=== PATIENT | female | born 1975 | race Caucasian/White ===

== ENCOUNTER 2024-01-25 19:21 | Emergency (ER) | payer BC, SELFPAY ==
[2024-01-25] VITALS (12 sets, daily range): BP systolic 168–195; BP diastolic 92–128; PULSE 70–100; TEMP 37.3; O2SAT 97–100; BMI 33.7
--- NOTE | 2024-01-25 19:39 | CT_ITS ---
The [address] [address] Patient Name: MARYCRUZ WHITE MRN: [id number] date: 1975 Sex: F Assigned Patient Location: ER Current Patient Location: Accession/Order Number: [id number] Exam Date: 01/25/2024 19:58 Report Date: 01/25/2024 20:45 At the request of: MORENO MILES Procedure: CT soft tissue neck w con EXAM: CT soft tissue neck w con HISTORY: Peritonsillar abscess COMPARISON: None. TECHNIQUE: IV contrast enhanced CT imaging of the neck. This CT exam was performed using one or more of the following dose reduction techniques: Automated exposure control, adjustment of the mA and/or KV according to patient size, or use of iterative reconstruction technique. Unless otherwise stated, incidental findings do not require dedicated follow-up imaging. FINDINGS: The skull base is intact. There is mucus retention cysts within the maxillary sinuses. Intracranial contents are midline. The parotid and submandibular glands are symmetric. The thyroid enhances homogeneously. There is mild hyperemia and heterogeneous enhancement of the palatine tonsils bilaterally. There is mild asymmetric enlargement of the right palatine tonsil. There is no peritonsillar abscess. The nasopharynx, oropharynx, hypopharynx, larynx, and trachea remain patent and symmetric. There are shotty cervical lymph nodes bilaterally. CT/CT soft tissue neck w con IMPRESSION: 1. Acute tonsillitis without abscess. Electronically authenticated by: RAUDEL MORIN Date: 01/25/2024 20:45
--- NOTE | 2024-01-25 19:42 | ED.URI1 ---
HPI - URI/Sore Throat General Chief Complaint: Upper Respiratory Infection Stated Complaint: Sore Throat, Neck Swelling Time Seen by Provider: 01/25/24 19:26 Source: patient Limitations: no limitations History of Present Illness HPI Narrative: Patient is a 48-year-old female who presents to the emergency department for worsening sore throat and difficulty swallowing. She called her PCP office 2 days ago to report a sore throat, she travels for work so her PCP called in an antibiotic without seeing her in the office, no testing has been ordered. She has been on cefdinir for 48 hours. She states her sore throat is worsening on the right side. She has had subjective fever with no objective elevated temperature. No vomiting or diarrhea. She reports poor appetite but is able to pass fluids without difficulty. She has clear speech at initial interview. She states initially her symptoms were more sinus related but have quickly progressed to the sore throat. She is not concerned for with a previous hysterectomy. Related Data Home Medications ?Medication ?Instructions ?Recorded ?Confirmed cyclobenzaprine 10 mg tablet mg 01/25/24 promethazine 25 mg tablet mg 01/25/24 Previous Rx's ?Medication ?Instructions ?Recorded clindamycin HCl 150 mg capsule 300 mg (2 x 150 mg) PO Q6H 10 days 01/25/24 #80 caps dexamethasone 4 mg tablet 4 mg PO BID 5 days #10 tabs 01/25/24 ketorolac 10 mg tablet 10 mg PO TID PRN pain #10 tabs 01/25/24 Allergies Allergy/AdvReac Type Severity Reaction Status Date / Time vancomycin AdvReac Intermediate Verified 01/25/24 19:30 Review of Systems ROS Constitutional Reports: chills; Denies: fever Ears, nose, mouth, and throat Reports: throat pain and nasal congestion Cardiovascular Denies: chest pain Respiratory Denies: shortness of breath or cough Gastrointestinal Denies: nausea or vomiting Musculoskeletal Denies: back pain Integumentary/Breast Denies: rash Neurological Denies: headache Hematologic/Lymphatic Denies: easy bruising or easy bleeding Exam Narrative Exam Narrative: Gen.: Awake, alert, in no distress Head: Normocephalic, atraumatic ENT: Moist mucous membranes, Airway widely open and patent with bilateral and symmetric tonsillar edema, exudate to the right tonsil. Uvula is midline with no trismus or drooling. No redness or swelling under the tongue Respiratory: No respiratory distress, lungs clear bilaterally Cardio: Regular rate and rhythm Extremities: Moves extremities equally Psych: Normal mood and affect Neuro: No focal neuro deficit Skin: Warm, dry, intact Constitutional Vital Signs, click to edit/add: Last Vital Signs Temp 99.1 F 01/25/24 19:31 Pulse 70 01/25/24 21:00 Resp 16 01/25/24 21:00 BP 168/92 H 01/25/24 22:02 Pulse Ox 98 01/25/24 21:50 Course Vital Signs Vital signs: Vital Signs Temperature 99.1 F 01/25/24 19:31 Pulse Rate 100 H 01/25/24 19:31 Respiratory Rate 16 01/25/24 19:31 Blood Pressure 180/110 H 01/25/24 19:31 Pulse Oximetry 100 01/25/24 19:31 Temperature 99.1 F 01/25/24 19:31 Pulse Rate 70 01/25/24 21:00 Respiratory Rate 16 01/25/24 21:00 Blood Pressure 168/92 H 01/25/24 22:02 Pulse Oximetry 98 01/25/24 21:50 MDM - URI/Sore Throat MDM Narrative Medical decision making narrative: Patient ordered to have IV fluids, IV clindamycin, IV Toradol and Decadron for symptoms. CT of the soft tissue of the neck shows tonsillitis without abscess, lab studies with no evidence of significant infection. Patient switched to clindamycin, Decadron for home. Follow-up with PCP and return to the emergency department if symptoms change or worsen. Blood pressure was noted to be elevated at recheck at discharge at 195/100. Patient was treated with IV labetalol and instructed to follow-up with her PCP for recheck of her blood pressure. Medical Records Attestation: I reviewed the patient's medical records. Lab Data Attestation: I reviewed the patient's lab results. Labs: Lab Results 01/25/24 01/25/24 Range/Units 19:48 19:49 WBC 9.2 (4.0-11.0) 10^3/uL RBC 4.91 (4.20-5.40) 10^6/uL Hgb 15.0 (12.0-16.0) g/dL Hct 43.8 (36.0-48.0) % MCV 89.2 (81.0-99.0) fL MCH 30.5 (26.7-34.0) pg MCHC 34.2 (29.9-35.2) g/dL RDW 13.6 (11.0-15.0) % Plt Count 276 (150-450) 10^3/uL MPV 9.3 L (9.5-13.5) fL Neut % (Auto) 68.3 (43.0-75.0) % Lymph % (Auto) 21.4 (20.5-60.0) % [place] % (Auto) 8.2 (1.7-12.0) % Eos % (Auto) 1.5 (0.9-7.0) % Baso % (Auto) 0.5 (0.2-2.0) % Neut # (Auto) 6.3 (1.4-6.5) 10^3/uL Lymph # (Auto) 2.0 (1.2-3.8) 10^3/uL [place] # (Auto) 0.8 (0.3-0.8) 10^3/uL Eos # (Auto) 0.1 (0.0-0.7) 10^3/uL Baso # (Auto) 0.1 (0.0-0.1) 10^3/uL Abs Immat Gran (auto) 0.01 (0.00-0.03) 10^3/uL Imm/Tot Granulo (auto) 0.1 (0.0-0.5) % Sodium 139 (136-145) mmol/L Potassium 3.5 (3.5-5.1) mmol/L Chloride 102 (98-107) mmol/L Carbon Dioxide 27.3 (21.0-32.0) mmol/L Anion Gap 13.2 BUN 8.0 (7.0-18.0) mg/dL Creatinine 0.88 (0.55-1.02) mg/dL Est GFR ( Amer) >60 (>=60) Est GFR (Non-Af Amer) >60 (>=60) BUN/Creatinine Ratio 9.1 Glucose 92 (74-106) mg/dL Calcium 9.1 (8.5-10.1) mg/dL Total Bilirubin 0.4 (0.2-1.0) mg/dL AST 31 (15-37) U/L ALT 44 (14-59) U/L Alkaline Phosphatase 92 (46-116) U/L Total Protein 8.0 (6.4-8.2) g/dL Albumin 3.7 (3.4-5.0) g/dL Globulin 4.3 g/dL Albumin/Globulin Ratio 0.9 Monoscreen Negative (NEGATIVE) Streptococcus Screen Negative Imaging Data CT neck: Attestation: I have reviewed the pertinent imaging results. Radiologist's impression: ITS Impressions Soft Tissue Neck CT 01/25/24 19:39 IMPRESSION: 1. Acute tonsillitis without abscess. Electronically authenticated by: RAUDEL MORIN Date: 01/25/2024 20:45 Discharge Plan Discharge Stand Alone Forms: Portal Instructions Chief Complaint: Upper Respiratory Infection Clinical Impression: Acute tonsillitis Patient Disposition: Home, Self-Care Time of Disposition Decision: 20:53 Condition: Good Prescriptions / Home Meds: New clindamycin HCl 150 mg capsule 300 mg PO Q6H 10 Days Qty: 80 0RF ketorolac 10 mg tablet 10 mg PO TID PRN (Reason: pain) Qty: 10 0RF dexamethasone 4 mg tablet 4 mg PO BID 5 Days Qty: 10 0RF No Action cyclobenzaprine 10 mg tablet promethazine 25 mg tablet Print Language: Divehi Instructions: Tonsillitis (ED) Referrals: Mata Conroy MD [Primary Care Provider] - 1 week Discharge Date/Time: 01/25/24 22:02
[2024-01-25 20:02] LABS: Basophils Absolute Auto 0.1 10^3/uL (0.0-0.1); Basophils Percent Auto 0.5 % (0.2-2.0); Eosinophils Absolute Auto 0.1 10^3/uL (0.0-0.7); Eosinophils Percent Auto 1.5 % (0.9-7.0); Hematocrit 43.8 % (36.0-48.0); Immature Granulocytes Abs Auto 0.01 10^3/uL (0.00-0.03); Immature Granulocytes Pct Auto 0.1 % (0.0-0.5); Lymphocytes Percent Auto 21.4 % (20.5-60.0); Mean Corpuscular HGB Conc 34.2 g/dL (29.9-35.2); Mean Corpuscular Hemoglobin 30.5 pg (26.7-34.0); Mean Corpuscular Volume 89.2 fL (81.0-99.0); Mean Platelet Volume 9.3 fL (9.5-13.5); Monocytes Absolute Auto 0.8 10^3/uL (0.3-0.8); Monocytes Percent Auto 8.2 % (1.7-12.0); Neutrophils Absolute Auto 6.3 10^3/uL (1.4-6.5); Neutrophils Percent Auto 68.3 % (43.0-75.0); Platelet Count 276 10^3/uL (150-450); Red Blood Count 4.91 10^6/uL (4.20-5.40); Red Cell Distribution Width 13.6 % (11.0-15.0); White Blood Count 9.2 10^3/uL (4.0-11.0)
[2024-01-25 20:09] LABS: Internal Control Within Normal Limits; Strep A Antigen Screen Negative
[2024-01-25 20:13] LABS: Internal Control Within Normal Limits; Mono Screen NEGATIVE (NEGATIVE)
[2024-01-25] MEDS: KETOROLAC TROMETHAMINE 30 MG/ML VIAL IVP (20:19)
[2024-01-25 20:20] LABS: Alanine Aminotransferase 44 U/L (14-59); Albumin Globulin Ratio 0.9; Albumin Level 3.7 g/dL (3.4-5.0); Alkaline Phosphatase 92 U/L (46-116); Anion Gap 13.2; Aspartate Amino Transferase 31 U/L (15-37); BUN Creatinine Ratio 9.1; Bilirubin Total 0.4 mg/dL (0.2-1.0); Calcium 9.1 mg/dL (8.5-10.1); Carbon Dioxide 27.3 mmol/L (21.0-32.0); Chloride 102 mmol/L (98-107); Estimated GFR (African America >60 (>=60); Estimated GFR (Non-African Ame >60 (>=60); Globulin 4.3 g/dL; Glucose 92 mg/dL (74-106); Potassium 3.5 mmol/L (3.5-5.1); Sodium 139 mmol/L (136-145)
[2024-01-25] MEDS: DEXAMETHASONE SOD PHOS 10 MG/ML VIAL IV (20:20)
[2024-01-25] MEDS: 0.9 % SODIUM CHLORIDE 1,000 ML 999 ML IV (20:20)
[2024-01-25] MEDS: CLINDAMYCIN PHOSPHATE/D5W 600 MG/50 ML PIGGYBACK 100 MG IV (20:20)
[2024-01-25] MEDS: LABETALOL HCL 20 MG/4 ML SYRINGE IVP (21:24)
== END 2024-01-25 22:02 | disposition home or self-care (01) ==
PROVIDERS: Physician Assistant; Emergency Provider Internal Medicine; PCP Family Medicine
DX: J03.90 Acute tonsillitis, unspecified (principal); Z90.710 Acquired absence of both cervix and uterus
CPT/HCPCS: 36415; 70491; 80053; 85025; 86308; 87070; 87880; 96365; 96375; 99285; J1100; J1290; J1885; Q9967

== ENCOUNTER 2025-04-02 10:37 | Outpatient (OUT) | payer BC, SELFPAY ==
--- OUTSIDE RECORDS SUMMARY | 2025-04-02 10:41 | XMS_ITS | Encounter Summary ---
Author Organization [facility] Address [address] [place] [address] Care Team Providers Care Fire Hose Curer Name Role Phone Mata Conroy MD Primary Care Provider [phone] Isabell Mack RN Unavailable Unavailable Source Comments In the event this information is protected by the Federal Confidentiality of Alcohol and Drug AbusePatient Records regulations: The Federal rules restrict any use of the information to criminally investigate or prosecute any alcohol or drug abuse patient.[facility] Encounter Details Date Type Department Care Team (Late st Contact Info) Description 07/07/2020 Get Medical Advice General Surgery [address] [phone] Vincent Urena MD [address] [place] [address] RE: Non-Urgent Medical Question Social History Tobacco Use Types Packs/Day Years Used Date Smoking Tobacco: Former Cigarettes 0.3 15 1 10/05/1998 - 08/04/2014 Smokeless Tobacco: Never Comments:quit 08/04/14 Alcohol Use Standard Drinks/Week Comments Not Currently 0 (1 standard drink = 0.6 oz pure alcohol) social - once a month or less AUDIT-C Answer Date Recorded Q1: How often do you have a drink containing alc ohol? Monthly or less 07/01/2020 Q2: How many drinks containi ng alcohol do you have on a typical day when you are drinking? 1 or 2 07/01/2020 Q3: How often do you have si x or more drinks on one occasion? Never 07/01/2020 PHQ-2 Answer Date Recorded PHQ-2 score 0 03/31/2020 Comments No Sex and Gender Information Value Date Recorded Sex Assigned at Not on file Legal Sex Female 10:14 AM EST Gender Identity Not on file Sexual Orientation Not on file Occupation Industry Job Start Date Job End Date [employer] Not on file Not on file Not on file COVID-19 Exposure Response Date Recorded In the last month, have you been in contact with someone who was confirmed or suspected to have Coronavirus / COVID-19? No / Unsure 07/07/2020 6:33 AM EST documented as of this encounter Functional Status * Are you deaf or do you have serious difficulty hearing? Answer Date of Assessment Author No 08/10/2018 2:29 PM Tammy Harrell RN * Are you blind or do you have serious difficulty seeing, even when wearing glasses? Answer Date of Assessment Author No 08/10/2018 2:29 PM Tammy Harrell RN * Do you have serious difficulty walking or climbing stairs? Answer Date of Assessment Author No 08/10/2018 2:29 PM Tammy Harrell RN * Do you have difficulty dressing or bathing? Answer Date of Assessment Author No 08/10/2018 2:29 PM Tammy Harrell RN * Because of a physical, mental, or emotional condition, do you have difficulty doing errands alone such as visiting a doctor's office or shopping? Answer Date of Assessment Author No 08/10/2018 2:29 PM Tammy Harrell RN documented as of this encounter Mental Status * Because of a physical, mental, or emotional condition, do you have serious difficulty concentrating, remembering, or making decisions? Answer Entry Date Author No 08/10/2018 2:29 PM Tammy Harrell RN documented in this encounter Plan of Treatment Not on file documented as of this encounter Visit Diagnoses Not on filedocumented in this encounter Care Teams Fire Hose Curer Relationship Specialty Start Date End Date Mata Conroy MD PCP - General Family Medicine 07/17/14 Isabell Mack, RN Specialty Material Controller 06/14/18 documented as of this encounter
--- OUTSIDE RECORDS SUMMARY | 2025-04-02 10:41 | XMS_ITS | Encounter Summary ---
Author Organization [facility] Address [address] [place] [address] Care Team Providers Care Annual Giving Director Name Role Phone Mata Conroy MD Primary Care Provider [phone] Isabell Mack RN Unavailable Unavailable Source Comments In the event this information is protected by the Federal Confidentiality of Alcohol and Drug AbusePatient Records regulations: The Federal rules restrict any use of the information to criminally investigate or prosecute any alcohol or drug abuse patient.[facility] Encounter Details Date Type Department Care Team (Late st Contact Info) Description 05/21/2020 Get Medical Advice General Surgery BMI [address] [place] [address] Laura Puente APRN.MORTGAGE OPERATIONS MANAGER [address] [place] [address] RE: Visit Follow Up Question Social History Tobacco Use Types Packs/Day Years Used Date Smoking Tobacco: Former Cigarettes 0.3 15 0 01/03/1998 - 01/03/2013 Smokeless Tobacco: Never Comments:quit 08/04/14 Alcohol Use Standard Drinks/Week Comments Not Currently 0 (1 standard drink = 0.6 oz pure alcohol) social - once a month or less AUDIT-C Answer Date Recorded Q1: How often do you have a drink containing alc ohol? Monthly or less 02/13/2020 Q2: How many drinks containi ng alcohol do you have on a typical day when you are drinking? 1 or 2 02/13/2020 Q3: How often do you have si x or more drinks on one occasion? Never 02/13/2020 PHQ-2 Answer Date Recorded PHQ-2 score 0 [...] have Coronavirus / COVID-19? No / Unsure 05/21/2020 9:57 AM EDT documented as of this encounter Functional Status [...] Tammy Harrell RN documented in this encounter Miscellaneous Notes * Telephone Encounter - Randi Ramsay 2020 4:38 PM EDT FYI documented in this encounter Plan of Treatment Not on file documented as of this encounter Visit Diagnoses Not on filedocumented in this encounter Care Teams Annual Giving Director Relationship Specialty Start Date End Date Mata Conroy MD PCP - General Family Medicine 07/17/14 Isabell Mack RN Specialty Masticator 06/14/18 documented as of this encounter
--- OUTSIDE RECORDS SUMMARY | 2025-04-02 10:41 | XMS_ITS | Encounter Summary ---
Author Organization [facility] Address [address] [place] [address] Care Team Providers Care Credit Collections Rep Name Role Phone Mata Conroy MD Primary Care Provider [phone] Isabell Mack RN Unavailable Unavailable Source Comments In the event this information is protected by the Federal Confidentiality of Alcohol and Drug AbusePatient Records regulations: The Federal rules restrict any use of the information to criminally investigate or prosecute any alcohol or drug abuse patient.[facility] Encounter Details Date Type Department Care Team (Late st Contact Info) Description 05/09/2020 Patient Msg Neurology [address] [place], [place] [phone] Provider, Ccf Questionnaire Submission Social History Tobacco Use Types Packs/Day Years [...] have Coronavirus / COVID-19? No / Unsure 04/24/2020 9:19 AM EDT documented as of this encounter [...] on filedocumented in this encounter Care Teams Credit Collections Rep Relationship Specialty Start Date End Date Mata Conroy MD PCP - General Family Medicine 07/17/14 Isabell Mack, RN Specialty Centerpuncher 06/14/18 documented as of this encounter
--- OUTSIDE RECORDS SUMMARY | 2025-04-02 10:41 | XMS_ITS | Encounter Summary ---
Author Organization [facility] Address [address] [place] [address] Care Team Providers Care Boiler Fitter Name Role Phone Mata Conroy MD Primary Care Provider [phone] Encounter Details Date Type Department Care Team ([facility] Contact Info) Description 01/07/2025 Orders Only [facility] [address] [place] [address] Hien Melendez MD [address] [place] [address], [address], [address] [address] Social History Tobacco Use Types Packs/Day Years Used Date Smoking Tobacco: Former Cigarettes Smokeless Tobacco: Never Comments Unknown Sex and Gender Information Value Date Recorded Sex Assigned at Not on file Legal Sex Female 9:31 PM EDT Gender Identity Not on file Sexual Orientation Not on file documented as of this encounter Plan of Treatment Upcoming Encounters Date Type Department Care Team ([facility] Contact Info) Description 05/16/2025 10:15 AM EDT Office Visit [facility] [address] [place] [address] Mata Conroy MD [address] [place] [phone] documented as of this encounter Procedures Procedure Name Priority Date/Time Associated Diagnosis Comments SCANNED LABS Routine 01/07/2025 11:09 AM EDT SCANNED LABS Routine 01/07/2025 11:03 AM EDT documented in this encounter Results * SCANNED LABS (01/07/2025 11:09 AM EDT) us Hien Melendez MD LAB CHG PERFORMABLES Final R esult * SCANNED LABS (01/07/2025 11:03 AM EDT) us Hien Melendez MD LAB CHG PERFORMABLES Final R esult documented in this encounter Visit Diagnoses Not on filedocumented in this encounter Care Teams Boiler Fitter Relationship Specialty Start Date End Date Mata Conroy MD [address] [place] [address] PCP - General Family Medicine 01/10/24 documented as of this encounter
--- OUTSIDE RECORDS SUMMARY | 2025-04-02 10:41 | XMS_ITS | Encounter Summary ---
Author Organization [facility] Address [address] [place] [address] Care Team Providers Care Yard Engineer Name Role Phone Mata Conroy MD Primary Care Provider [phone] Isabell Mack RN Unavailable Unavailable Source Comments In the event this information is protected by the Federal Confidentiality of Alcohol and Drug AbusePatient Records regulations: The Federal rules restrict any use of the information to criminally investigate or prosecute any alcohol or drug abuse patient.[facility] Encounter Details Date Type Department Care Team (Late st Contact Info) Description 06/29/2020 Get Medical Advice General Surgery [address] [phone] Vincent Urena MD [address] [place] [address] RE: Upcoming Appointment Question Social History Tobacco Use Types Packs/Day [...] have Coronavirus / COVID-19? No / Unsure 07/01/2020 1:44 PM EST documented as of this encounter Functional Status * Question Answer Date of Assessment Author Q1: How often do you have a drink containing alcohol? Monthly or less 07/01/2020 1:46 PM Danay Sam LPN Q2: How many drinks containing alcohol do you have on a typical day when you are drinking? 1 or 2 07/01/2020 1:46 PM Danay Sam LPN Q3: How often do you have si x or more drinks on one occasion? Never 07/01/2020 1:46 PM Danay Sam LPN * Are you deaf or do you [...] on filedocumented in this encounter Care Teams Yard Engineer Relationship Specialty Start Date End Date Mata Conroy MD PCP - General Family Medicine 07/17/14 Isabell Mack RN Specialty District Scout Executive 06/14/18 documented as of this encounter
--- OUTSIDE RECORDS SUMMARY | 2025-04-02 10:41 | XMS_ITS | Encounter Summary ---
Author Organization [facility] Address [address] [place] [address] Care Team Providers Care Office Machine Servicer Name Role Phone Mata Conroy MD Primary Care Provider [phone] Mata Conroy MD Unavailable Reason for Visit * Reason Comments Med Change Request Encounter Details Date Type Department Care Team ([facility] Contact Info) Description 11/11/2024 Refill [facility] [address] [place] [phone] Mata Conroy MD [address] [place] [phone] Bilateral leg edema Social History Tobacco Use Types Packs/Day Years Used Date Smoking Tobacco: Former Cigarettes Smokeless Tobacco: Never Comments Unknown Sex and Gender Information Value Date Recorded Sex Assigned at Not on file Legal Sex Female 9:31 PM EDT Gender Identity Not on file Sexual Orientation Not on file documented as of this encounter Miscellaneous Notes * Telephone Encounter - DAVID HIGGINBOTHAM - 11/11/2024 2:54 PM EDT MEDICATION SENT TO [facility] documented in this encounter Plan of Treatment Upcoming Encounters Date Type Department Care Team ([facility] Contact Info) Description 05/16/2025 10:15 AM EDT Office Visit [facility] [address] [place] [address] Mata Conroy MD [address] [place] [address] documented as of this encounter Visit Diagnoses Diagnosis Bilateral leg edema Edema documented in this encounter Care Teams Office Machine Servicer Relationship Specialty Start Date End Date Mata Conroy MD [address] [place] [phone] PCP - General Family Medicine 01/10/24 Mata Conroy MD [address] [place] [address] PCP - Rolly Rizvi 08/14/24 documented as of this encounter
--- OUTSIDE RECORDS SUMMARY | 2025-04-02 10:41 | XMS_ITS | Encounter Summary ---
Author Organization [facility] Address [address] [place] [address] Care Team Providers Care Supervising Film Or Videotape Editor Name Role Phone Mata Conroy MD Primary Care Provider [phone] Isabell Mack RN Unavailable Unavailable Source Comments In the event this information is protected by the Federal Confidentiality of Alcohol and Drug AbusePatient Records regulations: The Federal rules restrict any use of the information to criminally investigate or prosecute any alcohol or drug abuse patient.[facility] Encounter Details Date Type Department Care Team (Late st Contact Info) Description 02/27/2020 Get Medical Advice General Surgery [address] [place] [address] Laura Puente APRN.FLAT BREAKDOWN PROCESSOR [address] [place] [address] RE: Test Result Question Social History Tobacco Use Types Packs/Day [...] Never 02/13/2020 PHQ-2 Answer Date Recorded PHQ-2 Score 0 07/07/2019 Comments No Sex and Gender Information Value [...] have Coronavirus / COVID-19? No / Unsure 02/28/2020 11:18 AM EDT documented as of this encounter [...] on filedocumented in this encounter Care Teams Supervising Film Or Videotape Editor Relationship Specialty Start Date End Date Mata Conroy MD PCP - General Family Medicine 07/17/14 Isabell Mack, RN Specialty Personnel Clerk 06/14/18 documented as of this encounter
--- OUTSIDE RECORDS SUMMARY | 2025-04-02 10:41 | XMS_ITS | Clinical Summary ---
Author Organization [facility] Address [address] [place] [address] Phone Care Team Providers Care Narrow Fabric Calenderer Name Role Phone Mata Conroy MD Primary Care Provider + Social History Tobacco Use Types Packs/Day Years Used Date Smoking Tobacco: Never Assessed Comments Unknown Sex and Gender Information Value Date Recorded Sex Assigned at Not on file Legal Sex Female 10:06 AM EST Gender Identity Not on file Sexual Orientation Not on file Plan of Treatment Not on file Care Teams Narrow Fabric Calenderer Relationship Specialty Start Date End Date Mata Conroy MD PCP - General 10/01/19
--- OUTSIDE RECORDS SUMMARY | 2025-04-02 10:41 | XMS_ITS | Encounter Summary ---
Author Organization [facility] Address [address] [place] [address] Care Team Providers Care Shampoo Assistant Name Role Phone Mata Conroy MD Primary Care Provider [phone] Isabell Mack RN Unavailable Unavailable Source Comments In the event this information is protected by the Federal Confidentiality of Alcohol and Drug AbusePatient Records regulations: The Federal rules restrict any use of the information to criminally investigate or prosecute any alcohol or drug abuse patient.[facility] Encounter Details Date Type Department Care Team (Late st Contact Info) Description 03/17/2020 Get Medical Advice General Surgery [address] [place] [address] Laura Puente APRN.TOOL DESIGNER APPRENTICE [address] [place] [address] RE: Test Result Question Social [...] have Coronavirus / COVID-19? No / Unsure 03/16/2020 1:52 PM EDT documented as of this encounter Functional [...] on filedocumented in this encounter Care Teams Shampoo Assistant Relationship Specialty Start Date End Date Mata Conroy MD PCP - General Family Medicine 07/17/14 Isabell Mack, RN Specialty Heel Stiffener 06/14/18 documented as of this encounter
--- OUTSIDE RECORDS SUMMARY | 2025-04-02 10:41 | XMS_ITS | Encounter Summary ---
Author Organization [facility] Address [address] [place] [address] Care Team Providers Care Balance Weigher Name Role Phone Mata Conroy MD Primary Care Provider [phone] Isabell Mack RN Unavailable Unavailable Source Comments In the event this information is protected by the Federal Confidentiality of Alcohol and Drug AbusePatient Records regulations: The Federal rules restrict any use of the information to criminally investigate or prosecute any alcohol or drug abuse patient.[facility] Encounter Details Date Type Department Care Team ([facility] Contact Info) Description 06/10/2020 Get Medical Advice Nutrition [address] [place], [place] [id number] Provider, Ccf RE: Non-Urgent Medical Question Social History Tobacco [...] on filedocumented in this encounter Care Teams Balance Weigher Relationship Specialty Start Date End Date Mata Conroy MD PCP - General Family Medicine 07/17/14 Isabell Mack, RN Specialty Share Dairy Farmer 06/14/18 documented as of this encounter
--- OUTSIDE RECORDS SUMMARY | 2025-04-02 10:41 | XMS_ITS | Encounter Summary ---
Author Organization [facility] Address [address] [place] [address] Care Team Providers Care Salesperson Books Name Role Phone Mata Conroy MD Primary Care Provider [phone] Isabell Mack RN Unavailable Unavailable Source Comments In the event this information is protected by the Federal Confidentiality of Alcohol and Drug AbusePatient Records regulations: The Federal rules restrict any use of the information to criminally investigate or prosecute any alcohol or drug abuse patient.[facility] Encounter Details Date Type Department Care Team (Late st Contact Info) Description 06/29/2020 Get Medical Advice General Surgery [address] [id number] Vincent Urena MD [address] [place] [address] RE: Medication Question (Not Renewal) Social History Tobacco Use Types Packs/Day Years [...] on filedocumented in this encounter Care Teams Salesperson Books Relationship Specialty Start Date End Date Mata Conroy MD PCP - General Family Medicine 07/17/14 Isabell Mack RN Specialty Crisis Therapist 06/14/18 documented as of this encounter
--- OUTSIDE RECORDS SUMMARY | 2025-04-02 10:41 | XMS_ITS | Encounter Summary ---
Author Organization [facility] Address [address] [place] [address] Care Team Providers Care Sewer And Drain Technician Name Role Phone Mata Conroy MD Primary Care Provider [phone] Isabell Mack RN Unavailable Unavailable Source Comments In the event this information is protected by the Federal Confidentiality of Alcohol and Drug AbusePatient Records regulations: The Federal rules restrict any use of the information to criminally investigate or prosecute any alcohol or drug abuse patient.[facility] Encounter Details Date Type Department Care Team (Late st Contact Info) Description 09/30/2020 Get Medical Advice General Surgery [address] [phone] Provider, Ccf RE: Visit Follow Up Question Social History [...] PHQ-2 Answer Date Recorded PHQ-2 score 0 08/19/2020 Area Deprivation Index Answer Date Antione rded National Score (1-100), lower number is lower ri sk Not on file 07/19/2020 State Score (1-10), lower number is lower risk N ot on file 07/19/2020 Data from: https://www.neighborhoodatlas.medicine.[facility]/. 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 Answer Date of Assessment Author No 07/08/2020 12:40 PM Stephanie Hurtado RN * Are you blind or do you have serious difficulty seeing, even when wearing glasses? Answer Date of Assessment Author No 07/08/2020 12:40 PM Stephanie Hurtado RN * Do you have serious difficulty walking or climbing stairs? Answer Date of Assessment Author No 07/08/2020 12:40 PM Stephanie Hurtado RN * Do you have difficulty dressing or bathing? Answer Date of Assessment Author No 07/08/2020 12:40 PM Stephanie Hurtado RN * Because of a physical, mental, or emotional condition, do you have difficulty doing errands alone such as visiting a doctor's office or shopping? Answer Date of Assessment Author No 07/08/2020 12:40 PM Stephanie Hurtado RN documented as of this encounter Mental Status * Because of a physical, mental, or emotional condition, do you have serious difficulty concentrating, remembering, or making decisions? Answer Entry Date Author No 07/08/2020 12:40 PM Stephanie Hurtado RN documented in this encounter Plan of Treatment Not on file documented as of this encounter Visit Diagnoses Not on filedocumented in this encounter Care Teams Sewer And Drain Technician Relationship Specialty Start Date End Date Mata Conroy MD PCP - General Family Medicine 07/17/14 Isabell Mcak, RN Specialty Grinding And Spraying Supervisor 06/14/18 documented as of this encounter
--- OUTSIDE RECORDS SUMMARY | 2025-04-02 10:41 | XMS_ITS | Encounter Summary ---
Author Organization [facility] Address [address] [place] [address] Care Team Providers Care Automation Machine Builder Name Role Phone Mata Conroy MD Primary Care Provider Reason for Visit * Reason Comments Med Refill Encounter Details Date Type Department Care Team ([facility] Contact Info) Description 01/24/2025 Refill [facility] [address] [place] [phone] Mata Conroy MD [address] [place] [phone] SELVIN (generalized anxiety disorder) Social History Tobacco Use Types Packs/Day Years Used Date Smoking Tobacco: Former Cigarettes Smokeless Tobacco: Never Comments Unknown Sex and Gender Information Value Date Recorded Sex Assigned at Not on file Legal Sex Female 9:31 PM EDT Gender Identity Not on file Sexual Orientation Not on file documented as of this encounter Miscellaneous Notes * Telephone Encounter - Mata Conroy MD - 01/27/2025 12:17 PM EDT Due for follow up visit. Will not be able to continue giving refills if not scheduled and seen. documented in this encounter Plan of Treatment Upcoming Encounters Date Type Department Care Team ([facility] Contact Info) Description 05/16/2025 10:15 AM EDT Office Visit [facility] [address] [place] [address] Mata Conroy MD [address] [place] [phone] documented as of this encounter Visit Diagnoses Diagnosis SELVIN (generalized anxiety disorder) Generalized anxiety disorder documented in this encounter Care Teams Automation Machine Builder Relationship Specialty Start Date End Date Mata Conroy MD [address] [place] [address] PCP - General Family Medicine 01/10/24 documented as of this encounter
--- OUTSIDE RECORDS SUMMARY | 2025-04-02 10:41 | XMS_ITS | Clinical Summary ---
Author Organization [facility] Address [address] [place] [address] Care Team Providers Care Mineral Technologist Name Role Phone Mata Conroy MD Primary Care Provider [phone] Allergies Active Allergy Reactions Criticality Noted Date Comments Vancomycin Hives,Rash Low 07/01/2020 Medications dicyclomine (Bentyl) 20 MG tabletIndicatio ns:Abdominal cramping TAKE 1 TABLET BY MOUTH 4 TIMES A DAY NEEDED FOR ABDOMNIAL CRAMPING 360 tablet 1 07/17/20 24 Active furosemide (Lasix) 40 MG tabletIndicatio ns:Bilateral leg edema TAKE 1 TABLET BY MOUTH EVERY DAY 90 tablet 2 11/12/19 25 Active cyclobenzaprine (Flexeril) 10 MG tabletIndicatio ns:Lumbar back pain TAKE 1 TABLET BY MOUTH 3 TIMES A DAY NEEDED 60 tablet 3 12/24/19 25 Active promethazine (Phenergan) 25 MG tabletIndicatio ns:Nausea TAKE 1 TABLET BY MOUTH EVERY 6 HOURS NEEDED 30 tablet 1 01/18/20 25 Active cyanocobalamin (Vitamin B-12) 1000 MCG/ML injectionIndica tions:LAP-BAND surgery status INJECT 1 ML ONCE MONTHLY DIRECTED 1 mL 35 02/19/20 25 Active Risankizumab-rz aa (Skyrizi) 150 MG/ML solution prefilled syringe Inject under the skin Active losartan (Cozaar) 50 MG tabletIndicatio ns:Benign essential hypertension Take 1 tablet (50 mg) by mouth Daily 30 tablet 5 03/13/20 25 Active ALPRAZolam (Xanax) 0.5 MG tabletIndicatio ns:SELVIN (generalized anxiety disorder) Take 1 tablet (0.5 mg) by mouth 3 (three) times a day as needed for anxiety 90 tablet 2 03/13/20 25 Active phentermine (Adipex-P) 37.5 MG tabletIndicatio ns:Class 2 severe obesity due to excess calories with serious comorbidity and body mass index (BMI) of 37.0 to 37.9 in adult ([facility]) Take 1 tablet (37.5 mg) by mouth in the morning. Take before meals. 30 tablet 03/13/20 25 025 Active losartan (Cozaar) 25 MG tabletIndicatio ns:Benign essential hypertension Take 1 tablet (25 mg) by mouth Daily 30 tablet 5 07/10/20 24 025 Discontinued ALPRAZolam (Xanax) 0.5 MG tabletIndicatio ns:SELVIN (generalized anxiety disorder) TAKE 1 TABLET BY MOUTH THREE TIMES A DAY NEEDED FOR ANXIETY 90 tablet 01/28/20 25 025 Discontinued(Re order) phentermine (Adipex-P) 37.5 MG tabletIndicatio ns:Obesity (BMI 30-39.9) TAKE 1 TABLET BY MOUTH EVERY MORNING BEFORE A MEAL. 30 tablet 01/28/20 25 025 Discontinued(Re order) Active Problems Problem Noted Date Diagnosed Date Crohn's disease of both smal l and large intestine without complication 03/13/2025 Assessment & Plan (03/13/2025 11:13 AM EDT): Improved with treatment and follow with GI. Benign essential hypertension 01/10/2024 Assessment & Plan (03/13/2025 11:13 AM EDT): BP elevated and increase losartan. Monitor PRN. Discussed DASH diet. Assessment & Plan (07/10/2024 10:00 AM EST): BP elevated and start losartan. Monitor PRN. Discussed DASH diet. Assessment & Plan (01/10/2024 12:31 PM EDT): BP elevated and need to monitor PRN. If consistently 140/90 or higher will need to resume treatment for HTN. Annual physical exam 01/10/2024 Assessment & Plan (01/10/2024 12:31 PM EDT): Due for labs and mammogram. Discussed proper diet and regular aerobic exercise. Need aerobic exercise 5-6 days a week for 30 minutes at a time. Smaller portions and limit total calories. Colonoscopy every 10 years. Tetanus every 10 years. Advised not to smoke. Discussed daily Aspirin therapy. Bilateral leg edema 01/10/2024 Assessment & Plan (03/13/2025 11:13 AM EDT): Edema stable and continue lasix. Elevated legs PRN. Limit sodium intake. Assessment & Plan (07/10/2024 10:00 AM EST): Edema worse and resume lasix. Elevated legs PRN. Limit sodium intake. SELVIN (generalized anxiety disorder) 01/10/2024 Assessment & Plan (03/13/2025 11:13 AM EDT): Symptoms unchanged and use xanax PRN. Assessment & Plan (07/10/2024 10:00 AM EST): Symptoms unchanged and use xanax PRN. LAP-BAND surgery status 01/10/2024 Lumbosacral spondylosis without myelopathy 01/09 Class 2 severe obesity due t o excess calories with serious comorbidity and body mass index (BMI) of 37.0 to 37.9 in adult 01/10/2024 Assessment & Plan (03/13/2025 11:13 AM EDT): Continue adipex. Discussed proper diet and regular aerobic exercise. Recommend Weight Watchers and need to limit calories and smaller portions. Need to increase activity and regular aerobic exercise several days a week for 30 minutes at a time. Assessment & Plan (01/10/2024 12:32 PM EDT): Weight up 36 pounds. Try mounjaro and if not covered can try adipex. Discussed proper diet and regular aerobic exercise. Recommend Weight Watchers and need to limit calories and smaller portions. Need to increase activity and regular aerobic exercise several days a week for 30 minutes at a time. Resolved Problems Problem Noted Date Diagnosed Date Resolved Date Hematochezia 07/10/2024 03/13/2025 Assessment & Plan (07/10/2024 10:01 AM EST): Blood with BM for months and refer to GI. Abdominal cramping 07/10/2024 Assessment & Plan (07/10/2024 10:00 AM EST): Frequent cramping and try bentyl. Follow with GI. Encounters Date Type Department Care Team Description 03/13/2025 10:30 AM EDT Office Visit [facility] [address] [place] [address] Mata Conroy MD Benign essential hypertension (Primary Dx); SELVIN (generalized anxiety disorder) ; Crohn's disease of both small and large intestine without complication (HCC); Bilateral leg edema; Class 2 severe obesity due to excess calories with serious comorbidity and body mass index (BMI) of 37.0 to 37.9 in adult ([facility]); Annual physical exam 03/13/2025 Bamboo flowsheet [facility] [address] [place] [phone] Mata Conroy MD 03/03/2025 Refill [facility] [address] [place] [address] Mata Conroy MD SELVIN (generalized anxiety disorder) ; Obesity (BMI 30-39.9) 02/28/2025 Refill [facility] [address] [place] [address] Mata Conroy MD SELVIN (generalized anxiety disorder) ; Obesity (BMI 30-39.9) 02/18/2025 Refill [facility] [address] [place] [address] Mata Conroy MD LAP-BAND surgery status 01/26/2025 Refill [facility] [address] [place] [address] Mata Conroy MD Obesity (BMI 30-39.9); SELVIN (generalized anxiety disorder) 01/24/2025 Refill [facility] [address] [place] [address] Mata Conroy MD SELVIN (generalized anxiety disorder) 01/16/2025 Refill [facility] [address] [place] [address] Mata Conroy MD [facility] 01/13/2025 Orders Only [facility] [address] [place] [address] Hien Melendez MD 01/07/2025 Orders Only [facility] [address] [place] [address] Hien Melendez MD 01/01/2025 Orders Only [facility] [address] [place] [address] Hien Melendez MD 12/31/2024 Orders Only [facility] [address] [place] [address] Hien Melendez MD from Last 3 Months Social History Tobacco Use Types Packs/Day Years Used Date Smoking Tobacco: Former Cigarettes Smokeless Tobacco: Never Comments Unknown Sex and Gender Information Value Date Recorded Sex Assigned at Not on file Legal Sex Female 9:31 PM EDT Gender Identity Not on file Sexual Orientation Not on file Last Filed Vital Signs Vital Sign Reading Time Taken Comments Blood Pressure 156/102 03/13/2025 10:35 AM EDT Pulse 97 03/13/2025 10:35 AM EDT Temperature 36.3 C (97.3 F) 03/13/2025 10:35 AM EDT Respiratory Rate 22 03/13/2025 10:35 AM EDT Oxygen Saturation 98% 03/13/2025 10:35 AM EDT Inhaled Oxygen Concentration - - Weight 95.7 kg (211 lb) 03/13/2025 10:35 AM EDT Height 160 cm (5' 3 ) 03/13/2025 10:35 AM EDT Body Mass Index 37.38 03/13/2025 10:35 AM EDT Plan of Treatment Upcoming Encounters Date Type Department Care Team (Late st Contact Info) Description 05/16/2025 10:15 AM EDT Office Visit [facility] [address] [place] [address] Mata Conroy MD [address] [place] [address] Health Maintenance Due Date Last Done Comments CT Colonography 1974 FIT-DNA 1974 FIT 1974 FOBT 1974 Sigmoidoscopy 1974 Pap Smear 1995 Cervical Cancer Screening 2004 HPV/Cotest 2004 Mammogram 2014 Influenza Vaccine (#1) 2025 , 09/22/2023, 04/23/2020, Additional history exists Colonoscopy 02/18/2029 02/18/2019, 02/18/2019, 1204/2011 Colorectal Cancer Screening 02/18/2029 Procedures Procedure Name Priority Date/Time Associated Diagnosis Comments SCANNED LABS Routine 01/13/2025 1:51 PM EDT SCANNED LABS Routine 01/07/2025 11:09 AM EDT SCANNED LABS Routine 01/07/2025 11:03 AM EDT SCANNED LABS Routine 01/01/2025 1:32 PM EDT SCANNED LABS Routine 01/01/2025 9:11 AM EDT SCANNED LABS Routine 12/31/2024 1:18 PM EDT SCANNED LABS Routine 12/31/2024 11:00 AM EDT from Last 3 Months Results * SCANNED LABS (01/13/2025 1:51 PM EDT) Only the most recent of7 resultswithin the time period is included. Hien Melendez MD LAB CHG PERFORMABLES Final R esult from Last 3 Months Insurance BCBS Care Teams Mineral Technologist Relationship Specialty Start Date End Date Mata Conroy MD [address] [place] [address] PCP - General Family Medicine 01/10/24
--- OUTSIDE RECORDS SUMMARY | 2025-04-02 10:41 | XMS_ITS | Encounter Summary ---
Author Organization [facility] Address [address] [place] [address] Care Team Providers Care Administrative Assistant Name Role Phone Mata Conroy MD Primary Care Provider [phone] Reason for Visit * Reason Comments Med Refill Encounter Details Date Type Department Care Team ([facility] Contact Info) Description 12/27/2024 Refill [facility] [address] [place] [address] Mata Conroy MD [address] [place] [address] Obesity (BMI 30-39.9) Social History Tobacco Use Types Packs/Day Years Used Date Smoking Tobacco: Former Cigarettes Smokeless Tobacco: Never Comments Unknown Sex and Gender Information Value Date Recorded Sex Assigned at Not on file Legal Sex Female 9:31 PM EDT Gender Identity Not on file Sexual Orientation Not on file documented as of this encounter Miscellaneous Notes * Telephone Encounter - Mata Conroy MD - 12/27/2024 3:22 PM EDT Due for follow up visit. documented in this encounter Plan of Treatment Upcoming Encounters Date Type Department Care Team ([facility] Contact Info) Description 05/16/2025 10:15 AM EDT Office Visit [facility] [address] [place] [address] Mata Conroy MD [address] [place] [address] documented as of this encounter Visit Diagnoses Diagnosis Obesity (BMI 30-39.9) documented in this encounter Care Teams Administrative Assistant Relationship Specialty Start Date End Date Mata Conroy MD [address] [place] [address] PCP - General Family Medicine 01/10/24 documented as of this encounter
--- OUTSIDE RECORDS SUMMARY | 2025-04-02 10:41 | XMS_ITS | Encounter Summary ---
Author Organization [facility] Address [address] [place] [address] Care Team Providers Care Measuring Machine Tender Name Role Phone Mata Conroy MD Primary Care Provider [phone] Isabell Mack RN Unavailable Unavailable Source Comments In the event this information is protected by the Federal Confidentiality of Alcohol and Drug AbusePatient Records regulations: The Federal rules restrict any use of the information to criminally investigate or prosecute any alcohol or drug abuse patient.[facility] Encounter Details Date Type Department Care Team (Late st Contact Info) Description 12/18/2018 Patient Msg Pulmonary Medicine [address] [phone] Louie Mendoza MD [address] [place] [address] RE: Request an Appointment Social History Tobacco Use Types Packs/Day Years Used Date Smoking Tobacco: Former Cigarettes 0.3 15 0 01/03/1998 - 01/03/2013 Smokeless Tobacco: Never Comments:quit 08/04/14 Alcohol Use Standard Drinks/Week Comments No 0 (1 standard drink = 0.6 oz pur e alcohol) social Comments No Sex and Gender Information Value [...] on filedocumented in this encounter Care Teams Measuring Machine Tender Relationship Specialty Start Date End Date Mata Conroy MD PCP - General Family Medicine 07/17/14 Isabell Mack RN Specialty Production Mechanic 06/14/18 documented as of this encounter
--- OUTSIDE RECORDS SUMMARY | 2025-04-02 10:41 | XMS_ITS | Encounter Summary ---
Author Organization [facility] Address [address] [place] [address] Care Team Providers Care System Archive Analyst Name Role Phone Mata Conroy MD Primary Care Provider [phone] Encounter Details Date Type Department Care Team ([facility] Contact Info) Description 01/13/2025 Orders Only [facility] [address] [place] [address] Hien Melendez MD [address] [place] [address], [address], [address] [address] Social History Tobacco Use Types Packs/Day Years Used Date Smoking Tobacco: Former Cigarettes Smokeless Tobacco: Never Comments Unknown Sex and Gender Information Value Date Recorded Sex Assigned at Not on file Legal Sex Female 9:31 PM EDT Gender Identity Not on file Sexual Orientation Not on file documented as of this encounter Plan of Treatment Upcoming Encounters Date Type Department Care Team ([facility] Contact Info) Description 05/16/2025 10:15 AM EDT Office Visit [facility] [address] [place] [address] Mata Conroy MD [address] [place] [address] documented as of this encounter Procedures Procedure Name Priority Date/Time Associated Diagnosis Comments SCANNED LABS Routine 01/13/2025 1:51 PM EDT documented in this encounter Results * SCANNED LABS (01/13/2025 1:51 PM EDT) Hien Melendez MD LAB CHG PERFORMABLES Final R esult documented in this encounter Visit Diagnoses Not on filedocumented in this encounter Care Teams System Archive Analyst Relationship Specialty Start Date End Date Mata Conroy MD [address] [place] [address] PCP - General Family Medicine 01/10/24 documented as of this encounter
--- OUTSIDE RECORDS SUMMARY | 2025-04-02 10:41 | XMS_ITS | Encounter Summary ---
Author Organization [facility] Address [address] [place] [address] Care Team Providers Care Assistant Press Operator Offset Name Role Phone Mata Conroy MD Primary Care Provider [phone] Isabell Mack RN Unavailable Unavailable Source Comments In the event this information is protected by the Federal Confidentiality of Alcohol and Drug AbusePatient Records regulations: The Federal rules restrict any use of the information to criminally investigate or prosecute any alcohol or drug abuse patient.[facility] Encounter Details Date Type Department Care Team (Late st Contact Info) Description 04/24/2020 Patient Msg Neurology [address] [place], [place] [phone] Provider, Ccf Questionnaire Submission Social History Tobacco [...] on filedocumented in this encounter Care Teams Assistant Press Operator Offset Relationship Specialty Start Date End Date Mata Conroy MD PCP - General Family Medicine 07/17/14 Isabell Mack, RN Specialty Digital Engineer 06/14/18 documented as of this encounter
--- OUTSIDE RECORDS SUMMARY | 2025-04-02 10:41 | XMS_ITS | Encounter Summary ---
Author Organization [facility] Address [address] [place] [address] Care Team Providers Care Orchid Worker Name Role Phone Mata Conroy MD Primary Care Provider [phone] Encounter Details Date Type Department Care Team ([facility] Contact Info) Description 12/31/2024 Orders Only [facility] [address] [place] [address] Hien Melendez MD [address] [place] [address], [address], [address] [address] Social History Tobacco Use Types Packs/Day Years Used Date Smoking Tobacco: Former Cigarettes Smokeless Tobacco: Never Comments Unknown Sex and Gender Information Value Date Recorded Sex Assigned at Not on file Legal Sex Female 9:31 PM EDT Gender Identity Not on file Sexual Orientation Not on file documented as of this encounter Plan of Treatment Upcoming Encounters Date Type Department Care Team ([facility] Contact Info) Description 05/16/2025 10:15 AM EDT Office Visit [facility] [address] [place] [address] Mata Conroy MD [address] [place] [phone] documented as of this encounter Procedures Procedure Name Priority Date/Time Associated Diagnosis Comments SCANNED LABS Routine 12/31/2024 1:18 PM EDT SCANNED LABS Routine 12/31/2024 11:00 AM EDT documented in this encounter Results * SCANNED LABS (12/31/2024 1:18 PM EDT) us Hien Melendez MD LAB CHG PERFORMABLES Final R esult * SCANNED LABS (12/31/2024 11:00 AM EDT) us Hien Melendez MD LAB CHG PERFORMABLES Final R esult documented in this encounter Visit Diagnoses Not on filedocumented in this encounter Care Teams Orchid Worker Relationship Specialty Start Date End Date Mata Conroy MD [address] [place] [address] PCP - General Family Medicine 01/10/24 documented as of this encounter
--- OUTSIDE RECORDS SUMMARY | 2025-04-02 10:41 | XMS_ITS | Encounter Summary ---
Author Organization [facility] Address [address] [place] [address] Care Team Providers Care Drug And Alcohol Counselor Name Role Phone Mata Conroy MD Primary Care Provider [phone] Isabell Mack RN Unavailable Unavailable Source Comments In the event this information is protected by the Federal Confidentiality of Alcohol and Drug AbusePatient Records regulations: The Federal rules restrict any use of the information to criminally investigate or prosecute any alcohol or drug abuse patient.[facility] Encounter Details Date Type Department Care Team (Late st Contact Info) Description 04/24/2020 Patient Msg Neurology [address] [place], [place] [phone] Provider, Ccf Questionnaire Submission Social History Tobacco [...] on filedocumented in this encounter Care Teams Drug And Alcohol Counselor Relationship Specialty Start Date End Date Mata Conroy MD PCP - General Family Medicine 07/17/14 Isabell Mack, RN Specialty Watershed Manager 06/14/18 documented as of this encounter
--- OUTSIDE RECORDS SUMMARY | 2025-04-02 10:41 | XMS_ITS | Encounter Summary ---
Author Organization [facility] Address [address] [place] [address] Care Team Providers Care Senior Analytical Chemist Name Role Phone Mata Conroy MD Primary Care Provider [phone] Isabell Mack RN Unavailable Unavailable Source Comments In the event this information is protected by the Federal Confidentiality of Alcohol and Drug AbusePatient Records regulations: The Federal rules restrict any use of the information to criminally investigate or prosecute any alcohol or drug abuse patient.[facility] Encounter Details Date Type Department Care Team (Late st Contact Info) Description 12/02/2019 Patient [facility] [address] [phone] Provider, Ccf Please call the [facility] to Reschedule in the Genetics Department Social History Tobacco Use Types Packs/Day Years Used Date Smoking Tobacco: Former Cigarettes 0.3 15 0 01/03/1998 - 01/03/2013 Smokeless Tobacco: Never Comments:quit 08/04/14 Alcohol Use Standard Drinks/Week Comments No 0 (1 standard drink = 0.6 oz pur e alcohol) social PHQ-2 Answer Date Recorded PHQ-2 Score 0 [...] have Coronavirus / COVID-19? No / Unsure 12/01/2019 10:16 PM EDT documented as of this encounter [...] on filedocumented in this encounter Care Teams Senior Analytical Chemist Relationship Specialty Start Date End Date Mata Conroy MD PCP - General Family Medicine 07/17/14 Isabell Mack RN Specialty Casing Material Weigher 06/14/18 documented as of this encounter
--- OUTSIDE RECORDS SUMMARY | 2025-04-02 10:41 | XMS_ITS | Clinical Summary ---
Demographics Address [address] [place] [address] Home Phone Preferred Language Unknown Marital Status Unknown Holiness Affiliation Unknown Race Unknown Ethnic Group Unknown Author Organization [facility] Address [address] [place] [address], [address] [place] [address] Care Team Providers Care Environmental Health Inspector Name Role Phone Unavailable Primary Care Provider Unavailabl e Social History Tobacco Use Types Packs/Day Years Used Date Smoking Tobacco: Never Assessed Comments Unknown Sex and Gender Information Value Date Recorded Sex Assigned at Not on file Legal Sex Female 10:47 PM EST Gender Identity Not on file Sexual Orientation Not on file Plan of Treatment Not on file
--- OUTSIDE RECORDS SUMMARY | 2025-04-02 10:41 | XMS_ITS | Encounter Summary ---
Author Organization [facility] Address [address] [place] [address] Care Team Providers Care Yarn Dumper Name Role Phone Mata Conroy MD Primary Care Provider [phone] Isabell Mack RN Unavailable Unavailable Source Comments In the event this information is protected by the Federal Confidentiality of Alcohol and Drug AbusePatient Records regulations: The Federal rules restrict any use of the information to criminally investigate or prosecute any alcohol or drug abuse patient.[facility] Encounter Details Date Type Department Care Team (Late st Contact Info) Description 06/17/2020 Patient Msg General Surgery [address] [phone] Provider, Ccf Scheduled for Surgery Jul 07, 2020 Social History Tobacco Use Types Packs/Day Years [...] or suspected to have Coronavirus / COVID-19? Unable to assess 06/17/2020 1:00 PM EST documented as of this encounter [...] on filedocumented in this encounter Care Teams Yarn Dumper Relationship Specialty Start Date End Date Mata Conroy MD PCP - General Family Medicine 07/17/14 Isabell Mack, RN Specialty Chief Orthoptist 06/14/18 documented as of this encounter
--- OUTSIDE RECORDS SUMMARY | 2025-04-02 10:41 | XMS_ITS | Encounter Summary ---
Author Organization [facility] Address [address] [place] [address] Care Team Providers Care Cylinder Press Operator Name Role Phone Mata Conroy MD Primary Care Provider [phone] Encounter Details Date Type Department Care Team ([facility] Contact Info) Description 01/01/2025 Orders Only [facility] [address] [place] [address] Hien Melendez MD [address] [place] [address], [address], [address] [address] Social History Tobacco Use Types Packs/Day Years Used Date Smoking Tobacco: Former Cigarettes Smokeless Tobacco: Never Comments Unknown Sex and Gender Information Value Date Recorded Sex Assigned at Not on file Legal Sex Female 9:31 PM EDT Gender Identity Not on file Sexual Orientation Not on file documented as of this encounter Plan of Treatment Upcoming Encounters Date Type Department Care Team ([facility] Contact Info) Description 05/16/2025 10:15 AM EDT Office Visit [facility] [address] [place] [address] Mata Conroy MD [address] [place] [phone] documented as of this encounter Procedures Procedure Name Priority Date/Time Associated Diagnosis Comments SCANNED LABS Routine 01/01/2025 1:32 PM EDT SCANNED LABS Routine 01/01/2025 9:11 AM EDT documented in this encounter Results * SCANNED LABS (01/01/2025 1:32 PM EDT) us Hien Melendez MD LAB CHG PERFORMABLES Final R esult * SCANNED LABS (01/01/2025 9:11 AM EDT) us Hien Melendez MD LAB CHG PERFORMABLES Final R esult documented in this encounter Visit Diagnoses Not on filedocumented in this encounter Care Teams Cylinder Press Operator Relationship Specialty Start Date End Date Mata Conroy MD [address] [place] [address] PCP - General Family Medicine 01/10/24 documented as of this encounter
--- OUTSIDE RECORDS SUMMARY | 2025-04-02 10:41 | XMS_ITS | Clinical Summary ---
Author Organization [facility] Address [address] [place] [address] Care Team Providers Care Commercial Decorator Name Role Phone Mata Conroy MD Primary Care Provider [phone] Isabell Mack RN Unavailable Unavailable Allergies Active Allergy Reactions Criticality Noted Date Comments Vancomycin Hives,Rash 07/01/2020 Medications * This document contains information received from the source organization and may not represent a complete record from that organization. CPAP AutoPAP 5-15 cmH2O, mask (pt pref), chin strap, heated tubing & humidity, filters. Lifetime supplies. MANINDER: G47.33. 1 Device 05/26/2020 Active ALPRAZolam (XANAX) 0.5 mg tablet Take 0.5 mg by mouth as needed. Active Ascorbic Acid (VITAMIN C) 1,000 mg tablet Take 1,000 mg by mouth once daily. Active Active Problems Problem Noted Date Diagnosed Date MANINDER on CPAP 06/02/2020 Assessment & Plan (07/01/2020 3:30 PM EST): Assessment: does not use CPAP History of lumbosacral spine surgery 01/02/2020 Obesity, Class II, BMI 35-39.9 08/09/2018 Epigastric pain 07/19/2018 Overview (07/19/2018): Added automatically from request for surgery [id number] LAP-BAND surgery status 07/09/2018 Food intolerance 07/09/2018 Lower GI bleeding 07/09/2018 Lumbar disc herniation with radiculopathy 2013 Lung nodule Assessment & Plan (07/01/2020 3:31 PM EST): Assessment: monitored per PCP see Chest Xray resultsin epic of 02/26/20 Pseudotumor cerebri Cheloid HTN (hypertension) Overview (02/13/2020): hospitalized 09/01/14 for this Assessment & Plan (07/01/2020 3:30 PM EST): Assessment: on med,monitored per PCP BP 126/80 pulse 81 Morbid obesity Assessment & Plan (07/01/2020 3:29 PM EST): Assessment: BMI 37.5,will have surgery Resolved Problems Problem Noted Date Diagnosed Date Resolved Date Morbid obesity 01/02/2020 02/13/2020 Preoperative examination 07/19/201809/2019 Overview (07/19/2018): Added automatically from request for surgery [id number] Nausea and vomiting 07/19/2018 02/13/20 20 Overview (07/19/2018): Added automatically from request for surgery [id number] Dysphagia 07/19/2018 02/13/2020 Overview (07/19/2018): Added automatically from request for surgery [id number] Smoker 06/02/2020 Immunizations Immunization Administration Dates Next Due hepatitis B (HepB) vaccine, 3-dose series, age 20+ yr (ENGERIX-B, RECOMBIVAX HB) 10/04/2002,04/22/2002,03/20/2002 influenza (IIV3) vaccine, tr ivalent, PF, intradermal (FLUZONE INTRADERMAL) 2014 influenza (IIV4) vaccine, ag e 6 mo - 64 yr, quadrivalent, PF (AFLURIA, FLUARIX, FLULAVAL, FLUZONE) 04/23/2020,06/18/2019,05/18/2018 influenza (IIV4) vaccine, qu adrivalent, PF, intradermal (FLUZONE INTRADERMAL) 05/17/2016 influenza vaccine, unspecified formulation 04/23,05/11/2018,06/14/2013 measles mumps rubella (MMR) vaccine (M-M-R II, PRIORIX) 07/01/2002 tetanus diphtheria pertussis (Tdap) vaccine, age 7+ yr (ADACEL, BOOSTRIX) 06/18/2019 Family History Medical History Relation Comments Diabetes Father Prostate Cancer Father goiter Father lung cancer Maternal Grandfather Emphysema Maternal Grandmother Diabetes Mother Prostate Cancer Paternal Grandfather lung cancer Paternal Grandmother Relation Status Comments Father Maternal Grandfather Maternal Grandmother Mother Paternal Grandfather Paternal Grandmother Social History Tobacco Use Types Packs/Day Years [...] N ot on file 07/19/2020 Data from: https://www.[email or web address].[facility].edu/. 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 Not on file Not on file Last Filed Vital Signs Vital Sign Reading Time Taken Comments Blood Pressure 132/72 07/08/2020 9:07 AM EST Pulse 77 07/08/2020 10:48 AM EST Temperature 36.1 C (97 F) 07/08/2020 10:48 AM EST Respiratory Rate 18 07/08/2020 10:4 8 AM EST Oxygen Saturation 98% 07/08/2020 10: 48 AM EST Inhaled Oxygen Concentration - - Weight 83.9 kg (185 lb) 12/22/2020 11:1 8 AM EDT stated weight Height 162.6 cm (5' 4.02 ) 12/22/2020 1 1:18 AM EDT Body Mass Index 31.74 12/22/2020 11:18 AM EDT Plan of Treatment Health Maintenance Due Date Last Done Comments Anxiety Screening 1992 Depression Screening 1992 HIV Screening 1992 Hepatitis C Screening 1992 Cervical Cancer Screening [address] Colonography 2019 Cologuard (FIT-DNA) 2019 Colonoscopy 2019 Colorectal Cancer Screening 2019 Fecal Occult Blood 2019 Sigmoidoscopy 2019 Diabetes Screening 07/08/2023 07/08/2020, 1 08/29/2019, 02/26/2020, Additional history exists Pneumococcal Vaccine: 50+ (1 of 1 - PCV) 2024 Shingrix Vaccine (1 of 2) 2024 Lipid Screening 02/25/2025 02/26/2020 Influenza Vaccine (#1) 2025 0, 04/23/2020, 06/18/2019, Additional history exists DTaP,Tdap,Td Vaccine (2 - Td or Tdap) 06/18/2029 06/18/2019 Hepatitis B Vaccine Completed 10/04/2002, 04/22/2002, 03/20/2002 Procedures Procedure Name Priority Date/Time Associated Diagnosis Comments BASIC METABOLIC PANEL Routine 07/08/2020 5:36 AM EST LIPID PANEL, FASTING Routine 02/26/2020 12:01 PM EDT Obesity, Class II, BMI 35-39.9 from Last 3 Months or Most Recently Relevant to Health Maintenance Results * (ABNORMAL) BASIC METABOLIC PNL (07/08/2020 5:36 AM EST) Glucose 87 74 - 99 mg/dL 07/08/2020 7:34 AM [facility] Comment: The [place] Diabetes Association (ADA) provides guidance for cutoff values for fasting glucose and random glucose. The ADA defines fasting as no caloric intake for at least 8 hours. Fasting plasma glucose results between 100 to 125 mg/dL indicate increased risk for diabetes (prediabetes). Fasting plasma glucose results greater than or equal to 126 mg/dL meet the criteria for diagnosis of diabetes. In the absence of unequivocal hyperglycemia, results should be confirmed by repeat testing. In a patient with classic symptoms of hyperglycemia or hyperglycemic crisis, random plasma glucose results greater than or equal to 200 mg/dL meet the criteria for diagnosis of diabetes. Reference: Standards of Medical Care in Diabetes 2016, [place] Diabetes Association. Diabetes Care. 2016.39(Suppl 1). BUN 12 7 - 21 mg/dL 07/08/2020 7:34 AM [facility] Creatinine 0.83 0.58 - 0.96 mg/dL 07/08/2020 7:34 AM [facility] Sodium 139 136 - 144 mmol/L 07/08/2020 7:34 AM [facility] Potassium 3.1(L) 3.7 - 5.1 mmol/L 07/08/2020 7:34 AM [facility] Chloride 102 97 - 105 mmol/L 07/08/2020 7:34 AM [facility] CO2 24 22 - 30 mmol/L 07/08/2020 7:34 AM [facility] Anion Gap 13 9 - 18 mmol/L 07/08/2020 7:34 AM [facility] Calcium 9.0 8.5 - 10.2 mg/dL 07/08/2020 7:34 AM [facility] eGFR- >60 07/08/2020 7:34 AM [facility] eGFR-All Other Races >60 . 07/08/2020 7:34 AM [facility] Comment: eGFR (Estimated GFR) Units of measure: mL/min/1.73 meters squared eGFR is derived from the reexpressed MDRD Study equation using the following parameters: serum creatinine, age, gender and race. The creatinine assay has been calibrated to be traceable to IDMS. An eGFR <60 mL/min/1.73m2 for >3 months is consistent with chronic kidney disease. Refer to KDOQI guidelines for clinical interpretation. In patients with unstable renal function, e.g. those with acute kidney injury, the eGFR may not accurately reflect actual GFR. Blood BLOOD SPECIMEN / Unknown 07/08/2020 5:36 AM EST 07/08/2020 5:37 AM EST us Luisa Kennedy MD LABORATORY Final Result [facility] [address] [facility] [place] [address] [facility] [address] [place] [address] * (ABNORMAL) LIPID PANEL BASIC (02/26/2020 12:01 PM EDT) Cholesterol, Total 184 <200 mg/dL 02/26/2020 1:53 PM EDT [facility] Comment: <200 mg/dL, Desirable 200-239 mg/dL, Borderline high >239 mg/dL, High Triglyceride 150(H) <150 mg/dL 02/26/2020 1:53 PM T [facility] Comment: <150 mg/dL, Normal 150-199 mg/dL, Borderline high 200-499 mg/dL, High >499 mg/dL, Very high HDL Cholesterol 36(L) >39 mg/dL 0 1:53 PM EDT [facility] Comment: 40-59 mg/dL, Acceptable >59 mg/dL, High: Negative risk factor for coronary heart disease <40 mg/dL, Low: Positive risk factor for coronary heart disease LDL Cholesterol, Calculated 118(H) <100 mg/dL 02/26/2020 1:53 PM T [facility] Comment: <100 mg/dL, Optimal 100-129 mg/dL, Near optimal/above optimal 130-159 mg/dL, Borderline high 160-189 mg/dL, High >189 mg/dL, Very high Secondary prevention optimal LDL Cholesterol levels are recommended to be < 70 mg/dL Non HDL Cholesterol 148(H) <130 mg/dL 02/26/2020 1:53 PM T [facility] Comment: <130 mg/dL, Optimal 130-159 mg/dL, Near optimal/above optimal 160-189 mg/dL, Borderline high 190-219 mg/dL, High >219 mg/dL, Very high Secondary prevention optimal non HDL Cholesterol levels are recommended to be < 100 mg/dL Fasting Time 8 hrs 02/26/2020 12:04 PM EDT [facility] VLDL Cholesterol 30(H) <30 mg/dL 02/26/20 20 1:53 PM EDT [facility] TC:HDL Ratio 5.11(H) <5.10 02/26/2020 1:53 PM EDT [facility] LDL:HDL Ratio 3.28(H) <2.54 02/26/2020 1:53 PM EDT [facility] Comment: Reference: 1. National Cholesterol Education Program ATP III Guideline At-A-Glance Quick Desk Reference: National Heart, Lung, and Blood [place]. National Institutes of Health. 2001: NIH Publication No. 01-3305. 2. An International Atherosclerosis Society position paper: global recommendations for the management of dyslipidemia: executive summary, Atherosclerosis. 2014: 232(2):410-413. Blood specimen (specimen) BLOOD SPECIMEN / Unknown 02/26/2020 12:01 PM EDT 02/26/2020 12:04 PM EDT us Laura Puente SALES ENABLEMENT ANALYST.[facility] Final Res ult [facility] [address] [place] [address] [facility] [address] [place] [address] from Last 3 Months or Most Recently Relevant to Health Maintenance Insurance [employer] [facility] [place]ICAID OF [place] Advance Directives Documents on File Type Date Recorded Patient House Registry Rn Expl anation Advance Directive(s) 08/06/2018 11:48 AM Care Teams Commercial Decorator Relationship Specialty Start Date End Date Mata Conroy MD PCP - General Family Medicine 07/17/14 Isabell Mack RN Specialty Dredge Pipeman 06/14/18
--- OUTSIDE RECORDS SUMMARY | 2025-04-02 10:41 | XMS_ITS | Encounter Summary ---
Author Organization [facility] Address [address] [place] [address] Care Team Providers Care Plastic Cnc Machine Operator Name Role Phone Mata Conroy MD Primary Care Provider [phone] Isabell Mack RN Unavailable Unavailable Source Comments In the event this information is protected by the Federal Confidentiality of Alcohol and Drug AbusePatient Records regulations: The Federal rules restrict any use of the information to criminally investigate or prosecute any alcohol or drug abuse patient.[facility] Encounter Details Date Type Department Care Team (Late st Contact Info) Description 10/14/2019 Get Medical Advice General Surgery [address] [phone] Vincent Urena MD [address] [place] [address] RE: Non-Urgent Medical Question Social [...] on filedocumented in this encounter Care Teams Plastic Cnc Machine Operator Relationship Specialty Start Date End Date Mata Conroy MD PCP - General Family Medicine 07/17/14 Isabell Mack RN Specialty Beer Brewer 06/14/18 documented as of this encounter
--- OUTSIDE RECORDS SUMMARY | 2025-04-02 10:41 | XMS_ITS | Encounter Summary ---
Author Organization [facility] Address [address] [place] [address] Care Team Providers Care Ebd Special Education Teacher Name Role Phone Mata Conroy MD Primary Care Provider [phone] Isabell Mack RN Unavailable Unavailable Source Comments In the event this information is protected by the Federal Confidentiality of Alcohol and Drug AbusePatient Records regulations: The Federal rules restrict any use of the information to criminally investigate or prosecute any alcohol or drug abuse patient.[facility] Encounter Details Date Type Department Care Team (Late st Contact Info) Description 05/09/2020 Patient Msg Neurology [address] [place], [place] [phone] Provider, Ccf Questionnaire Submission Social History Tobacco [...] on filedocumented in this encounter Care Teams Ebd Special Education Teacher Relationship Specialty Start Date End Date Mata Conroy MD PCP - General Family Medicine 07/17/14 Isabell Mack, RN Specialty Material Reclaimer 06/14/18 documented as of this encounter
--- OUTSIDE RECORDS SUMMARY | 2025-04-02 10:41 | XMS_ITS | Encounter Summary ---
Author Organization [facility] Address [address] [place] [address] Care Team Providers Care Assembled Wood Products Repairer Name Role Phone Mata Conroy MD Primary Care Provider [phone] Encounter Details Date Type Department Care Team ([facility] Contact Info) Description 12/30/2024 Orders Only [facility] [address] [place] [address] Hien Melendez MD [address] [place] [address], [address], [address] [address] Social History Tobacco Use Types Packs/Day Years Used Date Smoking Tobacco: Former Cigarettes Smokeless Tobacco: Never Comments Unknown Sex and Gender Information Value Date Recorded Sex Assigned at Not on file Legal Sex Female 9:31 PM EDT Gender Identity Not on file Sexual Orientation Not on file documented as of this encounter Plan of Treatment Upcoming Encounters Date Type Department Care Team ([facility] Contact Info) Description 05/16/2025 10:15 AM EDT Office Visit [facility] [address] [place] [address] Mata Conroy MD [address] [place] [phone] documented as of this encounter Procedures Procedure Name Priority Date/Time Associated Diagnosis Comments SCANNED LABS Routine 12/30/2024 2:20 PM EDT documented in this encounter Results * SCANNED LABS (12/30/2024 2:20 PM EDT) Hien Melendez MD LAB CHG PERFORMABLES Final R esult documented in this encounter Visit Diagnoses Not on filedocumented in this encounter Care Teams Assembled Wood Products Repairer Relationship Specialty Start Date End Date Mata Conroy MD [address] [place] [address] PCP - General Family Medicine 01/10/24 documented as of this encounter
--- OUTSIDE RECORDS SUMMARY | 2025-04-02 10:41 | XMS_ITS | Encounter Summary ---
Author Organization [facility] Address [address] [place] [address] Care Team Providers Care Nurse Infection Control Name Role Phone Mata Conroy MD Primary Care Provider [phone] Isabell Mack RN Unavailable Unavailable Source Comments In the event this information is protected by the Federal Confidentiality of Alcohol and Drug AbusePatient Records regulations: The Federal rules restrict any use of the information to criminally investigate or prosecute any alcohol or drug abuse patient.[facility] Encounter Details Date Type Department Care Team (Late Contact Info) Description 11/04/2019 Patient Msg Pediatric Gen[facility] [address] [phone] [facility] [address] [phone] RE: Genetics appointment Social History Tobacco Use Types Packs/Day Years [...] have Coronavirus / COVID-19? Unable to assess 11/04/2019 4:00 PM EDT documented as of this encounter [...] on filedocumented in this encounter Care Teams Nurse Infection Control Relationship Specialty Start Date End Date Mata Conroy MD PCP - General Family Medicine 07/17/14 Isabell Mack RN Specialty Maternity Floor Supervisor 06/14/18 documented as of this encounter
--- OUTSIDE RECORDS SUMMARY | 2025-04-02 10:41 | XMS_ITS | Encounter Summary ---
Author Organization [facility] Address [address] [place] [address] Care Team Providers Care Personnel Clerks Supervisor Name Role Phone Mata Conroy MD Primary Care Provider [phone] Mata Conroy MD Unavailable Reason for Visit * Reason Comments Med Refill Encounter Details Date Type Department Care Team ([facility] Contact Info) Description 10/25/2024 Refill [facility] [address] [place] [id number] Mata Conroy MD [address] [place] [id number] Obesity (BMI 30-39.9) Social History Tobacco Use [...] Telephone Encounter - Mata Conroy MD - 10/28/2024 8:39 AM EDT Need to schedule follow up appointment. documented in this encounter Plan of Treatment Upcoming Encounters Date Type Department Care Team ([facility] Contact Info) Description 05/16/2025 10:15 AM EDT Office Visit [facility] [address] [place] [address] Mata Conroy MD [address] [place] [address] documented as of this encounter Visit Diagnoses Diagnosis Obesity (BMI 30-39.9) documented in this encounter Care Teams Personnel Clerks Supervisor Relationship Specialty Start Date End Date Mata Conroy MD [address] [place] [address] PCP - General Family Medicine 01/10/24 Mata Conroy MD [address] [place] [address] PCP - Rolly Rizvi 08/14/24 documented as of this encounter
--- OUTSIDE RECORDS SUMMARY | 2025-04-02 10:51 | XMS_ITS | CCD ---
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 Name Role Phone MARKER, DR ZEE Admitting Unavailable NADERER, DR MATA Hawkins Primary Care Unavailable MARKER, DR ZEE Attending Unavailable MARKER, DR ZEE Consulting Unavailable STARK, LOUISE Consulting Unavailable NADERER, DR MATA Hawkins Consulting Unavailable ORLY, DR MATA Hawkins Primary Care Unavailable ORLY, DR MATA Hawkins Admitting Unavailable ORLY, DR MATA Hawkins Attending Unavailable Mata Villalba MD Primary Care Provider Austin Diego Attending Unavailab Austin Flynn Admitting Unavailab luke [facility], PHYSICIAN Primary Care Unavailable Mata Villalba MD Primary Care Provider [phone] MATA VILLALBA Primary Care Physician Mata Villalba MD Unavailable Hien Melendez Talal Attending Unavaila ble Sarmini, Hien Talal Attending Unavaila ble Sarmini, Hien Talal Attending Unavaila ble Abisaiminmarco, Hien Talal Attending Unavaila ble Sarmini, Hien Talal Admitting Unavaila ble Sarmini, Hien Talal Attending Unavaila ble Sarmini, Hien Talal Attending Unavaila ble Sarmini, Hien Talal Admitting Unavaila ble Sarmini, Hien Talal Admitting Unavaila ble Sarmini, Hien Talal Attending Unavaila ble Sarmini, Hien Talal Admitting Unavaila ble Sarmini, Hien Talal Attending Unavaila ble Sarmini, Hien Talal Referring Unavaila ble Sarmini, Hien Talal Referring Unavaila ble Sarmini, Hien Talal Attending Unavaila ble Sarmini, Stanford Talal Admitting Unavaila ble Sarmini, Stanford Talal Attending Unavaila ble Sarmini, Stanford Talal Admitting Unavaila ble Sarmini, Stanford Talal Attending Unavaila ble NADERER, MATA Attending Unavailable NADERER, MATA Attending Unavailable Sarmini, Stanford Talal Referring Unavaila ble Sarmini, Stanford Talal Admitting Unavaila ble Sarmini, Stanford Talal Attending Unavaila ble Sarmini, Stanford Talal Referring Unavaila ble Sarmini, Stanford Talal Admitting Unavaila ble Sarmini, Stanford Talal Attending Unavaila ble Allergies Allergy Classification Reported Allergen(s) Allergy Type Date of Onset Reaction(s) Facility (20 sources) Vancomycin; Translations: [vancomycin] Drug Allergy 07-01-2020 Hives, Rash [facility] (5 sources) Acetaminophen / HYDROcodone; Translations: [Vicodin] Drug Allergy [facility] (5 sources) Acetaminophen / oxyCODONE; Translations: [Percocet 5/325] Drug Allergy [facility] Rep[facility] Medications Current Medications Medication Drug Class(es) Dates Sig (Normalized) Sig (Original) ALPRAZolam 0.5 mg oral tablet (20 sources) Benzodiazepine Start: 03-13-2025 take 1 tablet by mouth three times daily as needed for anxiety ALPRAZolam (Xanax) 0.5 MG tablet Indications: SELVIN (generalized anxiety disorder) Take 1 tablet (0.5 mg) by mouth 3 (three) times a day as needed for anxiety 90 tablet 2 03/13/2025 Active Start: 03-13-2025 take 1 tablet by lara th three times daily as needed for anxiety ALPRAZolam (Xanax) 0.5 MG tablet Indications: SELVIN (generalized anxiety disorder) Take 1 tablet (0.5 mg) by mouth 3 (three) times a day as needed for anxiety 90 tablet 2 03/13/2025 Active Start: 08-05-2020 End: 03-13-2025 take 1 tablet by mouth three times daily as needed for anxiety ALPRAZolam (Xanax) 0.5 MG tablet Indications: SELVIN (generalized anxiety disorder) TAKE 1 TABLET BY MOUTH THREE TIMES A DAY NEEDED FOR ANXIETY 90 tablet 01/27/2025 03/13/2025 Discontinued (Reorder) Ascorbic Acid (8 sources) Vitamin C Start: 08-05-2020 Vitamin C Oral , Daily, Refills(s) 0, Prophylaxis Start Date: 08/05/20 Status: Ordered Repeat number: 1 Start: 08-05-2020 Vitamin C Mont[place] y, Refills(s) 0 Start Date: 08/05/20 Status: Ordered Repeat number: 1 Start: 08-05-2020 Vitamin C [place], Refills(s) 0 Start Date: 08/05/20 Status: Ordered cyanocobalamin (Vitamin B-12 ) 1,000 mcg/mL oral liquid (6 sources) End: 07-10-2024 cyanocobalamin (Vitamin B-12 ) 1,000 mcg/mL oral liquid 1 (one) time 07/10/2024 Discontinued cyanocobalamin ( Vitamin B-12) 1,000 mcg/mL oral liquid 1 (one) time Active cyclobenzaprine hydrochloride 10 mg oral tablet (20 sources) Muscle Relaxant Start: 12-23-2024 take 1 tablet by mouth three times daily as needed cyclobenzaprine (Flexeril) 10 MG tablet Indications: Lumbar back pain TAKE 1 TABLET BY MOUTH 3 TIMES A DAY NEEDED 60 tablet 3 12/23/2024 Active Start: 02-01-2024 End: 08-26-2024 take 1 tablet by mouth three times daily as needed cyclobenzaprine (Flexeril) 10 MG tablet Indications: Lumbar back pain TAKE 1 TABLET BY MOUTH 3 TIMES A DAY NEEDED 60 tablet 3 08/26/2024 Active Start: 01-25-2024 cyclobenzaprin e Oral, 0 Refill(s), Refills(s) 0, Muscle pain Start Date: 01/25/24 Status: Ordered Repeat number: 1 Start: 01-25-2024 cyclobenzaprin e Oral, 0 Refill(s), Refills(s) 0 Start Date: 01/25/24 Status: Ordered Repeat number: 1 Start: 01-25-2024 cyclobenzaprin e Oral, 0 Refill(s), Refills(s) 0 Start Date: 01/25/24 Status: Ordered dicyclomine hydrochloride 20 mg oral tablet (20 sources) Anticholinergic Start: 07-17-2024 take 1 tablet by mouth four times daily as needed dicyclomine (Bentyl) 20 MG tablet Indications: Abdominal cramping TAKE 1 TABLET BY MOUTH 4 TIMES A DAY NEEDED FOR ABDOMNIAL CRAMPING 360 tablet 1 07/17/2024 Active Start: 07-10-2024 take 1 tablet by lara th four times daily as needed dicyclomine (Bentyl) 20 MG tablet Indications: Abdominal cramping Take 1 tablet (20 mg) by mouth 4 (four) times a day as needed (Abdominal cramping) 60 tablet 3 07/10/2024 Active Start: 07-10-2024 take 1 tablet by lara th four times daily as needed dicyclomine (Bentyl) 20 MG tablet Indications: Abdominal cramping Take 1 tablet (20 mg) by mouth 4 (four) times a day as needed (Abdominal cramping) 60 tablet 3 07/10/2024 Active Start: 07-09-2024 esomeprazole 40 mg delayed release oral capsule (5 sources) Proton Pump Inhibitor Start: 12-30-2024 End: 12-25-2025 take 1 capsule by mouth once daily Nexium 40 mg Cap-EC 40 mg, Oral, Daily, Pharmacy may substitue PPI covered by insurance company, X 90 day(s), # 90 caplet(s), Refills(s) 3, Pharmacy: [facility]/pharmacy #[id number], 162, cm, 12/30/24 8:25:00 EDT, Height/Length Dosing, 95.7, kg, 12/30/24 8:25:00 EDT, Weight Dosing Start Date: 12/30/24 Stop Date: 12/25/25 Status: Ordered Quantity: 90.0 Unit: caplet(s) Repeat number: 4 famotidine 20 mg oral tablet (6 sources) Histamine-2 Receptor Antagonist Start: 08-05-2020 take 1 tablet by mouth twice daily Pepcid 20 mg Tab 20 mg = 1 tab(s), Oral, BID, Refills(s) 0 Start Date: 08/05/20 Status: Ordered Repeat number: 1 ferrous gluconate 324 mg oral tablet (3 sources) Start: 12-31-2024 ferrous gluconate 324 mg (38 mg elemental iron) oral tablet 324 mg = 1 tab(s), Oral, TID, # 90 tab(s), Refills(s) 3, Pharmacy: [facility]/pharmacy #[id number], 162, cm, 12/30/24 8:25:00 EDT, Height/Length Dosing, 95.7, kg, 12/30/24 8:25:00 EDT, Weight Dosing Start Date: 12/31/24 Status: Ordered Quantity: 90.0 Unit: tab(s) Repeat number: 4 fidaxomicin 200 mg oral tablet (2 sources) Macrolide Antibacterial Start: 01-07-2025 End: 03-04-2025 take 1 tablet by mouth twice daily fidaxomicin 200 mg oral tablet 200 mg = 1 tab(s), Oral, BID, X 14 day(s), # 28 tab(s), Refills(s) 3, [id number], cm, 01/03/25 10:06:00 EDT, Height/Length Dosing, 95.7, kg, 01/03/25 10:06:00 EDT, Weight Dosing Start Date: 01/07/25 Stop Date: 03/04/25 Status: Ordered Quantity: 28.0 Unit: tab(s) Repeat number: 4 fluconazole 150 mg oral tablet (5 sources) Azole Antifungal Start: 05-20-2024 End: 07-10-2024 take 1 tablet by mouth once fluconazole (Diflucan) 150 MG tablet Indications: Upper respiratory tract infection, unspecified type TAKE 1 TABLET BY MOUTH ONE TIME FOR 1 DOSE 1 tablet 05/20/2024 07/10/2024 Discontinued furosemide 40 mg oral tablet (16 sources) Loop Diuretic Start: 11-11-2024 take 1 tablet by mouth once daily furosemide (Lasix) 40 MG tablet Indications: Bilateral leg edema TAKE 1 TABLET BY MOUTH EVERY DAY 90 tablet 2 11/11/2024 Active Start: 07-09-2024 take 1 tablet by lara th once daily furosemide (Lasix) 40 MG tablet Indications: Bilateral leg edema Take 1 tablet (40 mg) by mouth Daily 30 tablet 3 07/10/2024 Active hydroCHLOROthiazide 50 mg oral tablet (3 sources) Thiazide Diuretic Start: 09-29-2018 take 1 tablet by mouth once daily hydrochlorothiazide 50 mg Tab 50 mg = 1 tab(s), Oral, Daily, Refills(s) 0, High blood pressure Start Date: 09/29/18 Status: Ordered losartan potassium 50 mg oral tablet (18 sources) Angiotensin 2 Receptor Bharathi Start: 03-13-2025 take 1 tablet by mouth once daily losartan (Cozaar) 50 MG tablet Indications: Benign essential hypertension Take 1 tablet (50 mg) by mouth Daily 30 tablet 5 03/13/2025 Active Start: 03-13-2025 take 1 tablet by lara th once daily losartan (Cozaar) 50 MG tablet Indications: Benign essential hypertension Take 1 tablet (50 mg) by mouth Daily 30 tablet 5 03/13/2025 Active Start: 07-09-2024 End: 03-13-2025 take 1 tablet by mouth once daily losartan (Cozaar) 25 MG tablet Indications: Benign essential hypertension Take 1 tablet (25 mg) by mouth Daily 30 tablet 5 07/10/2024 03/13/2025 Discontinued magnesium sulfate 225 MG / potassium chloride 188 MG / sodium sulfate 1479 MG Oral Tablet [Sutab] (3 sources) Start: 12-30-2024 take 1 tablet by mouth once Sutab oral tablet See Instructions, 1 EA, Refill(s) 0, Please follow instructions per packaging and physician's handout, [facility]/pharmacy #[id number], 162, cm, 12/30/24 8:25:00 EDT, Height/Length Dosing, 95.7, kg, 12/30/24 8:25:00 EDT, Weight Dosing Start Date: 12/30/24 Status: Ordered Quantity: 1.0 Unit: EA Repeat number: 1 Multivitamin, Therapeutic w/ Minerals (3 sources) Start: 08-05-2020 Multivitamin, Therapeutic w/ Minerals Oral, Daily, Refill(s) 0 Start Date: 08/05/20 Status: Ordered phentermine hydrochloride 37.5 mg oral tablet (20 sources) Sympathomimetic Amine Anorectic Start: 03-25-2024 End: 04-12-2025 take 37-37.9 tablets by mouth before mealtime phentermine (Adipex-P) 37.5 MG tablet Indications: Class 2 severe obesity due to excess calories with serious comorbidity and body mass index (BMI) of 37.0 to 37.9 in adult [place] Take 1 tablet (37.5 mg) by mouth in the morning. Take before meals. 30 tablet 03/13/2025 04/12/2025 Active predniSONE 5 mg oral tablet (2 sources) Start: 01-03-2025 take 1 tablet by mouth once daily predniSONE 5 mg Tab See Instructions, 1 tab(s) Oral Daily, # 260 tab(s), Refills(s) 0, Pharmacy: [facility]/pharmacy #[id number], 162, cm, 01/03/25 10:06:00 EDT, Height/Length Dosing, 95.7, kg, 01/03/25 10:06:00 EDT, Weight Dosing Start Date: 01/03/25 Status: Ordered Quantity: 260.0 Unit: tab(s) Repeat number: 1 promethazine hydrochloride 25 mg oral tablet (20 sources) Phenothiazine Start: 01-17-2025 take 1 tablet by mouth every six hours for nausea and nausea promethazine (Phenergan) 25 MG tablet Indications: Nausea TAKE 1 TABLET BY MOUTH EVERY 6 HOURS NEEDED 30 tablet 1 01/17/2025 Active Start: 02-18-2019 End: 11-25-2024 take 1 tablet by mouth every six hours for nausea and nausea promethazine (Phenergan) 25 MG tablet Indications: Nausea TAKE 1 TABLET BY MOUTH EVERY 6 HOURS NEEDED 30 tablet 1 01/17/2025 Active Risankizumab-rzaa (Skyrizi) 150 MG/ML solution prefilled syringe (2 sources) Risankizumab-rza a (Skyrizi) 150 MG/ML solution prefilled syringe Inject under the skin Active Tirzepatide-Weight Management (Zepbound) 2.5 MG/0.5ML solution auto-injector (6 sources) Start: End: inject 2.5 mg by subcutaneous injection every week Tirzepatide-Weight Management (Zepbound) 2.5 MG/0.5ML solution auto-injector Indications: Obesity (BMI 30-39.9) Inject 2.5 mg under the skin 1 (one) time per week 2 mL 3 01/10/2024 07/10/2024 Discontinued Start: 01-10-2024 inject 2.5 mg by sub cutaneous injection every week Tirzepatide-Weight Management (Zepbound) 2.5 MG/0.5ML solution auto-injector Indications: Obesity (BMI 30-39.9) Inject 2.5 mg under the skin 1 (one) time per week 2 mL 3 01/10/2024 Active ursodiol 300 mg oral capsule (3 sources) Bile Acid Start: 08-05-2020 take 1 capsule by mouth twice daily ursodiol 300 mg Cap 300 mg = 1 cap(s), Oral, BID, Refills(s) 0 Start Date: 08/05/20 Status: Ordered vitamin b12 1 mg/ml injectable solution (20 sources) Vitamin B12 Start: 02-18-2025 cyanocobalamin (Vitamin B-12) 1000 MCG/ML injection Indications: LAP-BAND surgery status INJECT 1 ML ONCE MONTHLY DIRECTED 1 mL 35 02/18/2025 Active Start: 07-26-2024 Vitamin B12 Or al, Daily, Oral, 0 Refill(s), Refills(s) 0, Prophylaxis Start Date: 07/26/24 Status: Ordered Repeat number: 1 Start: 07-26-2024 Vitamin B12 Or al, 0 Refill(s), Refills(s) 0 Start Date: 07/26/24 Status: Ordered Repeat number: 1 Start: 07-26-2024 Vitamin B12 Or al, 0 Refill(s), Refills(s) 0 Start Date: 07/26/24 Status: Ordered Start: 02-01-2024 cyanocobalamin (Vitamin B-12) 1000 MCG/ML injection Indications: LAP-BAND surgery status INJECT 1 ML ONCE MONTHLY DIRECTED 3 mL 11 02/01/2024 Active Completed/Discontinued Medications Medication Drug Class(es) Dates Sig (Normalized) Sig (Original) Vitamin D 50,000 intl units (1.25 mg) oral capsule (3 sources) Start: 12-31-2024 End: 12-26-2025 take 1 capsule by mouth every week Vitamin D 50,000 intl units (1.25 mg) oral capsule 50,000 International_Unit = 1 cap(s), Oral, qWeek, X 90 day(s), # 13 cap(s), Refills(s) 3, Pharmacy: [facility]/pharmacy #[id number], 162, cm, 12/30/24 8:25:00 EDT, Height/Length Dosing, 95.7, kg, 12/30/24 8:25:00 EDT, Weight Dosing Start Date: 12/31/24 Stop Date: 12/26/25 Status: Ordered Quantity: 13.0 Unit: cap(s) Repeat number: 4 Problems Active Problems Problem Classification Problem Date Documented Da te Episodic/Chronic Anxiety disorders (20 sources) Generalized anxiety disorder; Translations: [Generalized anxiety disorder] Onset: 4 09-19-2023 Chronic Essential hypertension (20 sources) Essential (primary) hypertension; Translations: [Benign essential hypertension] Onset: 2 01-10-2024 Chronic Intestinal infection (2 sources) Clostridium difficile diarrhea 01-03-2025 Episodic Comment on above: Problem added second amira to positive C-Diff lab result. Nausea and vomiting (2 sources) Nausea; Translations: [Nausea] 08-23-2024 Episodic Other gastrointestinal disorders (5 sources) H/O: gastrointestinal disease; Translations: [Personal history of other diseases of the digestive system] Onset: 4 Episodic Other gastrointestinal disorders (8 sources) H/O: ulcerative colitis 07-26-2024 Episodic Other gastrointestinal disorders (1 source) Abnormal feces; Translations: [Other fecal abnormalities] Onset: 5 Episodic Other lower respiratory disease (8 sources) Nodule of lung 07-26-2024 Episodic Other nervous system disorders (1 source) Other chronic pain; Translations: [OTHER CHRONIC PAIN] Onset: 2 Chronic Other nervous system disorders (8 sources) Benign intracranial hypertension 07-30-2014 Chronic Other nutritional; endocrine; and metabolic disorders (1 source) Hypercalcemia; Translations: [HYPERCALCEMIA] Onset: 2 Chronic Other nutritional; endocrine; and metabolic disorders (20 sources) Body mass index 30+ - obesity; Translations: [Obesity, unspecified] Onset: 4 05-23-2024 Chronic Other nutritional; endocrine; and metabolic disorders (8 sources) Obese class II Onset: 8 07-26-2024 Chronic Other nutritional; endocrine; and metabolic disorders (8 sources) Obesity 07-30-2014 Chronic Other nutritional; endocrine; and metabolic disorders (4 sources) Severe obesity; Translations: [Class 2 severe obesity due to excess calories with serious comorbidity and body mass index (BMI) of 37.0 to 37.9 in adult ([facility] Onset: 4 03-13-2025 Chronic Other screening for suspected conditions (not mental disorders or infectious disease) (2 sources) Bacterial growth present 01-10-2025 Episodic Other upper respiratory disease (2 sources) Difficulty talking; Translations: [Dysphonia] Onset: 5 Episodic Other upper respiratory disease (5 sources) Hoarse 12-30-2024 Episodic Regional enteritis and ulcerative colitis (4 sources) Crohn's disease of small AND large intestines; Translations: [Crohn's disease of both small and large intestine without complications] Onset: 5 03-13-2025 Chronic Residual codes; unclassified (8 sources) Obstructive sleep apnea syndrome Onset: 0 07-26-2024 Chronic Residual codes; unclassified (20 sources) Bilateral lower limb edema; Translations: [Localized edema] Onset: 4 01-10-2024 Episodic Residual codes; unclassified (2 sources) History of partial gastrectomy; Translations: [Acquired absence of stomach [part of]] Onset: 4 Episodic Spondylosis; intervertebral disc disorders; other back problems (20 sources) Lumbosacral spondylosis without myelopathy; Translations: [Spondylosis without myelopathy or radiculopathy, lumbosacral region] Onset: 4 01-10-2024 Chronic Spondylosis; intervertebral disc disorders; other back problems (19 sources) Dorsalgia, unspecified; Translations: [Low back pain] Onset: 2 04-24-2024 Episodic Substance-related disorders (9 sources) Nicotine dependence, cigarettes, uncomplicated; Translations: [Smoker] Onset: 2 08-17-2015 Chronic Comment on above: Added secondary to d ocumentation in Social History. Unclassified (2 sources) LOW BACK PAIN, UNSPECIFIED; Translations: [LOW BACK PAIN, UNSPECIFIED] Onset: 2 Unclassified (8 sources) History of sleeve gastrectomy 07-26-2024 Past or Other Problems Problem Classification Problem Date Documented Da te Episodic/Chronic Abdominal pain (20 sources) Finding of sensation of abdomen; Translations: [Unspecified abdominal pain] Onset: 07-10-2024 Resolved: 03-13-2025 07-10-2024 Episodic E Codes: Fall (1 source) Fall (on) (from) unspecified stairs and steps, initial encounter; Translations: [FALL ON FROM UNS STAIRS STEPS INIT] Onset: 11-24-2021 Episodic Gastrointestinal hemorrhage (20 sources) Blood-tinged feces; Translations: [Melena] Onset: 07-10-2024 Resolved: 03-13-2025 07-10-2024 Episodic Other aftercare (1 source) Other [facility] (current) drug therapy; Translations: [[facility] 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 THERAPY] Onset: 11-24-2021 Episodic Other gastrointestinal disorders (17 sources) History of laparoscopic adjustable gastric banding; Translations: [Bariatric surgery status] Onset: 01-10-2024 01-10-2024 Episodic Sprains and strains (1 source) Unspecified sprain of left foot, initial encounter; Translations: [UNSPECIFIED SPRAIN LT FOOT INITIAL] Onset: 11-24-2021 Episodic Unclassified (1 source) LOW BACK PAIN, UNSPECIFIED; Translations: [LOW BACK PAIN, UNSPECIFIED] Onset: 11-23-2021 Unclassified (2 sources) Finding of sensation of abdomen 07-10-2024 Results Test Name Value Interpretation Reference Range Facility Gastroenterology Office/Clin ic Noteon 01-21-2025 Gastroenterology Office/Clinic Note Gastroenterology Office/Clinic Note Chief Complaint Dificid not approved. HPI Staff Patient is a(n) 49 year old female who presents today for a follow up to EGD & Colonoscopy on 01/03/25. Per Dr. Melendez, he wanted to see pt by end of week. Positive C diff stool test. Was prescribed Dificid d/t allergy to Vancomycin. Did pt p/u and start? NO - insurance did not approve. Was prescribed Prednisone after procedure for questionable IBD. Need to discuss mesalamine vs. biologic therapy. Any blood thinners? no Any GLP-1 agonists? no Laboratory Results CBC CMP Basophil Absolute: 0.1 E9/L (12/30/24) A/G Ratio: 1.3 (12/30/24) Basophil Auto: 1.2 % (12/30/24) AGAP: 10 mEq/L (12/30/24) Eos Absolute: 0.4 E9/L (12/30/24) Albumin Lvl: 4.1 gm/dL (12/30/24) Eos Auto: 6.5 % (12/30/24) Alk Phos: 104 Int._Unit/L High (12/30/24) Hct: 31.8 % Low (12/30/24) ALT: 16 Int._Unit/L (12/30/24) HGB: 10.2 gm/dL Low (12/30/24) AST: 16 Int._Unit/L (12/30/24) Lymph Absolute: 1.6 E9/L (12/30/24) Bili Total: 0.3 mg/dL (12/30/24) Lymph Auto: 25.4 % (12/30/24) BUN: 9 mg/dL (12/30/24) MCH: 22.7 pg Low (12/30/24) BUN/Creat Ratio: 11 (12/30/24) MCHC: 32 gm/dL (12/30/24) Calcium Lvl: 8.7 mg/dL Low (12/30/24) MCV: 71 fL Low (12/30/24) Chloride: 104 mmol/L (12/30/24) Putnam Absolute: 0.6 E9/L (12/30/24) CO2: 26 mmol/L (12/30/24) Putnam Auto: 10.2 % (12/30/24) Creatinine: 0.8 mg/dL (12/30/24) MPV: 6.5 fL (12/30/24) Globulin: 3.1 gm/dL (12/30/24) Neutro Absolute: 3.5 E9/L (12/30/24) Glucose Lvl: 92 mg/dL (12/30/24) Neutro Auto: 56.7 % (12/30/24) Potassium Lvl: 3.3 mmol/L Low (12/30/24) Platelet: 431 E9/L (12/30/24) Sodium Lvl: 137 mmol/L (12/30/24) RBC: 4.5 E12/L (12/30/24) Total Protein: 7.2 gm/dL (12/30/24) RDW: 16.6 % High (12/30/24) WBC: 6.3 E9/L (12/30/24) Liver Studies Ferritin Lvl: 4 ng/mL Low (12/31/24) Hep Bs Ag: Negative (12/30/24) Iron: 19 mcg/dL Low (12/31/24) TIBC: 511 mcg/dL High (12/31/24) TB: negative (12/30/24) Stool Studies Campylobacter group: Not Detected (01/03/25) Clostridium difficile by PCR: Positive1 Critical (01/03/25) Norovirus GI/GII: Not Detected (01/03/25) Rotavirus A: Not Detected (01/03/25) Salmonella species: Not Detected (01/03/25) Shiga Tox Interp: NEGATIVE1 (01/03/25) Shiga Toxin 1: Not Detected (01/03/25) Shiga Toxin 2: Not Detected (01/03/25) Shigella species: Not Detected (01/03/25) Vibrio Group: Not Detected (01/03/25) Yersinia enterocolitica: Not Detected (01/03/25) History of Present Illness Reviewed HPI collected by staff Review of Systems PHQ Score Initial Depression Screen Score: 0 SCORE All systems reviewed, negative; Except for above Physical Exam Vitals & Measurements HR: 88(Peripheral) BP: 182/110 HT: 64 in HT: 162 cm WT: 210.982 lb WT: 95.7 kg BMI: 36.47 No acute distress Procedure EGD: Impression and Plan 1. Esophageal landmarks identified, normal examined esophagus 2. Evidence of surgery in the stomach with gastric sleeve anatomy, diffuse nonspecific patchy erythema with multiple small erosions in the body of the stomach, random biopsies were taken to rule out H. pylori 3. Normal examined duodenum Colonoscopy: Impression and Plan 1. Small internal hemorrhoids 2. Severe colitis in the left colon characterized by ulcers in the rectum, erosions through the left colon, decreased vascular pattern, friability and erythema, Anaya score 3, although noted gradually improving from rectum into descending colon. 3. Couple small erosions in the transverse colon, otherwise normal colonic mucosa extending from transverse colon into cecum. Random biopsies were taken from transverse colon, left colon and rectum for histology, rule out CMV, assess for Crohn's and ulcerative colitis 4. Normal examined terminal ileum Overall highly suspect IBD colitis, favoring more Crohn's than ulcerative colitis given the patchy erythema in the transverse colon with normal mucosa in between Start with prednisone taper, 40 mg daily, decrease the dose by 5 mg a week Also consider mesalamine versus biologic therapy Follow-up in GI clinic in 1 week Recommendations: Repeat colonoscopy:: Based on pathology Pathology: pending Assessment/Plan 1. History of ulcerative colitis (Z87.19: Personal history of other diseases of the digestive system) She had hematochezia on and off for few years, but usually it stops after few days or a month max Has been a chronic issue, has never lasted this long Was having 3+ BMs daily with urgency Has nocturnal symptoms, severe abdominal pain wakes her up NonSmoker No known FHx of IBD Colonoscopy 02/2019: Moderate diffuse erythema, friability, mucosal edema and pinpointed ulcerations involving the entire colon suggestive of brothers ulcerative colitis. Biopsy showed chronic inflammation We discussed that most likely she has ulcerative colitis or Crohn's disease based on the pattern of inflammation Colonoscopy (more content not included)... Normal [facility] Comment on above: Result Comment: Elec tronically Signed By: Sathya FOSTER, Megan Velázquez\.br\Date and Time Signed: 01/21/25 09:49 EDT Ambulatory Visit Summaryon 0 01-10-2025 Ambulatory Visit Summary Ambulatory Visit Summary CINDY MARYCRUZ Rocha :1975 Visit Date:01/10/2025 Ambulatory Visit Instructions Your Diagnosis History of ulcerative colitis Hematochezia Hoarseness Stool culture positive for Clostridium difficile Your Care Team Attending Physician - Nora BAGLEY, Hien Hernandez Primary Care Physician - MATA VILLALBA MD This Is Your Medications List Contact prescribing physician if questions or concerns alprazolam (Xanax 0.5 mg Tab) ascorbic acid (Vitamin C) cyanocobalamin (Vitamin B12) cyclobenzaprine dicyclomine (dicyclomine 20 mg Tab) ergocalciferol (Vitamin D 50,000 intl units (1.25 mg) oral capsule) esomeprazole (Nexium 40 mg Cap-EC) ferrous gluconate (ferrous gluconate 324 mg (38 mg elemental iron) oral tablet) fidaxomicin (fidaxomicin 200 mg oral tablet) phentermine (phentermine 37.5 mg Tab) predniSONE (predniSONE 5 mg Tab) promethazine (Phenergan) Procedures Performed Gastric sleeve (07/07/2020), Colonoscopy (02/18/2019), left L5-S1 discectomy (08/04/2014), Colonoscopy (07/22/2011), EGD (07/22/2011), Abdominoplasty, Breast reduction, section, Exploratory laparotomy, Hernia repair, Hysterectomy, Incidental appendectomy, LAP-BAND surgery status...., RSO - Right salpingo-oophorectomy. Discharge Vitals Heart Rate (Peripheral) 88 Blood Pressure 182/110 Height 64 in Height 162 cm Weight 95.7 kg Weight 210.982 lb BMI 36.47 What to do next You Need to Schedule the Following Appointments Follow Up with Nora BAGLEY, KA[facility], [facility] When: In 3 months Where: [address], [address] [address] [phone] Medications What How Much When Instructions Unchanged alprazolam (Xanax 0.5 mg Tab) 1 Tablets By Mouth At bedtime as needed for for anxiety Contact prescribing physician if questions or concerns Unchanged ascorbic acid (Vitamin C) By Mouth Every day Contact prescribing physician if questions or concerns Unchanged cyanocobalamin (Vitamin B12) By Mouth Every day Oral, 0 Refill(s) Contact prescribing physician if questions or concerns Unchanged cyclobenzaprine Oral, 0 Refill(s) Contact prescribing physician if questions or concerns Unchanged dicyclomine (dicyclomine 20 mg Tab) 1 Tablets By Mouth As needed for Spasm 20 Unknown, Oral, 0 Refill(s) Contact prescribing physician if questions or concerns Unchanged ergocalciferol (Vitamin D 50,000 intl units (1.25 mg) oral capsule) 1 Capsules By Mouth Every week Duration: 90 Days Contact prescribing physician if questions or concerns Unchanged esomeprazole (Nexium 40 mg Cap-EC) 40 Milligram By Mouth Every day Duration: 90 Days Pharmacy may substitue PPI covered by insurance company Contact prescribing physician if questions or concerns Unchanged ferrous gluconate (ferrous gluconate 324 mg (38 mg elemental iron) oral tablet) 1 Tablets By Mouth 3 times a day Contact prescribing physician if questions or concerns Unchanged fidaxomicin (fidaxomicin 200 mg oral tablet) 1 Tablets By Mouth 2 times a day Duration: 14 Days Contact prescribing physician if questions or concerns Unchanged phentermine (phentermine 37.5 mg Tab) Oral, 0 Refill(s) Contact prescribing physician if questions or concerns Unchanged predniSONE (predniSONE 5 mg Tab) See instructions 1 tab(s) Oral Daily Contact prescribing physician if questions or concerns Unchanged promethazine (Phenergan) 25 Milligram By Mouth Every 6 hours as needed for as needed for nausea/vomiting Contact prescribing physician if questions or concerns Allergies vancomycin (Hives) Problems Ongoing - Any problem that you are currently receiving treatment for. Benign essential hypertension Bilateral lower limb edema Clostridium difficile diarrhea Hematochezia Herniation of lumbar intervertebral disc with radiculopathy History of ulcerative colitis Hoarseness Low back pain Lower abdominal pain Lumbosacral spondylosis without myelopathy Nodule of lung Obese class II Obesity Obstructive sleep apnea syndrome Pseudotumor cerebri S/P gastric sleeve procedure Smoker Stool culture positive for Clostridium difficile Patient Survey You may receive a survey via text or e-mail asking about your office visit. Please share your experience with us by completing your survey. We appreciate your feedback and thank you for choosing us for your care. Normal [facility] Surgical Pathology Reporton 01-10-2025 Surgical Pathology Report [facility] [address] [facility] [place] [address]- Surgical Pathology Report Collected Date/Time: 01/03/2025 11:17 EDT Pathologist: Dinesh BAGLEY PhD, Jessica Haney Received Date/Time: 01/03/2025 12:32 EDT Nora BAGLEY, Hien Melendez MD, Hien Hernandez 07 Surgical Pathology Report - 01/10/2025 12:27 EDT - Auth (Verified) Final Diagnosis A: TRANSVERSE COLON, BIOPSY: - CHRONIC ACTIVE COLITIS, MILD. - NO GRANULOMA OR DYSPLASIA IDENTIFIED. B: STOMACH, BIOPSY: - MILD CHRONIC INACTIVE GASTRITIS. - NO INTESTINAL METAPLASIA OR GRANULOMA. - NO H. PYLORI MICROORGANISMS IDENTIFIED WITH IMMUNOSTAIN. C: RECTUM, BIOPSY: - CHRONIC ACTIVE COLITIS. - NO GRANULOMA OR DYSPLASIA IDENTIFIED. D: LEFT COLON, BIOPSY: - CHRONIC ACTIVE COLITIS. - NO GRANULOMA OR DYSPLASIA IDENTIFIED. (Electronic Signature) Jessica Montiel MD PhD 01/10/2025 12:27 Diagnosis Comment No viral effects are identified on submitted sections. Clinical Information Hematochezia, history of ulcerative colitis, hoarseness Pre-Op Diagnosis: Hematochezia, history of ulcerative colitis, hoarseness Procedure: Colonoscopy, EGD Post-Op Diagnosis: 1. Small internal hemorrhoids 2. Severe colitis in the left colon characterized by ulcers in the rectum, erosions through the left colon, decreased vascular pattern, friability and erythema, Anaya score 3, although noted gradually improving from rectum into descending colon. 3. Couple small erosions in the transverse colon, otherwise normal colonic mucosa extending from transverse colon into cecum. Random biopsies were taken from transverse colon, left colon and rectum for histology, rule out CMV, assess for Crohn's and ulcerative colitis 4. Normal examined terminal ileum 5. Esophageal landmarks identified, normal examined esophagus 6. Evidence of surgery in the stomach with gastric sleeve anatomy, diffuse nonspecific patchy erythema with multiple small erosions in the body of the stomach, random biopsies were taken to rule out H. pylori 7. Normal examined duodenum Specimen(s) Received A.Transverse colon biopsy B.Gastric biopsy C.Rectal biopsy D.Left colon biopsy Surgical Pathology Report Collected Date/Time: 01/03/2025 11:17 EDT Pathologist: Dinesh BAGLEY PhD, Jessica Haney Received Date/Time: 01/03/2025 12:32 EDT Nora BAGLEY, Hien Melendez MD, Hien Hernandez Gross Description A: Received in formalin labeled with patient name, number, and transverse colon biopsy are two fragments of lemus/pink tissue measuring 0.1 and 0.2 cm. Specimen is entirely submitted in one cassette. B: Received in formalin labeled with patient name, number, and gastric biopsy is a single fragment of lemus/pink tissue measuring 0.3 x 0.2 x 0.1 cm. Specimen is entirely submitted in one cassette. C: Received in formalin labeled with patient name, number, and rectal biopsy are two fragments of lemus/pink tissue ranging from less than 0.1 cm up to 0.2 cm in greatest dimension. Specimen is entirely submitted in one cassette. D: Received in formalin labeled with patient name, number, and left colon biopsy are multiple fragments of lemus/pink tissue measuring from less than 0.1 cm up to 0.1 cm. Specimen is entirely submitted in one cassette. (DC) DC:MCA Microscopic Description Microscopic examination performed unless gross only specified. Quality was accessed and acceptable. This report was transcribed using voice recognition technology and might contain unintended computerized managing partner [employer] [place] errors. The use of one or more reagents in the above tests is regulated as an analyte specific reagent (ASR). The test or tests are ordered following initial H&E microscopic examination. The performance characteristics were determined by the [facility]. They have not been cleared or approved by the US Food and Drug Administration. The FDA has determined that such clearance or approval is not necessary. These tests are used for clinical purposes. They should not be regarded as investigational or for research. Appropriate positive and negative controls are performed and are acceptable. This report was transcribed using voice recognition technology and might contain unintended computerized managing partner [employer] content [employer] [place] errors. Normal [facility] Comment on above: Performed By: #### [id number] #### [facility] [address] [place] [address] Main OR Intraoperative Recor don 01-07-2025 Main OR Intraoperative Record Main OR Intraoperative Record IntraOp Document Type FT Summary Primary Physician: Hien Melendez MD Finalized Date/Time: 01/07/25 11:06:42 Pt. Name: MARYCRUZ ORTIZ/Sex: 1975 Female Med Rec #: [id number] Physician: Hien Melendez MD Financial #: [id number] Pt. Type: O Room/Bed: / Admit/Disch: 01/03/25 09:52:45 - 01/03/25 23:59:59 Institution: Case Times FT Entry 1 Patient Times In Room 01/03/25 11:06:00 Out Room 01/03/25 11:36:00 Procedure Times Start 01/03/25 11:11:00 Stop 01/03/25 11:32:00 Anesthesia Times Start 01/03/25 11:06:00 Stop 01/03/25 11:36:00 Time at [place] 01/03/25 11:19:00 Last Modified By: Antonio SCOTT, Debora King 01/03/25 11:36:05 General Comments: 1113 EGD completed. /,RN 1117 Colonoscopy started. 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 Cruz supervising case Last Modified By: Antonio RN, Debora Alvarez RN, Debora Alvarez RN, Debora King 01/03/25 11:36:06 F 01/03/25 11:36:06 F 01/03/25 11:36:06 Entry 4 Entry 5 Case Attendee Nori AGRAWAL, Nadine Melendez MD, Hien Hernandez Role Performed Staff - Other Surgeon - Primary Time In 01/03/25 11:06:00 01/03/25 11:06:00 Time Out 01/03/25 11:36:00 01/03/25 11:36:00 Procedure EGD AND COLONOSCOPY(.) EGD AND COLONOSCOPY(.) Comments help in room Last Modified By: Antonio RN, Debora Alvarez RN, Debora 01/03/25 11:36:06 F 01/03/25 11:36:06 Perioperative Protocols FT Pre-Care Text: Implements protective measures prior to operative or invasive procedure, confirms identity before the operative or invasive procedure, verifies operative procedure, surgical site, and laterality Entry 1 Procedure(s) EGD AND COLONOSCOPY(.) Patient Identity Birthday, ID Band Verified (select at Check, Patient least 2): Participation Consents / H and P Anesthesia Consent, Operative Site N/A Verified H&P, Surgery/Procedure Marking Verified Consent Surgical Site No Laterality Verified n/a Verified Procedure Verified Yes Correct Patient Yes Position Verified Availability Equipment, Medication Prep Dry n/a Verified (If Applicable) PreOp Antibiotic No Time Out Igor Hui CRNA, Given Participants Antonio SCOTT, Ada John Micala E, Nori AGRAWAL, Nora Geller MD, Hien Hernandez Time Out Complete 01/03/25 11:08:00 Outcomes Met? Yes Last Modified By: Antonio SCOTT, Debora King 01/03/25 11:14:48 Post-Care Text: The patient is free from signs and symptoms of injury caused by extraneous objects Allergy Information FT Pre-Care Text: Verifies allergies Entry 1 Allergies Reviewed? Yes Allergies Reviewed Self/Patient With Outcomes Met? Yes Last Modified By: Debora Alvarez RN 01/03/25 11:14:54 Post-Care Text: The patient received appropriate medication(s) safely administered during the perioperative period Surgical Procedures FT Entry 1 Procedure Description Procedure EGD AND COLONOSCOPY Modifiers . Surgeon Description EGD with gastric biopsy. Colonoscopy with transverse colon biopsy, left colon biopsy, rectal biopsy. Primary Procedure Yes Primary Surgeon Nora BAGLEY, Hien Hernandez Start 01/03/25 11:11:00 Stop 01/03/25 11:32:00 Anesthesia Type General Surgical Service Gastroenterology Wound Class 2 - Clean-Contaminated Last Modified By: Debora Alvarez RN 01/03/25 11:32:06 General Case Data FT Pre-Care Text: Classifies surgical wound, implements aseptic technique, initiates traffic control Entry 1 Case Information OR ENDO 1 FT Case Level Level 2 Wound Class 2 - Clean-Contaminated Specialty Gastroenterology ASA Class 3 Preop Diagnosis Hematochezia, history Postop Same As Preop No of ulcerative colitis, hoarseness Postop Diagnosis EGD- gastritis, Outcomes Met? Yes evidence of gastric sleeve surgery. Colonoscopy- left sided severe colitis, erosion in the transverse colon, small internal hemorrhoids Last Modified By: Debora Alvarez RN 01/03/25 11:35:00 Post-Care Text: The patient is free from signs and symptoms of infection Skin Assessment (Pre Procedure) FT Pre-Care Text: Implements protective measures to prevent skin/ tissue injury due to thermal or mechanical sources Evaluates for signs and symptoms of physical injury to skin and tissue Entry 1 Skin Integrity Intact, [place], Warm, & Skin Abnormality No Dry Outcomes Met? Yes Last Modified By: Debora Alvarez RN 01/03/25 11:15:58 Post-Care Text: The patient is free from signs and symptoms of inj (more content not included)... Normal [facility] Lab Miscellaneous-LCon 01-06 Lab Miscellaneous COMMENT Invalid Interpretation Code [facility] Comment on above: Result Comment: Test Ordered: 202175 C difficile Toxins A+B, EIA C difficile Toxins A+B, EIA Negative CB Reference Range: Negative Performed at: [facility] [address] [place], [place] [id number] PhD Benquin Steven Performed By: #### 1 [id number] #### [facility] [address] [place] [id number] C. diff by PCRon 01-03-2025 C. diff by PCR Clostridium difficil e by PCR Specimen Positive for toxigenic C. difficile by DNA amplification. Repeat specimens for this patient will not be accepted for the next 10 Days. ASM Guidelines recommend against using laboratory assays as tests of cure . Abnormal Negative [facility] Comment on above: Result Comment: Resu lts Called To Dr. Melendez By [id number] And Read Back For Confirmation On 01/03/2025 16:54:42 EDT. This test result should be correlated with clinical presentations and medical history by a healthcare provider to determine its clinical significance.\.br\.br\ Other Comment: Order added by Discern Expert. Clostridium difficile by PCR Positive Abnormal Negative [facility] Comment on above: Order Comment: Order added by Discern Expert. Result Comment: Resu lts Called To Dr. Melendez By [id number] And Read Back For Confirmation On 01/03/2025 16:54:42 EDT. This test result should be correlated with clinical presentations and medical history by a healthcare provider to determine its clinical significance. Performed By: #### 4 [id number] #### [facility] [address] [place] [address] CDiff PCRon 01-03-2025 C. difficile toxin A+B Ql (Stl) No, PCR to follow Normal [facility] Comment on above: Performed By: #### 3 [id number] #### [facility] [address] [place] [address] CDiff PCR Order Cancelled Specimen has been found to be acceptable for C. difficile testing. Normal [facility] Discharge Instructionson Discharge Instructions Discharge Instructions MARYCRUZ ORTIZ :1975 Visit Date:01/03/2025 Inpatient Discharge Instructions Your Care Team Admitting Physician - Nora BAGLEY, Stanford Talal Referring Physician - Nora BAGLEY, Hien Hernandez Reason for Your Visit HEMATOCHEZIA, HX OF UC, HOARSENESS Your Diagnosis Acute GI bleeding Tests Performed Clostridium Difficile PCR -- Results Pending -- Enteric Panel by PCR -- Results Pending -- Pathology Tissue Exam -- Results Pending -- Please visit your patient portal for your results or contact your primary care physician. This Is Your Medications List alprazolam (Xanax 0.5 mg Tab) ascorbic acid (Vitamin C) cyanocobalamin (Vitamin B12) cyclobenzaprine dicyclomine (dicyclomine 20 mg Tab) ergocalciferol (Vitamin D 50,000 intl units (1.25 mg) oral capsule) esomeprazole (Nexium 40 mg Cap-EC) ferrous gluconate (ferrous gluconate 324 mg (38 mg elemental iron) oral tablet) phentermine (phentermine 37.5 mg Tab) predniSONE (predniSONE 5 mg Tab) promethazine (Phenergan) Procedure History Gastric sleeve (07/07/2020), Colonoscopy (02/18/2019), left L5-S1 discectomy (08/04/2014), Colonoscopy (07/22/2011), EGD (07/22/2011), Abdominoplasty, Breast reduction, section, Exploratory laparotomy, Hernia repair, Hysterectomy, Incidental appendectomy, LAP-BAND surgery status...., RSO - Right salpingo-oophorectomy. Discharge Vitals Temperature (Temporal Artery) 36.5 ???C Heart Rate (Monitored) 73 Respiratory Rate 19 Blood Pressure 155/90 Height 162 cm Weight 95.7 kg What to do next Instructions From Your Doctor Event Name Event Result Discharge Activity Resume normal activities in 24 hours Discharge Restrictions No driving for 24 hrs Discharge Diet(s) Regular Call Your Doctor For Persistent or heavy bleeding Discharge Instructions Discharge Instructions New Follow Up Appointments after Discharge Follow Up with Nora BAGLEY, Hien Hernandez, [facility] When: Comments: call office to schedule follow up Where: [address], [address] [phone] Medications What How Much When Instructions Next Dose New predniSONE (predniSONE 5 mg Tab) See instructions 1 tab(s) Oral Daily Pickup at [facility]/pharmacy #[id number] Unchanged alprazolam (Xanax 0.5 mg Tab) 1 Tablets By Mouth At bedtime as needed for for anxiety Unchanged ascorbic acid (Vitamin C) By Mouth Every day Unchanged cyanocobalamin (Vitamin B12) By Mouth Every day Oral, 0 Refill(s) Unchanged cyclobenzaprine Oral, 0 Refill(s) Unchanged dicyclomine (dicyclomine 20 mg Tab) 1 Tablets By Mouth As needed for Spasm 20 Unknown, Oral, 0 Refill(s) Unchanged ergocalciferol (Vitamin D 50,000 intl units (1.25 mg) oral capsule) 1 Capsules By Mouth Every week Duration: 90 Days Unchanged esomeprazole (Nexium 40 mg Cap-EC) 40 Milligram By Mouth Every day Duration: 90 Days Pharmacy may substitue PPI covered by insurance company Unchanged ferrous gluconate (ferrous gluconate 324 mg (38 mg elemental iron) oral tablet) 1 Tablets By Mouth 3 times a day Unchanged phentermine (phentermine 37.5 mg Tab) Oral, 0 Refill(s) Unchanged promethazine (Phenergan) 25 Milligram By Mouth Every 6 hours as needed for as needed for nausea/vomiting Pharmacy Information [facility]/pharmacy #[id number]: [address] [place], [place] [phone] Test Results No qualifying data available. Allergies vancomycin (Hives) Problems Ongoing - Any problem that you are currently receiving treatment for. Benign essential hypertension Bilateral lower limb edema Hematochezia Herniation of lumbar intervertebral disc with radiculopathy History of ulcerative colitis Hoarseness Low back pain Lower abdominal pain Lumbosacral spondylosis without myelopathy Nodule of lung Obese class II Obesity Obstructive sleep apnea syndrome Pseudotumor cerebri S/P gastric sleeve procedure Smoker Education Materials Upper Endoscopy, Adult, Care After After the procedure, it is common to have a sore throat. It is also common to have: ??? Mild stomach pain or discomfort. ??? Bloating. ??? Nausea. Follow these instructions at home: The instructions below may help you care for yourself at home. Your health care provider may give you more instructions. If you have questions, ask your health care provider. ??? If you were given a sedative during the procedure, it can affect you for several hours. Do not drive or operate machinery until your health care provider says that it is safe. ??? If you will be going home right after the procedure, plan to have a responsible adult: ? Take you home from the hospital or clinic. You will not be allowed to drive. ? Care for you for the time you are told. ??? Follow instructions from your health care provider about what you may eat and drink. ??? Return to your normal acti (more content not included)... Normal [facility] Comment on above: Result Comment: Elec tronically Signed By: Mariama SCOTT, Shanae\.sha\Date and Time Signed: 01/03/25 11:51 EDT Discharge Instructions Discharge Instructions MARYCRUZ ORTIZ :1975 Visit Date:01/03/2025 Inpatient Discharge Instructions Your Care Team Admitting Physician - Hien Melendez MD Referring Physician - Hien Melendez MD Reason for Your Visit HEMATOCHEZIA, HX OF UC, HOARSENESS Your Diagnosis Acute GI bleeding Tests Performed Clostridium Difficile PCR -- Results Pending -- Enteric Panel by PCR -- Results Pending -- Pathology Tissue Exam -- Results Pending -- Please visit your patient portal for your results or contact your primary care physician. This Is Your Medications List alprazolam (Xanax 0.5 mg Tab) ascorbic acid (Vitamin C) cyanocobalamin (Vitamin B12) cyclobenzaprine dicyclomine (dicyclomine 20 mg Tab) ergocalciferol (Vitamin D 50,000 intl units (1.25 mg) oral capsule) esomeprazole (Nexium 40 mg Cap-EC) ferrous gluconate (ferrous gluconate 324 mg (38 mg elemental iron) oral tablet) phentermine (phentermine 37.5 mg Tab) predniSONE (predniSONE 5 mg Tab) promethazine (Phenergan) Procedure History Gastric sleeve (07/07/2020), Colonoscopy (02/18/2019), left L5-S1 discectomy (08/04/2014), Colonoscopy (07/22/2011), EGD (07/22/2011), Abdominoplasty, Breast reduction, section, Exploratory laparotomy, Hernia repair, Hysterectomy, Incidental appendectomy, LAP-BAND surgery status...., RSO - Right salpingo-oophorectomy. Discharge Vitals Temperature (Temporal Artery) 36.5 ???C Heart Rate (Monitored) 73 Respiratory Rate 19 Blood Pressure 155/90 Height 162 cm Weight 95.7 kg What to do next Instructions From Your Doctor Event Name Event Result Discharge Activity Resume normal activities in 24 hours Discharge Restrictions No driving for 24 hrs Discharge Diet(s) Regular Call Your Doctor For Persistent or heavy bleeding Discharge Instructions Discharge Instructions New Follow Up Appointments after Discharge Follow Up with Nora BAGLEY, Hien Hernandez [facility] When: Comments: call office to schedule follow up Where: [address] [place], [place] [address], [address] [phone] Medications What How Much When Instructions Next Dose New predniSONE (predniSONE 5 mg Tab) See instructions 1 tab(s) Oral Daily Pickup at [facility]pharmacy #[id number] Unchanged alprazolam (Xanax 0.5 mg Tab) 1 Tablets By Mouth At bedtime as needed for for anxiety Unchanged ascorbic acid (Vitamin C) By Mouth Every day Unchanged cyanocobalamin (Vitamin B12) By Mouth Every day Oral, 0 Refill(s) Unchanged cyclobenzaprine Oral, 0 Refill(s) Unchanged dicyclomine (dicyclomine 20 mg Tab) 1 Tablets By Mouth As needed for Spasm 20 Unknown, Oral, 0 Refill(s) Unchanged ergocalciferol (Vitamin D 50,000 intl units (1.25 mg) oral capsule) 1 Capsules By Mouth Every week Duration: 90 Days Unchanged esomeprazole (Nexium 40 mg Cap-EC) 40 Milligram By Mouth Every day Duration: 90 Days Pharmacy may substitue PPI covered by insurance company Unchanged ferrous gluconate (ferrous gluconate 324 mg (38 mg elemental iron) oral tablet) 1 Tablets By Mouth 3 times a day Unchanged phentermine (phentermine 37.5 mg Tab) Oral, 0 Refill(s) Unchanged promethazine (Phenergan) 25 Milligram By Mouth Every 6 hours as needed for as needed for nausea/vomiting Pharmacy Information [facility][id number]: [address] [place], [place] [phone] Test Results No qualifying data available. Allergies vancomycin (Hives) Problems Ongoing - Any problem that you are currently receiving treatment for. Benign essential hypertension Bilateral lower limb edema Hematochezia Herniation of lumbar intervertebral disc with radiculopathy History of ulcerative colitis Hoarseness Low back pain Lower abdominal pain Lumbosacral spondylosis without myelopathy Nodule of lung Obese class II Obesity Obstructive sleep apnea syndrome Pseudotumor cerebri S/P gastric sleeve procedure Smoker Education Materials Upper Endoscopy, Adult, Care After After the procedure, it is common to have a sore throat. It is also common to have: ??? Mild stomach pain or discomfort. ??? Bloating. ??? Nausea. Follow these instructions at home: The instructions below may help you care for yourself at home. Your health care provider may give you more instructions. If you have questions, ask your health care provider. ??? If you were given a sedative during the procedure, it can affect you for several hours. Do not drive or operate machinery until your health care provider says that it is safe. ??? If you will be going home right after the procedure, plan to have a responsible adult: ? Take you home from the hospital or clinic. You will not be allowed to drive. ? Care for you for the time you are told. ??? Follow instructions from your health care provider about what you may eat and drink. ??? Return to your normal acti (more content not included)... Normal [facility] Comment on above: Result Comment: Elec tronically Signed By: Mariama SCOTT, Shanae\.br\Date and Time Signed: 01/03/25 11:50 EDT Enteric Panel by PCRon 01-03 C. coli+jejuni+upsaliens is DNA PACO+non-probe Ql (Stl) Not detected Normal [facility] Comment on above: Result Comment: Test ing was performed utilizing reverse managing [employer] [place] (RT), polymerase chain reaction (PCR), and array hybridization to detect specific gastrointestinal microbial nucleic acid gene sequences associated with the following pathogenic bacteria and viruses:Campylobacter Group (composed of C. coli, C. jejuni, and C. hetal), Salmonella species, Shigella species (including S. dysenteriae, S. boydii, S. sonnei and S. flexneri), Vibrio Group (composed of V. cholera and V. parahaemolyticus), Yersinia enterocolitica, Norovirus GI/GII, and Rotavirus A. In addition, EPdetects Shiga toxin 1 gene and Shiga toxin 2 gene virulence markers. Shiga toxin producing E. coli (STEC) typically harbor one or both genes that encode for Shiga toxins 1 and 2. Campylobacter group, Salmonella species, Shigella species, Vibrio group, Rotavirus A, Shiga Toxin 1, Shiga Toxin 2, Norovirus GI/GII, and Yersinia enterocolitica were tested by Verigene nulcleic acid test. Performed By: #### 1 [id number] #### [facility] [address] [place] [address] E. coli stx1 gene PACO+probe Ql (Unsp spec) Not detected Normal [facility] Comment on above: Performed By: #### 1 [id number] #### [facility] [address] [place] [address] E. coli stx1+stx2 genes PACO+non-probe Ql (Stl) Negative [facility] Comment on above: Performed By: #### 1 [id number] #### [facility] [address] [place] [address] E. coli stx2 gene PACO+probe Ql (Unsp spec) Not detected [facility] Comment on above: Performed By: #### 1 [id number] #### [facility] [address] [place] [address] Enteric Panel by PCR Shiga Tox Interp Negative for Shiga Toxin producing E. coli Normal [facility] Enteric Panel Intrl QC Pass Normal [facility] Comment on above: Result Comment: Test ing was performed utilizing [employer] [place] (RT), polymerase chain reaction (PCR), and array hybridization to detect specific gastrointestinal microbial nucleic acid gene sequences associated with the following pathogenic bacteria and viruses:Campylobacter Group (composed of C. coli, C. jejuni, and C. hetal), Salmonella species, Shigella species (including S. dysenteriae, S. boydii, S. sonnei and S. flexneri), Vibrio Group (composed of V. cholera and V. parahaemolyticus), Yersinia enterocolitica, Norovirus GI/GII, and Rotavirus A. In addition, EPdetects Shiga toxin 1 gene and Shiga toxin 2 gene virulence markers. Shiga toxin producing E. coli (STEC) typically harbor one or both genes that encode for Shiga toxins 1 and 2. Performed By: #### 1 [id number] #### [facility] [address] [place] [address] Norovirus genogroup I+II RNA PACO+non-probe Ql (Stl) Not detected Normal [facility] Comment on above: Performed By: #### 1 [id number] #### [facility] [address] [place] [address] Rotavirus A RNA PACO+non-probe Ql (Stl) Not detected Normal [facility] Comment on above: Performed By: #### 1 [id number] #### [facility] [address] [place] [address] S. enterica+bongori DNA PACO+non-probe Ql (Stl) Not detected Normal [facility] Comment on above: Result Comment: This test result should be correlated with clinical presentations and medical history by a healthcare provider to determine its clinical significance. Performed By: #### 1 [id number] #### [facility] [address] [place] [address] Shigella species+EIEC invasion plasmid antigen H ipaH gene PACO+non-probe Ql (Stl) Not detected Normal [facility] Comment on above: Performed By: #### 1 [id number] #### [facility] [address] [place] [address] V. cholerae+parahaemolyt icus+vulnificus DNA PACO+non-probe Ql (Stl) Not detected Normal [facility] Comment on above: Performed By: #### 1 [id number] #### [facility] [address] [place] [address] Y. enterocolitica DNA PACO+non-probe Ql (Stl) Not detected Normal [facility] Comment on above: Performed By: #### 1 [id number] #### [facility] [address] [place] [address] Inpatient Patient Summaryon 01-03-2025 Inpatient Patient Summary Inpatient Patient Summary [address] [address] [facility] Clinical Discharge Instructions PERSON INFORMATION Name: MARYCRUZ ORTIZ PHYSICIANS Admitting Physician: Nora BAGLEY, Hien Hernandez Attending Physician: Hien Melendez MD PCP: ORLY BAGLEY, MATA Discharge Diagnosis: Acute GI bleeding Comment: PATIENT EDUCATION INFORMATION Instructions: Medication Leaflets: Follow up: MEDICATION LIST Medications to Continue with No Changes Other Medications alprazolam (Xanax 0.5 mg Tab) 1 Tablets By Mouth at bedtime as needed for anxiety. ascorbic acid (Vitamin C) By Mouth every day. cyanocobalamin (Vitamin B12) By Mouth every day. Oral, 0 Refill(s). cyclobenzaprine Oral, 0 Refill(s). dicyclomine (dicyclomine 20 mg Tab) 1 Tablets By Mouth as needed Spasm. 20 Unknown, Oral, 0 Refill(s). ergocalciferol (Vitamin D 50,000 intl units (1.25 mg) oral capsule) 1 Capsules By Mouth every week for 90 Days. Refills: 3. esomeprazole (Nexium 40 mg Cap-EC) 40 Milligram By Mouth every day for 90 Days. Pharmacy may substitue PPI covered by insurance company. Refills: 3. ferrous gluconate (ferrous gluconate 324 mg (38 mg elemental iron) oral tablet) 1 Tablets By Mouth 3 times a day. Refills: 3. phentermine (phentermine 37.5 mg Tab) Oral, 0 Refill(s). promethazine (Phenergan) 25 Milligram By Mouth every 6 hours as needed as needed for nausea/vomiting. Comment: Normal [facility] Miscellaneous-LCon 01-03 Source stool Invalid Interpretation Code [facility] Comment on above: Performed By: #### 1 [id number] #### [facility] [address] [place] [address] Test Code 743304 Invalid Interpretation Code [facility] Comment on above: Performed By: #### 1 [id number] #### [facility] [address] [place] [address] Test Name Cdiff Toxin EIA Invalid Interpretation Code [facility] Comment on above: Performed By: #### 1 [id number] #### [facility] [address] [place] [address] Main OR Intraoperative Recor don 01-03-2025 Main OR Intraoperative Record Main OR Intraoperative Record IntraOp Document Type FT Summary Primary Physician: Hien Melendez MD Finalized Date/Time: 01/03/25 11:36:12 Pt. Name: MARYCRUZ ORTIZ/Sex: 1975 Female Med Rec #: [id number] Physician: Hien Melendez MD Financial #: [id number] Pt. Type: O Room/Bed: / Admit/Disch: 01/03/25 09:52:45 - Institution: Case Times FT Entry 1 Patient Times In Room 01/03/25 11:06:00 Out Room 01/03/25 11:36:00 Procedure Times Start 01/03/25 11:11:00 Stop 01/03/25 11:32:00 Anesthesia Times Start 01/03/25 11:06:00 Stop 01/03/25 11:36:00 Time at [facility] 01/03/25 11:19:00 Last Modified By: Antonio SCOTT, Debora King 01/03/25 11:36:05 General Comments: 1113 EGD completed. /,RN 1117 Colonoscopy started. 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 Cruz supervising case Last Modified By: Antonio RN, Debora Alvarez RN, Debora Alvarez RN, Debora King 01/03/25 11:36:06 F 01/03/25 11:36:06 F 01/03/25 11:36:06 Entry 4 Entry 5 Case Attendee Nori AGRAWAL, Nadine Melendez MD, Hien Hernandez Role Performed Staff - Other Surgeon - Primary Time In 01/03/25 11:06:00 01/03/25 11:06:00 Time Out 01/03/25 11:36:00 01/03/25 11:36:00 Procedure EGD AND COLONOSCOPY(.) EGD AND COLONOSCOPY(.) Comments help in room Last Modified By: Antonio RN, Debora Alvarez RN, Debora King 01/03/25 11:36:06 F 01/03/25 11:36:06 Perioperative Protocols FT Pre-Care Text: Implements protective measures prior to operative or invasive procedure, confirms identity before the operative or invasive procedure, verifies operative procedure, surgical site, and laterality Entry 1 Procedure(s) EGD AND COLONOSCOPY(.) Patient Identity Birthday, ID Band Verified (select at Check, Patient least 2): Participation Consents / H and P Anesthesia Consent, Operative Site N/A Verified H&P, Surgery/Procedure Marking Verified Consent Surgical Site No Laterality Verified n/a Verified Procedure Verified Yes Correct Patient Yes Position Verified Availability Equipment, Medication Prep Dry n/a Verified (If Applicable) PreOp Antibiotic No Time Out Igor Hui CRNA, Given Participants Antonio SCOTT, Ada John Micala E, Nori AGRAWAL, Nora Geller MD, Hien Hernandez Time Out Complete 01/03/25 11:08:00 Outcomes Met? Yes Last Modified By: Debora Alvarez RN 01/03/25 11:14:48 Post-Care Text: The patient is free from signs and symptoms of injury caused by extraneous objects Allergy Information FT Pre-Care Text: Verifies allergies Entry 1 Allergies Reviewed? Yes Allergies Reviewed Self/Patient With Outcomes Met? Yes Last Modified By: Debora Alvarez RN 01/03/25 11:14:54 Post-Care Text: The patient received appropriate medication(s) safely administered during the perioperative period Surgical Procedures FT Entry 1 Procedure Description Procedure EGD AND COLONOSCOPY Modifiers . Surgeon Description EGD with gastric biopsy. Colonoscopy with transverse colon biopsy, left colon biopsy, rectal biopsy. Primary Procedure Yes Primary Surgeon Hien Melendez MD Start 01/03/25 11:11:00 Stop 01/03/25 11:32:00 Anesthesia Type General Surgical Service Gastroenterology Wound Class 2 - Clean-Contaminated Last Modified By: Debora Alvarez RN 01/03/25 11:32:06 General Case Data FT Pre-Care Text: Classifies surgical wound, implements aseptic technique, initiates traffic control Entry 1 Case Information OR ENDO 1 FT Case Level Level 2 Wound Class 2 - Clean-Contaminated Specialty Gastroenterology ASA Class 3 Preop Diagnosis Hematochezia, history Postop Same As Preop No of ulcerative colitis, hoarseness Postop Diagnosis EGD- gastritis, Outcomes Met? Yes evidence of gastric sleeve surgery. Colonoscopy- left sided severe colitis, erosion in the transverse colon, small internal hemorrhoids Last Modified By: Debora Alvarez RN 01/03/25 11:35:00 Post-Care Text: The patient is free from signs and symptoms of infection Skin Assessment (Pre Procedure) FT Pre-Care Text: Implements protective measures to prevent skin/ tissue injury due to thermal or mechanical sources Evaluates for signs and symptoms of physical injury to skin and tissue Entry 1 Skin Integrity Intact, [place], Warm, & Skin Abnormality No Dry Outcomes Met? Yes Last Modified By: Debora Alvarez RN 01/03/25 11:15:58 Post-Care Text: The patient is free from signs and symptoms of injury caused by extran (more content not included)... Normal [facility] Main OR PACU II Recordon Main OR PACU II Record Main OR PACU II Record PACU Phase II Document Type FT Summary Primary Physician: Hien Melendez MD Finalized Date/Time: 01/03/25 12:39:43 Pt. Name: MARYCRUZ ORTIZ/Sex: 1975 Female Med Rec #: [id number] Physician: Hien Melendez MD Financial #: [id number] Pt. Type: O Room/Bed: / Admit/Disch: 01/03/25 09:52:45 - Institution: Case Times PACU II FT Pre-Care Text: Identifies barriers to communication and implements measures to provide psychological support and determines knowledge level Develops individualized plan of care, and ensures continuity of care Maintains patient's dignity and privacy, and maintains patient confidentiality Identifies and reports philosophical, cultural, and spiritual beliefs and values Identifies individual values and wishes concerning care administers prescribed antibiotic therapy and immunizing agents as ordered, Evaluates postoperative tissue perfusion Implements thermoregulation measures, and monitors body temperature Evaluates postoperative respiratory status Evaluates postoperative cardiac status Evaluates postoperative neurological status Assesses pain control, collaborated in initiating patient-controlled analgesia and implements alternative methods of pain control Verifies allergies, administers prescribed medications and solutions, evaluates response to medications Entry 1 In PACU II 01/03/25 11:39:00 Discharge from PACU 01/03/25 12:30:00 II Outcomes Met? Yes Last Modified By: Shanae Leslie RN 01/03/25 12:39:36 Post-Care Text: The patient demonstrates knowledge of the expected response to the operative or invasive procedure The patient's care is consistent with the individualized perioperative plan of care The patient's right to privacy is maintained The patient's value system, lifestyle, ethnicity, and culture are considered, respected, and incorporated into the perioperative plan of care The patient participates in decisions affecting his or her perioperative plan of care. The patient is free from signs and symptoms of infection The patient has wound/tissue perfusion consistent with or improved from baseline levels established preoperatively The patient is at or returning to normothermia at the conclusion of the immediate postoperative period The patient's respiratory function is consistent with or improved from baseline levels established preoperatively The patient's cardiovascular status is consistent with or improved from baseline levels established preoperatively The patient's neurological status is consistent with or improved from baseline levels established preoperatively The patient demonstrates and/or reports adequate pain control throughout the perioperative period The patient received appropriate medication(s), safely administered during the perioperative period Finalized By: Shanae Leslie RN Document Signatures Signed By: Shanae Leslie RN 01/03/25 12:39 Normal [facility] Main OR Preoperative Recordo n 01-03-2025 Main OR Preoperative Record Main OR Preoperative Record Holding Area Document Type FT Summary Primary Physician: Hien Melendez MD Finalized Date/Time: 01/03/25 10:06:00 Pt. Name: MARYCRUZ ORTIZ Josefina GarcíaB./Sex: 1975 Female Med Rec #: [id number] Physician: Hien Melendez MD Financial #: [id number] Pt. Type: O Room/Bed: / Admit/Disch: 01/03/25 09:52:45 - Institution: Case Times Holding FT Pre-Care Text: Verifies consent for planned procedure, identifies individual values and wishes concerning care, includes family members in perioperative teaching Secures patient's records' belongings, and valuables, maintains patient's dignity and privacy, and maintains patient confidentiality Entry 1 In Holding 01/03/25 10:03:00 Outcomes Met? Yes Last Modified By: Dee Kwan RN 01/03/25 10:03:13 Post-Care Text: The patient participates in decisions affecting his or her perioperative plan of care The patient's right to privacy is maintained Surgery Checklist FT Entry 1 Patient Birthday, ID Band Procedure History and Physical, Identification: Check, Patient Verification: Surgical Consent, With Participation Patient NPO after Midnight: Yes Results Reviewed Clear/yellow Comments: Personal Items: Jewelry Personal Items Nose ring Comment: Complaints of Pain: Yes Pain Comment: Abd pain 10 Operative Site n/a Availability Equipment Marking: Verified: Does Patient Smoke No Patient states Yes Comment - Adult Sister/mom postop adult Supervision supervision available Case Cancelled in No Holding Area see comments below for reason Last Modified By: Dee Kwan RN 01/03/25 10:05:55 General Comments: Pt completed prep at 0700 and remained NPO since/NICORN Finalized By: Dee Kwan RN Document Signatures Signed By: Dee Kwan RN 01/03/25 10:06 Normal [facility] Outpatient Surgery Discharge Instructionon 01-03-2025 Outpatient Surgery Discharge Instruction Outpatient Surgery Discharge Instruction [address] [address] Patient Discharge Instructions PERSON INFORMATION Name: MARYCRUZ ORTIZ Date of : 1975 Current Date: 01/03/2025 11:09:23 PHYSICIANS Admitting Physician: Nora BAGLEY, Hien Hernandez Discharge Diagnosis: Acute GI bleeding MARYCRUZ ORTIZ has been given the following list of follow-up instructions, prescriptions, and patient education materials: PATIENT FOLLOW-UP INFORMATION Diet: Regular Discharge Activity: Resume normal activities in 24 hours Discharge Restrictions: No driving for 24 hrs Call Your Doctor For: Persistent or heavy bleeding IF UNABLE TO CONTACT YOUR PHYSICIAN AND YOU FEEL IT IS AN EMERGENCY, GO TO THE NEAREST EMERGENCY ROOM OR CALL 911 I, MARYCRUZ ORTIZ, have received the attached patient education materials/instructions and have verbalized understanding: May we do a follow up call? Yes No I was present when discharge instructions were given Patient Signature Date Clinican/Nurse Signature _ Date Follow up: Pharmacy Information: You may receive a survey from [facility] asking you to rate your care experience. Your feedback is important and will help us understand what we do well and how we can improve the quality of care we provide to you, your loved ones and our community. It???s an honor to serve you. Thank you for choosing [facility] HERE ARE THE MEDICATION CHANGES THAT OCCURRED DURING YOUR HOSPITAL STAY Medications to Continue with No Changes Other Medications alprazolam (Xanax 0.5 mg Tab) 1 Tablets By Mouth at bedtime as needed for anxiety. ascorbic acid (Vitamin C) By Mouth every day. cyanocobalamin (Vitamin B12) By Mouth every day. Oral, 0 Refill(s). cyclobenzaprine Oral, 0 Refill(s). dicyclomine (dicyclomine 20 mg Tab) 1 Tablets By Mouth as needed Spasm. 20 Unknown, Oral, 0 Refill(s). ergocalciferol (Vitamin D 50,000 intl units (1.25 mg) oral capsule) 1 Capsules By Mouth every week for 90 Days. Refills: 3. esomeprazole (Nexium 40 mg Cap-EC) 40 Milligram By Mouth every day for 90 Days. Pharmacy may substitue PPI covered by insurance company. Refills: 3. ferrous gluconate (ferrous gluconate 324 mg (38 mg elemental iron) oral tablet) 1 Tablets By Mouth 3 times a day. Refills: 3. phentermine (phentermine 37.5 mg Tab) Oral, 0 Refill(s). promethazine (Phenergan) 25 Milligram By Mouth every 6 hours as needed as needed for nausea/vomiting. PATIENT EDUCATION INFORMATION Instructions: Medication Leaflets: Normal [facility] Quantiferon-TB Plus (Client Incubated)on 01-01-2025 Gamma interferon background IA Qn (Bld) 0.04 International_Unit/mL Invalid Interpretation Code [facility] Comment on above: Performed By: #### 1 [id number] ####[facility] [id number] [place] [address] M. tuberculosis stim IFN-g by CD4+ CD8+ T-cells corrected for background Qn (Bld) 0.04 International_Unit/mL Invalid Interpretation Code [facility] Comment on above: Performed By: #### 1 [id number] ####[facility] [id number] [place] [address] M. tuberculosis stim IFN-g by CD4+ T-cells corrected for background Qn (Bld) 0.05 International_Unit/mL Invalid Interpretation Code [facility] Comment on above: Performed By: #### 1 [id number] ####[place] [id number] M. tuberculosis stim IFN-g Ql (Bld) [Interp] Negative Invalid Interpretation Code Negative [facility] Comment on above: Result Comment: No r esponse to M tuberculosis antigens detected. Infection with M tuberculosis is unlikely, but high risk individuals should be considered for additional testing (ATS/IDSA/CDC Clinical Practice Guidelines, 2017). The reference range is an Antigen minus Nil result of <0.35 IU/mL. The specimen received for QuantiFERON testing was incubated by the ordering institution. Specific procedures outlined in our Directory of Services and in the package insert for the QuantiFERON Gold (In Tube) test must be followed to enable for proper stimulation of cells for the production of interferon gamma. Chemiluminescence immunoassay methodology Performed at: [facility] [id number] PhD Tana Harris Performed By: #### 1 [id number] ####[place] [address] Mitogen stimulated gamma interferon corrected for background Qn (Bld) >10.00 Invalid Interpretation Code [facility] Comment on above: Performed By: #### 1 [id number] ####[address] [address] Service comment (Unsp spec) [Interp] Comment Invalid Interpretation Code [facility] Comment on above: Result Comment: Asad tiFERON-TB Gold Plus is a qualitative indirect test for M tuberculosis infection (including disease) and is intended for use in conjunction with risk assessment, radiography, and other medical and diagnostic evaluations. The QuantiFERON-TB Gold Plus result is determined by subtracting the Nil value from either TB antigen (Ag) value. The Mitogen tube serves as a control for the test. Performed By: #### 1 [id number] ####[address] [address] CHEMISTRYOrdered By: SYSTEM SYSTEM on 12-31-2024 Ferritin [Mass/Vol] 4 ng/mL Low 11 - 307 ng/mL Remisol Chem Iron [Mass/Vol] 19 ug/dL Low 35 - 153 mcg/dL Remisol Chem Iron binding capacity [Mass/Vol] 511 ug/dL High 250 - 400 mcg/dL Remisol Chem Transferrin [Mass/Vol] 365 mg/dL Normal 200 - 370 mg/dL Remisol Chem Ferritinon 12-31-2024 Ferritin [Mass/Vol] 4 ng/mL Low 11-307 [facility] Comment on above: Performed By: #### 2 [id number] #### [facility] [address] [place] [address] Hep Bs Abon 12-31-2024 HBV surface Ab Ql (S) Reactive Invalid Interpretation Code [facility] Comment on above: Result Comment: Non Reactive: Not immune to HBV infection. Equivocal: Unable to determine if anti-HBs is present at levels consistent with immunity. Reactive: Anti-HBs concentration detected at greater than 10 mIU/mL. Individual is considered to be immune to infection with HBV. Performed at: [facility] [address] [place], [place] [id number] PhD Tana Harris Performed By: #### 2 [id number] #### [facility] [address] [place] [address] Hep Bs Agon 12-31-2024 HBV surface Ag IA Ql Negative Invalid Interpretation Code Negative [facility] Comment on above: Result Comment: Perf ormed at: [facility] [address] [place], [place] [id number] PhD Tana Harris Performed By: #### 2 [id number] #### [facility] [address] [place] [address] Ironon 12-31-2024 Iron [Mass/Vol] 19 microgram/dL Low 35-153 [place] [facility] Comment on above: Performed By: #### 2 [id number] #### [facility] [address] [place] [address] TIBC Calculatedon 12-31-2024 Iron binding capacity [Mass/Vol] 511 microgram/dL High 250-400 [facility] Comment on above: Performed By: #### 1 [id number] #### [facility] [address] [place] [address] Transferrin [Mass/Vol] 365 mg/dL Normal 200-370 [facility] Comment on above: Performed By: #### 1 [id number] #### [facility] [address] [place] [address] Ambulatory Visit Summaryon 0 12-30-2024 Ambulatory Visit Summary Ambulatory Visit Summary MARYCRUZ ORTIZ :1975 Visit Date:12/30/2024 Ambulatory Visit Instructions Your Diagnosis Hematochezia History of ulcerative colitis Hoarseness Your Care Team Attending Physician - Nora BAGLEY, Hien Hernandez Primary Care Physician - MATA VILLALBA MD This Is Your Medications List esomeprazole (Nexium 40 mg Cap-EC) magnesium sulfate/potass Cl/sodium sulf (Sutab oral tablet) Contact prescribing physician if questions or concerns alprazolam (Xanax 0.5 mg Tab) ascorbic acid (Vitamin C) cyanocobalamin (Vitamin B12) cyclobenzaprine dicyclomine (dicyclomine 20 mg Tab) famotidine (Pepcid 20 mg Tab) phentermine (phentermine 37.5 mg Tab) promethazine (Phenergan) Procedures Performed Gastric sleeve (07/07/2020), Colonoscopy (02/18/2019), left L5-S1 discectomy (08/04/2014), Colonoscopy (07/22/2011), EGD (07/22/2011), Abdominoplasty, Breast reduction, section, Exploratory laparotomy, Hernia repair, Hysterectomy, Incidental appendectomy, LAP-BAND surgery status...., RSO - Right salpingo-oophorectomy. Discharge Vitals Heart Rate (Peripheral) 98 Blood Pressure 164/109 Height 162 cm Height 64 in Weight 95.7 kg Weight 210.982 lb BMI 36.47 What to do next You Need to Complete the Following C-Reactive Protein, Blood, Routine collect, 12/30/24, Order for future visit, Lab Collect, History of ulcerative colitis Hematochezia, Print Label By Order Location CBC w/ Auto Diff, Blood, Routine collect, 12/30/24, Order for future visit, Lab Collect, History of ulcerative colitis Hematochezia, Print Label By Order Location Comprehensive Metabolic Panel, Blood, Routine collect, 12/30/24, Order for future visit, Lab Collect, History of ulcerative colitis Hematochezia, Print Label By Order Location Hepatitis B Surface Antibody, Blood, Routine collect, 12/30/24, Order for future visit, Lab Collect, History of ulcerative colitis Hematochezia, Print Label By Order Location Hepatitis B Surface Antigen, Blood, Routine collect, 12/30/24, Order for future visit, Lab Collect, History of ulcerative colitis Hematochezia, Print Label By Order Location Quantiferon-TB Plus (Client Incubated), Blood, Routine collect, 12/30/24, Order for future visit, Lab Collect, History of ulcerative colitis Hematochezia, Print Label By Order Location Vitamin D 25 Hydroxy, Blood, Routine collect, 12/30/24, Order for future visit, Lab Collect, History of ulcerative colitis Hematochezia, Print Label By Order Location Medications What How Much When Instructions New esomeprazole (Nexium 40 mg Cap-EC) 40 Milligram By Mouth Every day Duration: 90 Days Refills: 3 Pharmacy may substitue PPI covered by insurance company Pickup at [facility]/pharmacy #[id number] New magnesium sulfate/ potass Cl/ sodium sulf (Sutab oral tablet) See instructions Please follow instructions per packaging and physician's handout Pickup at [facility]/pharmacy #[id number] Unchanged alprazolam (Xanax 0.5 mg Tab) 1 Tablets By Mouth At bedtime as needed for for anxiety Contact prescribing physician if questions or concerns Unchanged ascorbic acid (Vitamin C) Every day Contact prescribing physician if questions or concerns Unchanged cyanocobalamin (Vitamin B12) Oral, 0 Refill(s) Contact prescribing physician if questions or concerns Unchanged cyclobenzaprine Oral, 0 Refill(s) Contact prescribing physician if questions or concerns Unchanged dicyclomine (dicyclomine 20 mg Tab) 20 Unknown, Oral, 0 Refill(s) Contact prescribing physician if questions or concerns Unchanged famotidine (Pepcid 20 mg Tab) 1 Tablets By Mouth 2 times a day Contact prescribing physician if questions or concerns Unchanged phentermine (phentermine 37.5 mg Tab) Oral, 0 Refill(s) Contact prescribing physician if questions or concerns Unchanged promethazine (Phenergan) 25 Milligram By Mouth Every 6 hours as needed for as needed for nausea/vomiting Contact prescribing physician if questions or concerns Pharmacy Information [facility]/pharmacy #[id number]: [address] [place], [place] [phone] Allergies vancomycin (Hives) Problems Ongoing - Any problem that you are currently receiving treatment for. Benign essential hypertension Bilateral lower limb edema Hematochezia Herniation of lumbar intervertebral disc with radiculopathy History of ulcerative colitis Hoarseness Low back pain Lower abdominal pain Lumbosacral spondylosis without myelopathy Nodule of lung Obese class II Obesity Obstructive sleep apnea syndrome Pseudotumor cerebri S/P gastric sleeve procedure Smoker Patient Survey You may receive a survey via text or e-mail asking about your office visit. Please share your experience with us by completing your survey. We appreciate your feedback and thank you for choosing us for your care. [facility] Ambulatory Visit Summary Ambulatory Visit Summary MARYCRUZ ORTIZ :1975 Visit Date:12/30/2024 Ambulatory Visit Instructions Your Diagnosis Hematochezia History of ulcerative colitis Hoarseness Your Care Team Attending Physician - Hien Melendez MD Primary Care Physician - MATA VILLALBA MD This Is Your Medications List esomeprazole (Nexium 40 mg Cap-EC) magnesium sulfate/potass Cl/sodium sulf (Sutab oral tablet) Contact prescribing physician if questions or concerns alprazolam (Xanax 0.5 mg Tab) ascorbic acid (Vitamin C) cyanocobalamin (Vitamin B12) cyclobenzaprine dicyclomine (dicyclomine 20 mg Tab) famotidine (Pepcid 20 mg Tab) phentermine (phentermine 37.5 mg Tab) promethazine (Phenergan) Procedures Performed Gastric sleeve (07/07/2020), Colonoscopy (02/18/2019), left L5-S1 discectomy (08/04/2014), Colonoscopy (07/22/2011), EGD (07/22/2011), Abdominoplasty, Breast reduction, section, Exploratory laparotomy, Hernia repair, Hysterectomy, Incidental appendectomy, LAP-BAND surgery status...., RSO - Right salpingo-oophorectomy. Discharge Vitals Heart Rate (Peripheral) 98 Blood Pressure 164/109 Height 162 cm Height 64 in Weight 95.7 kg Weight 210.982 lb BMI 36.47 What to do next You Need to Complete the Following C-Reactive Protein, Blood, Routine collect, 12/30/24, Order for future visit, Lab Collect, History of ulcerative colitis Hematochezia, Print Label By Order Location CBC w/ Auto Diff, Blood, Routine collect, 12/30/24, Order for future visit, Lab Collect, History of ulcerative colitis Hematochezia, Print Label By Order Location Comprehensive Metabolic Panel, Blood, Routine collect, 12/30/24, Order for future visit, Lab Collect, History of ulcerative colitis Hematochezia, Print Label By Order Location Hepatitis B Surface Antibody, Blood, Routine collect, 12/30/24, Order for future visit, Lab Collect, History of ulcerative colitis Hematochezia, Print Label By Order Location Hepatitis B Surface Antigen, Blood, Routine collect, 12/30/24, Order for future visit, Lab Collect, History of ulcerative colitis Hematochezia, Print Label By Order Location Quantiferon-TB Plus (Client Incubated), Blood, Routine collect, 12/30/24, Order for future visit, Lab Collect, History of ulcerative colitis Hematochezia, Print Label By Order Location Vitamin D 25 Hydroxy, Blood, Routine collect, 12/30/24, Order for future visit, Lab Collect, History of ulcerative colitis Hematochezia, Print Label By Order Location Medications What How Much When Instructions New esomeprazole (Nexium 40 mg Cap-EC) 40 Milligram By Mouth Every day Duration: 90 Days Refills: 3 Pharmacy may substitue PPI covered by insurance company Pickup at [facility]/pharmacy #[id number] New magnesium sulfate/ potass Cl/ sodium sulf (Sutab oral tablet) See instructions Please follow instructions per packaging and physician's handout Pickup at [facility]/pharmacy #[id number] Unchanged alprazolam (Xanax 0.5 mg Tab) 1 Tablets By Mouth At bedtime as needed for for anxiety Contact prescribing physician if questions or concerns Unchanged ascorbic acid (Vitamin C) Every day Contact prescribing physician if questions or concerns Unchanged cyanocobalamin (Vitamin B12) Oral, 0 Refill(s) Contact prescribing physician if questions or concerns Unchanged cyclobenzaprine Oral, 0 Refill(s) Contact prescribing physician if questions or concerns Unchanged dicyclomine (dicyclomine 20 mg Tab) 20 Unknown, Oral, 0 Refill(s) Contact prescribing physician if questions or concerns Unchanged famotidine (Pepcid 20 mg Tab) 1 Tablets By Mouth 2 times a day Contact prescribing physician if questions or concerns Unchanged phentermine (phentermine 37.5 mg Tab) Oral, 0 Refill(s) Contact prescribing physician if questions or concerns Unchanged promethazine (Phenergan) 25 Milligram By Mouth Every 6 hours as needed for as needed for nausea/vomiting Contact prescribing physician if questions or concerns Pharmacy Information [facility]/pharmacy #[id number]: [address] [place], [place] [phone] Allergies vancomycin (Hives) Problems Ongoing - Any problem that you are currently receiving treatment for. Benign essential hypertension Bilateral lower limb edema Hematochezia Herniation of lumbar intervertebral disc with radiculopathy History of ulcerative colitis Hoarseness Low back pain Lower abdominal pain Lumbosacral spondylosis without myelopathy Nodule of lung Obese class II Obesity Obstructive sleep apnea syndrome Pseudotumor cerebri S/P gastric sleeve procedure Smoker Patient Survey You may receive a survey via text or e-mail asking about your office visit. Please share your experience with us by completing your survey. We appreciate your feedback and thank you for choosing us for your care. Normal [facility] CBC w/ Auto Diffon 5 Basophils/100 WBC (Bld) 1.2 % Normal 0.0-2.0 [facility] Comment on above: Performed By: #### 2 [id number] #### [facility] [address] [place] [address] Basophils/Leukocytes Auto (Bld) [Pure # fraction] 0.1 E9/L Normal 0.0-0.2 [facility] Comment on above: Performed By: #### 2 [id number] #### [facility] [address] [place] [address] Eosinophils (Bld) [#/Vol] 0.4 E9/L Normal 0.0-0.5 [facility] Comment on above: Performed By: #### 2 [id number] #### [facility] [address] [place] [address] Eosinophils/100 WBC (Bld) 6.5 % Normal 0.0-8.0 [facility] Comment on above: Performed By: #### 2 [id number] #### [facility] [address] [place] [address] Erythrocyte distribution width (RBC) [Ratio] 16.6 % High 10.9-14.2 [facility] Comment on above: Performed By: #### 2 [id number] #### [facility] [address] [place] [address] Hematocrit (Bld) [Volume fraction] 31.8 % Low 34.0-46.0 [facility] Comment on above: Performed By: #### 2 [id number] #### [facility] [address] [place] [address] Hemoglobin (Bld) [Mass/Vol] 10.2 g/dL Low 12.0-16.0 [facility] Comment on above: Performed By: #### 2 [id number] #### [facility] [address] [place] [address] Hypochromia Auto Ql (Bld) PRESENT Invalid Interpretation Code [facility] Comment on above: Performed By: #### 2 [id number] #### [facility] [address] [place] [address] Lymphocytes (Bld) [#/Vol] 1.6 E9/L Normal 1.0-4.0 [facility] Comment on above: Performed By: #### 2 [id number] #### [facility] [address] [place] [address] Lymphocytes/100 WBC (Bld) 25.4 % Normal 14.0-50.0 [facility] Comment on above: Performed By: #### 2 [id number] #### [facility] [address] [place] [address] MCH (RBC) [Entitic mass] 22.7 pg Low 27.0-34.0 [facility] Comment on above: Performed By: #### 2 [id number] #### [facility] [address] [place] [address] MCHC (RBC) [Mass/Vol] 32.0 g/dL Normal 31.4-36.0 [facility] Comment on above: Performed By: #### 2 [id number] #### [facility] [address] [place] [address] MCV (RBC) [Entitic vol] 71.0 fL Low 80.0-100.0 [facility] Comment on above: Performed By: #### 2 [id number] #### [facility] [address] [place] [address] Monocytes (Bld) [#/Vol] 0.6 E9/L Normal 0.2-1.0 [facility] Comment on above: Performed By: #### 2 [id number] #### [facility] [address] [place] [address] Neutrophils (Bld) [#/Vol] 3.5 E9/L Normal 2.0-7.5 [facility] Comment on above: Performed By: #### 2 [id number] #### [facility] [address] [place] [address] Neutrophils/100 WBC (Bld) 56.7 % Normal 36.0-75.0 [facility] Comment on above: Performed By: #### 2 [id number] #### [facility] [address] [place] [address] Platelet 431.0 E9/L Normal 150.0-500.0 [facility] Comment on above: Performed By: #### 2 [id number] #### [facility] [address] [place] [address] Platelet mean volume (Bld) [Entitic vol] 6.5 fL Normal 6.4-10.8 [facility] Comment on above: Performed By: #### 2 [id number] #### [facility] [address] [place] [address] RBC (Bld) [#/Vol] 4.5 E12/L Normal 4.3-5.9 [facility] Comment on above: Performed By: #### 2 [id number] #### [facility] [address] [place] [address] RBC size Nom (Bld) SEE MORPHOLOGY Invalid Interpretation Code [facility] Comment on above: Performed By: #### 2 [id number] #### [facility] [address] [place] [address] WBC corrected for nucl RBC Auto (Bld) [#/Vol] 6.3 E9/L Normal 4.0-11.0 [facility] Comment on above: Performed By: #### 2 [id number] #### [facility] [address] [place] [address] CHEMISTRYOrdered By: SYSTEM SYSTEM on 12-30-2024 25-hydroxyvitamin D3 [Mass/Vol] 17.3 ng/mL Low 30.0 - 100.0 ng/mL Remisol Chem Albumin [Mass/Vol] 4.1 g/dL Normal 3.3 - 5.0 gm/dL [facility] Albumin/Globulin [Mass ratio] 1.3 {ratio} Normal 1.1 - 2.2 [facility] ALP [Catalytic activity/Vol] 104 [iU]/d High 21 - 98 Int._Unit/L [facility] ALT No additional P-5'-P [Catalytic activity/Vol] 16 [iU]/d Normal 6 - 46 Int._Unit/L [facility] Anion gap [Moles/Vol] 10 mmol/L Normal 6 - 16 mEq/L R emisol Chem AST [Catalytic activity/Vol] 16 [iU]/d Normal 5 - 43 Int._Unit/L [facility] Bilirubin [Mass/Vol] 0.3 mg/dL Normal 0.0 - 1 .1 mg/dL [facility] Calcium [Mass/Vol] 8.7 mg/dL Low 8.9 - 11. 1 mg/dL [facility] Chloride [Moles/Vol] 104 mmol/L Normal 101 - 1 11 mmol/L [facility] CO2 [Moles/Vol] 26 mmol/L Normal 21 - 31 mmol/L [facility] Creatinine [Mass/Vol] 0.8 mg/dL Normal 0.5 - 1.3 mg/dL [facility] CRP [Mass/Vol] 0.7 mg/dL Normal <=1.9mg/dL [facility] eGFR 89 mL/min/1.73 m2 Normal >=59mL/min /1 .73 m2 [facility] Globulin (S) [Mass/Vol] 3.1 g/dL Normal 1.4 - 4.0 gm/dL [facility] Glucose [Mass/Vol] 92 mg/dL Normal 55 - 199 mg/dL [facility] Potassium [Moles/Vol] 3.3 mmol/L Low 3.5 - 5.3 mmol/L [facility] Protein [Mass/Vol] 7.2 g/dL Normal 6.0 - 7.8 gm/dL [facility] Sodium [Moles/Vol] 137 mmol/L Normal 135 - 145 mmol/L [facility] Urea nitrogen [Mass/Vol] 9 mg/dL Normal 5 - 21 mg/dL [facility] Urea nitrogen/Creatinine [Mass ratio] 11 mg/mg Normal 10 - 20 [facility] CMPon 12-30-2024 Albumin [Mass/Vol] 4.1 g/dL Normal 3.3-5.0 [facility] Comment on above: Performed By: #### 2 [id number] #### [facility] [address] [place] [address] Albumin/Globulin (S) [Mass conc ratio] 1.3 Normal 1.1-2.2 [facility] Comment on above: Performed By: #### 2 [id number] #### [facility] [address] [place] [address] ALP [Catalytic activity/Vol] 104 Int._Unit/L High 21-98 [facility] Comment on above: Performed By: #### 2 [id number] #### [facility] [address] [place] [address] ALT No additional P-5'-P [Catalytic activity/Vol] 16 Int._Unit/L Normal 6-46 [facility] Comment on above: Performed By: #### 2 [id number] #### [facility] [address] [place] [address] Anion gap [Moles/Vol] 10 mmol/L Normal 6-16 [facility] Comment on above: Performed By: #### 2 [id number] #### [facility] [address] [place] [address] AST [Catalytic activity/Vol] 16 Int._Unit/L Normal 5-43 [facility] Comment on above: Performed By: #### 2 [id number] #### [facility] [address] [place] [address] Bilirubin [Mass/Vol] 0.3 mg/dL Normal 0.0-1.1 [facility] Comment on above: Performed By: #### 2 [id number] #### [facility] [address] [place] [address] Calcium [Mass/Vol] 8.7 mg/dL Low 8.9-11.1 [facility] Comment on above: Performed By: #### 2 [id number] #### [facility] [address] [place] [address] Chloride [Moles/Vol] 104 mmol/L Normal 101-111 [facility] Comment on above: Performed By: #### 2 [id number] #### [facility] [address] [place] [address] CO2 [Moles/Vol] 26 mmol/L Normal 21-31 [facility] Comment on above: Performed By: #### 2 [id number] #### [facility] [address] [place] [address] Creatinine [Mass/Vol] 0.8 mg/dL Normal 0.5-1.3 [facility] Comment on above: Performed By: #### 2 [id number] #### [facility] [address] [place] [address] Globulin (S) [Mass/Vol] 3.1 g/dL Normal 1.4-4.0 [facility] Comment on above: Performed By: #### 2 [id number] #### [facility] [address] [place] [address] Glucose [Mass/Vol] 92 mg/dL Normal 55-199 [facility] Comment on above: Performed By: #### 2 [id number] #### [facility] [address] [place] [address] Potassium [Moles/Vol] 3.3 mmol/L Low 3.5-5.3 [facility] Comment on above: Performed By: #### 2 [id number] #### [facility] [address] [place] [address] Protein [Mass/Vol] 7.2 g/dL Normal 6.0-7.8 [facility] Comment on above: Performed By: #### 2 [id number] #### [facility] [address] [place] [address] Sodium [Moles/Vol] 137 mmol/L Normal 135-145 [facility] Comment on above: Performed By: #### 2 [id number] #### [facility] [address] [place] [address] Urea nitrogen [Mass/Vol] 9 mg/dL Normal 5-21 [facility] Comment on above: Performed By: #### 2 [id number] #### [facility] [address] [place] [address] Urea nitrogen/Creatinine [Mass ratio] 11 No Units Normal 10-20 [facility] Comment on above: Performed By: #### 2 [id number] #### [facility] [address] [place] [address] CRPon 12-30-2024 CRP [Mass/Vol] 0.7 mg/dL Normal <=1.9 [facility] Comment on above: Performed By: #### 2 [id number] #### [facility] [address] [place] [address] Gastroenterology Office/Clin ic Noteon 12-30-2024 Gastroenterology Office/Clinic Note Gastroenterology Office/Clinic Note Chief Complaint Rectal bleeding that has worsened and severe abdominal pain HPI Staff New patient is a(n) 49 year old female who was referred by Dr Villalba for hematochezia. Rectal bleeding: Onset of symptoms: several months ago Bright red or dark red? bright red - mixed with stool and when wiping. Every BM or less often? 2-3 times a day Hx hemorrhoids? No Associated symptoms: cramping in lower abdomen and urgency for BM Previous colonoscopy? 2019 - see below. Any blood thinners? no Any GLP-1 agonists? no History of Present Illness Reviewed HPI collected by staff Review of Systems PHQ Score Initial Depression Screen Score: 0 SCORE All systems reviewed, negative; Except for above Physical Exam Vitals & Measurements HR: 98(Peripheral) BP: 164/109 HT: 64 in HT: 162 cm WT: 210.982 lb WT: 95.7 kg BMI: 36.47 No acute distress Procedure EGD/Colonoscopy 02/18/19 w/Dr. Johnston: Impression and Plan Normal EGD, random gastric biopsies obtained to rule out H. pylori Impression: 1. Normal terminal ileum, photograph taken 2. Moderate diffuse erythema, friability, mucosal edema and pinpointed ulcerations involving the entire colon suggestive of brothers ulcerative colitis, biopsies obtained from the ascending colon and rectum, liquidy stool collected for C. difficile testing Recommendations: Repeat colonoscopy:: In 1 year. Pathology: Final Diagnosis (Verified) A: STOMACH, BIOPSY: ??? ANTRAL MUCOSA WITH MILD CHRONIC GASTRITIS, COMPATIBLE WITH REACTIVE GASTROPATHY. ??? IMMUNOHISTOCHEMICAL STAIN FOR H. PYLORI IS NEGATIVE. B: RECTUM, BIOPSY: ??? CHRONIC ACTIVE COLITIS. ??? NO GRANULOMA OR DYSPLASIA IDENTIFIED. C: ASCENDING COLON, BIOPSY: ??? CHRONIC ACTIVE COLITIS. ??? NO GRANULOMA OR DYSPLASIA IDENTIFIED. Note: No viral intranuclear inclusion is identified on the submitted sections. Clinical correlation and follow-up is recommended to rule out inflammatory bowel disease as clinically indicated. Assessment/Plan 1. Hematochezia (K92.1: Melena) She had hematochezia on and off for few years, but usually it stops after few days or a month max Has been a chronic issue, has never lasted this long Currently having 3+ BMs daily with urgency Has nocturnal symptoms, severe abdominal pain wakes her up Colonoscopy 02/2019: Moderate diffuse erythema, friability, mucosal edema and pinpointed ulcerations involving the entire colon suggestive of brothers ulcerative colitis. Biopsy showed chronic inflammation We discussed that most likely she has ulcerative colitis or Crohn's disease based on the pattern of inflammation, therefore we need to do endoscopic evaluation as soon as possible start therapy based on findings - Schedule Colonoscopy to evaluate. Discussed risks such as bleeding, injury and perforation as well as benefits. Patient agreeable. IBD labs also ordered 2. History of ulcerative colitis (Z87.19: Personal history of other diseases of the digestive system) 3. Hoarseness (R49.0: Dysphonia) Hx of gastric sleeve, thinks it was done in 2019 Occasional heartburn symptoms Also she describes early satiety Given the surgery that she had and all the symptoms including early satiety it is reasonable to repeat EGD - Nexium prescribed - Schedule EGD to evaluate. Discussed risks such as bleeding, injury and perforation as well as benefits. Patient agreeable. I, Bibiana Tao, personally scribed for Hien Melendez on 12/30/2024 08:35:31. . Documentation recorded by Bibiana Tao, accurately reflects the services I performed and decisions made by me. Hien Melendez MD Follow-up No qualifying data available Problem List/Past Medical History Ongoing Benign essential hypertension Bilateral lower limb edema Hematochezia Herniation of lumbar intervertebral disc with radiculopathy History of ulcerative colitis Hoarseness Low back pain Lower abdominal pain Lumbosacral spondylosis without myelopathy Nodule of lung Obese class II Obesity Obstructive sleep apnea syndrome Pseudotumor cerebri S/P gastric sleeve procedure Smoker Historical No qualifying data Procedure/Surgical History Gastric sleeve (07/07/2020), Colonoscopy (02/18/2019), left L5-S1 discectomy (08/04/2014), Colonoscopy (07/22/2011), EGD (07/22/2011), Abdominoplasty, Breast reduction, section, Exploratory laparotomy, Hernia repair, Hysterectomy, Incidental appendectomy, LAP-BAND surgery status...., RSO - Right salpingo-oophorectomy. Medications cyclobenzaprine dicyclomine 20 mg Tab Nexium 40 mg Cap-EC, 40 mg, Oral, Daily, 3 refills Pepcid 20 mg Tab, 20 mg= 1 tab(s), Oral, BID Phenergan, 25 mg, Oral, q6hr, PRN phentermine 37.5 mg Tab Sutab oral tablet, See Instructions Vitamin B12 Vitamin C, Daily Xanax 0.5 mg Tab, 0.5 mg= 1 tab(s), Oral, Bedtime, PRN Allergies vancomycin (Hives) (more content not included)... Normal [facility] Comment on above: Result Comment: Elec tronically Signed By: Nora BAGLEY, Hien Hernandez\.br\Date and Time Signed: 12/30/24 08:47 EDT\.br\Electronically Co-Signed By: Bibiana Tao MA\.br\Date and Time Co-Signed: 12/30/24 08:39 EDT HEMATOLOGYOrdered By: SYSTEM SYSTEM on 12-30-2024 Basophils/100 WBC (Bld) 1.2 % Normal 0.0 - 2.0 % Remisol Heme Basophils/Leukocytes Auto (Bld) [Pure # fraction] 0.1 E9/L Normal 0.0 - 0.2 E9/L Remisol Heme Eosinophils (Bld) [#/Vol] 0.4 E9/L Normal 0.0 - 0.5 E9/L Remisol Heme Eosinophils/100 WBC (Bld) 6.5 % Normal 0.0 - 8.0 % Remisol Heme Erythrocyte distribution width (RBC) [Ratio] 16.6 % High 10.9 - 14.2 % Remisol Heme Hematocrit (Bld) [Volume fraction] 31.8 % Low 34.0 - 46.0 % Remisol Heme Hemoglobin (Bld) [Mass/Vol] 10.2 g/dL Low 12.0 - 16.0 gm/dL Remisol Heme Hypochromia Auto Ql (Bld) PRESENT *NA* (12/30/24 9:48 AM) Invalid Interpretation Code Remisol Heme Lymphocytes (Bld) [#/Vol] 1.6 E9/L Normal 1.0 - 4.0 E9/L Remisol Heme Lymphocytes/100 WBC (Bld) 25.4 % Normal 14.0 - 50.0 % Remisol Heme MCH (RBC) [Entitic mass] 22.7 pg Low 27.0 - 34.0 pg Remisol Heme MCHC (RBC) [Mass/Vol] 32.0 g/dL Normal 31.4 - 36.0 gm/dL Remisol Heme MCV (RBC) [Entitic vol] 71.0 fL Low 80.0 - 100.0 fL Remisol Heme Monocytes (Bld) [#/Vol] 0.6 E9/L Normal 0.2 - 1.0 E9/L Remisol Heme Monocytes/100 WBC (Bld) 10.2 % Normal 4.0 - 14.0 % Remisol Heme Neutrophils (Bld) [#/Vol] 3.5 E9/L Normal 2.0 - 7.5 E9/L Remisol Heme Neutrophils/100 WBC (Bld) 56.7 % Normal 36.0 - 75.0 % Remisol Heme Platelet 431.0 E9/L Normal 150.0 - 500.0 E9/L Remisol Heme Platelet mean volume (Bld) [Entitic vol] 6.5 fL Normal 6.4 - 10.8 fL Remisol Heme RBC (Bld) [#/Vol] 4.5 E12/L Normal 4.3 - 5.9 E12/L Remisol Heme RBC size Nom (Bld) SEE MORPHOLOGY *NA* (12/30/24 9:48 AM) Invalid Interpretation Code Remisol Heme WBC corrected for nucl RBC Auto (Bld) [#/Vol] 6.3 E9/L Normal 4.0 - 11.0 E9/L Remisol Heme Vitamin D 25 Hydroxyon 12-30 25-hydroxyvitamin D3 [Mass/Vol] 17.3 ng/mL Low 30.0-100.0 [facility] Comment on above: Performed By: #### 5 [id number] #### [facility] [address] [place] [address] eGFRon 12-30-2024 eGFR 89 mL/min/1.73 m2 Normal >=59 [facility] Comment on above: Performed By: #### 1 [id number] #### [facility] [address] [place] [address] CBC AUTO DIFFon 06-22-2022 BASO # 0.1 103/ul Normal 0.0-0.1 [facility] Comment on above: Performed By: #### C BC ####[facility] [address] [place], [place] [address]Sk. Jessica Montiel Basophils/100 WBC (Bld) 0.9 % Normal 0.2-2.0 [facility] Comment on above: Performed By: #### C BC ####[facility] [address] [place], [place] [address]Dr. Jessica Montiel EO # 0.1 103/ul Normal 0.0-0.7 [facility] Comment on above: Performed By: #### C BC ####[facility] [address] [place], [place] [address]Dr. Jessica Montiel Eosinophils/100 WBC (Bld) 1.6 % Normal 0.9-7.0 [facility] Comment on above: Performed By: #### C BC ####[facility] [address] [place], [place] [address]Dr. Jessica Montiel Erythrocyte distribution width (RBC) [Ratio] 13.8 % Normal 11.0-15.0 [facility] Comment on above: Performed By: #### C BC ####[facility] [address] [place], [place] [address]DrCindy Archanajosh Montiel Hematocrit (Bld) [Volume fraction] 42.8 % Normal 36.0-48.0 [facility] Comment on above: Performed By: #### C BC ####[facility] [address] [place], [place] [address]Dr. Jessica Montiel Hemoglobin (Bld) [Mass/Vol] 14.4 g/dL Normal 12.0-16.0 [facility] Comment on above: Performed By: #### C BC ####[facility] [address] [place], [place] [address]Dr. Jessica Montiel IG # 0.01 10e3/ul Normal 0.00-0.03 [facility] Comment on above: Performed By: #### C BC ####[facility] [address] [place], [place] [address]Dr. Archanajosh Montiel IG % 0.2 % Normal 0.0-0.5 [facility] Comment on above: Performed By: #### C BC ####[facility] [address] [place], [place] [address]DrCindy Montiel LYMPH # 1.7 103/ul Normal 1.2-3.8 [facility] Comment on above: Performed By: #### C BC ####[facility] [address] [place] [address]Dr. Jessica Montiel Lymphocytes/100 WBC (Bld) 25.9 % Normal 20.5-60.0 [facility] Comment on above: Performed By: #### C BC ####[facility] [address] [place] [address]DrCindy Montiel MANUAL DIFF REQ NO Normal [facility] Comment on above: Performed By: #### C BC ####[facility] [address] [place] [id number]. Jessica Montiel MCH (RBC) [Entitic mass] 32.3 pg Normal 26.7-34.0 [facility] Comment on above: Performed By: #### C BC ####[facility] [address] [place], [place] [address]Dr. Jessica Montiel MCHC (RBC) [Mass/Vol] 33.6 g/dL Normal 29.9-35.2 [facility] Comment on above: Performed By: #### C BC ####[facility] [address] [place], [place] [address]DrCindy Montiel MCV (RBC) [Entitic vol] 96.0 fL Normal 81.0-99.0 [facility] Comment on above: Performed By: #### C BC ####[facility] [address] [place], [place] [address]Dr. Jessica Montiel MONO # 0.5 103/ul Normal 0.3-0.8 [facility] Comment on above: Performed By: #### C BC ####[facility] [address] [place], [place] [address]DrCindy Montiel Monocytes/100 WBC (Bld) 7.4 % Normal 1.7-12.0 [facility] Comment on above: Performed By: #### C BC ####[facility] [address] [place], [place] [id number] Montiel NEUT # 4.1 103/ul Normal 1.4-6.5 [facility] Comment on above: Performed By: #### C BC ####[facility] [address] [place] [id number]. Jessica Montiel Neutrophils/100 WBC (Bld) 64.0 % Normal 43.0-75.0 [facility] Comment on above: Performed By: #### C BC ####[facility] [address] [place] [id number] Montiel Platelet mean volume (Bld) [Entitic vol] 9.6 fL Normal 9.5-13.5 [facility] Comment on above: Performed By: #### C BC ####[facility] [address] [place] [id number]. Jessica Montiel PLT 293 103/ul Normal 150-450 [facility] Comment on above: Performed By: #### C BC ####[facility] [address] [place] [address]DrCindy Montiel RBC 4.46 106/ul Normal 4.20-5.40 [facility] Comment on above: Performed By: #### C BC ####[facility] [address] [place] [id number] Montiel WBC 6.4 103/ul Normal 4.0-11.0 [facility] Comment on above: Performed By: #### C BC ####[facility] [address] [place] [id number] Montiel GLYCOHEMOGLOBIN A1Con 2021 ADA RECOMMENDATION SEE BELOW Normal [facility] Comment on above: Result Comment: ADA RECOMMENDED LIMIT 4.0 - 6.0 ADA THERAPEUTIC TARGET < 7.0 ACTION SUGGESTED > 7.0 Performed By: #### A 1C #### [facility] [address] [place] [address] [address] Jessica Montiel Glucose [Mass/Vol] 100 mg/dL Normal [facility] Comment on above: Performed By: #### A 1C #### [facility] [address] [place] [address] [address] Jessica Montiel HbA1c (Bld) [Mass fraction] 5.1 % Normal 4.5-6.2 [facility] Comment on above: Performed By: #### A 1C #### [facility] [address] [place] [address] Dr. Jessica Montiel LIPID PROFILEon 06-22-2022 CHOL-HDL RATIO NORM SEE BELOW Normal [facility] Comment on above: Result Comment: 3.3 - 4.4 LOW RISK 4.4 - 7.1 AVERAGE RISK 7.1 - 11.0 MODERATE RISK >11.0 HIGH RISK Performed By: #### L IVER, LIPID, TSH, BMP #### [facility] [address] [address] [address] Jessica Montiel Cholesterol [Mass/Vol] 177 mg/dL Normal <=200 [facility] Comment on above: Performed By: #### L IVER, LIPID, TSH, BMP #### [facility] [address] [place] [address] Dr. Jessica Montiel Cholesterol in HDL [Mass/Vol] 67 mg/dL Critically high 40-60 [facility] Comment on above: Performed By: #### L IVER, LIPID, TSH, BMP #### [facility] [address] [address] [address] Jessica Montiel Cholesterol in LDL [Mass/Vol] 89.2 mg/dL Normal [facility] Comment on above: Performed By: #### L IVER, LIPID, TSH, BMP #### [facility] [address] [place] [address] Dr. Jessica Montiel Cholesterol.total/Cho lesterol in HDL [Mass ratio] 2.6 {ratio} Normal [facility] Comment on above: Performed By: #### L IVER, LIPID, TSH, BMP #### [facility] [address] [place] [address] [address] Jessica Montiel HDL NORMAL > or = 60 mg/dl - LO W CARDIOVASCULAR RISK <40 mg/dl - HIGH CARDIOVASCULAR RISK Normal [facility] Comment on above: Performed By: #### L IVER, LIPID, TSH, BMP #### [facility] [address] [place] [address] Dr. Jessica Montiel LDL CALC NORMAL SEE BELOW Normal [facility] Comment on above: Result Comment: <100 mg/dl OPTIMAL 100 - 129 mg/dl NEAR OR ABOVE OPTIMAL 130 - 159 mg/dl BORDERLINE HIGH 160 - 189 mg/dl HIGH >190 mg/dl VERY HIGH Performed By: #### L IVER, LIPID, TSH, BMP #### [facility] [address] [address] [address] Jessica Montiel Triglyceride [Mass/Vol] 104 mg/dL Normal <=150 [facility] Comment on above: Performed By: #### L IVER, LIPID, TSH, BMP #### [facility] [address] [address] [address] Jessica Montiel VLDL CALC 20.8 mg/dL Normal [facility] Comment on above: Performed By: #### L IVER, LIPID, TSH, BMP #### [facility] [address] [place] [address] Dr. Jessica Montiel LIVER PROFILEon 06-22-2022 Albumin [Mass/Vol] 3.6 g/dL Normal 3.4-5.0 [facility] Comment on above: Performed By: #### L IVER, LIPID, TSH, BMP #### [facility] [address] [address] [address] Jessica Montiel Albumin/Globulin [Mass ratio] 1.1 {ratio} Normal [facility] Comment on above: Performed By: #### L IVER, LIPID, TSH, BMP #### [facility] [address] [address] [address] Jessica Montiel ALP [Catalytic activity/Vol] 52 U/L Normal 46-116 [facility] Comment on above: Performed By: #### L IVER, LIPID, TSH, BMP #### [facility] [address] [address] [address] Jessica Montiel ALT [Catalytic activity/Vol] 29 U/L Normal 14-59 [facility] Comment on above: Performed By: #### L IVER, LIPID, TSH, BMP #### [facility] [address] [address] [address] Jessica Montiel AST [Catalytic activity/Vol] 22 U/L Normal 15-37 [facility] Comment on above: Performed By: #### L IVER, LIPID, TSH, BMP #### [facility] [address] [place] [address] Dr. Jessica Montiel BILI, CONJUGATED 0.1 mg/dL Normal 0.0-0.2 [facility] Comment on above: Performed By: #### L IVER, LIPID, TSH, BMP #### [facility] [address] [place] [address] Dr. Jessica Montiel Bilirubin [Mass/Vol] 0.5 mg/dL Normal 0.2-1.0 [facility] Comment on above: Performed By: #### L IVER, LIPID, TSH, BMP #### [facility] [address] [place] [address] Dr. Jessica Montiel Globulin (S) [Mass/Vol] 3.2 g/dL Normal [facility] Comment on above: Performed By: #### L IVER, LIPID, TSH, BMP #### [facility] [address] [place] [address] Dr. Jessica Montiel Protein [Mass/Vol] 6.8 g/dL Normal 6.4-8.2 [facility] Comment on above: Performed By: #### L IVER, LIPID, TSH, BMP #### [facility] [address] [place] [address] Dr. Jessica Montiel PROF CHEM 8 (BAS METB)on Anion gap [Moles/Vol] 11.3 mmol/L Normal [facility] Comment on above: Performed By: #### L IVER, LIPID, TSH, BMP #### [facility] [address] [place] [address] Dr. Jessica Montiel Calcium [Mass/Vol] 8.4 mg/dL Critically low 8.5-10.1 [facility] Comment on above: Performed By: #### L IVER, LIPID, TSH, BMP #### [facility] [address] [place] [address] Dr. Jessica Montiel Chloride [Moles/Vol] 105 mmol/L Normal 98-107 [facility] Comment on above: Performed By: #### L IVER, LIPID, TSH, BMP #### [facility] [address] [address] [address] Jessica Montiel CO2 [Moles/Vol] 27.2 mmol/L Normal 21.0-32.0 [facility] Comment on above: Performed By: #### L IVER, LIPID, TSH, BMP #### [facility] [address] [place] [address] Dr. Jessica Montiel Creatinine [Mass/Vol] 0.71 mg/dL Normal 0.55-1.02 [facility] Comment on above: Performed By: #### L IVER, LIPID, TSH, BMP #### [facility] [address] [place] [address] Dr. Jessica Montiel EGFR-AF CITIZ[place] >60 Normal >=60 [facility] Comment on above: Performed By: #### L IVER, LIPID, TSH, BMP #### [facility] [address] [place] [address] Dr. Jessica Montiel EGFR-NON AF CITIZEN [place] >60 Normal >=60 [facility] Comment on above: Performed By: #### L IVER, LIPID, TSH, BMP #### [facility] [address] [place] [address] Dr. Jessica Montiel Glucose [Mass/Vol] 75 mg/dL Normal 74-106 [facility] Comment on above: Performed By: #### L IVER, LIPID, TSH, BMP #### [facility] [address] [place] [address] Dr. Jessica Montiel Potassium [Moles/Vol] 3.5 mmol/L Normal 3.5-5.1 [facility] Comment on above: Performed By: #### L IVER, LIPID, TSH, BMP #### [facility] [address] [place] [address] Dr. Jessica Montiel Sodium [Moles/Vol] 140 mmol/L Normal 136-145 [facility] Comment on above: Performed By: #### L IVER, LIPID, TSH, BMP #### [facility] [address] [place] [address] Dr. Jessica Montiel Urea nitrogen [Mass/Vol] 11.0 mg/dL Normal 7.0-18.0 [facility] Comment on above: Performed By: #### L IVER, LIPID, TSH, BMP #### [facility] [address] [place] [address] Dr. Jessica Montiel Urea nitrogen/Creatinine [Mass ratio] 15.5 mg/mg Normal [facility] Comment on above: Performed By: #### L IVER, LIPID, TSH, BMP #### [facility] [address] [place] [address] Dr. Jessica Montiel TSHon 06-22-2022 TSH 2.114 uIU/mL Normal 0.358-3.740 [facility] Comment on above: Performed By: #### L IVER, LIPID, TSH, BMP #### [facility] [address] [place] [address] Dr. Jessica Montiel VITAMIN D 25 OHon 06-22-2022 VIT D 25-OH 49.7 ng/mL Normal [facility] Comment on above: Performed By: #### V ITAD #### [facility] [address] [place] [address] Dr. Jessica Montiel VIT D RANGES SEE BELOW Normal [facility] Comment on above: Result Comment: <20 ng/mL Vit D deficient 20 - <30 ng/mL Vit D insufficient 30 - 100 ng/mL Vit D sufficient >100 ng/mL Potential Toxicity Performed By: #### V ITAD #### [facility] [address] [place] [address] LSPINE WO CONon 2 CT LSPINE WO CON EXAM: CT LSPINE WO C ON HISTORY: DORSALGIA, UNSPECIFIED COMPARISON: None. TECHNIQUE: Noncontrast axial CT images through the lumbar spine were obtained with coronal and sagittal reformats. Dose reduction techniques were achieved by using automated exposure control and/or adjustment of mA and/or kV according to patient size and/or use of iterative reconstruction technique. FINDINGS: There are 5 lumbar type vertebral bodies. L5 laminectomies are noted. No acute fracture or subluxation of the lumbar spine is seen. The vertebral body heights are preserved. The vertebral elements are in anatomic alignment aside from levoconvex curvature. There is advanced degenerative disc disease at L5-S1. There are scattered degenerative changes including endplate osteophytes and degenerative facet arthropathy. There is moderate to severe bilateral neural foraminal narrowing at L4-L5 secondary to a mild diffuse disc bulge and degenerative facet arthropathy. There is severe left and moderate right neural foraminal narrowing at L5-S1 secondary to a posterior disc osteophyte complex and degenerative facet arthropathy. There is mild spinal canal stenosis at L4-L5 secondary to a mild diffuse disc bulging. There is a 3 mm nonobstructive right renal calculus. There are partially imaged postsurgical changes of the stomach. IMPRESSION: 1. No acute fracture or subluxation of the lumbar spine is seen. 2. Degenerative changes of the lumbar spine as described. 3. Nonobstructive right renal calculus. Electronically authenticated by: Tiera STARK Date: 2021-11-23 00:37 Normal [facility] XR FOOT LT MIN 3 VIEWSon XR FOOT LT MIN 3 VIEWS EXAM: XR FOOT LT MIN 3 VIEWS HISTORY: Pain in left foot COMPARISON: None. TECHNIQUE: 3 views of the left foot were obtained. FINDINGS: No acute fracture or dislocation is seen. The joint spaces are preserved. There is a tiny plantar calcaneal enthesophyte. There is no significant left ankle joint effusion. IMPRESSION: 1. No acute fracture or dislocation of the left foot is seen. If pain persists, repeat radiographs are recommended in 7-10 days. Electronically authenticated by: Tiera STARK Date: 2021-11-23 00:33 Normal [facility] XR HIP RT 2 3V W PELVISon XR HIP RT 2 3V W PELVIS EXAM: XR HIP RT 2 3V W PELVIS HISTORY: Status post fall. COMPARISON: None. TECHNIQUE: One view of the pelvis and 2 views of the right hip were obtained. FINDINGS: There is a possible right sacral alar fracture. The femoral heads are well-seated in the acetabula. The sacroiliac joints, hip joints, and pubic symphysis are preserved. A left os acetabula is noted. A genital piercing is noted. IMPRESSION: 1. Possible right sacral alar fracture. Please correlate with point tenderness, and consider a dedicated CT as clinically indicated. Electronically authenticated by: Tiera STARK Date: 2021-11-23 00:[address] [facility] XR SACRUM_COCCYXon 2 XR SACRUM_COCCYX EXAM: XR SACRUM_COCC YX HISTORY: DORSALGIA, UNSPECIFIED COMPARISON: Pelvis and right hip radiographs of the same date. TECHNIQUE: 3 views of the sacrum and coccyx were obtained. FINDINGS: Again seen is a possible right sacral alar fracture. The sacroiliac joints and pubic symphysis are preserved. A left os acetabula is noted. The hip joint spaces are preserved. A genital piercing is noted. Laminectomy changes are noted at L5. IMPRESSION: 1. Possible right sacral alar fracture. Please correlate with point tenderness and consider further evaluation with CT as clinically indicated. Electronically authenticated by: Tiera STARK Date: 2021-11-23 04:11 Normal [facility] SEDIMENTATION RATE, ERYTHROC YTEon 10-02-2019 SEDIMENTATION RATE, ERYTHROCYTE 14 mm/h Normal 0 - 20 [facility] Comment on above: Performed By: #### E SRWS #### [facility] [address] [place] [address] C-REACTIVE PROTEINon 020 CRP [Mass/Vol] 0.89 mg/dL Normal [facility] Comment on above: Result Comment: REF VALUE < 1.00 Performed By: #### C RP #### [facility] [address] [place] [address] CBC AND DIFFERENTIALon 10-01 % AUTOMATED IMMATURE GRAN 0.3 % Normal 0.0 - 0.9 [facility] Comment on above: Result Comment: Romelia ture Granulocyte Count (IG) includes promyelocytes, myelocytes and metamyelocytes but does not include bands. Percent differential counts (%) should be interpreted in the context of the absolute cell counts (cells/L). Performed By: #### C BCDF #### [facility] [address] [place] [address] Basophils (Bld) [#/Vol] 0.10 10*3/uL Normal 0.00 - 0.10 [facility] Comment on above: Performed By: #### C BCDF #### [facility] [address] [place] [address] Basophils/100 WBC (Bld) 0.9 % Normal 0.0 - 2.0 [facility] Comment on above: Performed By: #### C BCDF #### [facility] [address] [place] [address] Eosinophils (Bld) [#/Vol] 0.14 10*3/uL Normal 0.00 - 0.70 [facility] Comment on above: Performed By: #### C BCDF #### [facility] [address] [place] [address] Eosinophils/100 WBC (Bld) 1.3 % Normal 0.0 - 6.0 [facility] Comment on above: Performed By: #### C BCDF #### [facility] [address] [place] [address] Erythrocyte distribution width (RBC) [Ratio] 14.4 % Normal 11.5 - 14.5 [facility] Comment on above: Performed By: #### C BCDF #### [facility] [address] [place] [address] Hematocrit (Bld) [Volume fraction] 47.6 % High 36.0 - 46.0 [facility] Comment on above: Performed By: #### C BCDF #### [facility] [address] [place] [address] Hemoglobin (Bld) [Mass/Vol] 15.6 g/dL Normal 12.0 - 16.0 [facility] Comment on above: Performed By: #### C BCDF #### [facility] [address] [place] [address] Lymphocytes (Bld) [#/Vol] 2.97 10*3/uL Normal 1.20 - 4.80 [facility] Comment on above: Performed By: #### C BCDF #### [facility] [address] [facility] [place] [address] Lymphocytes/100 WBC (Bld) 26.6 % Normal 13.0 - 44.0 [facility] Comment on above: Performed By: #### C BCDF #### [facility] [address] [place] [address] MCHC (RBC) [Mass/Vol] 32.8 g/dL Normal 32.0 - 36.0 [facility] Comment on above: Performed By: #### C BCDF #### [facility] [address] [place] [address] MCV (RBC) [Entitic vol] 90 fL Normal 80 - 100 [facility] Comment on above: Performed By: #### C BCDF #### [facility] [address] [place] [address] Monocytes (Bld) [#/Vol] 0.82 10*3/uL Normal 0.10 - 1.00 [facility] Comment on above: Performed By: #### C BCDF #### [facility] [id number] [place] [address] Monocytes/100 WBC (Bld) 7.3 % Normal 2.0 - 10.0 [facility] Comment on above: Performed By: #### C BCDF #### [facility] [address] [place] [address] Neutrophils (Bld) [#/Vol] 7.10 10*3/uL Normal 1.20 - 7.70 [facility] Comment on above: Performed By: #### C BCDF #### [facility] [id number] [place] [address] Neutrophils/100 WBC (Bld) 63.6 % Normal 40.0 - 80.0 [facility] Comment on above: Performed By: #### C BCDF #### [facility] [address] [place] [address] Platelets (Bld) [#/Vol] 418 10*3/uL Normal 150 - 450 [facility] Comment on above: Performed By: #### C BCDF #### [facility] [address] [place] [address] RBC (Bld) [#/Vol] 5.27 x10E12/L High 4.00 - 5.20 [facility] Comment on above: Performed By: #### C BCDF #### [facility] [id number] [place] [address] WBC (Bld) [#/Vol] 11.2 10*3/uL Normal 4.4 - 11.3 [facility] Comment on above: Performed By: #### C DF #### [facility] [address] [place] [address] [facility] 08-27-2019 [employer] SMEAR: NO ACID-FAST BACILLI OBSERVED ON DIRECT SMEAR/ DONE AT [facility] NO ACID FAST BACILLI SEEN (CONC)/DONE AT [facility] NO GROWTH AFTER 5 WEEKS Normal [facility] Comment on above: Order Comment: PATIE NT IS GETTING CAT SCAN DONE NURSE WILL CALL/PAGE WHEN PATIENT IS BACK ON THE FLOOR CONSERVATION Performed By: #### L 500.09625, L500.20932, L500.60114, L500.48217, L500.46550 #### Test performed at: [address] 08-22-2019 [employer] SMEAR: NO ACID-FAST BACILLI OBSERVED ON DIRECT SMEAR/ DONE AT [facility] NO ACID FAST BACILLI SEEN (CONC)/DONE AT [facility] NO GROWTH AFTER 5 WEEKS Normal [facility] Comment on above: Order Comment: PATIE NT IS GETTING CAT SCAN DONE NURSE WILL CALL/PAGE WHEN PATIENT IS BACK ON THE FLOOR CONSERVATION Performed By: #### L 500.37892, L500.82527, L500.75650, L500.26223, L500.32177 #### Test performed at: [place] [address] BLOOD CULTUREon 08-17-2019 Bacteria identified Cx Nom (Bld) NO GROWTH 5 DAYS Normal [facility] Comment on above: Order Comment: PATIE NT IS GETTING CAT SCAN DONE NURSE WILL CALL/PAGE WHEN PATIENT IS BACK ON THE FLOOR CONSERVATION Performed By: #### L 200.56291, L200.09603 #### Test performed at: [place] [address] Performed By: #### L 500.31312, L500.80518, L500.90711, L500.43926, L500.88896 #### Test performed at: [address] [address] URINE CULTUREon 08-14-2019 Bacteria identified Cx Nom (U) NO GROWTH 2 DAYS Normal [facility] Comment on above: Order Comment: PATIE NT IS GETTING CAT SCAN DONE NURSE WILL CALL/PAGE WHEN PATIENT IS BACK ON THE FLOOR CONSERVATION Performed By: #### L 500.18203, L500.91247, L500.67507, L500.03025, L500.65365 #### Test performed at: [place] [id number] BASIC MET PANELon 08-13-2019 Anion gap [Moles/Vol] 13 mmol/L Normal 6-18 [facility] Comment on above: Order Comment: PATIE NT IS GETTING CAT SCAN DONE NURSE WILL CALL/PAGE WHEN PATIENT IS BACK ON THE FLOOR CONSERVATION Performed By: #### L 500.73057, L500.67190, L500.34417, L500.74922, L500.88333 #### Test performed at: [place] [id number] Calcium [Mass/Vol] 8.4 mg/dL Low 8.5-10.1 [facility] Comment on above: Order Comment: PATIE NT IS GETTING CAT SCAN DONE NURSE WILL CALL/PAGE WHEN PATIENT IS BACK ON THE FLOOR CONSERVATION Performed By: #### L 500.64896, L500.76099, L500.78859, L500.53781, L500.35431 #### Test performed at: [address] [address] Chloride [Moles/Vol] 107 mmol/L Normal 98-107 [facility] Comment on above: Order Comment: PATIE NT IS GETTING CAT SCAN DONE NURSE WILL CALL/PAGE WHEN PATIENT IS BACK ON THE FLOOR CONSERVATION Performed By: #### L 500.32595, L500.95798, L500.48371, L500.09593, L500.97577 #### Test performed at: [address] [address] CO2 [Moles/Vol] 22 mmol/L Normal 21-32 [facility] Comment on above: Order Comment: PATIE NT IS GETTING CAT SCAN DONE NURSE WILL CALL/PAGE WHEN PATIENT IS BACK ON THE FLOOR CONSERVATION Performed By: #### L 500.96484, L500.86571, L500.34808, L500.10197, L500.41679 #### Test performed at: [place] [id number] Creatinine [Mass/Vol] 1.020 mg/dL Normal 0.550-1.020 [facility] Comment on above: Order Comment: PATIE NT IS GETTING CAT SCAN DONE NURSE WILL CALL/PAGE WHEN PATIENT IS BACK ON THE FLOOR CONSERVATION Performed By: #### L 500.32648, L500.59536, L500.02838, L500.77892, L500.62800 #### Test performed at: [place] [id number] Glucose [Mass/Vol] 210 mg/dL High 70-99 [facility] Comment on above: Order Comment: PATIE NT IS GETTING CAT SCAN DONE NURSE WILL CALL/PAGE WHEN PATIENT IS BACK ON THE FLOOR CONSERVATION Result Comment: Fast ing GLUCOSE reference range has been updated per (ADA) [employer]'s recommendation. 11/06/2018 Performed By: #### L 500.92560, L500.65751, L500.64366, L500.46147, L500.12317 #### Test performed at: [address] [address] OSM 296 mosm/kg Normal 270-300 [facility] Comment on above: Order Comment: PATIE NT IS GETTING CAT SCAN DONE NURSE WILL CALL/PAGE WHEN PATIENT IS BACK ON THE FLOOR CONSERVATION Performed By: #### L 500.30090, L500.56713, L500.19336, L500.82376, L500.64304 #### Test performed at: [address] [address] Potassium [Moles/Vol] 3.6 mmol/L Normal 3.5-5.1 [facility] Comment on above: Order Comment: PATIE NT IS GETTING CAT SCAN DONE NURSE WILL CALL/PAGE WHEN PATIENT IS BACK ON THE FLOOR CONSERVATION Performed By: #### L 500.50066, L500.43926, L500.49508, L500.59080, L500.72480 #### Test performed at: [address] [address] Sodium [Moles/Vol] 138 mmol/L Normal 136-145 [facility] Comment on above: Order Comment: PATIE NT IS GETTING CAT SCAN DONE NURSE WILL CALL/PAGE WHEN PATIENT IS BACK ON THE FLOOR CONSERVATION Performed By: #### L 500.33092, L500.39607, L500.00838, L500.75806, L500.10478 #### Test performed at: [address] [address] Urea nitrogen [Mass/Vol] 22 mg/dL High 7-18 [facility] Comment on above: Order Comment: PATIE NT IS GETTING CAT SCAN DONE NURSE WILL CALL/PAGE WHEN PATIENT IS BACK ON THE FLOOR CONSERVATION Performed By: #### L 500.68412, L500.86007, L500.58113, L500.81798, L500.56501 #### Test performed at: [address] [address] CBC W/DIFFon 08-13-2019 BASO ABS 0.0 K/uL Normal 0.0-0.2 [facility] Comment on above: Order Comment: PATIE NT IS GETTING CAT SCAN DONE NURSE WILL CALL/PAGE WHEN PATIENT IS BACK ON THE FLOOR CONSERVATION Performed By: #### L 500.49909, L500.28713, L500.33328, L500.33917, L500.07400 #### Test performed at: [address], [place] [address] Basophils/100 WBC (Bld) 0.2 % Normal [facility] Comment on above: Order Comment: PATIE NT IS GETTING CAT SCAN DONE NURSE WILL CALL/PAGE WHEN PATIENT IS BACK ON THE FLOOR CONSERVATION Performed By: #### L 500.58868, L500.64583, L500.66053, L500.66546, L500.37479 #### Test performed at: [place] [address] EOS ABS 0.0 K/uL Normal 0.0-0.5 [facility] Comment on above: Order Comment: PATIE NT IS GETTING CAT SCAN DONE NURSE WILL CALL/PAGE WHEN PATIENT IS BACK ON THE FLOOR CONSERVATION Performed By: #### L 500.11602, L500.27880, L500.80753, L500.18168, L500.00355 #### Test performed at: [address] [address] Eosinophils/100 WBC (Bld) 0.2 % Normal [facility] Comment on above: Order Comment: PATIE NT IS GETTING CAT SCAN DONE NURSE WILL CALL/PAGE WHEN PATIENT IS BACK ON THE FLOOR CONSERVATION Performed By: #### L 500.05012, L500.71326, L500.05269, L500.90008, L500.92276 #### Test performed at: [place] [id number] Erythrocyte distribution width (RBC) [Ratio] 14.3 % Normal 11.5-14.5 [facility] Comment on above: Order Comment: PATIE NT IS GETTING CAT SCAN DONE NURSE WILL CALL/PAGE WHEN PATIENT IS BACK ON THE FLOOR CONSERVATION Performed By: #### L 500.85369, L500.15465, L500.69543, L500.00569, L500.94968 #### Test performed at: [place] [id number] Hematocrit (Bld) [Volume fraction] 34.5 % Low 36.0-48.0 [facility] Comment on above: Order Comment: PATIE NT IS GETTING CAT SCAN DONE NURSE WILL CALL/PAGE WHEN PATIENT IS BACK ON THE FLOOR CONSERVATION Performed By: #### L 500.80372, L500.67871, L500.84910, L500.60288, L500.90875 #### Test performed at: [place] [address] Hemoglobin (Bld) [Mass/Vol] 11.8 g/dL Low 12.0-15.0 [facility] Comment on above: Order Comment: PATIE NT IS GETTING CAT SCAN DONE NURSE WILL CALL/PAGE WHEN PATIENT IS BACK ON THE FLOOR CONSERVATION Performed By: #### L 500.92573, L500.44701, L500.98677, L500.82793, L500.04160 #### Test performed at: [place] [address] IG % 0.9 % Normal [facility] Comment on above: Order Comment: PATIE NT IS GETTING CAT SCAN DONE NURSE WILL CALL/PAGE WHEN PATIENT IS BACK ON THE FLOOR CONSERVATION Performed By: #### L 500.11707, L500.90630, L500.20170, L500.04485, L500.44265 #### Test performed at: [place] [address] IG ABS 0.12 K/uL High 0-0.05 [facility] Comment on above: Order Comment: PATIE NT IS GETTING CAT SCAN DONE NURSE WILL CALL/PAGE WHEN PATIENT IS BACK ON THE FLOOR CONSERVATION Performed By: #### L 500.81536, L500.63487, L500.08515, L500.01914, L500.56914 #### Test performed at: [place] [address] Lymphocytes (Bld) [#/Vol] 1.1 10*3/uL Low 1.2-3.5 [facility] Comment on above: Order Comment: PATIE NT IS GETTING CAT SCAN DONE NURSE WILL CALL/PAGE WHEN PATIENT IS BACK ON THE FLOOR CONSERVATION Performed By: #### L 500.65190, L500.27233, L500.13897, L500.62664, L500.15665 #### Test performed at: [address] [address] Lymphocytes/100 WBC (Bld) 8.3 % Normal [facility] Comment on above: Order Comment: PATIE NT IS GETTING CAT SCAN DONE NURSE WILL CALL/PAGE WHEN PATIENT IS BACK ON THE FLOOR CONSERVATION Performed By: #### L 500.89657, L500.11298, L500.07686, L500.92980, L500.67990 #### Test performed at: [address] [address] MCH (RBC) [Entitic mass] 29.9 pg Normal 25.4-34.6 [facility] Comment on above: Order Comment: PATIE NT IS GETTING CAT SCAN DONE NURSE WILL CALL/PAGE WHEN PATIENT IS BACK ON THE FLOOR CONSERVATION Performed By: #### L 500.26265, L500.54872, L500.31680, L500.30156, L500.70839 #### Test performed at: [address] [address] MCHC (RBC) [Mass/Vol] 34.2 g/dL Normal 31.5-36.5 [facility] Comment on above: Order Comment: PATIE NT IS GETTING CAT SCAN DONE NURSE WILL CALL/PAGE WHEN PATIENT IS BACK ON THE FLOOR CONSERVATION Performed By: #### L 500.70110, L500.83228, L500.89524, L500.37874, L500.45229 #### Test performed at: [address] [address] MCV (RBC) [Entitic vol] 87.6 fL Normal 79.0-98.0 [facility] Comment on above: Order Comment: PATIE NT IS GETTING CAT SCAN DONE NURSE WILL CALL/PAGE WHEN PATIENT IS BACK ON THE FLOOR CONSERVATION Performed By: #### L 500.22268, L500.25657, L500.25124, L500.30885, L500.51895 #### Test performed at: [address] [address] MONO ABS 0.4 K/uL Normal 0.0-1.0 [facility] Comment on above: Order Comment: PATIE NT IS GETTING CAT SCAN DONE NURSE WILL CALL/PAGE WHEN PATIENT IS BACK ON THE FLOOR CONSERVATION Performed By: #### L 500.13593, L500.05877, L500.82348, L500.98984, L500.28160 #### Test performed at: [address] [address] Monocytes/100 WBC (Bld) 2.9 % Normal [facility] Comment on above: Order Comment: PATIE NT IS GETTING CAT SCAN DONE NURSE WILL CALL/PAGE WHEN PATIENT IS BACK ON THE FLOOR CONSERVATION Performed By: #### L 500.11464, L500.37953, L500.23537, L500.90470, L500.95779 #### Test performed at: [address] [address] NEUTROPHIL ABS 11.3 K/uL High 1.4-6.6 [facility] Comment on above: Order Comment: PATIE NT IS GETTING CAT SCAN DONE NURSE WILL CALL/PAGE WHEN PATIENT IS BACK ON THE FLOOR CONSERVATION Performed By: #### L 500.32479, L500.03247, L500.57116, L500.00756, L500.49027 #### Test performed at: [address] [address] Neutrophils/100 WBC (Bld) 87.5 % Normal [facility] Comment on above: Order Comment: PATIE NT IS GETTING CAT SCAN DONE NURSE WILL CALL/PAGE WHEN PATIENT IS BACK ON THE FLOOR CONSERVATION Performed By: #### L 500.54409, L500.14746, L500.44444, L500.88652, L500.25866 #### Test performed at: [address] [address] NRBC # 0.000 K/uL Normal 0-0.012 [facility] Comment on above: Order Comment: PATIE NT IS GETTING CAT SCAN DONE NURSE WILL CALL/PAGE WHEN PATIENT IS BACK ON THE FLOOR CONSERVATION Performed By: #### L 500.53950, L500.51578, L500.76672, L500.08642, L500.48139 #### Test performed at: [address] [address] NRBC % 0.0 /100 WBC Normal 0-0.2 [facility] Comment on above: Order Comment: PATIE NT IS GETTING CAT SCAN DONE NURSE WILL CALL/PAGE WHEN PATIENT IS BACK ON THE FLOOR CONSERVATION Performed By: #### L 500.23416, L500.69454, L500.12477, L500.21303, L500.78569 #### Test performed at: [address] [address] Platelet mean volume (Bld) [Entitic vol] 9.5 fL Normal 8.7-12.4 [facility] Comment on above: Order Comment: PATIE NT IS GETTING CAT SCAN DONE NURSE WILL CALL/PAGE WHEN PATIENT IS BACK ON THE FLOOR CONSERVATION Performed By: #### L 500.25335, L500.91935, L500.79482, L500.10597, L500.75169 #### Test performed at: [address] [address] Platelets (Bld) [#/Vol] 231 10*3/uL Normal 140-440 [facility] Comment on above: Order Comment: PATIE NT IS GETTING CAT SCAN DONE NURSE WILL CALL/PAGE WHEN PATIENT IS BACK ON THE FLOOR CONSERVATION Performed By: #### L 500.07307, L500.60246, L500.06220, L500.00797, L500.40511 #### Test performed at: [place] [address] RBC (Bld) [#/Vol] 3.94 10*6/uL Normal 3.5-5.5 [facility] Comment on above: Order Comment: PATIE NT IS GETTING CAT SCAN DONE NURSE WILL CALL/PAGE WHEN PATIENT IS BACK ON THE FLOOR CONSERVATION Performed By: #### L 500.07536, L500.36633, L500.16852, L500.58913, L500.98292 #### Test performed at: [place] [address] WBC (Bld) [#/Vol] 12.9 10*3/uL High 3.9-11.0 [facility] Comment on above: Order Comment: PATIE NT IS GETTING CAT SCAN DONE NURSE WILL CALL/PAGE WHEN PATIENT IS BACK ON THE FLOOR CONSERVATION Performed By: #### L 500.24089, L500.68155, L500.92013, L500.62581, L500.95246 #### Test performed at: [place] [address] EST. CREAT CLRon 08-13-2019 Creatinine [Mass/Vol] 109.953 ML/MIN Normal [facility] Comment on above: Order Comment: PATIE NT IS GETTING CAT SCAN DONE NURSE WILL CALL/PAGE WHEN PATIENT IS BACK ON THE FLOOR CONSERVATION Result Comment: This result is an ESTIMATED blood creatinine clearance value which is derived from the patient age, sex, weight, and previous blood creatinine result. Performed By: #### L 500.20355, L500.49605, L500.90482, L500.60643, L500.45552 #### Test performed at: [place] [address] GFR ESTIMATEon 08-13-2019 IF AMER > 60 Normal > 60 [facility] Comment on above: Order Comment: PATIE NT IS GETTING CAT SCAN DONE NURSE WILL CALL/PAGE WHEN PATIENT IS BACK ON THE FLOOR CONSERVATION Result Comment: eGFR (Estimated GFR) Units of measure:mL/min/1.73 meters sq. *CALCULATION REVISED 06/02/2015;IDMS-traceable MDRD equation eGFR is derived from the reexpressed MDRD Study equation using the following parameters: serum creatinine, age, gender and race. An eGFR<60 mL/min/1.73m2 for >3 months is consistent with chronic kidney disease. Refer to KDOQI guidelines for clinical interpretation. Performed By: #### L 500.93296, L500.28078, L500.73425, L500.65855, L500.68342 #### Test performed at: [place] [address] IF non-AFR AMER 59 Low > 60 [facility] Comment on above: Order Comment: PATIE NT IS GETTING CAT SCAN DONE NURSE WILL CALL/PAGE WHEN PATIENT IS BACK ON THE FLOOR CONSERVATION Performed By: #### L 500.98147, L500.09364, L500.31627, L500.31711, L500.43439 #### Test performed at: [place] [address] CBC W/DIFFon 08-12-2019 BASO ABS 0.0 K/uL Normal 0.0-0.2 [facility] Comment on above: Order Comment: PATIE NT IS GETTING CAT SCAN DONE NURSE WILL CALL/PAGE WHEN PATIENT IS BACK ON THE FLOOR CONSERVATION Performed By: #### L 500.98017, L500.78749, L500.65837, L500.58285, L500.76094 #### Test performed at: [place] [address] Basophils/100 WBC (Bld) 0.4 % Normal [facility] Comment on above: Order Comment: PATIE NT IS GETTING CAT SCAN DONE NURSE WILL CALL/PAGE WHEN PATIENT IS BACK ON THE FLOOR CONSERVATION Performed By: #### L 500.57370, L500.75759, L500.63992, L500.10564, L500.48428 #### Test performed at: [address], [place] [address] EOS ABS 1.1 K/uL High 0.0-0.5 [facility] Comment on above: Order Comment: PATIE NT IS GETTING CAT SCAN DONE NURSE WILL CALL/PAGE WHEN PATIENT IS BACK ON THE FLOOR CONSERVATION Performed By: #### L 500.87161, L500.44627, L500.40729, L500.28974, L500.32148 #### Test performed at: [place] [address] Eosinophils/100 WBC (Bld) 13.6 % Normal [facility] Comment on above: Order Comment: PATIE NT IS GETTING CAT SCAN DONE NURSE WILL CALL/PAGE WHEN PATIENT IS BACK ON THE FLOOR CONSERVATION Performed By: #### L 500.77396, L500.89861, L500.28421, L500.04141, L500.39061 #### Test performed at: [place] [address] Erythrocyte distribution width (RBC) [Ratio] 14.6 % High 11.5-14.5 [facility] Comment on above: Order Comment: PATIE NT IS GETTING CAT SCAN DONE NURSE WILL CALL/PAGE WHEN PATIENT IS BACK ON THE FLOOR CONSERVATION Performed By: #### L 500.70092, L500.98650, L500.68227, L500.90864, L500.07898 #### Test performed at: [place] [address] Hematocrit (Bld) [Volume fraction] 37.5 % Normal 36.0-48.0 [facility] Comment on above: Order Comment: PATIE NT IS GETTING CAT SCAN DONE NURSE WILL CALL/PAGE WHEN PATIENT IS BACK ON THE FLOOR CONSERVATION Performed By: #### L 500.35539, L500.98549, L500.81688, L500.76934, L500.59316 #### Test performed at: [place] [address] Hemoglobin (Bld) [Mass/Vol] 12.8 g/dL Normal 12.0-15.0 [facility] Comment on above: Order Comment: PATIE NT IS GETTING CAT SCAN DONE NURSE WILL CALL/PAGE WHEN PATIENT IS BACK ON THE FLOOR CONSERVATION Performed By: #### L 500.46141, L500.32328, L500.40474, L500.06122, L500.68148 #### Test performed at: [address] [address] IG % 0.7 % Normal [facility] Comment on above: Order Comment: PATIE NT IS GETTING CAT SCAN DONE NURSE WILL CALL/PAGE WHEN PATIENT IS BACK ON THE FLOOR CONSERVATION Performed By: #### L 500.63367, L500.55428, L500.37431, L500.39684, L500.01661 #### Test performed at: [address] [address] IG ABS 0.06 K/uL High 0-0.05 [facility] Comment on above: Order Comment: PATIE NT IS GETTING CAT SCAN DONE NURSE WILL CALL/PAGE WHEN PATIENT IS BACK ON THE FLOOR CONSERVATION Performed By: #### L 500.60173, L500.35205, L500.67484, L500.73329, L500.03705 #### Test performed at: [address] [address] Lymphocytes (Bld) [#/Vol] 0.9 10*3/uL Low 1.2-3.5 [facility] Comment on above: Order Comment: PATIE NT IS GETTING CAT SCAN DONE NURSE WILL CALL/PAGE WHEN PATIENT IS BACK ON THE FLOOR CONSERVATION Performed By: #### L 500.12593, L500.44858, L500.97684, L500.39845, L500.67627 #### Test performed at: [address] [address] Lymphocytes/100 WBC (Bld) 11.0 % Normal [facility] Comment on above: Order Comment: PATIE NT IS GETTING CAT SCAN DONE NURSE WILL CALL/PAGE WHEN PATIENT IS BACK ON THE FLOOR CONSERVATION Performed By: #### L 500.89338, L500.63364, L500.43557, L500.60305, L500.41043 #### Test performed at: [place] [address] MCH (RBC) [Entitic mass] 29.6 pg Normal 25.4-34.6 [facility] Comment on above: Order Comment: PATIE NT IS GETTING CAT SCAN DONE NURSE WILL CALL/PAGE WHEN PATIENT IS BACK ON THE FLOOR CONSERVATION Performed By: #### L 500.37990, L500.87673, L500.46688, L500.99961, L500.87423 #### Test performed at: [place] [address] MCHC (RBC) [Mass/Vol] 34.1 g/dL Normal 31.5-36.5 [facility] Comment on above: Order Comment: PATIE NT IS GETTING CAT SCAN DONE NURSE WILL CALL/PAGE WHEN PATIENT IS BACK ON THE FLOOR CONSERVATION Performed By: #### L 500.25861, L500.40297, L500.05960, L500.89044, L500.66741 #### Test performed at: [place] [id number] MCV (RBC) [Entitic vol] 86.8 fL Normal 79.0-98.0 [facility] Comment on above: Order Comment: PATIE NT IS GETTING CAT SCAN DONE NURSE WILL CALL/PAGE WHEN PATIENT IS BACK ON THE FLOOR CONSERVATION Performed By: #### L 500.91618, L500.59301, L500.80094, L500.02359, L500.33654 #### Test performed at: [address] [address] MONO ABS 0.7 K/uL Normal 0.0-1.0 [facility] Comment on above: Order Comment: PATIE NT IS GETTING CAT SCAN DONE NURSE WILL CALL/PAGE WHEN PATIENT IS BACK ON THE FLOOR CONSERVATION Performed By: #### L 500.55276, L500.15531, L500.83827, L500.31645, L500.80998 #### Test performed at: [address] [address] Monocytes/100 WBC (Bld) 8.3 % Normal [facility] Comment on above: Order Comment: PATIE NT IS GETTING CAT SCAN DONE NURSE WILL CALL/PAGE WHEN PATIENT IS BACK ON THE FLOOR CONSERVATION Performed By: #### L 500.91592, L500.08373, L500.91710, L500.72930, L500.01744 #### Test performed at: [address] [address] NEUTROPHIL ABS 5.4 K/uL Normal 1.4-6.6 [facility] Comment on above: Order Comment: PATIE NT IS GETTING CAT SCAN DONE NURSE WILL CALL/PAGE WHEN PATIENT IS BACK ON THE FLOOR CONSERVATION Performed By: #### L 500.42989, L500.58175, L500.53303, L500.89399, L500.82300 #### Test performed at: [address] [address] Neutrophils/100 WBC (Bld) 66.0 % Normal [facility] Comment on above: Order Comment: PATIE NT IS GETTING CAT SCAN DONE NURSE WILL CALL/PAGE WHEN PATIENT IS BACK ON THE FLOOR CONSERVATION Performed By: #### L 500.42142, L500.13616, L500.70621, L500.21314, L500.21939 #### Test performed at: [address] [address] NRBC # 0.000 K/uL Normal 0-0.012 [facility] Comment on above: Order Comment: PATIE NT IS GETTING CAT SCAN DONE NURSE WILL CALL/PAGE WHEN PATIENT IS BACK ON THE FLOOR CONSERVATION Performed By: #### L 500.60404, L500.51150, L500.48678, L500.49812, L500.50855 #### Test performed at: [address] [address] NRBC % 0.0 /100 WBC Normal 0-0.2 [facility] Comment on above: Order Comment: PATIE NT IS GETTING CAT SCAN DONE NURSE WILL CALL/PAGE WHEN PATIENT IS BACK ON THE FLOOR CONSERVATION Performed By: #### L 500.96266, L500.03253, L500.42333, L500.88792, L500.88523 #### Test performed at: [address] [address] Platelet mean volume (Bld) [Entitic vol] 9.1 fL Normal 8.7-12.4 [facility] Comment on above: Order Comment: PATIE NT IS GETTING CAT SCAN DONE NURSE WILL CALL/PAGE WHEN PATIENT IS BACK ON THE FLOOR CONSERVATION Performed By: #### L 500.77450, L500.48020, L500.35272, L500.18351, L500.57270 #### Test performed at: [address] [address] Platelets (Bld) [#/Vol] 215 10*3/uL Normal 140-440 [facility] Comment on above: Order Comment: PATIE NT IS GETTING CAT SCAN DONE NURSE WILL CALL/PAGE WHEN PATIENT IS BACK ON THE FLOOR CONSERVATION Performed By: #### L 500.12046, L500.50668, L500.99882, L500.69317, L500.57237 #### Test performed at: [address] [address] RBC (Bld) [#/Vol] 4.32 10*6/uL Normal 3.5-5.5 [facility] Comment on above: Order Comment: PATIE NT IS GETTING CAT SCAN DONE NURSE WILL CALL/PAGE WHEN PATIENT IS BACK ON THE FLOOR CONSERVATION Performed By: #### L 500.52188, L500.15761, L500.33005, L500.82600, L500.68107 #### Test performed at: [address] [address] WBC (Bld) [#/Vol] 8.2 10*3/uL Normal 3.9-11.0 [facility] Comment on above: Order Comment: PATIE NT IS GETTING CAT SCAN DONE NURSE WILL CALL/PAGE WHEN PATIENT IS BACK ON THE FLOOR CONSERVATION Performed By: #### L 500.16095, L500.93063, L500.51547, L500.74363, L500.60358 #### Test performed at: [address] [address] COMP META PANELon 08-12-2019 Albumin [Mass/Vol] 3.5 g/dL Normal 3.4-5.0 [facility] Comment on above: Order Comment: PATIE NT IS GETTING CAT SCAN DONE NURSE WILL CALL/PAGE WHEN PATIENT IS BACK ON THE FLOOR CONSERVATION Performed By: #### L 500.90960, L500.42059, L500.58139, L500.00185, L500.08870 #### Test performed at: [address] [address] ALK PHOS TOTAL 102 U/L Normal 45-117 [facility] Comment on above: Order Comment: PATIE NT IS GETTING CAT SCAN DONE NURSE WILL CALL/PAGE WHEN PATIENT IS BACK ON THE FLOOR CONSERVATION Performed By: #### L 500.51124, L500.18919, L500.35631, L500.70392, L500.01537 #### Test performed at: [address] [address] ALT [Catalytic activity/Vol] 108 U/L High 13-61 [facility] Comment on above: Order Comment: PATIE NT IS GETTING CAT SCAN DONE NURSE WILL CALL/PAGE WHEN PATIENT IS BACK ON THE FLOOR CONSERVATION Performed By: #### L 500.30935, L500.65646, L500.67647, L500.65096, L500.49565 #### Test performed at: [address] [address] AST [Catalytic activity/Vol] 57 U/L High 15-37 [facility] Comment on above: Order Comment: PATIE NT IS GETTING CAT SCAN DONE NURSE WILL CALL/PAGE WHEN PATIENT IS BACK ON THE FLOOR CONSERVATION Performed By: #### L 500.24482, L500.72855, L500.29025, L500.41640, L500.07605 #### Test performed at: [address] [address] BILI TOTAL 0.5 mg/dL Normal 0.2-1.0 [facility] Comment on above: Order Comment: PATIE NT IS GETTING CAT SCAN DONE NURSE WILL CALL/PAGE WHEN PATIENT IS BACK ON THE FLOOR CONSERVATION Performed By: #### L 500.05174, L500.54164, L500.47710, L500.10079, L500.11807 #### Test performed at: [address] [address] Calcium [Mass/Vol] 8.7 mg/dL Normal 8.5-10.1 [facility] Comment on above: Order Comment: PATIE NT IS GETTING CAT SCAN DONE NURSE WILL CALL/PAGE WHEN PATIENT IS BACK ON THE FLOOR CONSERVATION Performed By: #### L 500.39848, L500.49593, L500.91655, L500.46469, L500.52821 #### Test performed at: [address] [address] Chloride [Moles/Vol] 105 mmol/L Normal 98-107 [facility] Comment on above: Order Comment: PATIE NT IS GETTING CAT SCAN DONE NURSE WILL CALL/PAGE WHEN PATIENT IS BACK ON THE FLOOR CONSERVATION Performed By: #### L 500.18175, L500.58229, L500.99757, L500.80149, L500.50312 #### Test performed at: [address] [address] CO2 [Moles/Vol] 25 mmol/L Normal 21-32 [facility] Comment on above: Order Comment: PATIE NT IS GETTING CAT SCAN DONE NURSE WILL CALL/PAGE WHEN PATIENT IS BACK ON THE FLOOR CONSERVATION Performed By: #### L 500.23147, L500.65219, L500.35056, L500.88227, L500.58588 #### Test performed at: [address] [address] Creatinine [Mass/Vol] 1.010 mg/dL Normal 0.550-1.020 [facility] Comment on above: Order Comment: BANDARE NT IS GETTING CAT SCAN DONE NURSE WILL CALL/PAGE WHEN PATIENT IS BACK ON THE FLOOR CONSERVATION Performed By: #### L 500.34061, L500.46532, L500.65670, L500.58566, L500.27840 #### Test performed at: [address] [address] Glucose [Mass/Vol] 99 mg/dL Normal 70-99 [facility] Comment on above: Order Comment: BRIELLE NT IS GETTING CAT SCAN DONE NURSE WILL CALL/PAGE WHEN PATIENT IS BACK ON THE FLOOR CONSERVATION Result Comment: Fast ing GLUCOSE reference range has been updated per (ADA) [employer]'s recommendation. 11/06/2018 Performed By: #### L 500.13855, L500.97323, L500.89131, L500.33468, L500.85575 #### Test performed at: [address] [address] Potassium [Moles/Vol] 3.6 mmol/L Normal 3.5-5.1 [facility] Comment on above: Order Comment: BANDARE NT IS GETTING CAT SCAN DONE NURSE WILL CALL/PAGE WHEN PATIENT IS BACK ON THE FLOOR CONSERVATION Performed By: #### L 500.58429, L500.88761, L500.67098, L500.50495, L500.32421 #### Test performed at: [address], [place] [address] Protein [Mass/Vol] 6.7 g/dL Normal 6.4-8.2 [facility] Comment on above: Order Comment: PATIE NT IS GETTING CAT SCAN DONE NURSE WILL CALL/PAGE WHEN PATIENT IS BACK ON THE FLOOR CONSERVATION Performed By: #### L 500.87574, L500.05340, L500.80017, L500.20120, L500.75192 #### Test performed at: [place] [id number] Sodium [Moles/Vol] 138 mmol/L Normal 136-145 [facility] Comment on above: Order Comment: PATIE NT IS GETTING CAT SCAN DONE NURSE WILL CALL/PAGE WHEN PATIENT IS BACK ON THE FLOOR CONSERVATION Performed By: #### L 500.57693, L500.66533, L500.88673, L500.85778, L500.87490 #### Test performed at: [place] [id number] Urea nitrogen [Mass/Vol] 16 mg/dL Normal 7-18 [facility] Comment on above: Order Comment: PATIE NT IS GETTING CAT SCAN DONE NURSE WILL CALL/PAGE WHEN PATIENT IS BACK ON THE FLOOR CONSERVATION Performed By: #### L 500.25837, L500.29883, L500.72719, L500.87783, L500.75573 #### Test performed at: [address] [address] CRPon 08-12-2019 CRP [Mass/Vol] 93.6 mg/L High 0.0-3.0 [facility] Comment on above: Order Comment: PATIE NT IS GETTING CAT SCAN DONE NURSE WILL CALL/PAGE WHEN PATIENT IS BACK ON THE FLOOR CONSERVATION Performed By: #### L 500.39575, L500.22474, L500.90638, L500.28963, L500.85149 #### Test performed at: [address] [address] GFR ESTIMATEon 08-12-2019 IF AMER > 60 Normal > 60 [facility] Comment on above: Order Comment: BRIELLE NT IS GETTING CAT SCAN DONE NURSE WILL CALL/PAGE WHEN PATIENT IS BACK ON THE FLOOR CONSERVATION Result Comment: eGFR (Estimated GFR) Units of measure:mL/min/1.73 meters sq. *CALCULATION REVISED 06/02/2015;IDMS-traceable MDRD equation eGFR is derived from the reexpressed MDRD Study equation using the following parameters: serum creatinine, age, gender and race. An eGFR<60 mL/min/1.73m2 for >3 months is consistent with chronic kidney disease. Refer to KDOQI guidelines for clinical interpretation. Performed By: #### L 500.40600, L500.03823, L500.41903, L500.75812, L500.40317 #### Test performed at: [place] [address] IF non-AFR AMER 59 Low > 60 [facility] Comment on above: Order Comment: BRIELLE NT IS GETTING CAT SCAN DONE NURSE WILL CALL/PAGE WHEN PATIENT IS BACK ON THE FLOOR CONSERVATION Performed By: #### L 500.02189, L500.87289, L500.40500, L500.35876, L500.17291 #### Test performed at: [place] [address] LACTIC ACIDon 08-12-2019 Lactate [Moles/Vol] 0.7 mmol/L Normal 0.4-2.0 [facility] Comment on above: Order Comment: BRIELLE NT IS GETTING CAT SCAN DONE NURSE WILL CALL/PAGE WHEN PATIENT IS BACK ON THE FLOOR CONSERVATION Performed By: #### L 500.08284, L500.82861, L500.86360, L500.94477, L500.62722 #### Test performed at: [place] [id number] LIMIT UR TOXon 08-12-2019 UR AMPH Negative Normal Negative [facility] Comment on above: Order Comment: BRIELLE NT IS GETTING CAT SCAN DONE NURSE WILL CALL/PAGE WHEN PATIENT IS BACK ON THE FLOOR CONSERVATION Result Comment: CUTO RE=1467 Performed By: #### L 500.18369, L500.61765, L500.26735, L500.19687, L500.54711 #### Test performed at: [place] [id number] UR AVINASH Negative Normal Negative [facility] Comment on above: Order Comment: PATIE NT IS GETTING CAT SCAN DONE NURSE WILL CALL/PAGE WHEN PATIENT IS BACK ON THE FLOOR CONSERVATION Result Comment: CUTO KO=171 Performed By: #### L 500.24989, L500.83980, L500.34873, L500.80151, L500.97132 #### Test performed at: [place] [address] UR BALDOMERO Negative Normal Negative [facility] Comment on above: Order Comment: PATIE NT IS GETTING CAT SCAN DONE NURSE WILL CALL/PAGE WHEN PATIENT IS BACK ON THE FLOOR CONSERVATION Result Comment: CUTO LN=807 Performed By: #### L 500.57544, L500.56955, L500.57279, L500.32479, L500.01859 #### Test performed at: [place] [address] UR BUPREN/NORBU Negative Normal Negative [facility] Comment on above: Order Comment: PATIE NT IS GETTING CAT SCAN DONE NURSE WILL CALL/PAGE WHEN PATIENT IS BACK ON THE FLOOR CONSERVATION Result Comment: CUTO FF=10 Performed By: #### L 500.94381, L500.51098, L500.36778, L500.62686, L500.36254 #### Test performed at: [place] [id number] UR SHAQUILLE/THC Negative Normal Negative [facility] Comment on above: Order Comment: PATIE NT IS GETTING CAT SCAN DONE NURSE WILL CALL/PAGE WHEN PATIENT IS BACK ON THE FLOOR CONSERVATION Result Comment: CUTO FF=50 Performed By: #### L 500.43972, L500.96629, L500.25304, L500.08266, L500.89149 #### Test performed at: [place] [address] UR NIKO Negative Normal Negative [facility] Comment on above: Order Comment: PATIE NT IS GETTING CAT SCAN DONE NURSE WILL CALL/PAGE WHEN PATIENT IS BACK ON THE FLOOR CONSERVATION Result Comment: CUTO EG=864 Performed By: #### L 500.57719, L500.34924, L500.90109, L500.16035, L500.97150 #### Test performed at: [place] [address] UR ECSTASY Negative Normal Negative [facility] Comment on above: Order Comment: PATIE NT IS GETTING CAT SCAN DONE NURSE WILL CALL/PAGE WHEN PATIENT IS BACK ON THE FLOOR CONSERVATION Result Comment: CUTO QY=816 Performed By: #### L 500.61833, L500.85149, L500.85687, L500.22286, L500.67442 #### Test performed at: [place] [address] UR FENTANYL Negative Normal Negative [facility] Comment on above: Order Comment: PATIE NT IS GETTING CAT SCAN DONE NURSE WILL CALL/PAGE WHEN PATIENT IS BACK ON THE FLOOR CONSERVATION Result Comment: CUTO MJ=8752 Performed By: #### L 500.06847, L500.01638, L500.41265, L500.28112, L500.36955 #### Test performed at: [place] [address] UR METH Negative Normal Negative [facility] Comment on above: Order Comment: PATIE NT IS GETTING CAT SCAN DONE NURSE WILL CALL/PAGE WHEN PATIENT IS BACK ON THE FLOOR CONSERVATION Result Comment: CUTO QI=553 Performed By: #### L 500.97104, L500.97413, L500.89726, L500.43742, L500.42429 #### Test performed at: [address] [place], [place] [address] UR OPIAT Positive Critically abnormal Negative [facility] Comment on above: Order Comment: PATIE NT IS GETTING CAT SCAN DONE NURSE WILL CALL/PAGE WHEN PATIENT IS BACK ON THE FLOOR CONSERVATION Result Comment: CUTO SE=559 Performed By: #### L 500.06809, L500.97106, L500.45094, L500.19684, L500.53087 #### Test performed at: [place] [address] [place] [address] UR OXYCOCONE Positive Critically abnormal Negative [facility] Comment on above: Order Comment: PATIE NT IS GETTING CAT SCAN DONE NURSE WILL CALL/PAGE WHEN PATIENT IS BACK ON THE FLOOR CONSERVATION Result Comment: CUTO ZF=139 Performed By: #### L 500.22526, L500.81948, L500.28352, L500.86751, L500.91608 #### Test performed at: [place] [address] UR PCP Negative Normal Negative [facility] Comment on above: Order Comment: PATIE NT IS GETTING CAT SCAN DONE NURSE WILL CALL/PAGE WHEN PATIENT IS BACK ON THE FLOOR CONSERVATION Result Comment: CUTO FF=25 Performed By: #### L 500.01830, L500.51990, L500.49966, L500.69222, L500.61996 #### Test performed at: [place] [address] PH TOX 7.0 Normal 5.0-8.0 [facility] Comment on above: Order Comment: PATIE NT IS GETTING CAT SCAN DONE NURSE WILL CALL/PAGE WHEN PATIENT IS BACK ON THE FLOOR CONSERVATION Performed By: #### L 500.55961, L500.60797, L500.38890, L500.54317, L500.57918 #### Test performed at: [place] [id number] TOX COMMENT *PLEASE NOTE: Normal [facility] Comment on above: Order Comment: PATIE NT IS GETTING CAT SCAN DONE NURSE WILL CALL/PAGE WHEN PATIENT IS BACK ON THE FLOOR CONSERVATION Result Comment: UNCO NFIRMED Toxicology results. For MEDICAL purposes only. Performed By: #### L 500.22455, L500.62854, L500.15278, L500.26720, L500.39110 #### Test performed at: [place] [address] LUMBAR SP W & WO CONTRASTon 08-12-2019 LUMBAR SP W & WO CONTRAST STUDY: LUMBAR SP W WO CONTRAST; 08/12/2019 11:30 am INDICATION: low back pain . COMPARISON: 07/20/2019 ACCESSION NUMBER(S): [id number] ORDERING CLINICIAN: Manfred Mac TECHNIQUE: Sagittal STIR, sagittal T2, sagittal T1, axial T2, axial T1, as well as post getting sagittal axial T1 weighted MRI images of the lumbar spine were obtained. The patient received 10 mL of Gadavist gadolinium intravenously. FINDINGS: Postoperative changes are again identified compatible with a previous posterior laminectomy at the L5/S1 level. There is a residual but smaller rim enhancing likely proteinaceous or hemorrhagic fluid collection along the laminectomy bed at the L5/S1 level. The current study demonstrates interval improvement in previously noted mass effect upon the posterior margin of the spinal canal when compared with 07/20/2019. There are additional rim enhancing fluid collections noted more superficially with along the surgical tract within the lower lumbar region. The sterility of these residual fluid collections can not be ascertained. There is more extensive surrounding infiltrative signal abnormality enhancement within the posterior paraspinal soft tissues within the lower lumbosacral region which may be postsurgical in etiology although a superimposed infectious/inflammatory process could give a similar MRI appearance and could not be excluded. There has been interval resolution of the previously noted rim enhancing epidural fluid collection ventrally within the spinal canal at the S1 level when compared with 07/20/2019. There has been interval resolution of the previously noted subdural versus epidural fluid collection tracking posteriorly within the spinal canal extending from the L1 level caudally through the L4 level when compared with 07/20/2019. Degenerative signal changes are again noted along endplates within the lumbar and visualized lower thoracic region. A hemangioma or focal fatty rest is noted within the L1 vertebral body. The visualized spinal cord demonstrates no signal abnormality within it. The conus is normally positioned terminating at the L1 level. There is persistent mild nonspecific smooth enhancement of the nerve roots of the cauda equina. The finding is nonspecific and can be seen with infectious or non infectious inflammatory processes such as arachnoiditis or meningitis. At the L5/S1 level, postoperative changes are again identified compatible with a previous posterior laminectomy. There is a residual but improved rim enhancing fluid collection noted along the laminectomy bed. There is been interval resolution of the previously noted epidural fluid collection ventrally within the spinal canal at the S1 level when compared with 07/20/2019. The current study demonstrates abnormal epidural enhancing soft tissue surrounding the thecal sac within the spinal canal which may represent postoperative granulation tissue/scar although a superimposed infectious/inflammatory process could give a similar MRI appearance and can not be excluded. There is persistent posterior osteophytic spurring and posterior disc bulge. The current study demonstrates [id number] narrowing of the thecal sac within the spinal canal which is improved when compared with 07/20/2019. There are degenerative facet changes. There is moderate to severe left and moderate right-sided neural foraminal narrowing. At the L4/L5 level, there is again evidence of mild posterior osteophytic spurring, posterior disc bulge, along with hypertrophic degenerative facet changes and mild ligamentum flavum hypertrophy which contributes to mild overall narrowing of the thecal sac within the spinal canal. There is mild encroachment upon the neural foramen bilaterally. At the L3/L4 level, there is mild posterior osteophytic spurring and posterior disc bulge contributing to mild spinal canal narrowing. There is mild encroachment upon the inferior recesses of the neural foramina bilaterally. At the L2/L3 level, there is a minimal posterior disc bulge without significant spinal canal or neural foraminal narrowing. At the L1/L2 level, there is no significant central canal stenosis or neuroforaminal stenosis. At the T12/L1 level, the sagittal images demonstrate a posterior disc bulge with a suspected superimposed posterior disc herniation contributing to suspected mild overall spinal canal narrowing. No axial images were obtained through this level limiting further evaluation. At the T11/12 level, the sagittal images demonstrate a suspected left-sided disc herniation contributing to effacement of the ventral subarachnoid space with suspected flattening of the left ventral spinal cord. No axial images were obtained through this level limiting further evaluation. There is a partially imaged subcentimeter suspected cystic focus noted within the interpolar region of the right kidney. IMPRESSION: Postoperative changes are again identified compatible with a previous posterior laminectomy at the L5/S1 level. There is a residual but smaller rim enhancing likely proteinaceous or hemorrhagic fluid collection along the laminectomy bed at the L5/S1 level. The current study demonstrates interval improvement in previously noted mass effect upon the posterior margin of the spinal canal when compared with 07/20/2019. There are additional rim enhancing fluid collections noted more superficially with along the surgical tract within the lower lumbar region. The sterility of these residual fluid collections can not be ascertained. There is more extensive surrounding infiltrative signal abnormality enhancement within the posterior paraspinal soft tissues within the lower lumbosacral region which may be postsurgical in etiology although a superimposed infectious/inflammatory process could give a similar MRI appearance and could not be excluded. There has been interval resolution of the previously noted rim enhancing epidural fluid collection ventrally within the spinal canal at the S1 level when compared with 07/20/2019. There has been interval resolution of the previously noted subdural versus epidural fluid collection tracking posteriorly within the spinal canal extending from the L1 level caudally through the L4 level when compared with 07/20/2019. Degenerative signal changes are again noted along endplates within the lumbar and visualized lower thoracic region. A hemangioma or focal fatty rest is noted within the L1 vertebral body. The visualized spinal cord demonstrates no signal abnormality within it. The conus is normally positioned terminating at the L1 level. There is persistent mild nonspecific smooth enhancement of the nerve roots of the cauda equina. The finding is nonspecific and can be seen with infectious or non infectious inflammatory processes such as arachnoiditis or meningitis. There is multilevel spondylosis with varying degrees of spinal canal and neural foraminal narrowing as described above. The study was interpreted at [facility]. Normal [facility] PROCALCITONINon 08-12-2019 PROCALCITONIN 0.18 ng/mL Normal [facility] Comment on above: Order Comment: BRIELLE NT IS GETTING CAT SCAN DONE NURSE WILL CALL/PAGE WHEN PATIENT IS BACK ON THE FLOOR CONSERVATION Result Comment: PCT CONCENTRATION INTERPRETATION PCT Systemic infection (sepsis) is not likely. Local bacterial infection is possible. PCT > 0.5 and Systemic infection (sepsis) is possible, but other conditions are known to elevate PCT as well. PCT > 2.0 ng/mL: Systemic infection (sepsis) is likely, unless other causes are known. PCT >/= 10.0 ng/mL: Important systemic inflammatory response, almost exclusively due to severe bacterial sepsis or septic shock. Performed By: #### L 500.33080, L500.79221, L500.96242, L500.68634, L500.96712 #### Test performed at: [place] [address] UA COMPLETEon 08-12-2019 Appearance (U) CLEAR Normal CLEAR [facility] Comment on above: Order Comment: BANDARE NT IS GETTING CAT SCAN DONE NURSE WILL CALL/PAGE WHEN PATIENT IS BACK ON THE FLOOR CONSERVATION Performed By: #### L 500.79948, L500.32064, L500.05236, L500.76902, L500.37670 #### Test performed at: [place] [address] Bilirubin [Mass/Vol] Negative Normal NEGATIVE [facility] Comment on above: Order Comment: BANDARE NT IS GETTING CAT SCAN DONE NURSE WILL CALL/PAGE WHEN PATIENT IS BACK ON THE FLOOR CONSERVATION Performed By: #### L 500.72976, L500.18270, L500.00557, L500.72561, L500.74658 #### Test performed at: [place] [address] BLOOD Negative Normal NEGATIVE [facility] Comment on above: Order Comment: PATIE NT IS GETTING CAT SCAN DONE NURSE WILL CALL/PAGE WHEN PATIENT IS BACK ON THE FLOOR CONSERVATION Result Comment: ASCO RBIC ACID IS PRESENT AND MAY INTERFERE WITH THE URINE BLOOD RESULT. Performed By: #### L 500.60122, L500.26914, L500.12148, L500.35482, L500.10507 #### Test performed at: [place] [id number] Color (U) YELLOW Normal YELLOW [facility] Comment on above: Order Comment: PATIE NT IS GETTING CAT SCAN DONE NURSE WILL CALL/PAGE WHEN PATIENT IS BACK ON THE FLOOR CONSERVATION Performed By: #### L 500.75072, L500.10510, L500.00935, L500.94574, L500.84349 #### Test performed at: [place] [address] Glucose [Mass/Vol] Negative Normal NEGATIVE [facility] Comment on above: Order Comment: PATIE NT IS GETTING CAT SCAN DONE NURSE WILL CALL/PAGE WHEN PATIENT IS BACK ON THE FLOOR CONSERVATION Performed By: #### L 500.91060, L500.93360, L500.41379, L500.04593, L500.07425 #### Test performed at: [place] [address] KETONE Negative Normal NEGATIVE [facility] Comment on above: Order Comment: PATIE NT IS GETTING CAT SCAN DONE NURSE WILL CALL/PAGE WHEN PATIENT IS BACK ON THE FLOOR CONSERVATION Performed By: #### L 500.50576, L500.23690, L500.75037, L500.54657, L500.90252 #### Test performed at: [place] [address] LEUK ESTERASE Negative Normal NEGATIVE [facility] Comment on above: Order Comment: PATIE NT IS GETTING CAT SCAN DONE NURSE WILL CALL/PAGE WHEN PATIENT IS BACK ON THE FLOOR CONSERVATION Performed By: #### L 500.60388, L500.00207, L500.93476, L500.35034, L500.83904 #### Test performed at: [place] [id number] Nitrite Ql (U) Negative Normal NEGATIVE [facility] Comment on above: Order Comment: PATIE NT IS GETTING CAT SCAN DONE NURSE WILL CALL/PAGE WHEN PATIENT IS BACK ON THE FLOOR CONSERVATION Performed By: #### L 500.60617, L500.65372, L500.23946, L500.77572, L500.37593 #### Test performed at: [place] [id number] Protein [Mass/Vol] Negative Normal NEGATIVE [facility] Comment on above: Order Comment: PATIE NT IS GETTING CAT SCAN DONE NURSE WILL CALL/PAGE WHEN PATIENT IS BACK ON THE FLOOR CONSERVATION Performed By: #### L 500.90544, L500.47915, L500.08804, L500.83198, L500.16728 #### Test performed at: [place] [address] SPEC GRAV 1.032 High 1.005-1.030 [facility] Comment on above: Order Comment: PATIE NT IS GETTING CAT SCAN DONE NURSE WILL CALL/PAGE WHEN PATIENT IS BACK ON THE FLOOR CONSERVATION Performed By: #### L 500.70452, L500.49646, L500.14526, L500.37100, L500.05567 #### Test performed at: [place] [address] UA ASC ACID 40 mg/dL Normal [facility] Comment on above: Order Comment: PATIE NT IS GETTING CAT SCAN DONE NURSE WILL CALL/PAGE WHEN PATIENT IS BACK ON THE FLOOR CONSERVATION Performed By: #### L 500.52196, L500.38367, L500.69308, L500.70079, L500.86662 #### Test performed at: [place] [id number] UA PH 5.0 Normal 5.0-8.0 [facility] Comment on above: Order Comment: PATIE NT IS GETTING CAT SCAN DONE NURSE WILL CALL/PAGE WHEN PATIENT IS BACK ON THE FLOOR CONSERVATION Performed By: #### L 500.13776, L500.53875, L500.58632, L500.59835, L500.18466 #### Test performed at: [address] [address] UROBIL NORMAL Normal NORMAL [facility] Comment on above: Order Comment: PATIE NT IS GETTING CAT SCAN DONE NURSE WILL CALL/PAGE WHEN PATIENT IS BACK ON THE FLOOR CONSERVATION Performed By: #### L 500.96524, L500.87211, L500.86892, L500.85055, L500.54007 #### Test performed at: [place] [id number] WSR/MODon 08-12-2019 WSR/MOD 40 mm/hr High 0-20 [facility] Comment on above: Order Comment: BRIELLE NT IS GETTING CAT SCAN DONE NURSE WILL CALL/PAGE WHEN PATIENT IS BACK ON THE FLOOR CONSERVATION Result Comment: Delt a: 8 on 07/16/19 Performed By: #### L 500.13252, L500.46774, L500.32584, L500.36216, L500.14690 #### Test performed at: [place] [address] AEROBIC CULTon 08-01-2019 AEROBIC CULT NO GROWTH 10 DAYS Normal [facility] Comment on above: Order Comment: BRIELLE NT IS GETTING CAT SCAN DONE NURSE WILL CALL/PAGE WHEN PATIENT IS BACK ON THE FLOOR CONSERVATION Performed By: #### L 500.14919, L500.97993, L500.03105, L500.26599, L500.32762 #### Test performed at: [place] [id number] ANAER CULTUREon 08-01-2019 ANAER CULTURE NO ANAEROBES ISOLATE D 10 DAYS Normal [facility] Comment on above: Order Comment: BRIELLE NT IS GETTING CAT SCAN DONE NURSE WILL CALL/PAGE WHEN PATIENT IS BACK ON THE FLOOR CONSERVATION Performed By: #### L 500.37099, L500.71461, L500.03449, L500.84844, L500.17472 #### Test performed at: [place] [address] HCC Inf Disease Progress Not francis 08-01-2019 HCC Inf Disease Progress Note [facility] Pt Name: ERIKA ORTIZ [address] [place] [address] MR#: [id number] [place] [address] ACCT: [id number] PROGRESS NOTE- Infectious Disease : 74 [facility] Date of Service: 08/01/19 Text NAME: ERIKA ORTIZ MR#: [id number] DATE OF SERVICE: 08/01/2019 [facility] INFECTIOUS DISEASE PROGRESS NOTE Ms. Ortiz returns for followup, having been discharged from the hospital about 10 days ago. This patient is on vancomycin 2 g IV q.12 hourly for a culture negative apparent infection of the lower lumbar spine, having had initial intervention for a recurrent herniated disk at L5-S1 on July 16, returning to surgery for evacuation of an epidural hematoma with a complete revision laminectomy at L5-S1 with bilateral foraminotomies on July 17, and finally a 3rd procedure with irrigation, debridement of the lumbar wound, and evacuation of an epidural fluid collection with again revision laminotomy at S1 on July 21. Cultures from surgeries on July 17 and July 21 were all negative, and acid-fast stains negative. Blood cultures were also negative. Because apparent purulent material was described surgically, we chose to empirically place the patient on vancomycin, and she has now had about 2 weeks of therapy in that regard. She is receiving medication via PICC line, and is comfortable. She is to see Dr. Ortiz today for evaluation of suture removal from her lumbar spine. PHYSICAL EXAMINATION: VITAL SIGNS: Weight 238 pounds, blood pressure 164/91, pulse 102, temperature 36.5. NECK: Seems supple with no lymphadenopathy. The right arm PICC line is intact, though she describes some itching when the medication is infusing, but only locally in the right arm. She does not have any overt signs of hypersensitivity reaction with erythema, shortness of breath, diaphoresis, etc. The right arm is without edema. CARDIAC: Left ventricular cardiac impulse was normal. There is no murmur or gallop. LUNGS: Clear to auscultation. SKIN: No obvious joint effusions or rash are noted. The lumbar wound seems intact, with sutures remaining in place. LABORATORY DATA: The last laboratories done on July 29 at [facility] near her home note a vancomycin trough of 18. The white count was 12,300, hematocrit 38.6, platelets 322,000, sedimentation rate was 33, BUN 6, creatinine 0.84. C-reactive protein 3.7. Reviewing prior labs while hospitalized, her CRP July 16 was 10.2. ASSESSMENT: Clinically, this patient is being treated for culture negative [facility] Pt Name: ERIKA ORTIZ [address] [place] [address] MR#: [id number] [place] [address] ACCT: [id number] PROGRESS NOTE- [facility]ious Disease : [facility] Date of Service: 08/01/19 wound infection with possible lumbar spine involvement, particularly at the L4- 5 and L5-S1 disk areas, with 3 surgical interventions in the space of 5 days. She is doing well. We will continue to treat her with IV antibiotics, as our current plan was to consider therapy for 6 weeks. Given the improvement in the C-reactive protein and a lack of growth of any isolates even 10 days postop, we may be able to curtail the therapy to a shorter course. Our service will continue to follow. I will have her return to see me in a month for followup. Laboratories are done by home care, and medication prescribed by [facility] from a [place] office. ROBERT GILL MD [id number] Electronically Signed eSign Date and Time Robert Gill 08/12/19 1549 Normal [facility] AEROBIC CULTon 07-27-2019 AEROBIC CULT NO GROWTH 10 DAYS Normal [facility] Comment on above: Order Comment: CONSE RVATION List patient's anticoagulants for PT: NONE SPECIFIED Performed By: #### L 300.97320 #### Test performed at: [place] [address] ANAER CULTUREon 07-27-2019 ANAER CULTURE NO ANAEROBES ISOLATE D 10 DAYS Normal [facility] Comment on above: Order Comment: CONSE RVATION List patient's anticoagulants for PT: NONE SPECIFIED Performed By: #### L 300.45760 #### Test performed at: [address] [address] BLOOD CULTUREon 07-23-2019 Bacteria identified Cx Nom (Bld) NO GROWTH 5 DAYS Normal [facility] Comment on above: Order Comment: PATIE NT IS GETTING CAT SCAN DONE NURSE WILL CALL/PAGE WHEN PATIENT IS BACK ON THE FLOOR CONSERVATION Performed By: #### L 500.99761, L500.94398, L500.44593, L500.96335, L500.61132 #### Test performed at: [address] [address] BASIC MET PANELon 07-22-2019 Anion gap [Moles/Vol] 17 mmol/L Normal 6-18 [facility] Comment on above: Order Comment: PATIE NT IS GETTING CAT SCAN DONE NURSE WILL CALL/PAGE WHEN PATIENT IS BACK ON THE FLOOR CONSERVATION Performed By: #### L 500.75699, L500.44365, L500.42603, L500.09750, L500.26076 #### Test performed at: [address] [address] Calcium [Mass/Vol] 9.4 mg/dL Normal 8.5-10.1 [facility] Comment on above: Order Comment: PATIE NT IS GETTING CAT SCAN DONE NURSE WILL CALL/PAGE WHEN PATIENT IS BACK ON THE FLOOR CONSERVATION Performed By: #### L 500.95453, L500.64759, L500.30860, L500.59130, L500.79944 #### Test performed at: [address] [address] Chloride [Moles/Vol] 100 mmol/L Normal 98-107 [facility] Comment on above: Order Comment: PATIE NT IS GETTING CAT SCAN DONE NURSE WILL CALL/PAGE WHEN PATIENT IS BACK ON THE FLOOR CONSERVATION Performed By: #### L 500.00047, L500.78514, L500.20432, L500.39175, L500.47189 #### Test performed at: [address] [address] CO2 [Moles/Vol] 25 mmol/L Normal 21-32 [facility] Comment on above: Order Comment: BRIELLE NT IS GETTING CAT SCAN DONE NURSE WILL CALL/PAGE WHEN PATIENT IS BACK ON THE FLOOR CONSERVATION Performed By: #### L 500.01588, L500.32408, L500.82666, L500.77482, L500.93393 #### Test performed at: [place] [id number] Creatinine [Mass/Vol] 1.010 mg/dL Normal 0.550-1.020 [facility] Comment on above: Order Comment: BRIELLE NT IS GETTING CAT SCAN DONE NURSE WILL CALL/PAGE WHEN PATIENT IS BACK ON THE FLOOR CONSERVATION Performed By: #### L 500.34906, L500.59687, L500.76924, L500.98782, L500.60455 #### Test performed at: [place] [id number] Glucose [Mass/Vol] 157 mg/dL High 70-99 [facility] Comment on above: Order Comment: BRIELLE NT IS GETTING CAT SCAN DONE NURSE WILL CALL/PAGE WHEN PATIENT IS BACK ON THE FLOOR CONSERVATION Result Comment: Fast ing GLUCOSE reference range has been updated per (ADA) [employer]'s recommendation. 11/06/2018 Performed By: #### L 500.46689, L500.42434, L500.45145, L500.08808, L500.14378 #### Test performed at: [address] [address] OSM 291 mosm/kg Normal 270-300 [facility] Comment on above: Order Comment: BRIELLE NT IS GETTING CAT SCAN DONE NURSE WILL CALL/PAGE WHEN PATIENT IS BACK ON THE FLOOR CONSERVATION Performed By: #### L 500.07762, L500.11171, L500.87654, L500.59428, L500.59890 #### Test performed at: [address] [address] Potassium [Moles/Vol] 4.0 mmol/L Normal 3.5-5.1 [facility] Comment on above: Order Comment: PATIE NT IS GETTING CAT SCAN DONE NURSE WILL CALL/PAGE WHEN PATIENT IS BACK ON THE FLOOR CONSERVATION Performed By: #### L 500.07339, L500.23827, L500.87268, L500.08318, L500.01834 #### Test performed at: [place] [id number] Sodium [Moles/Vol] 138 mmol/L Normal 136-145 [facility] Comment on above: Order Comment: PATIE NT IS GETTING CAT SCAN DONE NURSE WILL CALL/PAGE WHEN PATIENT IS BACK ON THE FLOOR CONSERVATION Performed By: #### L 500.94333, L500.22327, L500.58035, L500.32943, L500.87856 #### Test performed at: [place] [address] Urea nitrogen [Mass/Vol] 18 mg/dL Normal 7-18 [facility] Comment on above: Order Comment: PATIE NT IS GETTING CAT SCAN DONE NURSE WILL CALL/PAGE WHEN PATIENT IS BACK ON THE FLOOR CONSERVATION Performed By: #### L 500.72437, L500.89378, L500.59063, L500.43410, L500.28502 #### Test performed at: [place] [id number] CBC W/DIFFon 07-22-2019 BASO ABS 0.0 K/uL Normal 0.0-0.2 [facility] Comment on above: Order Comment: PATIE NT IS GETTING CAT SCAN DONE NURSE WILL CALL/PAGE WHEN PATIENT IS BACK ON THE FLOOR CONSERVATION Performed By: #### L 500.77153, L500.57035, L500.90532, L500.06869, L500.99127 #### Test performed at: [address] [address] Basophils/100 WBC (Bld) 0.1 % Normal [facility] Comment on above: Order Comment: PATIE NT IS GETTING CAT SCAN DONE NURSE WILL CALL/PAGE WHEN PATIENT IS BACK ON THE FLOOR CONSERVATION Performed By: #### L 500.32035, L500.24415, L500.54988, L500.43606, L500.46149 #### Test performed at: [address] [address] EOS ABS 0.0 K/uL Normal 0.0-0.5 [facility] Comment on above: Order Comment: BANDARE NT IS GETTING CAT SCAN DONE NURSE WILL CALL/PAGE WHEN PATIENT IS BACK ON THE FLOOR CONSERVATION Performed By: #### L 500.81717, L500.46950, L500.14275, L500.98596, L500.88477 #### Test performed at: [address] [address] Eosinophils/100 WBC (Bld) 0.0 % Normal [facility] Comment on above: Order Comment: BANDARE NT IS GETTING CAT SCAN DONE NURSE WILL CALL/PAGE WHEN PATIENT IS BACK ON THE FLOOR CONSERVATION Performed By: #### L 500.45459, L500.39376, L500.59984, L500.11626, L500.65036 #### Test performed at: [address] [address] IG % 0.8 % Normal [facility] Comment on above: Order Comment: BANDARE NT IS GETTING CAT SCAN DONE NURSE WILL CALL/PAGE WHEN PATIENT IS BACK ON THE FLOOR CONSERVATION Performed By: #### L 500.47688, L500.29296, L500.79839, L500.04560, L500.95647 #### Test performed at: [address] [address] IG ABS 0.19 K/uL High 0-0.05 [facility] Comment on above: Order Comment: PATIE NT IS GETTING CAT SCAN DONE NURSE WILL CALL/PAGE WHEN PATIENT IS BACK ON THE FLOOR CONSERVATION Performed By: #### L 500.68551, L500.19469, L500.90913, L500.08094, L500.84919 #### Test performed at: [address] [address] Lymphocytes (Bld) [#/Vol] 1.9 10*3/uL Normal 1.2-3.5 [facility] Comment on above: Order Comment: PATIE NT IS GETTING CAT SCAN DONE NURSE WILL CALL/PAGE WHEN PATIENT IS BACK ON THE FLOOR CONSERVATION Performed By: #### L 500.65692, L500.27065, L500.25995, L500.29354, L500.58810 #### Test performed at: [address] [address] Lymphocytes/100 WBC (Bld) 7.8 % Normal [facility] Comment on above: Order Comment: PATIE NT IS GETTING CAT SCAN DONE NURSE WILL CALL/PAGE WHEN PATIENT IS BACK ON THE FLOOR CONSERVATION Performed By: #### L 500.12233, L500.28313, L500.73197, L500.68203, L500.80345 #### Test performed at: [address] [address] MONO ABS 1.2 K/uL High 0.0-1.0 [facility] Comment on above: Order Comment: PATIE NT IS GETTING CAT SCAN DONE NURSE WILL CALL/PAGE WHEN PATIENT IS BACK ON THE FLOOR CONSERVATION Performed By: #### L 500.34362, L500.10211, L500.73773, L500.90566, L500.34056 #### Test performed at: [address] [address] Monocytes/100 WBC (Bld) 5.1 % Normal [facility] Comment on above: Order Comment: PATIE NT IS GETTING CAT SCAN DONE NURSE WILL CALL/PAGE WHEN PATIENT IS BACK ON THE FLOOR CONSERVATION Performed By: #### L 500.52767, L500.12535, L500.15875, L500.02121, L500.96795 #### Test performed at: [address] [address] NEUTROPHIL ABS 20.8 K/uL High 1.4-6.6 [facility] Comment on above: Order Comment: PATIE NT IS GETTING CAT SCAN DONE NURSE WILL CALL/PAGE WHEN PATIENT IS BACK ON THE FLOOR CONSERVATION Performed By: #### L 500.78450, L500.84876, L500.07559, L500.35778, L500.09319 #### Test performed at: [place] [address] Neutrophils/100 WBC (Bld) 86.2 % Normal [facility] Comment on above: Order Comment: PATIE NT IS GETTING CAT SCAN DONE NURSE WILL CALL/PAGE WHEN PATIENT IS BACK ON THE FLOOR CONSERVATION Performed By: #### L 500.96987, L500.04585, L500.68378, L500.35330, L500.33499 #### Test performed at: [place] [address] SCREEN REQUIRED YES Normal [facility] Comment on above: Order Comment: PATIE NT IS GETTING CAT SCAN DONE NURSE WILL CALL/PAGE WHEN PATIENT IS BACK ON THE FLOOR CONSERVATION Result Comment: Asia pheral Smear reviewed by technologist. Performed By: #### L 500.36527, L500.22709, L500.55746, L500.96644, L500.07055 #### Test performed at: [address] [address] Erythrocyte distribution width (RBC) [Ratio] 13.1 % Normal 11.5-14.5 [facility] Comment on above: Order Comment: PATIE NT IS GETTING CAT SCAN DONE NURSE WILL CALL/PAGE WHEN PATIENT IS BACK ON THE FLOOR CONSERVATION Performed By: #### L 500.50096, L500.62506, L500.54368, L500.39377, L500.27153 #### Test performed at: [place] [address] Hematocrit (Bld) [Volume fraction] 42.3 % Normal 36.0-48.0 [facility] Comment on above: Order Comment: PATIE NT IS GETTING CAT SCAN DONE NURSE WILL CALL/PAGE WHEN PATIENT IS BACK ON THE FLOOR CONSERVATION Performed By: #### L 500.76133, L500.94072, L500.41131, L500.69205, L500.54931 #### Test performed at: [place] [address] Hemoglobin (Bld) [Mass/Vol] 14.5 g/dL Normal 12.0-15.0 [facility] Comment on above: Order Comment: PATIE NT IS GETTING CAT SCAN DONE NURSE WILL CALL/PAGE WHEN PATIENT IS BACK ON THE FLOOR CONSERVATION Performed By: #### L 500.11426, L500.45352, L500.21653, L500.64166, L500.15514 #### Test performed at: [place] [address] MCH (RBC) [Entitic mass] 30.0 pg Normal 25.4-34.6 [facility] Comment on above: Order Comment: PATIE NT IS GETTING CAT SCAN DONE NURSE WILL CALL/PAGE WHEN PATIENT IS BACK ON THE FLOOR CONSERVATION Performed By: #### L 500.27977, L500.45094, L500.17321, L500.04133, L500.63749 #### Test performed at: [place] [address] MCHC (RBC) [Mass/Vol] 34.3 g/dL Normal 31.5-36.5 [facility] Comment on above: Order Comment: PATIE NT IS GETTING CAT SCAN DONE NURSE WILL CALL/PAGE WHEN PATIENT IS BACK ON THE FLOOR CONSERVATION Performed By: #### L 500.19337, L500.53835, L500.79837, L500.33186, L500.95602 #### Test performed at: [place] [address] MCV (RBC) [Entitic vol] 87.6 fL Normal 79.0-98.0 [facility] Comment on above: Order Comment: PATIE NT IS GETTING CAT SCAN DONE NURSE WILL CALL/PAGE WHEN PATIENT IS BACK ON THE FLOOR CONSERVATION Performed By: #### L 500.66676, L500.49934, L500.35916, L500.27490, L500.59114 #### Test performed at: [place] [address] NRBC # 0.000 K/uL Normal 0-0.012 [facility] Comment on above: Order Comment: PATIE NT IS GETTING CAT SCAN DONE NURSE WILL CALL/PAGE WHEN PATIENT IS BACK ON THE FLOOR CONSERVATION Performed By: #### L 500.01433, L500.47747, L500.53582, L500.57082, L500.88692 #### Test performed at: [place] [address] NRBC % 0.0 /100 WBC Normal 0-0.2 [facility] Comment on above: Order Comment: PATIE NT IS GETTING CAT SCAN DONE NURSE WILL CALL/PAGE WHEN PATIENT IS BACK ON THE FLOOR CONSERVATION Performed By: #### L 500.30511, L500.59581, L500.42980, L500.60067, L500.61901 #### Test performed at: [place] [address] Platelet mean volume (Bld) [Entitic vol] 9.7 fL Normal 8.7-12.4 [facility] Comment on above: Order Comment: PATIE NT IS GETTING CAT SCAN DONE NURSE WILL CALL/PAGE WHEN PATIENT IS BACK ON THE FLOOR CONSERVATION Performed By: #### L 500.35919, L500.15673, L500.75776, L500.38854, L500.62768 #### Test performed at: [place] [address] Platelets (Bld) [#/Vol] 307 10*3/uL Normal 140-440 [facility] Comment on above: Order Comment: PATIE NT IS GETTING CAT SCAN DONE NURSE WILL CALL/PAGE WHEN PATIENT IS BACK ON THE FLOOR CONSERVATION Performed By: #### L 500.13922, L500.78739, L500.18131, L500.54259, L500.07414 #### Test performed at: [place] [address] RBC (Bld) [#/Vol] 4.83 10*6/uL Normal 3.5-5.5 [facility] Comment on above: Order Comment: PATIE NT IS GETTING CAT SCAN DONE NURSE WILL CALL/PAGE WHEN PATIENT IS BACK ON THE FLOOR CONSERVATION Performed By: #### L 500.78061, L500.22075, L500.58180, L500.98316, L500.94051 #### Test performed at: [place] [address] WBC (Bld) [#/Vol] 24.2 10*3/uL High 3.9-11.0 [facility] Comment on above: Order Comment: PATIE NT IS GETTING CAT SCAN DONE NURSE WILL CALL/PAGE WHEN PATIENT IS BACK ON THE FLOOR CONSERVATION Result Comment: Delt a: 11.8 on 07/21/19 Performed By: #### L 500.05786, L500.70517, L500.77955, L500.70058, L500.47931 #### Test performed at: [address] [address] EST. CREAT CLRon 07-22-2019 Creatinine [Mass/Vol] 106.600 ML/MIN Normal [facility] Comment on above: Order Comment: PATIE NT IS GETTING CAT SCAN DONE NURSE WILL CALL/PAGE WHEN PATIENT IS BACK ON THE FLOOR CONSERVATION Result Comment: This result is an ESTIMATED blood creatinine clearance value which is derived from the patient age, sex, weight, and previous blood creatinine result. Performed By: #### L 500.08822, L500.95743, L500.24309, L500.29051, L500.20670 #### Test performed at: [place] [address] GFR ESTIMATEon 07-22-2019 IF AMER > 60 Normal > 60 [facility] Comment on above: Order Comment: PATIJonathan NT IS GETTING CAT SCAN DONE NURSE WILL CALL/PAGE WHEN PATIENT IS BACK ON THE FLOOR CONSERVATION Result Comment: eGFR (Estimated GFR) Units of measure:mL/min/1.73 meters sq. *CALCULATION REVISED 06/02/2015;IDMS-traceable MDRD equation eGFR is derived from the reexpressed MDRD Study equation using the following parameters: serum creatinine, age, gender and race. An eGFR<60 mL/min/1.73m2 for >3 months is consistent with chronic kidney disease. Refer to KDOQI guidelines for clinical interpretation. Performed By: #### L 500.82874, L500.65080, L500.73035, L500.20766, L500.72277 #### Test performed at: [place] [address] IF non-AFR AMER 59 Low > 60 [facility] Comment on above: Order Comment: BRIELLE NT IS GETTING CAT SCAN DONE NURSE WILL CALL/PAGE WHEN PATIENT IS BACK ON THE FLOOR CONSERVATION Performed By: #### L 500.40635, L500.67016, L500.52429, L500.03782, L500.23410 #### Test performed at: [place] [address] VANC TROUGHon 07-22-2019 VANC TROUGH 12.7 ug/mL Normal 10-15 [facility] Comment on above: Order Comment: BANDARE NT IS GETTING CAT SCAN DONE NURSE WILL CALL/PAGE WHEN PATIENT IS BACK ON THE FLOOR CONSERVATION Result Comment: For SUSPECTED or DOCUMENTED infections of STAPHYLOCOCCUS where the M.I.C is > OR = 2 mg/L, the recommended dosage for VANCOMYCIN is 15-20 ug/mL. Performed By: #### L 500.00862, L500.99658, L500.40375, L500.50111, L500.37506 #### Test performed at: [address] [address] BASIC MET PANELon 07-21-2019 Anion gap [Moles/Vol] 14 mmol/L Normal 6-18 [facility] Comment on above: Order Comment: PATIE NT IS GETTING CAT SCAN DONE NURSE WILL CALL/PAGE WHEN PATIENT IS BACK ON THE FLOOR CONSERVATION Performed By: #### L 500.61022, L500.13481, L500.61979, L500.70766, L500.35353 #### Test performed at: [address] [address] Calcium [Mass/Vol] 9.1 mg/dL Normal 8.5-10.1 [facility] Comment on above: Order Comment: PATIE NT IS GETTING CAT SCAN DONE NURSE WILL CALL/PAGE WHEN PATIENT IS BACK ON THE FLOOR CONSERVATION Performed By: #### L 500.66430, L500.93273, L500.49298, L500.82427, L500.47398 #### Test performed at: [address] [address] Chloride [Moles/Vol] 101 mmol/L Normal 98-107 [facility] Comment on above: Order Comment: PATIE NT IS GETTING CAT SCAN DONE NURSE WILL CALL/PAGE WHEN PATIENT IS BACK ON THE FLOOR CONSERVATION Performed By: #### L 500.71924, L500.73308, L500.66974, L500.82059, L500.94749 #### Test performed at: [address] [address] CO2 [Moles/Vol] 25 mmol/L Normal 21-32 [facility] Comment on above: Order Comment: PATIE NT IS GETTING CAT SCAN DONE NURSE WILL CALL/PAGE WHEN PATIENT IS BACK ON THE FLOOR CONSERVATION Performed By: #### L 500.70312, L500.14796, L500.50741, L500.22984, L500.47627 #### Test performed at: [place] [id number] Creatinine [Mass/Vol] 0.719 mg/dL Normal 0.550-1.020 [facility] Comment on above: Order Comment: PATIE NT IS GETTING CAT SCAN DONE NURSE WILL CALL/PAGE WHEN PATIENT IS BACK ON THE FLOOR CONSERVATION Performed By: #### L 500.07020, L500.84245, L500.29768, L500.12447, L500.07383 #### Test performed at: [place] [id number] Glucose [Mass/Vol] 138 mg/dL High 70-99 [facility] Comment on above: Order Comment: BANDARE NT IS GETTING CAT SCAN DONE NURSE WILL CALL/PAGE WHEN PATIENT IS BACK ON THE FLOOR CONSERVATION Result Comment: Fast ing GLUCOSE reference range has been updated per (ADA) [employer]'s recommendation. 11/06/2018 Performed By: #### L 500.32331, L500.59562, L500.28841, L500.96881, L500.85250 #### Test performed at: [place] [address] OSM 285 mosm/kg Normal 270-300 [facility] Comment on above: Order Comment: PATIE NT IS GETTING CAT SCAN DONE NURSE WILL CALL/PAGE WHEN PATIENT IS BACK ON THE FLOOR CONSERVATION Performed By: #### L 500.90944, L500.96175, L500.04936, L500.99373, L500.19005 #### Test performed at: [address] [address] Potassium [Moles/Vol] 4.1 mmol/L Normal 3.5-5.1 [facility] Comment on above: Order Comment: PATIE NT IS GETTING CAT SCAN DONE NURSE WILL CALL/PAGE WHEN PATIENT IS BACK ON THE FLOOR CONSERVATION Performed By: #### L 500.76837, L500.29235, L500.91526, L500.36549, L500.85155 #### Test performed at: [address] [address] Sodium [Moles/Vol] 136 mmol/L Normal 136-145 [facility] Comment on above: Order Comment: PATIE NT IS GETTING CAT SCAN DONE NURSE WILL CALL/PAGE WHEN PATIENT IS BACK ON THE FLOOR CONSERVATION Performed By: #### L 500.91293, L500.94516, L500.25902, L500.73888, L500.84071 #### Test performed at: [address] [address] Urea nitrogen [Mass/Vol] 15 mg/dL Normal 7-18 [facility] Comment on above: Order Comment: PATIE NT IS GETTING CAT SCAN DONE NURSE WILL CALL/PAGE WHEN PATIENT IS BACK ON THE FLOOR CONSERVATION Performed By: #### L 500.37074, L500.86856, L500.93586, L500.50922, L500.23412 #### Test performed at: [address] [address] CBC W/DIFFon 07-21-2019 BASO ABS 0.0 K/uL Normal 0.0-0.2 [facility] Comment on above: Order Comment: PATIE NT IS GETTING CAT SCAN DONE NURSE WILL CALL/PAGE WHEN PATIENT IS BACK ON THE FLOOR CONSERVATION Performed By: #### L 500.09495, L500.79040, L500.22989, L500.60607, L500.47122 #### Test performed at: [address] [address] Basophils/100 WBC (Bld) 0.1 % Normal [facility] Comment on above: Order Comment: PATIE NT IS GETTING CAT SCAN DONE NURSE WILL CALL/PAGE WHEN PATIENT IS BACK ON THE FLOOR CONSERVATION Performed By: #### L 500.14487, L500.68566, L500.21902, L500.50165, L500.50264 #### Test performed at: [address] [address] EOS ABS 0.0 K/uL Normal 0.0-0.5 [facility] Comment on above: Order Comment: PATIE NT IS GETTING CAT SCAN DONE NURSE WILL CALL/PAGE WHEN PATIENT IS BACK ON THE FLOOR CONSERVATION Performed By: #### L 500.92205, L500.25783, L500.90841, L500.93836, L500.03353 #### Test performed at: [place] [address] Eosinophils/100 WBC (Bld) 0.0 % Normal [facility] Comment on above: Order Comment: PATIE NT IS GETTING CAT SCAN DONE NURSE WILL CALL/PAGE WHEN PATIENT IS BACK ON THE FLOOR CONSERVATION Performed By: #### L 500.57289, L500.20432, L500.12805, L500.17465, L500.59177 #### Test performed at: [place] [address] IG % 0.7 % Normal [facility] Comment on above: Order Comment: PATIE NT IS GETTING CAT SCAN DONE NURSE WILL CALL/PAGE WHEN PATIENT IS BACK ON THE FLOOR CONSERVATION Performed By: #### L 500.51563, L500.50830, L500.98405, L500.28866, L500.58046 #### Test performed at: [place] [id number] IG ABS 0.08 K/uL High 0-0.05 [facility] Comment on above: Order Comment: PATIE NT IS GETTING CAT SCAN DONE NURSE WILL CALL/PAGE WHEN PATIENT IS BACK ON THE FLOOR CONSERVATION Performed By: #### L 500.17296, L500.14794, L500.00337, L500.32609, L500.75712 #### Test performed at: [place] [address] Lymphocytes (Bld) [#/Vol] 1.0 10*3/uL Low 1.2-3.5 [facility] Comment on above: Order Comment: PATIE NT IS GETTING CAT SCAN DONE NURSE WILL CALL/PAGE WHEN PATIENT IS BACK ON THE FLOOR CONSERVATION Performed By: #### L 500.64792, L500.45801, L500.54688, L500.99604, L500.12238 #### Test performed at: [address] [address] Lymphocytes/100 WBC (Bld) 8.0 % Normal [facility] Comment on above: Order Comment: BRIELLE NT IS GETTING CAT SCAN DONE NURSE WILL CALL/PAGE WHEN PATIENT IS BACK ON THE FLOOR CONSERVATION Performed By: #### L 500.53038, L500.76451, L500.35058, L500.36828, L500.05225 #### Test performed at: [address] [address] MONO ABS 0.3 K/uL Normal 0.0-1.0 [facility] Comment on above: Order Comment: BRIELLE NT IS GETTING CAT SCAN DONE NURSE WILL CALL/PAGE WHEN PATIENT IS BACK ON THE FLOOR CONSERVATION Performed By: #### L 500.81714, L500.84536, L500.41614, L500.46087, L500.66330 #### Test performed at: [address] [address] Monocytes/100 WBC (Bld) 2.3 % Normal [facility] Comment on above: Order Comment: BRIELLE NT IS GETTING CAT SCAN DONE NURSE WILL CALL/PAGE WHEN PATIENT IS BACK ON THE FLOOR CONSERVATION Performed By: #### L 500.49792, L500.15933, L500.56744, L500.82222, L500.01582 #### Test performed at: [address] [address] NEUTROPHIL ABS 10.5 K/uL High 1.4-6.6 [facility] Comment on above: Order Comment: BRIELLE NT IS GETTING CAT SCAN DONE NURSE WILL CALL/PAGE WHEN PATIENT IS BACK ON THE FLOOR CONSERVATION Performed By: #### L 500.40652, L500.66079, L500.69328, L500.22483, L500.32984 #### Test performed at: [address] [address] Neutrophils/100 WBC (Bld) 88.9 % Normal [facility] Comment on above: Order Comment: PATIE NT IS GETTING CAT SCAN DONE NURSE WILL CALL/PAGE WHEN PATIENT IS BACK ON THE FLOOR CONSERVATION Performed By: #### L 500.94544, L500.08791, L500.02660, L500.03323, L500.37551 #### Test performed at: [address] [address] Erythrocyte distribution width (RBC) [Ratio] 12.9 % Normal 11.5-14.5 [facility] Comment on above: Order Comment: PATIE NT IS GETTING CAT SCAN DONE NURSE WILL CALL/PAGE WHEN PATIENT IS BACK ON THE FLOOR CONSERVATION Performed By: #### L 500.92828, L500.01013, L500.86601, L500.75674, L500.60910 #### Test performed at: [address] [address] Hematocrit (Bld) [Volume fraction] 43.4 % Normal 36.0-48.0 [facility] Comment on above: Order Comment: PATIE NT IS GETTING CAT SCAN DONE NURSE WILL CALL/PAGE WHEN PATIENT IS BACK ON THE FLOOR CONSERVATION Performed By: #### L 500.86685, L500.61542, L500.56706, L500.74317, L500.17393 #### Test performed at: [address] [address] Hemoglobin (Bld) [Mass/Vol] 14.9 g/dL Abnormal 12.0-15.0 [facility] Comment on above: Order Comment: PATIE NT IS GETTING CAT SCAN DONE NURSE WILL CALL/PAGE WHEN PATIENT IS BACK ON THE FLOOR CONSERVATION Result Comment: Delt a: 12.8 on 07/20/19 Performed By: #### L 500.81774, L500.48663, L500.15259, L500.82609, L500.12862 #### Test performed at: [address] [address] MCH (RBC) [Entitic mass] 29.5 pg Normal 25.4-34.6 [facility] Comment on above: Order Comment: PATIE NT IS GETTING CAT SCAN DONE NURSE WILL CALL/PAGE WHEN PATIENT IS BACK ON THE FLOOR CONSERVATION Performed By: #### L 500.73015, L500.08022, L500.87461, L500.68335, L500.31916 #### Test performed at: [place] [address] MCHC (RBC) [Mass/Vol] 34.3 g/dL Normal 31.5-36.5 [facility] Comment on above: Order Comment: PATIE NT IS GETTING CAT SCAN DONE NURSE WILL CALL/PAGE WHEN PATIENT IS BACK ON THE FLOOR CONSERVATION Performed By: #### L 500.42546, L500.40724, L500.18852, L500.23168, L500.83394 #### Test performed at: [place] [id number] MCV (RBC) [Entitic vol] 85.9 fL Normal 79.0-98.0 [facility] Comment on above: Order Comment: PATIE NT IS GETTING CAT SCAN DONE NURSE WILL CALL/PAGE WHEN PATIENT IS BACK ON THE FLOOR CONSERVATION Performed By: #### L 500.34130, L500.09875, L500.78729, L500.13620, L500.96517 #### Test performed at: [place] [id number] NRBC # 0.000 K/uL Normal 0-0.012 [facility] Comment on above: Order Comment: PATIE NT IS GETTING CAT SCAN DONE NURSE WILL CALL/PAGE WHEN PATIENT IS BACK ON THE FLOOR CONSERVATION Performed By: #### L 500.86309, L500.95973, L500.75718, L500.44186, L500.83295 #### Test performed at: [address] [address] NRBC % 0.0 /100 WBC Normal 0-0.2 [facility] Comment on above: Order Comment: PATIE NT IS GETTING CAT SCAN DONE NURSE WILL CALL/PAGE WHEN PATIENT IS BACK ON THE FLOOR CONSERVATION Performed By: #### L 500.55487, L500.83288, L500.17392, L500.17063, L500.13235 #### Test performed at: [place] [id number] Platelet mean volume (Bld) [Entitic vol] 9.6 fL Normal 8.7-12.4 [facility] Comment on above: Order Comment: PATIE NT IS GETTING CAT SCAN DONE NURSE WILL CALL/PAGE WHEN PATIENT IS BACK ON THE FLOOR CONSERVATION Performed By: #### L 500.45113, L500.11339, L500.66076, L500.75632, L500.34374 #### Test performed at: [address] [address] Platelets (Bld) [#/Vol] 243 10*3/uL Normal 140-440 [facility] Comment on above: Order Comment: PATIE NT IS GETTING CAT SCAN DONE NURSE WILL CALL/PAGE WHEN PATIENT IS BACK ON THE FLOOR CONSERVATION Performed By: #### L 500.18218, L500.78798, L500.91889, L500.31512, L500.90975 #### Test performed at: [address] [address] RBC (Bld) [#/Vol] 5.05 10*6/uL Normal 3.5-5.5 [facility] Comment on above: Order Comment: PATIE NT IS GETTING CAT SCAN DONE NURSE WILL CALL/PAGE WHEN PATIENT IS BACK ON THE FLOOR CONSERVATION Performed By: #### L 500.86626, L500.37096, L500.47229, L500.99823, L500.66743 #### Test performed at: [place] [address] WBC (Bld) [#/Vol] 11.8 10*3/uL High 3.9-11.0 [facility] Comment on above: Order Comment: PATIE NT IS GETTING CAT SCAN DONE NURSE WILL CALL/PAGE WHEN PATIENT IS BACK ON THE FLOOR CONSERVATION Performed By: #### L 500.22654, L500.41155, L500.36808, L500.87414, L500.44496 #### Test performed at: [place] [address] EST. CREAT CLRon 07-21-2019 Creatinine [Mass/Vol] 149.745 ML/MIN Normal [facility] Comment on above: Order Comment: PATIE NT IS GETTING CAT SCAN DONE NURSE WILL CALL/PAGE WHEN PATIENT IS BACK ON THE FLOOR CONSERVATION Result Comment: This result is an ESTIMATED blood creatinine clearance value which is derived from the patient age, sex, weight, and previous blood creatinine result. Performed By: #### L 500.89476, L500.32801, L500.56758, L500.21198, L500.23467 #### Test performed at: [place] [id number] GFR ESTIMATEon 07-21-2019 IF AMER > 60 Normal > 60 [facility] Comment on above: Order Comment: BRIELLE NT IS GETTING CAT SCAN DONE NURSE WILL CALL/PAGE WHEN PATIENT IS BACK ON THE FLOOR CONSERVATION Result Comment: eGFR (Estimated GFR) Units of measure:mL/min/1.73 meters sq. *CALCULATION REVISED 06/02/2015;IDMS-traceable MDRD equation eGFR is derived from the reexpressed MDRD Study equation using the following parameters: serum creatinine, age, gender and race. An eGFR<60 mL/min/1.73m2 for >3 months is consistent with chronic kidney disease. Refer to KDOQI guidelines for clinical interpretation. Performed By: #### L 500.09567, L500.10433, L500.32553, L500.01069, L500.68591 #### Test performed at: [place] [address] IF non-AFR AMER > 60 Normal > 60 [facility] Comment on above: Order Comment: PATIE NT IS GETTING CAT SCAN DONE NURSE WILL CALL/PAGE WHEN PATIENT IS BACK ON THE FLOOR CONSERVATION Performed By: #### L 500.91617, L500.98945, L500.61768, L500.24013, L500.81092 #### Test performed at: [place] [address] GLUCOSE METERon 07-21-2019 Glucose [Mass/Vol] 139 mg/dL High 70-99 [facility] Comment on above: Order Comment: PATIE NT IS GETTING CAT SCAN DONE NURSE WILL CALL/PAGE WHEN PATIENT IS BACK ON THE FLOOR CONSERVATION Result Comment: Fast ing GLUCOSE reference range has been updated per (ADA) [employer]'s recommendation. 11/06/2018 Performed By: #### L 500.61848, L500.87553, L500.10537, L500.10150, L500.83918 #### Test performed at: [place] [address] Infect Disease Progress Note on 07-21-2019 Infect Disease Progress Note [facility] Pt Name: ERIKA ORTIZ [address] [place] [address] MR#: [id number] [place] [address] ACCT: [id number] PROGRESS NOTE - Infectious Disease : 73 Service Date: 07/21/19 1204 NAME: ERIKA ORTIZ MR#: [id number] DATE OF SERVICE: 07/21/2019 INFECTIOUS DISEASE PROGRESS NOTE This patient continued to have substantial pain yesterday, and her surgeon had ordered a repeat MRI scan, which showed evidence of a fluid collection 21 x 9 mm felt to be possible phlegmon or residual disk material, with additional extensive edema at the site. There was also a dorsal subdural fluid collection in the L3-L4 region, and L2-L3, dorsal subdural fluid collection, which was causing some mild mass effect on the thecal sac. Because of the above, it was decided to take the patient back to surgery today. I spoke to Dr. Daigle preop, and we both felt an infection was probably unlikely given the acuity of this event and the lack of any fever, chills, etc., but that he would take some samples if there is any suspicion for infection. At surgery, she underwent irrigation, with debridement of the lumbar wound, evacuation of the epidural fluid collection, and revision laminectomy of the superior lamina of S1 on both sides. As of yesterday and this morning, vital signs have been pretty normal, temperature this a.m. 36.6, pulse 76, respiratory rate 18, blood pressure 142/84. The patient's lungs are clear. Her abdomen was generally soft with bowel sounds normal. She was moving both lower extremities well. Laboratories preoperatively, white count 97521, hematocrit 43.3, platelets 243,000 with normal diff. Chemistries noted a BUN of 15, creatinine 0.719. The patient will remain on vancomycin at present, pending any surgical cultures obtained, and our service will follow. I hope that this current intervention will help her pain and aid in recovery. Our service will address antibiotic therapy as needed. ROBERT GILL MD [facility]/[id number] Electronically Signed eSign Date and Time Robert Gill 07/22/19 1627 Normal [facility] OPERATIVE REPORTon 9 OPERATIVE REPORT NAME: ALEXANDR ORTIZ MR#: [id number] SURGEON: Varghese Daigle MD DATE OF SURGERY: 07/21/2019 OPERATIVE REPORT PREOPERATIVE DIAGNOSIS: Progressive cauda equina syndrome with intractable radicular pain. POSTOPERATIVE DIAGNOSIS: Progressive cauda equina syndrome with intractable radicular pain. PROCEDURE PERFORMED: Irrigation, debridement of lumbar wound, evacuation of epidural fluid collection, revision laminotomy of the superior lamina of S1 on both the right and left sides and retrieval of additional disk herniation from within both axilla. DEVELOPMENT REPRESENTATIVE: Dr. Mora. SECOND DEVELOPMENT REPRESENTATIVE: Sara. INDICATIONS: This patient is 44 years of age and persistent having severe pain. She improved for 2 days, but once the drains came out, her symptoms once again recurred. Studies reveal fluid within the epidural space dorsally compressing the dural elements. Disk material may be present anteriorly again as well. We plan to decompress and do everything we can to afford her pain relief. Risks and benefits have been discussed. DESCRIPTION OF PROCEDURE: The patient was brought to the OR and a proper anesthetic was induced. She was prepped and draped in the usual sterile orthopedic fashion. Sutures were removed from the skin and in the subcutaneous tissues we noted sig a significant fluid collection. This was cultured. We then took down the prior PDS suture and opened the fascia. Again, significant fluid was present dorsally in the epidural space. This was once again cultured. We lavaged copiously. We assessed the nerve roots on both the right and left sides. Looking carefully at L5 and assuring ourselves that we could pass, an angled dural separator into the foramina bilaterally. Both nerve roots at L5 moved freely. Deep to it, some additional disk material had moved out of the disk space and was sitting in the axilla and these fragments were removed. A laminotomy of the superior lamina of S1 was first performed on the right. We again examined and felt in the axilla. We were able to grasp a leading edge on the left side and removed one very large epidural fragment. With Dr. Mora's help, an identical exploration was once again performed on the left side. Considerable scarring was noted from all the prior surgeries including the surgery from 2014. With great fitness and skill, we were able to tease out another very large fragment from the [facility] PT NAME: ERIKA ORTIZ MR#: [id number] [address] [place] [address] ACCT: [id number] : 73 OPERATIVE REPORT epidural space. Multiple small fragments were removed from both sides of the spine. A thorough and exhaustive search for further compressive pathology revealed no further disk material in the epidural space. We lavaged copiously with Betadine solution and then with saline. We laid tranexamic acid in the wound, a gram with saline, and after allowing it to sit, placed Surgiflo over the dorsum of the dura. We then closed over double drains after injecting Marcaine and lidocaine throughout the soft tissues. The double drains were again placed in the epidural space and once again another drain was placed in the subcutaneous tissues. All 3 were 2 separate sections. With this completed, closure was performed using PDS again for deeper sutures, PDS for more superficial sutures, and interrupted nylon sutures for skin. The patient was then awakened after dressings were applied and she was awakened and returned to the recovery room in stable condition. There were no known intraoperative complications. It should be noted that multiple Valsalvas to 40 mmHg were done prior to closure and no CSF leak was noted anywhere. MD KAT NARANJO/[facility]/[id number] E/S: Varghese Daigle 08/19/19 1456 Electronically Signed [facility] PT NAME: ERIKA ORTIZ MR#: [id number] [address] [place] [address] ACCT: [id number] : 73 OPERATIVE REPORT Normal [facility] BASIC MET PANELon 07-20-2019 Anion gap [Moles/Vol] 12 mmol/L Normal 6-18 [facility] Comment on above: Order Comment: BRIELLE HERNANDEZ IS GETTING CAT SCAN DONE NURSE WILL CALL/PAGE WHEN PATIENT IS BACK ON THE FLOOR CONSERVATION Performed By: #### L 500.08761, L500.57488, L500.43789, L500.84955, L500.95369 #### Test performed at: [place] [address] Calcium [Mass/Vol] 8.7 mg/dL Normal 8.5-10.1 [facility] Comment on above: Order Comment: BRIELLE NT IS GETTING CAT SCAN DONE NURSE WILL CALL/PAGE WHEN PATIENT IS BACK ON THE FLOOR CONSERVATION Performed By: #### L 500.32749, L500.55996, L500.21441, L500.23898, L500.67046 #### Test performed at: [address] [address] Chloride [Moles/Vol] 102 mmol/L Normal 98-107 [facility] Comment on above: Order Comment: PATIE NT IS GETTING CAT SCAN DONE NURSE WILL CALL/PAGE WHEN PATIENT IS BACK ON THE FLOOR CONSERVATION Performed By: #### L 500.45198, L500.35208, L500.67083, L500.15458, L500.45486 #### Test performed at: [address] [address] CO2 [Moles/Vol] 28 mmol/L Normal 21-32 [facility] Comment on above: Order Comment: PATIE NT IS GETTING CAT SCAN DONE NURSE WILL CALL/PAGE WHEN PATIENT IS BACK ON THE FLOOR CONSERVATION Performed By: #### L 500.48394, L500.66842, L500.41753, L500.51315, L500.11754 #### Test performed at: [address] [address] Creatinine [Mass/Vol] 0.703 mg/dL Normal 0.550-1.020 [facility] Comment on above: Order Comment: PATIE NT IS GETTING CAT SCAN DONE NURSE WILL CALL/PAGE WHEN PATIENT IS BACK ON THE FLOOR CONSERVATION Performed By: #### L 500.06693, L500.66910, L500.36134, L500.06760, L500.04926 #### Test performed at: [address] [address] Glucose [Mass/Vol] 87 mg/dL Normal 70-99 [facility] Comment on above: Order Comment: PATIE NT IS GETTING CAT SCAN DONE NURSE WILL CALL/PAGE WHEN PATIENT IS BACK ON THE FLOOR CONSERVATION Result Comment: Fast ing GLUCOSE reference range has been updated per (ADA) [employer]'s recommendation. 11/06/2018 Performed By: #### L 500.53952, L500.50269, L500.12244, L500.51228, L500.74675 #### Test performed at: [address] [address] OSM 285 mosm/kg Normal 270-300 [facility] Comment on above: Order Comment: PATIE NT IS GETTING CAT SCAN DONE NURSE WILL CALL/PAGE WHEN PATIENT IS BACK ON THE FLOOR CONSERVATION Performed By: #### L 500.48010, L500.93815, L500.56229, L500.98709, L500.59074 #### Test performed at: [place] [id number] Potassium [Moles/Vol] 3.9 mmol/L Normal 3.5-5.1 [facility] Comment on above: Order Comment: PATIE NT IS GETTING CAT SCAN DONE NURSE WILL CALL/PAGE WHEN PATIENT IS BACK ON THE FLOOR CONSERVATION Performed By: #### L 500.49510, L500.01761, L500.50910, L500.92330, L500.46531 #### Test performed at: [address] [address] Sodium [Moles/Vol] 138 mmol/L Normal 136-145 [facility] Comment on above: Order Comment: PATIE NT IS GETTING CAT SCAN DONE NURSE WILL CALL/PAGE WHEN PATIENT IS BACK ON THE FLOOR CONSERVATION Performed By: #### L 500.03234, L500.04221, L500.61139, L500.44783, L500.47841 #### Test performed at: [address] [address] Urea nitrogen [Mass/Vol] 11 mg/dL Normal 7-18 [facility] Comment on above: Order Comment: PATIE NT IS GETTING CAT SCAN DONE NURSE WILL CALL/PAGE WHEN PATIENT IS BACK ON THE FLOOR CONSERVATION Performed By: #### L 500.99644, L500.61492, L500.02288, L500.64574, L500.12989 #### Test performed at: [address] [address] CBC W/DIFFon 07-20-2019 BASO ABS 0.0 K/uL Normal 0.0-0.2 [facility] Comment on above: Order Comment: PATIE NT IS GETTING CAT SCAN DONE NURSE WILL CALL/PAGE WHEN PATIENT IS BACK ON THE FLOOR CONSERVATION Performed By: #### L 500.18950, L500.19032, L500.72717, L500.38626, L500.55326 #### Test performed at: [address] [address] Basophils/100 WBC (Bld) 0.4 % Normal [facility] Comment on above: Order Comment: PATIE NT IS GETTING CAT SCAN DONE NURSE WILL CALL/PAGE WHEN PATIENT IS BACK ON THE FLOOR CONSERVATION Performed By: #### L 500.97472, L500.35331, L500.28943, L500.11980, L500.85024 #### Test performed at: [address] [address] EOS ABS 0.1 K/uL Normal 0.0-0.5 [facility] Comment on above: Order Comment: PATIE NT IS GETTING CAT SCAN DONE NURSE WILL CALL/PAGE WHEN PATIENT IS BACK ON THE FLOOR CONSERVATION Performed By: #### L 500.52268, L500.73527, L500.04694, L500.42603, L500.33420 #### Test performed at: [address] [address] Eosinophils/100 WBC (Bld) 1.1 % Normal [facility] Comment on above: Order Comment: PATIE NT IS GETTING CAT SCAN DONE NURSE WILL CALL/PAGE WHEN PATIENT IS BACK ON THE FLOOR CONSERVATION Performed By: #### L 500.74793, L500.19274, L500.69965, L500.71674, L500.31120 #### Test performed at: [address] [address] Erythrocyte distribution width (RBC) [Ratio] 13.2 % Normal 11.5-14.5 [facility] Comment on above: Order Comment: BANDARE NT IS GETTING CAT SCAN DONE NURSE WILL CALL/PAGE WHEN PATIENT IS BACK ON THE FLOOR CONSERVATION Performed By: #### L 500.65632, L500.69979, L500.13608, L500.18055, L500.72449 #### Test performed at: [place] [address] [place] [address] Hematocrit (Bld) [Volume fraction] 37.3 % Normal 36.0-48.0 [facility] Comment on above: Order Comment: BANDARE NT IS GETTING CAT SCAN DONE NURSE WILL CALL/PAGE WHEN PATIENT IS BACK ON THE FLOOR CONSERVATION Performed By: #### L 500.86940, L500.17747, L500.41868, L500.22062, L500.75244 #### Test performed at: [place] [address] [place] [address] Hemoglobin (Bld) [Mass/Vol] 12.8 g/dL Normal 12.0-15.0 [facility] Comment on above: Order Comment: BANDARE NT IS GETTING CAT SCAN DONE NURSE WILL CALL/PAGE WHEN PATIENT IS BACK ON THE FLOOR CONSERVATION Performed By: #### L 500.32739, L500.78568, L500.76254, L500.09562, L500.07796 #### Test performed at: [place] [address] [place] [address] IG % 0.5 % Normal [facility] Comment on above: Order Comment: BANDARE NT IS GETTING CAT SCAN DONE NURSE WILL CALL/PAGE WHEN PATIENT IS BACK ON THE FLOOR CONSERVATION Performed By: #### L 500.97744, L500.19453, L500.19714, L500.55212, L500.42545 #### Test performed at: [place] [address] [place] [address] IG ABS 0.06 K/uL High 0-0.05 [facility] Comment on above: Order Comment: PATIE NT IS GETTING CAT SCAN DONE NURSE WILL CALL/PAGE WHEN PATIENT IS BACK ON THE FLOOR CONSERVATION Performed By: #### L 500.03886, L500.00371, L500.44587, L500.30586, L500.97662 #### Test performed at: [address] [address] Lymphocytes (Bld) [#/Vol] 2.6 10*3/uL Normal 1.2-3.5 [facility] Comment on above: Order Comment: PATIE NT IS GETTING CAT SCAN DONE NURSE WILL CALL/PAGE WHEN PATIENT IS BACK ON THE FLOOR CONSERVATION Performed By: #### L 500.07749, L500.80661, L500.27272, L500.15662, L500.59225 #### Test performed at: [address] [address] Lymphocytes/100 WBC (Bld) 22.7 % Normal [facility] Comment on above: Order Comment: PATIE NT IS GETTING CAT SCAN DONE NURSE WILL CALL/PAGE WHEN PATIENT IS BACK ON THE FLOOR CONSERVATION Performed By: #### L 500.77649, L500.00419, L500.41105, L500.87543, L500.51487 #### Test performed at: [address] [address] MCH (RBC) [Entitic mass] 30.1 pg Normal 25.4-34.6 [facility] Comment on above: Order Comment: PATIE NT IS GETTING CAT SCAN DONE NURSE WILL CALL/PAGE WHEN PATIENT IS BACK ON THE FLOOR CONSERVATION Performed By: #### L 500.86985, L500.78695, L500.26368, L500.25559, L500.80470 #### Test performed at: [address] [address] MCHC (RBC) [Mass/Vol] 34.3 g/dL Normal 31.5-36.5 [facility] Comment on above: Order Comment: PATIE NT IS GETTING CAT SCAN DONE NURSE WILL CALL/PAGE WHEN PATIENT IS BACK ON THE FLOOR CONSERVATION Performed By: #### L 500.18211, L500.08664, L500.22480, L500.72069, L500.25441 #### Test performed at: [address] [address] MCV (RBC) [Entitic vol] 87.8 fL Normal 79.0-98.0 [facility] Comment on above: Order Comment: PATIE NT IS GETTING CAT SCAN DONE NURSE WILL CALL/PAGE WHEN PATIENT IS BACK ON THE FLOOR CONSERVATION Performed By: #### L 500.96192, L500.61477, L500.38950, L500.96508, L500.61221 #### Test performed at: [address] [address] MONO ABS 0.8 K/uL Normal 0.0-1.0 [facility] Comment on above: Order Comment: PATIE NT IS GETTING CAT SCAN DONE NURSE WILL CALL/PAGE WHEN PATIENT IS BACK ON THE FLOOR CONSERVATION Performed By: #### L 500.51111, L500.34042, L500.18322, L500.63327, L500.76540 #### Test performed at: [address] [address] Monocytes/100 WBC (Bld) 7.0 % Normal [facility] Comment on above: Order Comment: PATIE NT IS GETTING CAT SCAN DONE NURSE WILL CALL/PAGE WHEN PATIENT IS BACK ON THE FLOOR CONSERVATION Performed By: #### L 500.98555, L500.52022, L500.54224, L500.08587, L500.32746 #### Test performed at: [address] [address] NEUTROPHIL ABS 7.8 K/uL High 1.4-6.6 [facility] Comment on above: Order Comment: PATIE NT IS GETTING CAT SCAN DONE NURSE WILL CALL/PAGE WHEN PATIENT IS BACK ON THE FLOOR CONSERVATION Performed By: #### L 500.86334, L500.97601, L500.30505, L500.00790, L500.85537 #### Test performed at: [address] [address] Neutrophils/100 WBC (Bld) 68.3 % Normal [facility] Comment on above: Order Comment: PATIE NT IS GETTING CAT SCAN DONE NURSE WILL CALL/PAGE WHEN PATIENT IS BACK ON THE FLOOR CONSERVATION Performed By: #### L 500.54307, L500.51661, L500.30713, L500.28370, L500.87494 #### Test performed at: [place] [address] NRBC # 0.000 K/uL Normal 0-0.012 [facility] Comment on above: Order Comment: PATIE NT IS GETTING CAT SCAN DONE NURSE WILL CALL/PAGE WHEN PATIENT IS BACK ON THE FLOOR CONSERVATION Performed By: #### L 500.58929, L500.56697, L500.64736, L500.31387, L500.81544 #### Test performed at: [place] [id number] NRBC % 0.0 /100 WBC Normal 0-0.2 [facility] Comment on above: Order Comment: PATIE NT IS GETTING CAT SCAN DONE NURSE WILL CALL/PAGE WHEN PATIENT IS BACK ON THE FLOOR CONSERVATION Performed By: #### L 500.50701, L500.34962, L500.92742, L500.32178, L500.84114 #### Test performed at: [place] [id number] Platelet mean volume (Bld) [Entitic vol] 9.5 fL Normal 8.7-12.4 [facility] Comment on above: Order Comment: PATIE NT IS GETTING CAT SCAN DONE NURSE WILL CALL/PAGE WHEN PATIENT IS BACK ON THE FLOOR CONSERVATION Performed By: #### L 500.68143, L500.40161, L500.06282, L500.78238, L500.92419 #### Test performed at: [address] [address] Platelets (Bld) [#/Vol] 213 10*3/uL Normal 140-440 [facility] Comment on above: Order Comment: PATIE NT IS GETTING CAT SCAN DONE NURSE WILL CALL/PAGE WHEN PATIENT IS BACK ON THE FLOOR CONSERVATION Performed By: #### L 500.65217, L500.97869, L500.08526, L500.95960, L500.05651 #### Test performed at: [address] [address] RBC (Bld) [#/Vol] 4.25 10*6/uL Normal 3.5-5.5 [facility] Comment on above: Order Comment: PATIE NT IS GETTING CAT SCAN DONE NURSE WILL CALL/PAGE WHEN PATIENT IS BACK ON THE FLOOR CONSERVATION Performed By: #### L 500.21099, L500.70239, L500.59900, L500.91891, L500.95827 #### Test performed at: [address] [address] WBC (Bld) [#/Vol] 11.4 10*3/uL High 3.9-11.0 [facility] Comment on above: Order Comment: PATIE NT IS GETTING CAT SCAN DONE NURSE WILL CALL/PAGE WHEN PATIENT IS BACK ON THE FLOOR CONSERVATION Performed By: #### L 500.92824, L500.77202, L500.92774, L500.30704, L500.62876 #### Test performed at: [place] [id number] EST. CREAT CLRon 07-20-2019 Creatinine [Mass/Vol] 153.153 ML/MIN Normal [facility] Comment on above: Order Comment: PATIE NT IS GETTING CAT SCAN DONE NURSE WILL CALL/PAGE WHEN PATIENT IS BACK ON THE FLOOR CONSERVATION Result Comment: This result is an ESTIMATED blood creatinine clearance value which is derived from the patient age, sex, weight, and previous blood creatinine result. Performed By: #### L 500.77592, L500.84634, L500.38277, L500.50122, L500.93138 #### Test performed at: [place] [address] GFR ESTIMATEon 07-20-2019 IF AMER > 60 Normal > 60 [facility] Comment on above: Order Comment: PATIE NT IS GETTING CAT SCAN DONE NURSE WILL CALL/PAGE WHEN PATIENT IS BACK ON THE FLOOR CONSERVATION Result Comment: eGFR (Estimated GFR) Units of measure:mL/min/1.73 meters sq. *CALCULATION REVISED 06/02/2015;IDMS-traceable MDRD equation eGFR is derived from the reexpressed MDRD Study equation using the following parameters: serum creatinine, age, gender and race. An eGFR<60 mL/min/1.73m2 for >3 months is consistent with chronic kidney disease. Refer to KDOQI guidelines for clinical interpretation. Performed By: #### L 500.01516, L500.55585, L500.06124, L500.38885, L500.91932 #### Test performed at: [place] [address] IF non-AFR AMER > 60 Normal > 60 [facility] Comment on above: Order Comment: PATIE NT IS GETTING CAT SCAN DONE NURSE WILL CALL/PAGE WHEN PATIENT IS BACK ON THE FLOOR CONSERVATION Performed By: #### L 500.30619, L500.74337, L500.77669, L500.68637, L500.03441 #### Test performed at: [place] [address] Infect Disease Progress Note on 07-20-2019 Infect Disease Progress Note [facility] Pt Name: ERIKA ORTIZ [address] [place] [address] MR#: [id number] [place] [address] ACCT: [id number] PROGRESS NOTE - Infectious Disease : 73 Service Date: 07/20/19929 NAME: ERIKA ORTIZ MR#: [id number] DATE OF SERVICE: 07/20/2019 INFECTIOUS DISEASE PROGRESS NOTE HISTORY OF PRESENT ILLNESS: This patient continues to complain of severe back pain, not really relieved with Percocet or episodic Dilaudid doses. She is status post 2 interventions on 07/16 and 07/17 to the lumbar spine for symptoms related to possible cauda equina syndrome. The last debridement done on 07/17 was evacuation of an epidural hematoma followed by complete revision laminectomy at L5-S1 with bilateral foraminotomies. The patient has not had fever and chills, yet there are concerns that she may have had an infection at that site, which may have been subacute. PHYSICAL EXAMINATION: VITAL SIGNS: This morning, 36.8, 95, 20, 144/12. She rates her pain as 9- 10/10. Per chart review, she has not had any significant fevers for the last 2 days. HEENT: Conjunctivae and sclerae are intact. CARDIAC: Left ventricular cardiac impulse is lateralized, but there is no murmur or gallop. LUNGS: Clear to auscultation and percussion. MUSCULOSKELETAL: The patient has a wound in the lower lumbar spine which is intact, with no drainage, the external catheter drain having been removed yesterday. There is no surrounding erythema, but her back is tender on palpation. ABDOMEN: Seems soft and nontender. Bowel sounds are normal. There is no rebound or guarding. EXTREMITIES: Examination of the lower extremities notes a +4/5 reflexes in both knees. The patient is able to elevate both legs off the bed to touch my hand, though with some discomfort, and has good knee extension, and ankle dorsiflexion and plantar flexion. The patient states that she still has some numbness or pressure sensation on both hips. LABORATORY DATA: [place] [address], hematocrit 37.3, platelets 213,000 with normal diff. Electrolytes are normal, BUN 11, and creatinine 0.703. A vancomycin trough level yesterday was 13.5. Microbiology note blood cultures obtained on July 18 to be no growth, and a back culture from July 17 at the most recent surgery showing few WBCs and no organisms, with cultures negative at about 72 hours, currently held for an extended length of time. ASSESSMENT: This patient has had 2 lower lumbar disk procedures in 48 hours, ultimately culminating with epidural hematoma evacuation and complete revision laminectomy and foraminotomies. Per my review of the chart, there is no histopathologic material submitted, though cultures from surgery on 07/17 are no growth. [facility] Pt Name: ERIKA ORTI[address] [place] [address] MR#: [id number] [place] [address] ACCT: [id number] PROGRESS NOTE - Infectious Disease : 73 Service Date: 07/20/19929 It seems unusual the patient would present with an infection 1 day after prior surgery, and there may be concerns that she could have had a low-grade process pre-admission. Her C-reactive protein at that time was only 10.2, not favoring a disk space infection. At present, the patient remains on vancomycin alone at 1.75 g q.12 hourly. I will follow and reassess with you. Current plan is for PICC line with prolonged IV antibiotic therapy for the present. ROBERT GILL MD [id number] Electronically Signed eSign Date and Time Robert Gill 07/21/19953 Normal [facility] LUMBAR SP W & WO CONTRASTon 07-20-2019 LUMBAR SP W & WO CONTRAST STUDY: LUMBAR SP W WO CONTRAST; 07/20/2019 3:43 pm INDICATION: INTRACTABLE LOW BACK, HIP PAIN . COMPARISON: MRI of lumbar spine from 07/17/2019 ACCESSION NUMBER(S): [id number] ORDERING CLINICIAN: Ely Moseley TECHNIQUE: Sagittal and axial T1 and T2 weighted images of the lumbar spine were acquired. Sagittal STIR imaging was also performed. After administration of Gadavist as intravenous contrast agent, sagittal and axial T1 weighted imaging was also performed. FINDINGS: Since the prior study, patient has undergone new postsurgical changes at L5-S1. There are acute postsurgical changes within the subcutaneous and deep soft tissues. A small subcutaneous irregular fluid collection is also noted. There is evidence of bilateral L5 laminectomy with excision of the L5 spinous process. There is a postsurgical fluid collection within the laminectomy bed which measures 3.8 x 2.6 cm in cross-sectional dimension. It causes mass effect on the thecal sac. The fluid collection also appears to communicate with an intraspinal extra-axial, likely subdural fluid collection which causes anterior displacement of the cauda equina nerve roots. There is mild peripheral enhancement along the margins of this collection on postcontrast imaging. The dorsal subdural component appears to extend at least from L1 inferiorly up to S2 levels and measures 8 mm in maximum AP thickness on at L2 vertebral level. A component of ventral subdural fluid collection is also suspected extending from L1 inferiorly up to L4-L5 measuring 2 mm in maximum AP dimension at L4 vertebral level. These collections together cause clumping of the cauda equina nerve roots. Mild enhancement of the cauda equina nerve roots is also noted. At L5-S1, there is hyperintense STIR signal within the L5-S1 intervertebral disc space with irregularity along the posterior disc margin as before. Again note is made of a prominent focus of T1 hypointense signal and heterogenously hypointense T2 signal arising from the posterior margin of the L5-S1 disc and migrating inferiorly within the ventral epidural space along posterior margin of S1. On postcontrast imaging this focus demonstrates a peripheral rim of enhancement with a large focus of central hypoenhancement. It measures 21 x 9 mm in maximum craniocaudal and AP dimension. This may reflect a phlegmonous fluid collection versus granulation tissue versus residual disc material or a combination of these entities. Note is made of posterior osteophytic spurring of the vertebral endplates as well as marked bilateral facet hypertrophy. There is severe narrowing of the thecal sac at this level, worse as compared to prior study. There is enhancing soft tissue surrounding the thecal sac which may reflect postsurgical granulation tissue. The circumferential enhancement extends cranially as well as caudally from this level. There is patchy edema adjacent to the endplates at L5 and S1. There is extensive edema within the bilateral posterior paraspinous soft tissues surrounding the surgical site. Extensive subcutaneous soft tissue edema is also noted throughout the lumbar region. At L4-L5, there is a circumferential disc bulge with bilateral facet hypertrophy. There is severe narrowing of the thecal sac and its contents secondary to the ventral and dorsal subdural fluid collections. The bony spinal canal appears similar to prior study. At L3-L4, there is a circumferential disc bulge with bilateral facet and ligamentum flavum hypertrophy. The bony spinal canal is similar in appearance to prior exam. Again seen is a dorsal subdural fluid collection which causes mass effect on the thecal sac and its contents. At L2-L3, there is no bony central canal stenosis. There is a dorsal subdural fluid collection which causes mild mass effect on thecal sac and its contents most significantly at mid L2 level. At L1-L2, again seen is a dorsal subdural fluid collection which causes mild effect on thecal sac and its contents stated. The cranial most extent of the subdural fluid collection cannot be assessed on current exam, extension into the lower thoracic region cannot be excluded. IMPRESSION: New postsurgical changes at L5-S1. There is a new for fluid collection in the laminectomy bed which causes mass effect on the thecal sac. There is a prominent dorsal presumed subdural fluid collection within the spinal canal throughout the lumbar region and possibly extending into the lower thoracic region with surrounding peripheral enhancement. A smaller fluid collection is suspected along the ventral aspect of thecal sac in the mid and lower lumbar level. These may reflect postsurgical/hemorrhagi c collections with reactive associated dural enhancement, however the possibility of infection cannot be excluded. Heterogenous signal focus is again noted within the ventral epidural soft tissues associated with the L5-S1 disc space and posterior margin of S1 vertebral body. There is a central focus of hypoenhancement as before with peripheral rim of enhancement. This may reflect a postsurgical collection, phlegmon, granulation tissue, nonenhancing residual disc material or an abscess, or a combination of these entities. Additional findings as detailed. The findings were discussed with MORENO Moseley by phone conversation at 4:34 pm on 07/20/2019 The study was interpreted at [facility]. ---- ADDENDUM: The amount of Gadavist administered was not documented in the technologist's notes. On subsequent communication with the technologist through the Rad ops, it was conveyed to me that 10 cc Gadavist was administered as intravenous contrast agent. Normal [facility] VANC TROUGHon 12-07-2019 VANC TROUGH 13.5 ug/mL Normal 10-15 [facility] Comment on above: Order Comment: BRIELLE HERNANDEZ IS GETTING CAT SCAN DONE NURSE WILL CALL/PAGE WHEN PATIENT IS BACK ON THE FLOOR CONSERVATION Result Comment: For SUSPECTED or DOCUMENTED infections of STAPHYLOCOCCUS where the M.I.C is > OR = 2 mg/L, the recommended dosage for VANCOMYCIN is 15-20 ug/mL. Performed By: #### L 500.49082, L500.65899, L500.39296, L500.27364, L500.53287 #### Test performed at: [address] [address] BASIC MET PANELon 07-19-2019 Anion gap [Moles/Vol] 10 mmol/L Normal 6-18 [facility] Comment on above: Order Comment: CONSE RVATION List patient's anticoagulants for PT: NONE SPECIFIED Performed By: #### L 300.66161 #### Test performed at: [place] [id number] Calcium [Mass/Vol] 8.3 mg/dL Low 8.5-10.1 [facility] Comment on above: Order Comment: CONSE RVATION [facility] patient's anticoagulants for PT: NONE SPECIFIED Performed By: #### L 300.33969 #### Test performed at: [place] [id number] Chloride [Moles/Vol] 106 mmol/L Normal 98-107 [facility] Comment on above: Order Comment: CONSE RVATION List patient's anticoagulants for PT: NONE SPECIFIED Performed By: #### L 300.32187 #### Test performed at: [address] [address] CO2 [Moles/Vol] 28 mmol/L Normal 21-32 [facility] Comment on above: Order Comment: CONSE RVATION List patient's anticoagulants for PT: NONE SPECIFIED Performed By: #### L 300.46833 #### Test performed at: [address] [address] Creatinine [Mass/Vol] 0.738 mg/dL Normal 0.550-1.020 [facility] Comment on above: Order Comment: CONSE RVATION List patient's anticoagulants for PT: NONE SPECIFIED Performed By: #### L 300.95555 #### Test performed at: [address] [address] Glucose [Mass/Vol] 114 mg/dL High 70-99 [facility] Comment on above: Order Comment: CONSE RVATION List patient's anticoagulants for PT: NONE SPECIFIED Result Comment: Fast ing GLUCOSE reference range has been updated per (ADA) [employer]'s recommendation. 11/06/2018 Performed By: #### L 300.15789 #### Test performed at: [address] [address] OSM 292 mosm/kg Normal 270-300 [facility] Comment on above: Order Comment: CONSE RVATION List patient's anticoagulants for PT: NONE SPECIFIED Performed By: #### L 300.73272 #### Test performed at: [address] [address] Potassium [Moles/Vol] 3.5 mmol/L Normal 3.5-5.1 [facility] Comment on above: Order Comment: CONSE RVATION List patient's anticoagulants for PT: NONE SPECIFIED Performed By: #### L 300.84770 #### Test performed at: [address] [address] Sodium [Moles/Vol] 141 mmol/L Normal 136-145 [facility] Comment on above: Order Comment: CONSE RVATION List patient's anticoagulants for PT: NONE SPECIFIED Performed By: #### L 300.46176 #### Test performed at: [address] [address] Urea nitrogen [Mass/Vol] 11 mg/dL Normal 7-18 [facility] Comment on above: Order Comment: CONSE RVATION List patient's anticoagulants for PT: NONE SPECIFIED Performed By: #### L 300.84800 #### Test performed at: [address] [address] CBC W/DIFFon 07-19-2019 BASO ABS 0.0 K/uL Normal 0.0-0.2 [facility] Comment on above: Order Comment: CONSE RVATION List patient's anticoagulants for PT: NONE SPECIFIED Performed By: #### L 300.34071 #### Test performed at: [address] [address] Basophils/100 WBC (Bld) 0.3 % Normal [facility] Comment on above: Order Comment: CONSE RVATION List patient's anticoagulants for PT: NONE SPECIFIED Performed By: #### L 300.47633 #### Test performed at: [address] [address] EOS ABS 0.0 K/uL Normal 0.0-0.5 [facility] Comment on above: Order Comment: CONSE RVATION List patient's anticoagulants for PT: NONE SPECIFIED Performed By: #### L 300.74362 #### Test performed at: [address] [address] Eosinophils/100 WBC (Bld) 0.1 % Normal [facility] Comment on above: Order Comment: CONSE RVATION List patient's anticoagulants for PT: NONE SPECIFIED Performed By: #### L 300.63365 #### Test performed at: [address] [address] IG % 0.4 % Normal [facility] Comment on above: Order Comment: CONSE RVATION List patient's anticoagulants for PT: NONE SPECIFIED Performed By: #### L 300.38776 #### Test performed at: [address] [address] IG ABS 0.04 K/uL Normal 0-0.05 [facility] Comment on above: Order Comment: CONSE RVATION List patient's anticoagulants for PT: NONE SPECIFIED Performed By: #### L 300.39780 #### Test performed at: [address] [address] Lymphocytes (Bld) [#/Vol] 2.9 10*3/uL Normal 1.2-3.5 [facility] Comment on above: Order Comment: CONSE RVATION [facility] patient's anticoagulants for PT: NONE SPECIFIED Performed By: #### L 300.29848 #### Test performed at: [address] [address] Lymphocytes/100 WBC (Bld) 26.1 % Normal [facility] Comment on above: Order Comment: CONSE RVATION [facility] patient's anticoagulants for PT: NONE SPECIFIED Performed By: #### L 300.54670 #### Test performed at: [address] [address] MONO ABS 0.8 K/uL Normal 0.0-1.0 [facility] Comment on above: Order Comment: CONSE RVATION [facility] patient's anticoagulants for PT: NONE SPECIFIED Performed By: #### L 300.59140 #### Test performed at: [address] [address] Monocytes/100 WBC (Bld) 7.4 % Normal [facility] Comment on above: Order Comment: CONSE RVATION [facility] patient's anticoagulants for PT: NONE SPECIFIED Performed By: #### L 300.24090 #### Test performed at: [address] [address] NEUTROPHIL ABS 7.3 K/uL High 1.4-6.6 [facility] Comment on above: Order Comment: CONSE RVATION List patient's anticoagulants for PT: NONE SPECIFIED Performed By: #### L 300.70211 #### Test performed at: [address] [address] Neutrophils/100 WBC (Bld) 65.7 % Normal [facility] Comment on above: Order Comment: CONSE RVATION List patient's anticoagulants for PT: NONE SPECIFIED Performed By: #### L 300.28301 #### Test performed at: [address] [address] Erythrocyte distribution width (RBC) [Ratio] 13.5 % Normal 11.5-14.5 [facility] Comment on above: Order Comment: CONSE RVATION List patient's anticoagulants for PT: NONE SPECIFIED Performed By: #### L 300.68633 #### Test performed at: [place] [address] Hematocrit (Bld) [Volume fraction] 35.7 % Low 36.0-48.0 [facility] Comment on above: Order Comment: CONSE RVATION List patient's anticoagulants for PT: NONE SPECIFIED Performed By: #### L 300.02269 #### Test performed at: [address] [address] Hemoglobin (Bld) [Mass/Vol] 11.8 g/dL Low 12.0-15.0 [facility] Comment on above: Order Comment: CONSE RVATION List patient's anticoagulants for PT: NONE SPECIFIED Performed By: #### L 300.33291 #### Test performed at: [address] [address] MCH (RBC) [Entitic mass] 29.5 pg Normal 25.4-34.6 [facility] Comment on above: Order Comment: CONSE RVATION List patient's anticoagulants for PT: NONE SPECIFIED Performed By: #### L 300.16785 #### Test performed at: [address] [address] MCHC (RBC) [Mass/Vol] 33.1 g/dL Normal 31.5-36.5 [facility] Comment on above: Order Comment: CONSE RVATION List patient's anticoagulants for PT: NONE SPECIFIED Performed By: #### L 300.04096 #### Test performed at: [place] [id number] MCV (RBC) [Entitic vol] 89.3 fL Normal 79.0-98.0 [facility] Comment on above: Order Comment: CONSE RVATION [facility] patient's anticoagulants for PT: NONE SPECIFIED Performed By: #### L 300.55048 #### Test performed at: [place] [address] NRBC # 0.000 K/uL Normal 0-0.012 [facility] Comment on above: Order Comment: CONSE RVATION [facility] patient's anticoagulants for PT: NONE SPECIFIED Performed By: #### L 300.74386 #### Test performed at: [place] [address] NRBC % 0.0 /100 WBC Normal 0-0.2 [facility] Comment on above: Order Comment: CONSE RVATION [facility] patient's anticoagulants for PT: NONE SPECIFIED Performed By: #### L 300.93626 #### Test performed at: [place] [address] Platelet mean volume (Bld) [Entitic vol] 9.9 fL Normal 8.7-12.4 [facility] Comment on above: Order Comment: CONSE RVATION [facility] patient's anticoagulants for PT: NONE SPECIFIED Performed By: #### L 300.92505 #### Test performed at: [address] [address] Platelets (Bld) [#/Vol] 245 10*3/uL Normal 140-440 [facility] Comment on above: Order Comment: CONSE RVATION [facility] patient's anticoagulants for PT: NONE SPECIFIED Performed By: #### L 300.61051 #### Test performed at: [place] [id number] RBC (Bld) [#/Vol] 4.00 10*6/uL Normal 3.5-5.5 [facility] Comment on above: Order Comment: CONSE RVATION [facility] patient's anticoagulants for PT: NONE SPECIFIED Performed By: #### L 300.26535 #### Test performed at: [place] [address] WBC (Bld) [#/Vol] 11.0 10*3/uL Normal 3.9-11.0 [facility] Comment on above: Order Comment: CONSE RVATION [facility] patient's anticoagulants for PT: NONE SPECIFIED Performed By: #### L 300.20367 #### Test performed at: [place] [address] EST. CREAT CLRon 07-19-2019 Creatinine [Mass/Vol] 145.889 ML/MIN Normal [facility] Comment on above: Order Comment: [facility] patient's anticoagulants for PT: NONE SPECIFIED Result Comment: This result is an ESTIMATED blood creatinine clearance value which is derived from the patient age, sex, weight, and previous blood creatinine result. Performed By: #### L 300.38516 #### Test performed at: [place] [id number] GFR ESTIMATEon 07-19-2019 IF AMER > 60 Normal > 60 [facility] Comment on above: Order Comment: BRIELLE HERNANDEZ IS GETTING CAT SCAN DONE NURSE WILL CALL/PAGE WHEN PATIENT IS BACK ON THE FLOOR CONSERVATION Result Comment: eGFR (Estimated GFR) Units of measure:mL/min/1.73 meters sq. *CALCULATION REVISED 06/02/2015;IDMS-traceable MDRD equation eGFR is derived from the reexpressed MDRD Study equation using the following parameters: serum creatinine, age, gender and race. An eGFR<60 mL/min/1.73m2 for >3 months is consistent with chronic kidney disease. Refer to KDOQI guidelines for clinical interpretation. Performed By: #### L 500.67736, L500.28500, L500.75094, L500.17268, L500.50089 #### Test performed at: [address] [address] IF non-AFR AMER > 60 Normal > 60 [facility] Comment on above: Order Comment: BRIELLE HERNANDEZ IS GETTING CAT SCAN DONE NURSE WILL CALL/PAGE WHEN PATIENT IS BACK ON THE FLOOR CONSERVATION Performed By: #### L 500.80846, L500.21111, L500.28865, L500.78484, L500.70759 #### Test performed at: [place] [id number] VANC TROUGHon 07-19-2019 VANC TROUGH 15.8 ug/mL High 10-15 [facility] Comment on above: Order Comment: BRIELLE HERNANDEZ IS GETTING CAT SCAN DONE NURSE WILL CALL/PAGE WHEN PATIENT IS BACK ON THE FLOOR CONSERVATION Result Comment: For SUSPECTED or DOCUMENTED infections of STAPHYLOCOCCUS where the M.I.C is > OR = 2 mg/L, the recommended dosage for VANCOMYCIN is 15-20 ug/mL. Performed By: #### L 500.36068, L500.52400, L500.76001, L500.63801, L500.83578 #### Test performed at: [place] [id number] BASIC MET PANELon 07-18-2019 Anion gap [Moles/Vol] 12 mmol/L Normal 6-18 [facility] Comment on above: Order Comment: CONSE RVATION List patient's anticoagulants for PT: NONE SPECIFIED Performed By: #### L 300.05850 #### Test performed at: [address] [address] Calcium [Mass/Vol] 8.5 mg/dL Normal 8.5-10.1 [facility] Comment on above: Order Comment: CONSE RVATION List patient's anticoagulants for PT: NONE SPECIFIED Performed By: #### L 300.41403 #### Test performed at: [place] [id number] Chloride [Moles/Vol] 108 mmol/L High 98-107 [facility] Comment on above: Order Comment: CONSE RVATION List patient's anticoagulants for PT: NONE SPECIFIED Performed By: #### L 300.75808 #### Test performed at: [address] [address] CO2 [Moles/Vol] 25 mmol/L Normal 21-32 [facility] Comment on above: Order Comment: CONSE RVATION [facility] patient's anticoagulants for PT: NONE SPECIFIED Performed By: #### L 300.61917 #### Test performed at: [address] [address] Creatinine [Mass/Vol] 0.777 mg/dL Normal 0.550-1.020 [facility] Comment on above: Order Comment: CONSE RVATION [facility] patient's anticoagulants for PT: NONE SPECIFIED Performed By: #### L 300.82553 #### Test performed at: [address] [address] Glucose [Mass/Vol] 135 mg/dL High 70-99 [facility] Comment on above: Order Comment: CONSE RVATION [facility] patient's anticoagulants for PT: NONE SPECIFIED Result Comment: Fast ing GLUCOSE reference range has been updated per (ADA) [employer]'s recommendation. 11/06/2018 Performed By: #### L 300.93759 #### Test performed at: [address] [address] OSM 294 mosm/kg Normal 270-300 [facility] Comment on above: Order Comment: CONSE RVATION [facility] patient's anticoagulants for PT: NONE SPECIFIED Performed By: #### L 300.81313 #### Test performed at: [address] [address] Potassium [Moles/Vol] 4.3 mmol/L Normal 3.5-5.1 [facility] Comment on above: Order Comment: CONSE RVATION [facility] patient's anticoagulants for PT: NONE SPECIFIED Performed By: #### L 300.54255 #### Test performed at: [address] [address] Sodium [Moles/Vol] 141 mmol/L Normal 136-145 [facility] Comment on above: Order Comment: CONSE RVATION List patient's anticoagulants for PT: NONE SPECIFIED Performed By: #### L 300.84472 #### Test performed at: [address] [address] Urea nitrogen [Mass/Vol] 12 mg/dL Normal 7-18 [facility] Comment on above: Order Comment: CONSE RVATION [facility] patient's anticoagulants for PT: NONE SPECIFIED Performed By: #### L 300.59117 #### Test performed at: [address] [address] CBC W/DIFFon 07-18-2019 BASO ABS 0.0 K/uL Normal 0.0-0.2 [facility] Comment on above: Order Comment: CONSE RVATION List patient's anticoagulants for PT: NONE SPECIFIED Performed By: #### L 300.68491 #### Test performed at: [address] [address] Basophils/100 WBC (Bld) 0.1 % Normal [facility] Comment on above: Order Comment: CONSE RVATION List patient's anticoagulants for PT: NONE SPECIFIED Performed By: #### L 300.07413 #### Test performed at: [address] [address] EOS ABS 0.0 K/uL Normal 0.0-0.5 [facility] Comment on above: Order Comment: CONSE RVATION List patient's anticoagulants for PT: NONE SPECIFIED Performed By: #### L 300.22121 #### Test performed at: [address] [address] Eosinophils/100 WBC (Bld) 0.0 % Normal [facility] Comment on above: Order Comment: CONSE RVATION List patient's anticoagulants for PT: NONE SPECIFIED Performed By: #### L 300.80968 #### Test performed at: [place] [id number] Erythrocyte distribution width (RBC) [Ratio] 13.4 % Normal 11.5-14.5 [facility] Comment on above: Order Comment: CONSE RVATION List patient's anticoagulants for PT: NONE SPECIFIED Performed By: #### L 300.83189 #### Test performed at: [place] [address] Hematocrit (Bld) [Volume fraction] 38.6 % Normal 36.0-48.0 [facility] Comment on above: Order Comment: CONSE RVATION List patient's anticoagulants for PT: NONE SPECIFIED Performed By: #### L 300.49809 #### Test performed at: [place] [address] Hemoglobin (Bld) [Mass/Vol] 12.7 g/dL Normal 12.0-15.0 [facility] Comment on above: Order Comment: CONSE RVATION List patient's anticoagulants for PT: NONE SPECIFIED Performed By: #### L 300.94186 #### Test performed at: [place] [id number] IG % 0.6 % Normal [facility] Comment on above: Order Comment: CONSE RVATION List patient's anticoagulants for PT: NONE SPECIFIED Performed By: #### L 300.04203 #### Test performed at: [address] [address] IG ABS 0.13 K/uL High 0-0.05 [facility] Comment on above: Order Comment: CONSE RVATION List patient's anticoagulants for PT: NONE SPECIFIED Performed By: #### L 300.36515 #### Test performed at: [place] [address] Lymphocytes (Bld) [#/Vol] 1.1 10*3/uL Low 1.2-3.5 [facility] Comment on above: Order Comment: CONSE RVATION List patient's anticoagulants for PT: NONE SPECIFIED Performed By: #### L 300.43923 #### Test performed at: [place] [address] Lymphocytes/100 WBC (Bld) 5.2 % Normal [facility] Comment on above: Order Comment: CONSE RVATION List patient's anticoagulants for PT: NONE SPECIFIED Performed By: #### L 300.25793 #### Test performed at: [place] [address] MCH (RBC) [Entitic mass] 29.5 pg Normal 25.4-34.6 [facility] Comment on above: Order Comment: CONSE RVATION List patient's anticoagulants for PT: NONE SPECIFIED Performed By: #### L 300.24890 #### Test performed at: [place] [address] MCHC (RBC) [Mass/Vol] 32.9 g/dL Normal 31.5-36.5 [facility] Comment on above: Order Comment: CONSE RVATION List patient's anticoagulants for PT: NONE SPECIFIED Performed By: #### L 300.70618 #### Test performed at: [place] [address] MCV (RBC) [Entitic vol] 89.8 fL Normal 79.0-98.0 [facility] Comment on above: Order Comment: CONSE RVATION List patient's anticoagulants for PT: NONE SPECIFIED Performed By: #### L 300.92502 #### Test performed at: [place] [id number] MONO ABS 1.2 K/uL High 0.0-1.0 [facility] Comment on above: Order Comment: CONSE RVATION List patient's anticoagulants for PT: NONE SPECIFIED Performed By: #### L 300.90057 #### Test performed at: [address] [address] Monocytes/100 WBC (Bld) 5.8 % Normal [facility] Comment on above: Order Comment: CONSE RVATION List patient's anticoagulants for PT: NONE SPECIFIED Performed By: #### L 300.06029 #### Test performed at: [place] [address] NEUTROPHIL ABS 18.6 K/uL High 1.4-6.6 [facility] Comment on above: Order Comment: CONSE RVATION [facility] patient's anticoagulants for PT: NONE SPECIFIED Performed By: #### L 300.52683 #### Test performed at: [address] [address] Neutrophils/100 WBC (Bld) 88.3 % Normal [facility] Comment on above: Order Comment: CONSE RVATION List patient's anticoagulants for PT: NONE SPECIFIED Performed By: #### L 300.54018 #### Test performed at: [place] [address] NRBC # 0.000 K/uL Normal 0-0.012 [facility] Comment on above: Order Comment: CONSE RVATION List patient's anticoagulants for PT: NONE SPECIFIED Performed By: #### L 300.72111 #### Test performed at: [place] [address] NRBC % 0.0 /100 WBC Normal 0-0.2 [facility] Comment on above: Order Comment: CONSE RVATION List patient's anticoagulants for PT: NONE SPECIFIED Performed By: #### L 300.13880 #### Test performed at: [place] [address] Platelet mean volume (Bld) [Entitic vol] 9.8 fL Normal 8.7-12.4 [facility] Comment on above: Order Comment: CONSE RVATION List patient's anticoagulants for PT: NONE SPECIFIED Performed By: #### L 300.17862 #### Test performed at: [address] [address] Platelets (Bld) [#/Vol] 294 10*3/uL Normal 140-440 [facility] Comment on above: Order Comment: CONSE RVATION List patient's anticoagulants for PT: NONE SPECIFIED Performed By: #### L 300.71189 #### Test performed at: [place] [address] RBC (Bld) [#/Vol] 4.30 10*6/uL Normal 3.5-5.5 [facility] Comment on above: Order Comment: CONSE RVATION List patient's anticoagulants for PT: NONE SPECIFIED Performed By: #### L 300.31916 #### Test performed at: [place] [address] WBC (Bld) [#/Vol] 21.0 10*3/uL High 3.9-11.0 [facility] Comment on above: Order Comment: CONSE RVATION List patient's anticoagulants for PT: NONE SPECIFIED Performed By: #### L 300.06824 #### Test performed at: [place] [address] EST. CREAT CLRon 07-18-2019 Creatinine [Mass/Vol] 138.567 ML/MIN Normal [facility] Comment on above: Order Comment: CONSE RVATION List patient's anticoagulants for PT: NONE SPECIFIED Result Comment: This result is an ESTIMATED blood creatinine clearance value which is derived from the patient age, sex, weight, and previous blood creatinine result. Performed By: #### L 300.25960 #### Test performed at: [place] [address] GFR ESTIMATEon 07-18-2019 IF AMER > 60 Normal > 60 [facility] Comment on above: Order Comment: CONSE RVATION List patient's anticoagulants for PT: NONE SPECIFIED Result Comment: eGFR (Estimated GFR) Units of measure:mL/min/1.73 meters sq. *CALCULATION REVISED 06/02/2015;IDMS-traceable MDRD equation eGFR is derived from the reexpressed MDRD Study equation using the following parameters: serum creatinine, age, gender and race. An eGFR<60 mL/min/1.73m2 for >3 months is consistent with chronic kidney disease. Refer to KDOQI guidelines for clinical interpretation. Performed By: #### L 300.88497 #### Test performed at: [place] [address] IF non-AFR AMER > 60 Normal > 60 [facility] Comment on above: Order Comment: CONSE RVATION List patient's anticoagulants for PT: NONE SPECIFIED Performed By: #### L 300.19155 #### Test performed at: [place] [address] GRAM STAINon 07-18-2019 Microscopic observation Gram stain Nom (Unsp spec) GRAM STAIN: FEW WBC NO ORGANISMS OBSERVED Normal [facility] Comment on above: Order Comment: CONSE RVATION List patient's anticoagulants for PT: NONE SPECIFIED Performed By: #### L 300.28045 #### Test performed at: [place] [address] INS PICC WO P/P W GDNCE >5YR Son 07-18-2019 INS PICC WO P/P W GDNCE >5YRS STUDY: INS PICC WO P/P W GDNCE >5YRS; 07/19/2019 2:08 pm INDICATION: IV abx. COMPARISON: None. ACCESSION NUMBER(S): [id number] ORDERING CLINICIAN: Allie López TECHNIQUE: Fluoroscopic image of the chest during right upper extremity PICC placement. FINDINGS: The tip of the right upper extremity PICC is in the right atrium. IMPRESSION: The tip of the right upper extremity PICC is in the right atrium. Normal [facility] BASIC MET PANELon 07-17-2019 Anion gap [Moles/Vol] 14 mmol/L Normal 6-18 [facility] Comment on above: Order Comment: CONSE RVATION Performed By: #### L 600.84279 #### Test performed at: [address] [address] Calcium [Mass/Vol] 8.6 mg/dL Normal 8.5-10.1 [facility] Comment on above: Order Comment: CONSE RVATION Performed By: #### L 600.78267 #### Test performed at: [address] [address] Chloride [Moles/Vol] 106 mmol/L Normal 98-107 [facility] Comment on above: Order Comment: CONSE RVATION Performed By: #### L 600.82428 #### Test performed at: [address] [address] CO2 [Moles/Vol] 21 mmol/L Normal 21-32 [facility] Comment on above: Order Comment: CONSE RVATION Performed By: #### L 600.46758 #### Test performed at: [address] [address] Creatinine [Mass/Vol] 0.952 mg/dL Normal 0.550-1.020 [facility] Comment on above: Order Comment: CONSE RVATION Performed By: #### L 600.77964 #### Test performed at: [address] [address] Glucose [Mass/Vol] 180 mg/dL High 70-99 [facility] Comment on above: Order Comment: CONSE RVATION Result Comment: Fast ing GLUCOSE reference range has been updated per (ADA) [employer]'s recommendation. 11/06/2018 Performed By: #### L 600.13232 #### Test performed at: [address] [address] OSM 288 mosm/kg Normal 270-300 [facility] Comment on above: Order Comment: CONSE RVATION Performed By: #### L 600.03886 #### Test performed at: [address] [address] Potassium [Moles/Vol] 4.3 mmol/L Normal 3.5-5.1 [facility] Comment on above: Order Comment: CONSE RVATION Performed By: #### L 600.69361 #### Test performed at: [address] [address] Sodium [Moles/Vol] 137 mmol/L Normal 136-145 [facility] Comment on above: Order Comment: CONSE RVATION Performed By: #### L 600.00005 #### Test performed at: [address] [address] Urea nitrogen [Mass/Vol] 12 mg/dL Normal 7-18 [facility] Comment on above: Order Comment: CONSE RVATION Performed By: #### L 600.74982 #### Test performed at: [address] [address] CBC W/DIFFon 07-17-2019 Erythrocyte distribution width (RBC) [Ratio] 13.0 % Normal 11.5-14.5 [facility] Comment on above: Order Comment: CONSE RVATION Performed By: #### L 600.08003 #### Test performed at: [address] [address] Hematocrit (Bld) [Volume fraction] 40.1 % Normal 36.0-48.0 [facility] Comment on above: Order Comment: CONSE RVATION Performed By: #### L 600.98658 #### Test performed at: [address] [address] Hemoglobin (Bld) [Mass/Vol] 14.0 g/dL Normal 12.0-15.0 [facility] Comment on above: Order Comment: CONSE RVATION Performed By: #### L 600.93042 #### Test performed at: [place] [address] MCH (RBC) [Entitic mass] 30.4 pg Normal 25.4-34.6 [facility] Comment on above: Order Comment: CONSE RVATION Performed By: #### L 600.26009 #### Test performed at: [place] [address] MCHC (RBC) [Mass/Vol] 34.9 g/dL Normal 31.5-36.5 [facility] Comment on above: Order Comment: CONSE RVATION Performed By: #### L 600.12141 #### Test performed at: [place] [address] MCV (RBC) [Entitic vol] 87.2 fL Normal 79.0-98.0 [facility] Comment on above: Order Comment: CONSE RVATION Performed By: #### L 600.65998 #### Test performed at: [place] [address] NRBC # 0.000 K/uL Normal 0-0.012 [facility] Comment on above: Order Comment: CONSE RVATION Performed By: #### L 600.70135 #### Test performed at: [place] [address] NRBC % 0.0 /100 WBC Normal 0-0.2 [facility] Comment on above: Order Comment: CONSE RVATION Performed By: #### L 600.21813 #### Test performed at: [place] [id number] Platelet mean volume (Bld) [Entitic vol] 9.5 fL Normal 8.7-12.4 [facility] Comment on above: Order Comment: CONSE RVATION Performed By: #### L 600.88220 #### Test performed at: [place] [address] Platelets (Bld) [#/Vol] 290 10*3/uL Normal 140-440 [facility] Comment on above: Order Comment: CONSE RVATION Performed By: #### L 600.37833 #### Test performed at: [address] [address] RBC (Bld) [#/Vol] 4.60 10*6/uL Normal 3.5-5.5 [facility] Comment on above: Order Comment: CONSE RVATION Performed By: #### L 600.37715 #### Test performed at: [address] [address] WBC (Bld) [#/Vol] 22.6 10*3/uL High 3.9-11.0 [facility] Comment on above: Order Comment: CONSE RVATION Result Comment: Delt a: 9.2 on 07/16/19-5 Performed By: #### L 600.59647 #### Test performed at: [place] [address] EST. CREAT CLRon 07-17-2019 Creatinine [Mass/Vol] 113.095 ML/MIN Normal [facility] Comment on above: Order Comment: CONSE RVATION Result Comment: This result is an ESTIMATED blood creatinine clearance value which is derived from the patient age, sex, weight, and previous blood creatinine result. Performed By: #### L 600.13064 #### Test performed at: [place] [address] GFR ESTIMATEon 07-17-2019 IF AMER > 60 Normal > 60 [facility] Comment on above: Order Comment: CONSE RVATION Result Comment: eGFR (Estimated GFR) Units of measure:mL/min/1.73 meters sq. *CALCULATION REVISED 06/02/2015;IDMS-traceable MDRD equation eGFR is derived from the reexpressed MDRD Study equation using the following parameters: serum creatinine, age, gender and race. An eGFR<60 mL/min/1.73m2 for >3 months is consistent with chronic kidney disease. Refer to KDOQI guidelines for clinical interpretation. Performed By: #### L 600.03389 #### Test performed at: [place] [address] IF non-AFR AMER > 60 Normal > 60 [facility] Comment on above: Order Comment: CONSE RVATION Performed By: #### L 600.23220 #### Test performed at: [place] [address] LUMBAR SP WO CONTRASTon LUMBAR SP WO CONTRAST STUDY: LUMBAR SP WO CONTRAST; 07/17/2019 3:40 pm INDICATION: POSSIBLE HEMATOMA. Severe low back pain with left hip and leg radiculopathy, possible hematoma. COMPARISON: 07/16/2019 MR ACCESSION NUMBER(S): [id number] ORDERING CLINICIAN: Varghese Daigle TECHNIQUE: Sagittal T1, T2, STIR, axial T1 and T2 weighted images of the lumbar spine were acquired. FINDINGS: Alignment: There are 5 lumbar type vertebrae. Lumbar alignment is normal. Bilateral L5-S1 laminectomy has been performed with edematous material posterior to the thecal sac extending from the laminectomy sites into the posterior paraspinous musculature. The disc is edematous and decreased in height compared to the prior exam. Edematous material extends into the region of the previously noted central left disc extrusion. The thecal sac is stenosed by the edematous material at L5-S1. Thin approximately 1 mm thick subdural collections of fluid extend along the posterior aspect of the thecal sac further stenosing the thecal sac from this level superiorly to L3-4. No other new focal disc protrusions or hematomas are noted. Central T11-12 disc protrusion deforming the adjacent cord remains. Bands of fatty marrow infiltration are noted adjacent to the disc similar to the preoperative study. IMPRESSION: 1. The thecal sac is compressed by edematous tissue at the L5-S1 laminectomy site with edematous material remaining at the previously noted site of the L5-S1 disc extrusion. Small subdural collections extend along the thecal sac superiorly to L3-4 moderately stenosing the thecal sac as well. 2. Other degenerative changes noted previously are similar to the prior exam with focal central T11-12 disc protrusion deforming the adjacent cord. Normal [facility] MANUAL DIFFon 07-17-2019 BAND 25 % High 0-5 [facility] Comment on above: Order Comment: CONSE RVATION Performed By: #### L 600.83852 #### Test performed at: [address] [address] Lymphocytes/100 WBC (Bld) 3 % Low 20-50 [facility] Comment on above: Order Comment: CONSE RVATION Performed By: #### L 600.00348 #### Test performed at: [address] [address] MONOCYTE 1 % Low 2-12 [facility] Comment on above: Order Comment: CONSE RVATION Performed By: #### L 600.90863 #### Test performed at: [address] [address] NEUTROPHIL 71 % Normal 40-80 [facility] Comment on above: Order Comment: CONSE RVATION Performed By: #### L 600.57102 #### Test performed at: [address] [address] Platelets (Bld) [#/Vol] ADEQ Normal [facility] Comment on above: Order Comment: CONSE RVATION Performed By: #### L 600.00292 #### Test performed at: [address] [address] POLYCHROMASIA OCC Normal [facility] Comment on above: Order Comment: CONSE RVATION Performed By: #### L 600.77556 #### Test performed at: [address] [address] TOTAL CELLS 100 #CELLS Normal [facility] Comment on above: Order Comment: CONSE RVATION Performed By: #### L 600.11664 #### Test performed at: [address] [address] OPERATIVE REPORTon 9 OPERATIVE REPORT NAME: ALEXANDR ORTIZ MR#: [id number] SURGEON: Varghese Daigle MD DATE OF SURGERY: 07/17/2019 OPERATIVE REPORT PREOPERATIVE DIAGNOSIS: Progressive cauda equina syndrome with compressive pathology surrounding the L5-S1 junction with pain unresponsive to intravenous narcotics. POSTOPERATIVE DIAGNOSIS: Progressive cauda equina syndrome with compressive pathology surrounding the L5-S1 junction with pain unresponsive to intravenous narcotics. PROCEDURE PERFORMED: Evacuation of epidural hematoma followed by complete revision laminectomy of L5-S1 with bilateral L5 and S1 foraminotomies with diskectomy bilateral. ASSISTED BY: Ashely. INDICATIONS: This patient has become progressively more painful and has progressive symptoms of cauda equina syndrome today. Her pain has been unresponsive to intravenous narcotics. She was starting to develop minimal motor deficits and was unable to stand. An urgent MRI done today reveals compressive pathology both from edema and from fluid around the dura. In light of the progressive neurologic dysfunction and severe pain, we will plan to move forward with formal revision laminectomy removing the entire arch, evacuating all compressive pathology from the epidural space. The risks and benefits were discussed with the patient and her mother at great length. I consider this an emergent procedure and as such, we are doing it tonight. OPERATIVE NOTE: The patient was brought to the OR and a proper anesthetic was induced. She was prepped and draped in the usual sterile orthopedic fashion. We extended her incision to 1-1/2 inch incision descending sharply through skin and subcutaneous tissues. There was significant scar primarily from the 2015 procedure. We located the spinous process of L5 and the spinous process of S1. The patient was remarkably deep secondary to her obesity. The fascia was incised and pressurized hematoma poured forth. We removed the soft tissue from both right and left sides of the spine and put in the universal retractor. I began by excising the spinous process of L5 and taking down even a portion of the spinous process of L4. We then, using various combinations of handheld instruments, did a total laminectomy at the lamina of L5. There was considerable scarring from her prior procedure done in 2014. We used curettes to separate scar from the bone. Once a complete laminectomy was [facility] PT NAME: ERIKA ORTIZ MR#: [id number] [address] [place] [address] ACCT: [id number] : 73 OPERATIVE REPORT performed, we found disk material that had poured forth and was actually sitting on the dorsum of the dura. We performed a foraminotomy finding the right L5 root and the right S1 root. Disk poured forth from the disk space into the epidural space. A foul odor was being emitted. Cultures were obtained of the disk space and actual pieces of disk material were sent to the laboratory for analysis. We performed an identical decompression on the left side, completely decompressing lateral recess and both L5 and S1 nerve roots. Again, purulent disk material appeared to be present and was evacuated. We then lavaged copiously both the disk space and the epidural space with Betadine solution and then used 2 L of saline to further cleanse and irrigate our wound. We then used tranexamic acid diluted throughout all the soft tissues, used FloSeal above it to tamponade any minimal bleeding that we had. Finally we poured about a half a g of vancomycin powder into the wound. We closed over a drain by reapproximating muscle and fascia with Stratafix after injecting all soft tissues with Marcaine. The Stratafix was PDS and I felt it vigil to not use a braided suture. We closed with PDS in the subcutaneous tissues and skin with interrupted sutures. Standard dressings were applied. The patient was awakened and returned to the recovery room in stable condition. There are no known intraoperative complications. MD KAT NARANJO/[facility]/[id number] 43 E/S: Varghese Daigle 08/19/19 1456 Electronically Signed [facility] PT NAME: ERIKA ORTIZ MR#: [id number] [address] [place] [address] ACCT: [id number] : 73 OPERATIVE REPORT Normal [facility] BASIC MET PANELon 07-16-2019 Anion gap [Moles/Vol] 13 mmol/L Normal 6-18 [facility] Comment on above: Order Comment: PATIE NT IS GETTING CAT SCAN DONE NURSE WILL CALL/PAGE WHEN PATIENT IS BACK ON THE FLOOR CONSERVATION Performed By: #### L 500.44022, L500.91782, L500.08962, L500.09778, L500.74689 #### Test performed at: [address] [address] Calcium [Mass/Vol] 9.0 mg/dL Normal 8.5-10.1 [facility] Comment on above: Order Comment: PATIE NT IS GETTING CAT SCAN DONE NURSE WILL CALL/PAGE WHEN PATIENT IS BACK ON THE FLOOR CONSERVATION Performed By: #### L 500.96409, L500.65424, L500.33168, L500.89696, L500.93005 #### Test performed at: [place] [id number] Chloride [Moles/Vol] 107 mmol/L Normal 98-107 [facility] Comment on above: Order Comment: PATIE NT IS GETTING CAT SCAN DONE NURSE WILL CALL/PAGE WHEN PATIENT IS BACK ON THE FLOOR CONSERVATION Performed By: #### L 500.83817, L500.08049, L500.54114, L500.57207, L500.97917 #### Test performed at: [address] [address] CO2 [Moles/Vol] 24 mmol/L Normal 21-32 [facility] Comment on above: Order Comment: PATIE NT IS GETTING CAT SCAN DONE NURSE WILL CALL/PAGE WHEN PATIENT IS BACK ON THE FLOOR CONSERVATION Performed By: #### L 500.26010, L500.15624, L500.63247, L500.23536, L500.37036 #### Test performed at: [address] [address] Creatinine [Mass/Vol] 0.761 mg/dL Normal 0.550-1.020 [facility] Comment on above: Order Comment: PATIE NT IS GETTING CAT SCAN DONE NURSE WILL CALL/PAGE WHEN PATIENT IS BACK ON THE FLOOR CONSERVATION Performed By: #### L 500.83872, L500.59725, L500.62448, L500.95792, L500.00723 #### Test performed at: [address] [address] Glucose [Mass/Vol] 89 mg/dL Normal 70-99 [facility] Comment on above: Order Comment: BANDARE NT IS GETTING CAT SCAN DONE NURSE WILL CALL/PAGE WHEN PATIENT IS BACK ON THE FLOOR CONSERVATION Result Comment: Fast ing GLUCOSE reference range has been updated per (ADA) [employer]'s recommendation. 11/06/2018 Performed By: #### L 500.30459, L500.50629, L500.22177, L500.40740, L500.73076 #### Test performed at: [address] [address] OSM 289 mosm/kg Normal 270-300 [facility] Comment on above: Order Comment: BRIELLE NT IS GETTING CAT SCAN DONE NURSE WILL CALL/PAGE WHEN PATIENT IS BACK ON THE FLOOR CONSERVATION Performed By: #### L 500.06160, L500.92803, L500.12036, L500.42564, L500.50488 #### Test performed at: [address] [address] Potassium [Moles/Vol] 4.0 mmol/L Normal 3.5-5.1 [facility] Comment on above: Order Comment: BRIELLE NT IS GETTING CAT SCAN DONE NURSE WILL CALL/PAGE WHEN PATIENT IS BACK ON THE FLOOR CONSERVATION Performed By: #### L 500.98630, L500.77497, L500.05874, L500.09585, L500.65692 #### Test performed at: [address] [address] Sodium [Moles/Vol] 140 mmol/L Normal 136-145 [facility] Comment on above: Order Comment: BANDARE NT IS GETTING CAT SCAN DONE NURSE WILL CALL/PAGE WHEN PATIENT IS BACK ON THE FLOOR CONSERVATION Performed By: #### L 500.70222, L500.65105, L500.61139, L500.83232, L500.71996 #### Test performed at: [address] [address] Urea nitrogen [Mass/Vol] 10 mg/dL Normal 7-18 [facility] Comment on above: Order Comment: BRIELLE NT IS GETTING CAT SCAN DONE NURSE WILL CALL/PAGE WHEN PATIENT IS BACK ON THE FLOOR CONSERVATION Performed By: #### L 500.09074, L500.08961, L500.94263, L500.04171, L500.47091 #### Test performed at: [address] [address] CBC W/DIFFon 07-16-2019 BASO ABS 0.1 K/uL Normal 0.0-0.2 [facility] Comment on above: Order Comment: PATIE NT IS GETTING CAT SCAN DONE NURSE WILL CALL/PAGE WHEN PATIENT IS BACK ON THE FLOOR CONSERVATION Performed By: #### L 200.56246, L200.20525 #### Test performed at: [address] [address] Basophils/100 WBC (Bld) 0.8 % Normal [facility] Comment on above: Order Comment: BANDARE NT IS GETTING CAT SCAN DONE NURSE WILL CALL/PAGE WHEN PATIENT IS BACK ON THE FLOOR CONSERVATION Performed By: #### L 200.40700, L200.74158 #### Test performed at: [address] [address] EOS ABS 0.2 K/uL Normal 0.0-0.5 [facility] Comment on above: Order Comment: BANDARE NT IS GETTING CAT SCAN DONE NURSE WILL CALL/PAGE WHEN PATIENT IS BACK ON THE FLOOR CONSERVATION Performed By: #### L 200.65121, L200.04932 #### Test performed at: [address] [address] Eosinophils/100 WBC (Bld) 2.2 % Normal [facility] Comment on above: Order Comment: BRIELLE HERNANDEZ IS GETTING CAT SCAN DONE NURSE WILL CALL/PAGE WHEN PATIENT IS BACK ON THE FLOOR CONSERVATION Performed By: #### L 200.78616, L200.11130 #### Test performed at: [address] [address] Erythrocyte distribution width (RBC) [Ratio] 13.3 % Normal 11.5-14.5 [facility] Comment on above: Order Comment: BRIELLE HERNANDEZ IS GETTING CAT SCAN DONE NURSE WILL CALL/PAGE WHEN PATIENT IS BACK ON THE FLOOR CONSERVATION Performed By: #### L 200.47972, L200.18939 #### Test performed at: [address] [address] Hematocrit (Bld) [Volume fraction] 43.7 % Normal 36.0-48.0 [facility] Comment on above: Order Comment: BRIELLE HERNANDEZ IS GETTING CAT SCAN DONE NURSE WILL CALL/PAGE WHEN PATIENT IS BACK ON THE FLOOR CONSERVATION Performed By: #### L 200.17122, L200.64075 #### Test performed at: [address] [address] Hemoglobin (Bld) [Mass/Vol] 15.1 g/dL High 12.0-15.0 [facility] Comment on above: Order Comment: BRIELLE HERNANDEZ IS GETTING CAT SCAN DONE NURSE WILL CALL/PAGE WHEN PATIENT IS BACK ON THE FLOOR CONSERVATION Performed By: #### L 200.62878, L200.41087 #### Test performed at: [address] [address] IG % 0.4 % Normal [facility] Comment on above: Order Comment: BRIELLE NT IS GETTING CAT SCAN DONE NURSE WILL CALL/PAGE WHEN PATIENT IS BACK ON THE FLOOR CONSERVATION Performed By: #### L 200.90606, L200.88527 #### Test performed at: [address] [address] IG ABS 0.04 K/uL Normal 0-0.05 [facility] Comment on above: Order Comment: BRIELLE NT IS GETTING CAT SCAN DONE NURSE WILL CALL/PAGE WHEN PATIENT IS BACK ON THE FLOOR CONSERVATION Performed By: #### L 200.74236, L200.91656 #### Test performed at: [address] [address] Lymphocytes (Bld) [#/Vol] 2.2 10*3/uL Normal 1.2-3.5 [facility] Comment on above: Order Comment: BRIELLE NT IS GETTING CAT SCAN DONE NURSE WILL CALL/PAGE WHEN PATIENT IS BACK ON THE FLOOR CONSERVATION Performed By: #### L 200.58972, L200.39165 #### Test performed at: [address] [address] Lymphocytes/100 WBC (Bld) 24.1 % Normal [facility] Comment on above: Order Comment: BRIELLE NT IS GETTING CAT SCAN DONE NURSE WILL CALL/PAGE WHEN PATIENT IS BACK ON THE FLOOR CONSERVATION Performed By: #### L 200.37207, L200.77837 #### Test performed at: [address] [address] MCH (RBC) [Entitic mass] 30.0 pg Normal 25.4-34.6 [facility] Comment on above: Order Comment: BRIELLE NT IS GETTING CAT SCAN DONE NURSE WILL CALL/PAGE WHEN PATIENT IS BACK ON THE FLOOR CONSERVATION Performed By: #### L 200.14775, L200.33871 #### Test performed at: [address] [address] MCHC (RBC) [Mass/Vol] 34.6 g/dL Normal 31.5-36.5 [facility] Comment on above: Order Comment: BRIELLE NT IS GETTING CAT SCAN DONE NURSE WILL CALL/PAGE WHEN PATIENT IS BACK ON THE FLOOR CONSERVATION Performed By: #### L 200.63079, L200.67838 #### Test performed at: [address], [place] [address] MCV (RBC) [Entitic vol] 86.7 fL Normal 79.0-98.0 [facility] Comment on above: Order Comment: BRIELLE NT IS GETTING CAT SCAN DONE NURSE WILL CALL/PAGE WHEN PATIENT IS BACK ON THE FLOOR CONSERVATION Performed By: #### L 200.00079, L200.20904 #### Test performed at: [address] [address] MONO ABS 0.6 K/uL Normal 0.0-1.0 [facility] Comment on above: Order Comment: BANDARE NT IS GETTING CAT SCAN DONE NURSE WILL CALL/PAGE WHEN PATIENT IS BACK ON THE FLOOR CONSERVATION Performed By: #### L 200.21409, L200.91987 #### Test performed at: [address] [address] Monocytes/100 WBC (Bld) 6.8 % Normal [facility] Comment on above: Order Comment: BRIELLE NT IS GETTING CAT SCAN DONE NURSE WILL CALL/PAGE WHEN PATIENT IS BACK ON THE FLOOR CONSERVATION Performed By: #### L 200.98702, L200.76242 #### Test performed at: [address] [address] NEUTROPHIL ABS 6.1 K/uL Normal 1.4-6.6 [facility] Comment on above: Order Comment: BRIELLE NT IS GETTING CAT SCAN DONE NURSE WILL CALL/PAGE WHEN PATIENT IS BACK ON THE FLOOR CONSERVATION Performed By: #### L 200.44020, L200.82751 #### Test performed at: [address] [address] Neutrophils/100 WBC (Bld) 65.7 % Normal [facility] Comment on above: Order Comment: PATIE NT IS GETTING CAT SCAN DONE NURSE WILL CALL/PAGE WHEN PATIENT IS BACK ON THE FLOOR CONSERVATION Performed By: #### L 200.74552, L200.92234 #### Test performed at: [address] [address] NRBC # 0.020 K/uL High 0-0.012 [facility] Comment on above: Order Comment: BRIELLE NT IS GETTING CAT SCAN DONE NURSE WILL CALL/PAGE WHEN PATIENT IS BACK ON THE FLOOR CONSERVATION Performed By: #### L 200.57795, L200.21860 #### Test performed at: [address] [address] NRBC % 0.2 /100 WBC Normal 0-0.2 [facility] Comment on above: Order Comment: BRIELLE NT IS GETTING CAT SCAN DONE NURSE WILL CALL/PAGE WHEN PATIENT IS BACK ON THE FLOOR CONSERVATION Performed By: #### L 200.97583, L200.28446 #### Test performed at: [address] [address] Platelet mean volume (Bld) [Entitic vol] 9.1 fL Normal 8.7-12.4 [facility] Comment on above: Order Comment: BRIELLE NT IS GETTING CAT SCAN DONE NURSE WILL CALL/PAGE WHEN PATIENT IS BACK ON THE FLOOR CONSERVATION Performed By: #### L 200.96456, L200.24538 #### Test performed at: [address] [address] Platelets (Bld) [#/Vol] 302 10*3/uL Normal 140-440 [facility] Comment on above: Order Comment: BRIELLE NT IS GETTING CAT SCAN DONE NURSE WILL CALL/PAGE WHEN PATIENT IS BACK ON THE FLOOR CONSERVATION Performed By: #### L 200.68059, L200.97270 #### Test performed at: [address] [address] RBC (Bld) [#/Vol] 5.04 10*6/uL Normal 3.5-5.5 [facility] Comment on above: Order Comment: PATIE NT IS GETTING CAT SCAN DONE NURSE WILL CALL/PAGE WHEN PATIENT IS BACK ON THE FLOOR CONSERVATION Performed By: #### L 200.48860, L200.96451 #### Test performed at: [facility] [address] [place] [address] WBC (Bld) [#/Vol] 9.2 10*3/uL Normal 3.9-11.0 [facility] Comment on above: Order Comment: BRIELLE NT IS GETTING CAT SCAN DONE NURSE WILL CALL/PAGE WHEN PATIENT IS BACK ON THE FLOOR CONSERVATION Performed By: #### L 200.80830, L200.34443 #### Test performed at: [facility] [address] [place] [address] CONSULTATION REPORTon 2018 CONSULTATION REPORT NAME: ALEXANDR ORTIZ MR#: [id number] MIRROR SPECIALIST: Varghese Daigle MD DATE OF CONSULTATION: 07/20/2019 CONSULTATION HISTORY OF PRESENT ILLNESS: The patient has had progressive pain over the last 24 hours, producing dysesthesias and paresthesias primarily into the right leg, but also into the left. Despite our best efforts, her pain has become progressive and intractable. She has been getting IV Dilaudid for her pain. I have presented tonight to see her and have assessed her fully. She tells me that upon having the drains pulled over the subsequent 16-20 hours, the pain became once again intractable. She has normal bowel and bladder function and is able to void on her own. She is able to walk and feels no motor deficits, but the pain is severe in the back, buttock, and into the thighs. On the left side, the pain radiates almost to the foot. On examination, she has preserved motor function. She has diminished sensation on the left in the L4, L5, and S1 distribution and on the right in the L4 and L5 distribution. The anterior thighs are no longer dysesthetic. There is substantial pain in the buttock radiating into the posterior thighs. Reflexes are symmetrical and normal 2+. I have discussed her case at length with Dr. Mora and subsequent to that with Dr. Say Avila and Dr. Blaise Ortiz. The three of us are in agreement that she has once again redeveloped an epidural hematoma. My review of her study shows a significant epidural hematoma and some evidence of subdural fluid collection that the radiologist believe is CSF. There is significant dural compression from epidural fluid at L5-S1 that narrows the canal and compresses the dural sac to about 4-5 mm in size. This goes along with the severe symptoms and progressive symptoms that she is having. My discussion with my colleagues has been extensive and we all agree that under no circumstances should her dura be open to evacuate this cerebral spinal fluid collection. We feel this is not the source of her pain, but that the epidural fluid is the source of her progressive compressive pathology and radicular pain. It is felt by Dr. Avila that if we would open the dura in light of the questionable infection for which she is being treated with IV antibiotics that this could be a lethal intervention allowing infection to spread into the subdural space up into the spine. I have discussed with the patient and her mother at great length that we will move forward with epidural evacuation again tomorrow morning. We will assess the epidural space for any evidence of accumulating fluid or compressive pathology. I have explained to them that a substantial component of her problem is arachnoiditis and we all believed this to be the fact. The [facility] PT NAME: ERIKA ORTIZ MR#: [id number] [address] [place] [address] ACCT: [id number] : 73 CONSULTATION arachnoiditis will take time to resolve and may not ever resolve fully. Our goal will be to evacuate any compressive pathology once again optimizing her chances for recovery and pain relief. MD KAT NARANJO/[facility]/[id number] 15 E/S: Varghese Daigle 08/19/19 1456 Electronically Signed [facility] PT NAME: ERIKA ORTIZ MR#: [id number] [address] [place], [place] [address] ACCT: [id number] : 73 CONSULTATION Normal [facility] CRPon 07-16-2019 CRP [Mass/Vol] 10.2 mg/L High 0.0-3.0 [facility] Comment on above: Order Comment: BRIELLE HERNANDEZ IS GETTING CAT SCAN DONE NURSE WILL CALL/PAGE WHEN PATIENT IS BACK ON THE FLOOR CONSERVATION Performed By: #### L 500.30188, L500.14387, L500.15963, L500.51700, L500.55193 #### Test performed at: [place] [address] EST. CREAT CLRon 07-16-2019 Creatinine [Mass/Vol] 141.480 ML/MIN Normal [facility] Comment on above: Order Comment: BRIELLE HERNANDEZ IS GETTING CAT SCAN DONE NURSE WILL CALL/PAGE WHEN PATIENT IS BACK ON THE FLOOR CONSERVATION Result Comment: This result is an ESTIMATED blood creatinine clearance value which is derived from the patient age, sex, weight, and previous blood creatinine result. Performed By: #### L 500.61581, L500.04556, L500.18029, L500.59343, L500.40820 #### Test performed at: [place] [address] GFR ESTIMATEon 07-16-2019 IF AMER > 60 Normal > 60 [facility] Comment on above: Order Comment: BRIELLE HERNANDEZ IS GETTING CAT SCAN DONE NURSE WILL CALL/PAGE WHEN PATIENT IS BACK ON THE FLOOR CONSERVATION Result Comment: eGFR (Estimated GFR) Units of measure:mL/min/1.73 meters sq. *CALCULATION REVISED 06/02/2015;IDMS-traceable MDRD equation eGFR is derived from the reexpressed MDRD Study equation using the following parameters: serum creatinine, age, gender and race. An eGFR<60 mL/min/1.73m2 for >3 months is consistent with chronic kidney disease. Refer to KDOQI guidelines for clinical interpretation. Performed By: #### L 500.89305, L500.79290, L500.12998, L500.44556, L500.13924 #### Test performed at: [place] [address] IF non-AFR AMER > 60 Normal > 60 [facility] Comment on above: Order Comment: BRIELLE NT IS GETTING CAT SCAN DONE NURSE WILL CALL/PAGE WHEN PATIENT IS BACK ON THE FLOOR CONSERVATION Performed By: #### L 500.67913, L500.09351, L500.35908, L500.31691, L500.63380 #### Test performed at: [place] [id number] HCG QUANTon 07-16-2019 HCG QUANT < 1 Low 1-3 Non-preg [facility] Comment on above: Order Comment: BRIELLE NT IS GETTING CAT SCAN DONE NURSE WILL CALL/PAGE WHEN PATIENT IS BACK ON THE FLOOR CONSERVATION Result Comment: Gest ational Age hCG mIU/mL 0.2-1 week 5 - 50 1-2 weeks 50 - 500 2-3 weeks 100 - 5,000 3-4 weeks 500 - 10,000 4-5 weeks 1,000 - 50,000 5-6 weeks 10,000 - 100,000 6-8 weeks 15,000 - 200,000 2-3 months 10,000 - 100,000 Performed By: #### L 500.11748, L500.57077, L500.65580, L500.79303, L500.54926 #### Test performed at: [place] [address] LUMB SP COMP W FLEX/EXT 6 VW Son 07-16-2019 LUMB SP COMP W FLEX/EXT 6 VWS STUDY: LUMB SP COMP W FLEX/EXT 6 VWS ; 07/16/2019 9:31 am INDICATION: PAIN. COMPARISON: None. ACCESSION NUMBER(S): [id number] ORDERING CLINICIAN: Say Avila FINDINGS: No fracture or subluxation of the lumbar spine. Severe disc height loss T12-L1 and L5-S1. Milder disc height loss throughout the remainder of the lumbar spine. Scattered small endplate osteophytes. Lower lumbar predominant facet arthropathy. No pars defects. No spondylolisthesis. No instability on flexion or extension. IMPRESSION: Degenerative changes of the lumbar spine without dynamic instability. Normal [facility] LUMBAR SP W & WO CONTRASTon 07-16-2019 LUMBAR SP W & WO CONTRAST STUDY: LUMBAR SP W WO CONTRAST; 07/16/2019 1:56 pm INDICATION: low back pain, urinary incontinence . COMPARISON: Lumbar spine x-rays, same day ACCESSION NUMBER(S): [id number] ORDERING CLINICIAN: Ely Moseley TECHNIQUE: Sagittal T1, T2, STIR, axial T1 and T2 weighted images of the lumbar spine were acquired. After the uncomplicated administration of 10 mL Gadavist gadolinium based contrast, additional axial and sagittal T1 weighted images were obtained. FINDINGS: 5 lumbar-type vertebral bodies are again noted, the last well-formed disc is labeled L5-S1 Alignment: The vertebral alignment is maintained. Vertebrae/Intervertebra l Discs: The vertebral bodies demonstrate expected height.Heterogeneous T1 signal intensity of the marrow is thin normal limits for age. There are mild degenerative endplate changes with associated edema at L5-S1. No other marrow edema is identified. Loss of normal disc T2 signal and disc height in the lower lumbar spine, most pronounced at L5-S1. Conus: No abnormal cord signal. The conus terminates at L1. T11-12: Disc bulge with a left central disc protrusion, deforming the left cord without significant canal or foraminal narrowing. T12-L1: There is no significant central canal or neural foraminal stenosis. L1-2: There is no significant central canal or neural foraminal stenosis. L2-3: There is no significant central canal or neural foraminal stenosis. L3-4: Disc bulge and facet hypertrophy with mild spinal canal narrowing. L4-5: Disc bulge and facet hypertrophy without canal or foraminal narrowing. Scratch L5-S1: Changes of left hemilaminectomy with minimal enhancing granulation tissue. There is a disc bulge with a superimposed large central inferiorly directed disc extrusion (sagittal T2 weighted image 10) as well as facet hypertrophy, resulting in mild narrowing of both subarticular recesses and severe central spinal canal narrowing as well as moderate bilateral neural foramen narrowing. Expected postoperative changes in the soft tissues. Paraspinal muscular atrophy is noted. Incidental nonenhancing T2 hyperintense renal cyst. IMPRESSION: 1. Status post left hemilaminectomy at L5-S1. 2. Multilevel degenerative changes most pronounced at L5-S1 where a large central disc extrusion severely narrows the central canal. There is also a T11-12 disc protrusion with mass effect on the left cord but no associated cord signal abnormality. Recommend direct comparison with prior outside imaging to assess stability. Normal [facility] LUMBAR SPINE 2 OR 3 VIEWSon 07-16-2019 LUMBAR SPINE 2 OR 3 VIEWS Exam: Fluoroscopy lumbar spine Clinical History: L5-S1 DECOMPRESSION, DISCECETOMY Comparison: None. Findings: Intraoperative fluoroscopic images demonstrate surgical instruments posterior to L5. Impression: As above Dictated: 07/17/19 1007 REPORT SIGNATURE ON FILE07/17/19(1712) Reported By: LOPEZ BANSAL Signed By: LOPEZ BANSAL Normal [facility] OPERATIVE REPORTon 9 OPERATIVE REPORT NAME: AELXANDR ORTIZ MR#: [id number] SURGEON: Blaise Ortiz MD DATE OF SURGERY: 07/16/2019 OPERATIVE REPORT PREOPERATIVE DIAGNOSIS: Recurrent herniated disk, L5-S1. POSTOPERATIVE DIAGNOSIS: Recurrent herniated disk, L5-S1. OPERATIVE PROCEDURE: Bilateral revision L5-S1 laminotomy, foraminotomy, decompression with lysis of adhesions and diskectomy. [address] SQL DEVELOPER: Jose C. ANESTHESIA: General. DESCRIPTION OF PROCEDURE: After anesthesia, patient placed prone on a spine frame. Care was taken to avoid injury to the eyes, axilla, median, and ulnar nerves. The back was prepped and draped in usual fashion. Incision was planned using a needle and C-arm. A longitudinal incision was made in the old scar with sharp dissection of subcutaneous tissues and fascia. We decided to approach from the right side since the patient had a previous left laminotomy and her symptoms were only 3-week-old, so we felt that the herniation which should be able to be pulled out from the opposite side. Longitudinal incision was made in the skin and subcutaneous tissues in the old scar. The fascia and paraspinal muscles were dissected bluntly down to the right L5-S1 interspace and the tubular retractor was inserted and x-ray confirmed position in AP and lateral planes. The right L5 lamina was cleared of soft tissue and directly visualized. Under magnification, the lamina and medial facet was thinned with a bur. Laminotomy was performed removing the inferior aspect of the L5 lamina with Kerrison rongeurs and partial medial facetectomy was performed with Kerrison rongeurs. There was scar tissue and lysis of adhesions was performed with a straight and angled curettes. The ligament ligamentum was released with a nerve hook and carefully peeled off the dura with lysis of adhesions and removed with Kerrison rongeurs while protecting the dura. The superior aspect of the S1 lamina was removed with Kerrison rongeurs. The S1 root was then dissected free and mobilized and was found to be free of compressed pathology. The dura was retracted toward the midline and lysis of adhesions was performed. This revealed what appeared to be a hard ridge toward the midline with superimposed herniation. Sharp transverse annulotomy was performed and thorough diskectomy performed with straight and angled curettes. According to the MRI, it appeared that the that the extrusion migrated inferiorly and this was thoroughly exposed with nerve hooks and nerve root retractors, but we really did not find much in the way of disk material inferior to the disk space. The wound was irrigated with saline Betadine [facility] PT NAME: ERIKA ORTIZ MR#: [id number] [address] [place] [address] ACCT: [id number] : 73 OPERATIVE REPORT solution and hemostasis achieved with FloSeal. The tubular retractor was removed and bleeding coagulated. The fascia and paraspinal muscles were then dissected bluntly on the left side down to the interspace and the tubular retractor was inserted and x-ray confirmed position in AP and lateral planes. The left lamina was cleared of soft tissue and directly visualized. Under magnification, the lamina was thinned with a ninfa and lysis of adhesions was performed with straight and angled curettes. Laminotomy performed with Kerrison rongeurs removing the inferior aspect of the L5 lamina. A partial medial facetectomy was performed with Kerrison rongeurs with continued lysis of adhesions along the medial aspect of the facet down to the L5 lamina. There was old ligamentum still attached to the dura that was gently peeled off the dura with lysis of adhesions. The dura was then gently retracted toward the midline with lysis of adhesions, exposing what appeared to be a large herniation toward the midline at the disk space. Sharp transverse annulotomy was performed and thorough diskectomy performed with straight and angled curettes, but the most of the herniation appeared to be a hard ridge and bony in nature. This hard ridge was removed with a chisel and pituitary rongeurs. On the left side we explored caudad to the disk space again, all way past midline with nerve hooks and nerve root retractors and we really found no significant extruded disk. The epidural space was palpated with a nerve hook and the herniation was much flatter with the removal of the hard ridge all the way past midline going both directions, so we really felt that we had decompressed significantly and we had removed all compressed pathology. The wound was irrigated with saline Betadine solution. Hemostasis was achieved with FloSeal. The tubular retractor was removed and bleeding coagulated. A silastic drain was left deep in both incisions exiting through separate stab incision. The fascia, subcutaneous tissues, and skin were then closed in the usual manner. The paraspinal muscles were injected with 0.5% Marcaine. Dressings were applied. The patient was woken taken recovery room in excellent condition. There were no complications. BLAISE ORTIZ MD JFS/MODL/[id number] E/S: Blaise Ortiz MD 07/26/19 1547 Electronically Signed [facility] PT NAME: ERIKA ORTIZ MR#: [id number] [address] [place] [address] ACCT: [id number] : 73 OPERATIVE REPORT Normal [facility] PROTIMEon 07-16-2019 INR Coag (PPP) [Relative time] 1.00 {INR} Normal 0.00-1.20 [facility] Comment on above: Order Comment: CONSE RVATION List patient's anticoagulants for PT: NONE SPECIFIED Result Comment: Antione mmended therapeutic range is an INR of 2.0-3.0 except for prevention of recurrent acute ID and mechanical prosthetic heart valve where an INR of 2.5-3.5 is recommended. Performed By: #### L 300.59082 #### Test performed at: [place] [address] PT Coag (PPP) [Time] 10.3 s Normal 9.0-12.0 [facility] Comment on above: Order Comment: CONSE RVATION List patient's anticoagulants for PT: NONE SPECIFIED Performed By: #### L 300.23057 #### Test performed at: [address] [address] UA COMPLETEon 07-16-2019 Appearance (U) CLEAR Normal CLEAR [facility] Comment on above: Order Comment: CONSE RVATION Performed By: #### L 600.58053 #### Test performed at: [address] [address] Bilirubin [Mass/Vol] Negative Normal NEGATIVE [facility] Comment on above: Order Comment: CONSE RVATION Performed By: #### L 600.57853 #### Test performed at: [place] [id number] BLOOD Negative Normal NEGATIVE [facility] Comment on above: Order Comment: CONSE RVATION Performed By: #### L 600.00975 #### Test performed at: [address] [address] Color (U) YELLOW Normal YELLOW [facility] Comment on above: Order Comment: CONSE RVATION Performed By: #### L 600.45376 #### Test performed at: [address] [address] Glucose [Mass/Vol] Negative Normal NEGATIVE [facility] Comment on above: Order Comment: CONSE RVATION Performed By: #### L 600.19075 #### Test performed at: [address] [address] KETONE Negative Normal NEGATIVE [facility] Comment on above: Order Comment: CONSE RVATION Performed By: #### L 600.14098 #### Test performed at: [address] [address] LEUK ESTERASE Negative Normal NEGATIVE [facility] Comment on above: Order Comment: CONSE RVATION Performed By: #### L 600.28329 #### Test performed at: [address] [address] Nitrite Ql (U) Negative Normal NEGATIVE [facility] Comment on above: Order Comment: CONSE RVATION Performed By: #### L 600.34384 #### Test performed at: [place] [address] Protein [Mass/Vol] Negative Normal NEGATIVE [facility] Comment on above: Order Comment: CONSE RVATION Performed By: #### L 600.84221 #### Test performed at: [place] [address] SPEC GRAV 1.018 Normal 1.005-1.030 [facility] Comment on above: Order Comment: CONSE RVATION Performed By: #### L 600.45849 #### Test performed at: [place] [address] UA ASC ACID Negative Normal [facility] Comment on above: Order Comment: CONSE RVATION Performed By: #### L 600.12383 #### Test performed at: [place] [address] UA PH 5.0 Normal 5.0-8.0 [facility] Comment on above: Order Comment: CONSE RVATION Performed By: #### L 600.74692 #### Test performed at: [place] [id number] UROBIL NORMAL Normal NORMAL [facility] Comment on above: Order Comment: CONSE RVATION Performed By: #### L 600.04644 #### Test performed at: [place] [address] WSR/MODon 07-16-2019 WSR/MOD 8 mm/hr Normal 0-20 [facility] Comment on above: Order Comment: PATIE NT IS GETTING CAT SCAN DONE NURSE WILL CALL/PAGE WHEN PATIENT IS BACK ON THE FLOOR CONSERVATION Performed By: #### L 200.80617, L200.25965 #### Test performed at: [place] [address] Vital Signs Date Time Vital Sign Value Performing Clinician Facility 03-13-2025 10:35-0400 Body height 160 cm Mata Villalba MD Work Phone: [facility] 03-13-2025 10:35-0400 Body mass index (BMI) [Ratio] 37.38 kg/m2 Mata Villalba MD Work Phone: [facility] 03-13-2025 10:35-0400 Body temperature 97.3 [degF] Mata Villalba MD Work Phone: [facility] 03-13-2025 10:35-0400 Body weight 95.71 kg Mata Villalba MD Work Phone: [facility] 03-13-2025 10:35-0400 Diastolic blood pressure 102 mm[Hg] Mata Villalba MD Work Phone: [facility] 03-13-2025 10:35-0400 Heart rate 97 /min Mata Villalba MD Work Phone: [facility] 03-13-2025 10:35-0400 Respiratory rate 22 /min Mata Villalba MD Work Phone: [facility] 03-13-2025 10:35-0400 SaO2% (BldA) [Mass fraction] 98 % Mata Villalba MD Work Phone: [facility] 03-13-2025 10:35-0400 Systolic blood pressure 156 mm[Hg] Mata Villalba MD Work Phone: [facility] 12-30-2024 08:15-0400 Diastolic blood pressure 109 mm[Hg] Hien Baronemini [facility] 12-30-2024 08:15-0400 Heart rate 98 /min Stanofrd Sarmini [facility] 12-30-2024 08:15-0400 Systolic blood pressure 164 mm[Hg] Hien Melendez [facility] 07-10-2024 09:24-0500 Body height 160 cm Mata Villalba MD Work Phone: [facility] 07-10-2024 09:24-0500 Body mass index (BMI) [Ratio] 36.67 kg/m2 Mata Villalba MD Work Phone: [facility] 07-10-2024 09:24-0500 Body temperature 97.5 [degF] Mata Villalba MD Work Phone: [facility] 07-10-2024 09:24-0500 Body weight 93.89 kg Mata Villalba MD Work Phone: [facility] 07-10-2024 09:24-0500 Diastolic blood pressure 110 mm[Hg] Mata Villalba MD Work Phone: [facility] 07-10-2024 09:24-0500 Heart rate 105 /min Mata Villalba MD Work Phone: [facility] 07-10-2024 09:24-0500 Respiratory rate 20 /min Mata Villalba MD Work Phone: [facility] 07-10-2024 09:24-0500 SaO2% (BldA) [Mass fraction] 99 % Mata Villalba MD Work Phone: [facility] 07-10-2024 09:24-0500 Systolic blood pressure 194 mm[Hg] Mata Villalba MD Work Phone: [facility] Encounters Encounter Date Encounter Type Care Provider Facility Start: 03-13-2025 End: 03-13-2025 ambulatory Hien Melendez Facility:[facility] Start: 03-13-2025 End: 03-13-2025 Bamboo flowsheet Mata Villalba MD Work Phone: [facility] Start: 03-13-2025 End: 03-13-2025 Bamboo flowsheet Mata Villalba MD Work Phone: [facility] Start: 03-13-2025 End: 03-13-2025 Office outpatient visit 25 minutes Mata Villalba MD Work Phone: [facility] Comment on above: Benign essential hyp ertension (Primary Dx); SELVIN (generalized anxiety disorder) ; Crohn's disease of both small and large intestine without complication (HCC); Bilateral leg edema; Class 2 severe obesity due to excess calories with serious comorbidity and body mass index (BMI) of 37.0 to 37.9 in adult ([facility]); Annual physical exam Start: 03-13-2025 End: 03-13-2025 Patient encounter procedure Mata Villalba MD Work Phone: [facility] Start: 03-13-2025 End: 03-13-2025 ambulatory MATA VILLALBA Not Available Start: 02-28-2025 End: 02-28-2025 Refill Mata Villalba MD Work Phone: [facility] Comment on above: SELVIN (generalized anx iety disorder) ; Obesity (BMI 30-39.9) Start: 02-13-2025 End: 02-13-2025 ambulatory Stanford Talal Sarmini Facility:[facility] Start: 02-13-2025 End: 02-13-2025 Patient encounter procedure Stanford Talal Sarmini [facility] Start: 01-26-2025 End: 01-27-2025 Refill Mata Villalba MD Work Phone: [facility] Comment on above: Obesity (BMI 30-39.9 ); SELVIN (generalized anxiety disorder) Start: 01-10-2025 End: 01-10-2025 ambulatory Stanford Talal Sarmini Facility:[facility] Start: 01-10-2025 End: 01-10-2025 Patient encounter procedure Stanford Talal Sarmini [facility] Start: 01-03-2025 End: 01-03-2025 ambulatory Stanford Talal Sarmini Facility:[facility] Start: 12-31-2024 End: 12-31-2024 ambulatory Stanford Talal Sarmini Facility:[facility] Start: 12-31-2024 End: 12-31-2024 Patient encounter procedure Stanford Talal Sarmini [facility] Start: 12-30-2024 End: 12-30-2024 ambulatory Stanford Talal Sarmini [facility] Start: 12-30-2024 End: 12-30-2024 Patient encounter procedure Stanford Talal Sarmini [facility] Start: 11-29-2024 End: 11-29-2024 Refill Mata Villalba MD Work Phone: [facility] Comment on above: Obesity (BMI 30-39.9 ) Start: 11-23-2024 End: 11-25-2024 Refill Mata Villalba MD Work Phone: [facility] Comment on above: Nausea; SELVIN (generalized anxiety disorder) ([facility]) Start: 09-26-2024 End: 09-27-2024 Refill Mata Villalba MD Work Phone: [facility] Comment on above: Obesity (BMI 30-39.9 ) Start: 09-21-2024 End: 09-23-2024 Refill Mata Villalba MD Work Phone: [facility] Comment on above: SELVIN (generalized anx iety disorder) ([facility]) Start: 09-19-2024 End: 09-19-2024 ambulatory Stanford Talal Sarmini [facility] Start: 09-19-2024 End: 09-19-2024 Patient encounter procedure Stanford Talal Sarmini [facility] Start: 09-02-2024 End: 09-02-2024 ambulatory Stanford David Baronemini Facility:[facility] Start: 09-02-2024 End: 09-02-2024 Patient encounter procedure Hien Baronemini [facility] Start: 08-23-2024 End: 08-26-2024 Refill Mata Villalba MD Work Phone: [facility] Comment on above: Nausea; Obesity (BMI 30-39.9); Lumbar back pain Start: 07-29-2024 End: 07-29-2024 ambulatory Hien Baronemini Facility:[facility] Start: 07-29-2024 End: 07-29-2024 Patient encounter procedure Hien Hamiltoni [facility] Start: 07-22-2024 End: 07-23-2024 Refill Mata Villalba MD Work Phone: [facility] Comment on above: Obesity (BMI 30-39.9 ); SELVIN (generalized anxiety disorder) ([facility]) Start: 07-10-2024 End: 07-10-2024 Bamboo flowsheet Mata Villalba MD Work Phone: [facility] Start: 07-10-2024 End: 07-10-2024 Bamboo flowsheet Mata Villalba MD Work Phone: [facility] Start: 07-10-2024 End: 07-10-2024 ambulatory MATA VILLALBA Not Available Start: 07-10-2024 End: 07-10-2024 Office outpatient visit 25 minutes Mata Villalba MD Work Phone: [facility] Comment on above: Benign essential hyp ertension (CMS/HCC) (Primary Dx); Hematochezia; Abdominal cramping; Bilateral leg edema; SELVIN (generalized anxiety disorder) (CMS/HCC) Start: 06-23-2024 End: 06-24-2024 Refill Mata Villalba MD Work Phone: [facility] Comment on above: Obesity (BMI 30-39.9 ) Start: 05-23-2024 End: 05-24-2024 Refill Mata Villalba MD Work Phone: [facility] Comment on above: Obesity (BMI 30-39.9 ) Start: 04-24-2024 End: 04-25-2024 Refill Mata Villalba MD Work Phone: [facility] Comment on above: Lumbar back pain; Obesity (BMI 30-39.9) Start: 01-10-2024 Patient encounter procedure Mata Villalba MD Work Phone: [facility] Start: 09-19-2023 Refill Mata Skinner Work Phone: [facility] Comment on above: SELVIN (generalized anx iety disorder) (CMS/HCC) (Primary Dx) Start: 06-12-2023 ambulatory Austin King acility:[facility] Start: 06-27-2022 Encounter for genera l adult medical examination without abnormal findings DR MATA VILLALBA [facility] Start: 06-22-2022 End: 06-23-[address] MATA VILLALBA Facility:[facility] Start: 06-22-2022 End: 06-23-2022 Encounter for general adult medical examination without abnormal findings DR MATA VILLALBA Facility:[facility] Start: 11-23-2021 End: 11-23-[address] YAYO DRISCOLL Facility:[facility] Procedures Date Procedure Procedure Detail Performing Clinician Start: 07-07-2020 Gastric sleeve Hien Melendez Start: 07-18-2019 Electrocardiogram Start: 02-18-2019 End: 02-18-2019 Colonoscopy Mata Villalba MD Work Phone: Start: 08-04-2014 left L5-S1 discectomy Hien Baronemini Start: 07-22-2011 Colonoscopy Hien Baronemini Start: 07-22-2011 Esophagogastroduodenoscopy Hien Robles ini Abdominoplasty Hien Robles ini section Hien Sa rmini Exploratory laparotomy Merry Baronemini Hernia repair Hien Almanza ni History of laparosco pic adjustable gastric banding Hien Baronemini Incidental appendectomy Shona Baronemini Reduction mammoplasty Rafael ad Abisaimini Right salpingo-oophorectomy Hien Baronemini Plan of Treatment Date Care Activity Detail Author Start: 02-18-2029 Screening for malign ant neoplasm of colon [facility] Start: 05-16-2025 End: 05-16-2025 Patient encounter procedure 05/16/2025 10:15 AM EDT Office Visit [facility] [address] [place] [phone] Mata Villalba MD [address] [place] [phone] [facility] Start: 04-14-2025 Influenza vaccination Influenza Vacc ine (#1) [facility] Start: 03-13-2025 End: 03-13-2026 Basic metabolic 1998 panel - Serum or Plasma Basic metabolic panel Lab Routine Annual physical exam Expected: 03/13/2025 (Approximate), Expires: 03/13/2026 [facility] Comment on above: Expected: 03/13/2025 (Approximate), Expires: 03/13/2026 Start: 03-13-2025 End: 03-13-2026 CBC W Auto Differential panel - Blood CBC and differential Lab Routine Annual physical exam Expected: 03/13/2025 (Approximate), Expires: 03/13/2026 [facility] Comment on above: Expected: 03/13/2025 (Approximate), Expires: 03/13/2026 Start: 03-13-2025 End: 03-13-2026 Hemoglobin A1c/Hemoglobin.total in Blood Hemoglobin A1c Lab Routine Annual physical exam Expected: 03/13/2025 (Approximate), Expires: 03/13/2026 [facility] Work Phone: Comment on above: Expected: 03/13/2025 (Approximate), Expires: 03/13/2026 Start: 03-13-2025 End: 03-13-2026 Hepatic function 2000 panel - Serum or Plasma Hepatic function panel Lab Routine Annual physical exam Expected: 03/13/2025 (Approximate), Expires: 03/13/2026 [facility] Comment on above: Expected: 03/13/2025 (Approximate), Expires: 03/13/2026 Start: 03-13-2025 End: 03-13-2026 Lipid 1996 panel - Serum or Plasma Lipid panel Lab Routine Annual physical exam Expected: 03/13/2025 (Approximate), Expires: 03/13/2026 [facility] Comment on above: Expected: 03/13/2025 (Approximate), Expires: 03/13/2026 Start: 03-13-2025 End: 03-13-2026 TSH W/REFLEX TO FT4 TSH W/REFLEX TO FT4 Lab Routine Annual physical exam Expected: 03/13/2025 (Approximate), Expires: 03/13/2026 [facility] Comment on above: Expected: 03/13/2025 (Approximate), Expires: 03/13/2026 Start: 03-13-2025 End: 03-13-2025 Patient encounter procedure 03/13/2025 10:30 AM EDT Office Visit [facility] [address] [place] [address] Mata Villalba MD [address] [place] [phone] Arrived [facility] Comment on above: Arrived Start: 08-26-2024 End: 08-26-2024 Patient encounter procedure 08/26/2024 8:00 AM EST Office Visit [facility] [address] [place] [phone] Mata Villalba MD [address] [place] [phone] [facility] Start: 04-14-2024 Influenza vaccination Influenza Vacc ine (#1) [facility] Start: 04-14-2023 Influenza vaccination Influenza Vacc ine (#1) [facility] Start: 2014 Screening for malign ant neoplasm of breast Mammogram [facility] Start: 2004 Screening for malign ant neoplasm of cervix [facility] Start: 1995 Screening for malign ant neoplasm of cervix Pap Smear [facility] Start: 1974 Screening for malign ant neoplasm of colon [facility] Immunizations Immunization Date Immunization Notes Care Provider Fa cility 08-14-2024 tetanus toxoid, redu yvonne diphtheria toxoid, and acellular pertussis vaccine, adsorbed Stanford Sarmini [facility] 04-27-2024 influenza virus vaccine, unspecified formulation Stanford Sarmini [facility] 09-22-2023 influenza virus vaccine, unspecified formulation Mata Villalba MD Work Phone: [facility] 07-24-2021 SARS-CoV-2 (COVID-19 ) mRNA-1273 vaccine Stanford Sarmini [facility] Comment on above: Result Comment: 2024: [id number] 09-18-2020 SARS-CoV-2 (COVID-19 ) mRNA-1273 vaccine Stanford Sarmini [facility] Comment on above: Result Comment: 2024: TPV20 08-17-2020 SARS-CoV-2 (COVID-19 ) mRNA-1613 vaccine Stanford Sarmini [facility] Comment on above: Result Comment: 2024: [id number] 04-23-2020 influenza virus vaccine, unspecified formulation Stanford Sarmini [facility] 06-18-2019 influenza virus vaccine, unspecified formulation Stanford Sarmini [facility] 06-18-2019 tetanus toxoid, redu yvonne diphtheria toxoid, and acellular pertussis vaccine, adsorbed Stanford Sarmini [facility] 05-18-2018 influenza virus vaccine, unspecified formulation Stanford Sarmini [facility] 05-17-2016 influenza virus vaccine, unspecified formulation Stanford Sarmini [facility] 2014 influenza virus vaccine, unspecified formulation Stanford Sarmini [facility] 07-05-2013 influenza virus vaccine, unspecified formulation Stanford Sarmini [facility] 10-04-2002 hepatitis B vaccine, adult dosage Stanford Sarmini [facility] 07-01-2002 measles, mumps and rubella virus vaccine Stanford Sarmini [facility] 04-22-2002 hepatitis B vaccine, adult dosage Stanford Sarmini [facility] 03-20-2002 hepatitis B vaccine, adult dosage Stanford Sarmini [facility] Payers Date Payer Category Payer [facility] [id number] 2023 Unknown [id number] 2023 Unknown [id number] 2023 Unknown [id number] 2023 Self-pay 2022 Private Health Insurance [id number] 1974 Unknown [id number] 2.16.840.1.044666.3.579 .2.593 1974 Unknown [id number] 2.16.840.1.631755.3.579 .2.593 1974 Unknown [id number] 2.16.840.1.353456.3.579 .2.727 1974 Unknown [id number] 2.16.840.1.142056.3.579 .2.727 1974 Unknown [id number] 2.16.840.1.710983.3.579 .2.727 1974 Unknown [id number] 2.16.840.1.917545.3.579 .2.727 1974 Unknown [id number] 2.16.840.1.171683.3.579 .2.727 1974 Unknown [id number] 2.16.840.1.499385.3.579 .2.727 1974 Unknown [id number] 2.16.840.1.202240.3.579 .2.727 1974 Unknown [id number] 2.16.840.1.549315.3.579 .2.727 1974 Unknown [id number] 2.16.840.1.975581.3.579 .2.1259 1974 Unknown [id number] 2.16.840.1.629929.3.579 .2.1259 1974 Unknown [id number] 2.16.840.1.186536.3.579 .2.727 1974 Unknown [id number] 2.16.840.1.347299.3.579 .2.727 1959 Unknown [id number] Unknown [id number] 2.16.840.1.330517.3.579 .2.531 Social History Date Type Detail Facility Tobacco smoking status [facility] Tobacco smoking consumption unknown [facility] Start: 1975 Sex Assigned At Not on file [facility] Start: 01-10-2024 End: 03-13-2025 Gender identity Not on file [facility] Start: 01-10-2024 End: 01-10-2025 Tobacco smoking status [facility] Ex-smoker [facility] History of tobacco use Current smoker [facility] History of tobacco use Cigarette Smoker [facility] Start: 01-10-2024 Tobacco use and exposure Smokeless tobacco non-user [facility] Start: 01-10-2024 End: 03-13-2025 History of Social function [facility] Comment on above: Denies. Tobacco smoking status [facility] Tobacco smoking status Never [facility] Start: 03-29-2012 Sex Female (finding) [facility] Functional Status Date Assessment Result Facility 12-30-2024 Functional Status N/A [facility] Clinical Notes 10-05-2020 to 03-13-2025 Mata Villalba MD - 03/13/2025 11:13 AM Aquiles Villalba MD - 03/13/2025 11:13 AM Aquiles Villalba MD - 03/13/2025 11:13 AM Aquiles Villalba MD - 03/13/2025 11:13 AM EDTLaboratory[facility]atory Note Date & Type Note Facility 03-13-2025 History of Present illness Narrative Associated Problem(s): SELVIN (generalized anxiety disorder) Symptoms unchanged and use xanax PRN. Associated Problem(s): Crohn's disease of both small and large intestine without complication (HCC) Improved with treatment and follow with GI. Associated Problem(s): Class 2 severe obesity due to excess calories with serious comorbidity and body mass index (BMI) of 37.0 to 37.9 in adult ([facility]) Continue adipex. Discussed proper diet and regular aerobic exercise. Recommend Weight Watchers and need to limit calories and smaller portions. Need to increase activity and regular aerobic exercise several days a week for 30 minutes at a time. Associated Problem(s): Bilateral leg edema Edema stable and continue lasix. Elevated legs PRN. Limit sodium intake. Associated Problem(s): Benign essential hypertension BP elevated and increase losartan. Monitor PRN. Discussed DASH diet. Images from the original note were not included. Subjective Patient ID: Marycruz Ortiz is a 49 y.o. female who presents for Follow-up (Med refills). Follow up HTN, anxiety, edema, and weight. Seen by GI and diagnosed with Crohn's disease. Initially on high dose steroids for few months. Recently started skyrizi and improved. Found iron def anemia and on supplement. Less cramping and bleeding. BP very elevated today. Started losartan but did not notice improvement and stopped. Monitoring PRN and elevated. Edema controlled with medication. Mild swelling at end of day and if on feet a lot. Edema improved in am and with elevation. Weight up but gained with steroids. Taking adipex and helps control appetite. Tolerating medication without side effects except mild dry mouth. Not as hungry with medication. Smaller portions and not snacking. Increased fruits and vegetables. Tries to limit total daily calories. Increased activity and walking almost daily. Review of Systems Respiratory: Negative for cough, shortness of breath and wheezing. Cardiovascular: Negative for chest pain and palpitations. Gastrointestinal: Negative for abdominal pain, diarrhea, nausea and vomiting. Genitourinary: Negative for dysuria. Objective Physical Exam Constitutional: General: She is not in acute distress. Appearance: Normal appearance. HENT: Head: Normocephalic. Right Ear: Tympanic membrane normal. Left Ear: Tympanic membrane normal. Eyes: Extraocular Movements: Extraocular movements intact. Pupils: Pupils are equal, round, and reactive to light. Cardiovascular: Rate and Rhythm: Normal rate and regular rhythm. Heart sounds: No murmur heard. No friction rub. No gallop. Pulmonary: Effort: Pulmonary effort is normal. Breath sounds: Normal breath sounds. No wheezing, rhonchi or rales. Abdominal: General: Bowel sounds are normal. There is no distension. Palpations: Abdomen is soft. Tenderness: There is no abdominal tenderness. There is no guarding or rebound. Musculoskeletal: Cervical back: Neck supple. Right lower leg: No edema. Left lower leg: No edema. Neurological: Mental Status: She is alert. Assessment/Plan Problem List Items Addressed This Visit Benign essential hypertension - Primary BP elevated and increase losartan. Monitor PRN. Discussed DASH diet. Relevant Medications losartan (Cozaar) 50 MG tablet Annual physical exam Relevant Orders Hemoglobin A1c Basic metabolic panel CBC and differential Hepatic function panel Lipid panel TSH W/REFLEX TO FT4 Bilateral leg edema Edema stable and continue lasix. Elevated legs PRN. Limit sodium intake. SELVIN (generalized anxiety disorder) Symptoms unchanged and use xanax PRN. Relevant Medications ALPRAZolam (Xanax) 0.5 MG tablet Class 2 severe obesity due to excess calories with serious comorbidity and body mass index (BMI) of 37.0 to 37.9 in adult (CMS-HCC) Continue adipex. Discussed proper diet and regular aerobic exercise. Recommend Weight Watchers and need to limit calories and smaller portions. Need to increase activity and regular aerobic exercise several days a week for 30 minutes at a time. Relevant Medications phentermine (Adipex-P) 37.5 MG tablet Crohn's disease of both small and large intestine without complication (HCC) Improved with treatment and follow with GI. documented in this encounter [facility] 01-27-2025 Telephone encounter Note Patient called and stated she is in [place] until Monday and is out of her xanax. She would like you to send a refill to the [facility] there. an [facility] 01-27-2025 Miscellaneous Notes Patient called and stated she is in [place] until Monday and is out of her xanax. She would like you to send a refill to the [facility] there. an documented in this encounter [facility] 01-07-2025 Hospital Discharge instructions Follow Up Care 01/07/2025 09:55:16 With:Nora BAGLEY, KAITY Kaiser, [facility] Address: [address] [place] [address], [address] [phone] [phone] When:Within 3 Month(s) [facility] 01-07-2025 Note Progress Note-Howard victoria Patient: MARYCRUZ ORTIZ Age: 49 years Sex: Female : 1975 Associated Diagnoses: None Author: Girish Cruz Jr, DO Preoperative Information Anesthesia Preop Info: Time patient last ate or drank 01/03/2025 00:00:00. Anesthesia history: Patient history: None. Family history+: None. Informed consent: Signed by patient. Re-evaluation prior to induction: Initial evaluation reviewed: No significant change. Review of Systems Eye: Negative except as documented in history of present illness. Ear/Nose/Mouth/Throat: Negative except as documented in history of present illness. Respiratory: Negative except as documented in history of present illness. Cardiovascular: Negative except as documented in history of present illness. Musculoskeletal: Negative except as documented in history of present illness. Neurologic: Negative except as documented in history of present illness. Health Status Allergies: Allergic Reactions (Selected) Severity Not Documented Vancomycin- Hives. Problem list: All Problems Smoker / IMO [id number] / Confirmed Added secondary to documentation in Social History. Pseudotumor cerebri / SNOMED CT 740366551 / Confirmed Obstructive sleep apnea syndrome / SNOMED CT 289380343 / Confirmed Obesity / SNOMED CT [id number] / Confirmed Obese class II / SNOMED CT 524563984598448 / Confirmed Nodule of lung / SNOMED CT 9356829413 / Confirmed Lumbosacral spondylosis without myelopathy / SNOMED CT 02406712 / Confirmed Herniation of lumbar intervertebral disc with radiculopathy / SNOMED CT 216619284 / Confirmed Lower abdominal pain / SNOMED CT 56824475 / Confirmed Low back pain / SNOMED CT 060095481 / Confirmed Hoarseness / SNOMED CT 130633067 / Confirmed S/P gastric sleeve procedure / SNOMED CT 8835178370 / Confirmed Hematochezia / SNOMED CT 3388767994 / Confirmed History of ulcerative colitis / SNOMED CT 180363917 / Confirmed Bilateral lower limb edema / SNOMED CT 8763685059 / Confirmed Benign essential hypertension / SNOMED CT 1890963 / Confirmed Arthritis of spine / SNOMED CT 2430491462 / Confirmed Histories Procedure history: Gastric sleeve ([id number]) on 07/07/2020 at 45 Years. Colonoscopy (procedure) ([id number]) on 02/18/2019 at 43 Years. left L5-S1 discectomy on 08/04/2014 at 39 Years. Colonoscopy ([id number]) on 07/22/2011 at 36 Years. EGD on 07/22/2011 at 36 Years. Hysterectomy ([id number]). LAP-BAND surgery status ([id number]) . Abdominoplasty (345320463). Breast reduction (284330955). section (09631997). RSO - Right salpingo-oophorectomy (831451216). Exploratory laparotomy (353604359). Incidental appendectomy (524481040). Hernia repair (74557435). Social History Social & Psychosocial Habits Alcohol 12/30/2024 Risk Assessment: Low Risk 12/30/2024 Use: Current Type: Beer Frequency: 1-2 times per month Has alcohol use interfered with work or home life? No Do you ever drink more than intended? No Has anyone been hurt or at risk by your drinking? No Ready to change: No Concerns about alcohol use in household: No 12/30/2024 Use: Never Comment: Dennicolasa. - 08/05/2020 22:52 - Madyson Collaod RN Exercise 12/30/2024 Risk Assessment: Occasional exercise Substance Abuse 12/30/2024 Risk Assessment: Denies Substance Abuse 12/30/2024 Use: Current Comment: valeri - 09/29/2018 13:57 - Sanjana Marks RN 12/30/2024 Use: Never Comment: Valeri. - 08/05/2020 22:52 - Madyson Collado RN Tobacco 12/30/2024 Risk Assessment: Low Risk 12/30/2024 Tobacco Use: Former smoker, quit more Smokeless tobacco use: Never Type: Cigarettes . Physical Examination Airway: Mallampati classification: II (soft palate, fauces, uvula visible). Respiratory: adequate air exchange. Cardiovascular: Regular rhythm. Plan [employer]hesi[employer] (ASA) physical status classification: Class III. Anesthetic Preoperative Plan: Anesthesia General, and Patient educated on benefits, alternatives and inherent risk of anesthesia including, but not all inclusive, Allergic reactions, dental damage, nerve damage and cardio-pulmonary complications and wishes to proceed with anesthetic plan.. [facility] Comment on above: Result Comment: Elec tronically Signed By: Girish Cruz Jr, DO\.br\Date and Time Signed: 01/07/25 11:14 EDT 01-07-2025 Note Progress Note-Physic esme Patient: MARYCRUZ ORTIZ Age: 49 years Sex: Female : 1975 Associated Diagnoses: None Author: Girish Cruz Jr, DO Postoperative Information Postoperative disposition: Postoperative disposition: To PACU. Optimetrix number: Optimetrix number [id number]. Anesthetic utilized: General. Health Status Allergies: Allergic Reactions (Selected) Severity Not Documented Vancomycin- Hives. Physical Examination Vital Signs 01/03/2025 12:22 EDT Heart Rate Monitored 74 bpm Respiratory Rate Monitored 20 br/min 01/03/2025 12:22 EDT Systolic Blood Pressure 160 mmHg HI Diastolic Blood Pressure 105 mmHg HI Mean Arterial Pressure, Cuff 123 mmHg SpO2 99 % 01/03/2025 12:10 EDT Respiratory Rate Monitored 20 br/min 01/03/2025 12:10 EDT Heart Rate Monitored 72 bpm 01/03/2025 12:10 EDT Systolic Blood Pressure 168 mmHg HI Diastolic Blood Pressure 112 mmHg HI Mean Arterial Pressure, Cuff 131 mmHg SpO2 97 % 01/03/2025 12:03 EDT Respiratory Rate Monitored 34 br/min 01/03/2025 12:03 EDT Heart Rate Monitored 76 bpm 01/03/2025 12:03 EDT SpO2 96 % 01/03/2025 11:55 EDT Respiratory Rate Monitored 20 br/min 01/03/2025 11:55 EDT SpO2 97 % 01/03/2025 11:55 EDT Heart Rate Monitored 74 bpm 01/03/2025 11:55 EDT Systolic Blood Pressure 165 mmHg HI Diastolic Blood Pressure 110 mmHg HI Mean Arterial Pressure, Cuff 128 mmHg 01/03/2025 11:45 EDT Heart Rate Monitored 71 bpm 01/03/2025 11:45 EDT SpO2 97 % 01/03/2025 11:45 EDT Respiratory Rate Monitored 21 br/min 01/03/2025 11:45 EDT Systolic Blood Pressure 160 mmHg HI Diastolic Blood Pressure 97 mmHg HI Mean Arterial Pressure, Cuff 118 mmHg 01/03/2025 11:39 EDT Respiratory Rate Monitored 19 br/min 01/03/2025 11:39 EDT SpO2 97 % 01/03/2025 11:39 EDT Heart Rate Monitored 73 bpm 01/03/2025 11:39 EDT Temperature Temporal Artery 36.5 DegC Systolic Blood Pressure 155 mmHg HI Diastolic Blood Pressure 90 mmHg HI Pain Assessment: Controlled. General: Awake, Alert, Appropriate. Respiratory: Adequate air exchange. Cardiovascular: Stable, Normal peripheral perfusion. Neurological: Normal sensory function, Normal motor function. Assessment Anesthetic outcome No anesthetic complications noted. Adequate pain relief. able to void without difficulty, able to ambulate with assist, tolerating PO intake, no N/V. Review / Management Condition: Stable. Plan Transfer/Discharge: Transfer/Discharge Discharge when meets criteria ( To home ). [facility] Comment on above: Result Comment: Elec tronically Signed By: Girish Cruz Jr, DO\.br\Date and Time Signed: 01/07/25 11:13 EDT 01-03-2025 Note Endoscopic Procedure Report - Other Patient: MARYCRUZ ORTIZ Age: 49 years Sex: Female : 1975 Associated Diagnoses: None Author: Nora BAGLEY, Hien Hernandez Pre-Procedure Procedure Date 01/03/2025 11:31:00 . Procedure Type: Colonoscopy with biopsy. Procedure provider Performed by Hien Melendez MD. Current history and physical Reviewed. Gastric sleeve ([id number]) on 07/07/2020 at 45 Years. Colonoscopy (procedure) ([id number]) on 02/18/2019 at 43 Years. left L5-S1 discectomy on 08/04/2014 at 39 Years. Colonoscopy ([id number]) on 07/22/2011 at 36 Years. EGD on 07/22/2011 at 36 Years. Hysterectomy ([id number]). LAP-BAND surgery status ([id number]) . Abdominoplasty (559801987). Breast reduction (326501721). section (37132956). RSO - Right salpingo-oophorectomy (402125711). Exploratory laparotomy (390422623). Incidental appendectomy (175795023). Hernia repair (58470538).. Past Medical History Active Pseudotumor cerebri (362229227). Family History Primary malignant neoplasm of female breast Sister . Procedure History Gastric sleeve (0817631673) on 07/07/2020 at 45 Years. Colonoscopy (procedure) ([id number]) on 02/18/2019 at 43 Years. left L5-S1 discectomy on 08/04/2014 at 39 Years. Colonoscopy ([id number]) on 07/22/2011 at 36 Years. EGD on 07/22/2011 at 36 Years. Hysterectomy ([id number]). LAP-BAND surgery status ([id number]) . Abdominoplasty (701181738). Breast reduction (188250423). section (38466929). RSO - Right salpingo-oophorectomy (399446897). Exploratory laparotomy (030632191). Incidental appendectomy (098295155). Hernia repair (61045653).. Colorectal neoplasm risk assessment Average risk. Informed Consent After discussing the rationale, risks and benefits, and alternatives to this procedure, the patient provided signed consent for the procedure. Pre-procedure diagnosis: Diarrhea, clinically significant. Diagnostic: GI bleeding. Medications (Selected) Inpatient Medications Ordered Sodium Chloride 0.9% IV Sharon 1000 mL 1,000 mL: 1,000 mL, IV, 20 mL/hr, Routine, Start date 01/03/25 6:42:00 EDT, 50 hour(s), Total volume (mL): 1,000, 95.7 kg, 2.08, m2 Prescriptions Prescribed Nexium 40 mg Cap-EC: 40 mg, Oral, Daily, Pharmacy may substitue PPI covered by insurance company, X 90 day(s), # 90 caplet(s), Refills(s) 3, Pharmacy: [facility]/pharmacy #[id number], 162, cm, 12/30/24 8:25:00 EDT, Height/Length Dosing, 95.7, kg, 12/30/24 8:25:00 EDT, Weight Dosing Vitamin D 50,000 intl units (1.25 mg) oral capsule: 50,000 International_Unit = 1 cap(s), Oral, qWeek, X 90 day(s), # 13 cap(s), Refills(s) 3, [id number] 162, cm, 12/30/24 8:25:00 EDT, Height/Length Dosing, 95.7, kg, 12/30/24 8:25:00 EDT, Weight Dosing ferrous gluconate 324 mg (38 mg elemental iron) oral tablet: 324 mg = 1 tab(s), Oral, TID, # 90 tab(s), Refills(s) 3, [id number] 162, cm, 12/30/24 8:25:00 EDT, Height/Length Dosing, 95.7, kg, 12/30/24 8:25:00 EDT, Weight Dosing Documented Medications Documented Phenergan: 25 mg, Oral, q6hr, PRN as needed for nausea/vomiting, Refills(s) 0 Vitamin B12: Oral, Daily, Oral, 0 Refill(s), Refills(s) 0, Prophylaxis Vitamin C: Oral, Daily, Refills(s) 0, Prophylaxis Xanax 0.5 mg Tab: 0.5 mg = 1 tab(s), Oral, Bedtime, PRN for anxiety, Refills(s) 0 cyclobenzaprine: Oral, 0 Refill(s), Refills(s) 0, Muscle pain dicyclomine 20 mg Tab: 20 mg = 1 tab(s), Oral, PRN Spasm, 20 Unknown, Oral, 0 Refill(s), Refills(s) 0 phentermine 37.5 mg Tab: Oral, 0 Refill(s), Refills(s) 0 reviewed. ASA Classification: Class III. . Monitoring: See anesthesia record. . Procedure The procedure was performed in the hospital. See anesthesia record for sedation given during procedure. The patient was positioned starting in the left lateral decubitus position. Endoscope type used was a pediatric-size. The endoscope was lubricated then introduced through the anus. The scope was advanced to the terminal ileum. No difficulties encountered during the procedure. The bowel preparation quality was adequate (see polyps greater than or equal to 6 millimeters). The patient tolerated the procedure well. Last colonoscopy 2019 Time to cecum: 2 min Time of withdrawal: 12 min Findings 1. Small internal hemorrhoids 2. Severe colitis in the left colon characterized by ulcers in the rectum, erosions through the left colon, decreased vascular pattern, friability and erythema, Anaya score 3, although noted gradually improving from rectum into descending colon. 3. Couple small erosions in the transverse colon, otherwise normal colonic mucosa extending from transverse colon into cecum. Random biopsies were taken from transverse colon, left colon and rectum for histology, rule out CMV, assess for Crohn's and ulcerative colitis 4. Normal examined terminal ileum Images Procedure image (more content not included)... [facility] Comment on above: Result Comment: Elec tronically Signed By: Nora BAGLEY, Hien Hernandez\.br\Date and Time Signed: 01/03/25 11:54 EDT Other Comment: Lisy somers Attachment - attachment storage system not supported [id number] Can be viewed in source system Missing Attachment - attachment storage system not supported [id number] Can be viewed in source system Missing Attachment - attachment storage system not supported [id number] Can be viewed in source system Missing Attachment - attachment storage system not supported [id number] Can be viewed in source system Missing Attachment - attachment storage system not supported [id number] Can be viewed in source system Missing Attachment - attachment storage system not supported [id number] Can be viewed in source system Missing Attachment - attachment storage system not supported [id number] Can be viewed in source system Missing Attachment - attachment storage system not supported [id number] Can be viewed in source system Missing Attachment - attachment storage system not supported [id number] Can be viewed in source system Missing Attachment - attachment storage system not supported [id number] Can be viewed in source system Missing Attachment - attachment storage system not supported [id number] Can be viewed in source system Missing Attachment - attachment storage system not supported [id number] Can be viewed in source system Missing Attachment - attachment storage system not supported [id number] Can be viewed in source system Missing Attachment - attachment storage system not supported [id number] Can be viewed in source system Missing Attachment - attachment storage system not supported [id number] Can be viewed in source system Missing Attachment - attachment storage system not supported [id number] Can be viewed in source system Missing Attachment - attachment storage system not supported [id number] Can be viewed in source system 01-03-2025 Note Patient Education - Text Colonoscopy Care After Surgery Please read the instructions outlined below and refer to this sheet in the next few weeks. These discharge instructions provide you with general information on caring for yourself after you leave the hospital. Your doctor may also give you specific instructions. While your treatment has been planned according to the most current medical practices available, unavoidable complications occasionally occur. If you have any problems or questions after discharge, please call your doctor. ACTIVITY You may resume your regular activity, but move at a slower pace for the next 24 hours. Take frequent rest periods for the next 24 hours. Walking will help get rid of the air and reduce the bloated feeling in your abdomen (belly). No driving for 24 hours (because of the anesthesia (medicine) used during the test). You may shower. Do not sign any important legal documents or operate any machinery for 24 hours (because of the anesthesia used during the test). NUTRITION Drink plenty of fluids. You may resume your normal diet as instructed by your doctor. Begin with a light meal and progress to your normal diet. Heavy or fried foods are harder to digest and may make you feel nauseated (sick to your stomach). Avoid alcoholic beverages for 24 hours or as instructed. MEDICATIONS You may resume your normal medications unless your doctor tells you otherwise. WHAT YOU CAN EXPECT TODAY Some feelings of bloating in the abdomen. Passage of more gas than usual. Spotting of blood in your stool or on the toilet paper. FOLLOW-UP Your doctor will discuss the results of your test with you. SEEK IMMEDIATE MEDICAL ATTENTION IF: There is more than a spotting of blood in your stool. There is abdominal distention (your abdomen is swollen). There is vomiting. You have a temperature over 101.5 F. There is abdominal pain or discomfort that is severe or gets worse throughout the day. Gastroenterology Upper Endoscopy, Adult, Care After After the procedure, it is common to have a sore throat. It is also common to have: ??? Mild stomach pain or discomfort. ??? Bloating. ??? Nausea. Follow these instructions at home: The instructions below may help you care for yourself at home. Your health care provider may give you more instructions. If you have questions, ask your health care provider. ??? If you were given a sedative during the procedure, it can affect you for several hours. Do not drive or operate machinery until your health care provider says that it is safe. ??? If you will be going home right after the procedure, plan to have a responsible adult: ? Take you home from the hospital or clinic. You will not be allowed to drive. ? Care for you for the time you are told. ??? Follow instructions from your health care provider about what you may eat and drink. ??? Return to your normal activities as told by your health care provider. Ask your health care provider what activities are safe for you. ??? Take ljwx-gzq-kenjapa and prescription medicines only as told by your health care provider. Contact a health care provider if you: ??? Have a sore throat that lasts longer than one day. ??? Have trouble swallowing. ??? Have a fever. Get help right away if you: ??? Vomit blood or your vomit looks like coffee grounds. ??? Have bloody, black, or tarry stools. ??? Have a very bad sore throat or you cannot swallow. ??? Have difficulty breathing or very bad pain in your chest or abdomen. These symptoms may be an emergency. Get help right away. Call 911. ??? Do not wait to see if the symptoms will go away. ??? Do not drive yourself to the hospital. Summary ??? After the procedure, it is common to have a sore throat, mild stomach discomfort, bloating, and nausea. ??? If you were given a sedative during the procedure, it can affect you for several hours. Do not drive until your health care provider says that it is safe. ??? Follow instructions from your health care provider about what you may eat and drink. ??? Return to your normal activities as told by your health care provider. This information is not intended to replace advice given to you by your health care provider. Make sure you discuss any questions you have with your health care provider. Document Revised: 11/09/2022 Document Reviewed: 11/09/2022 [employer] Patient Education ? 2023 [employer] Colitis Colitis is a condition in which the colon is inflamed. It can cause diarrhea, blood in the stool, and abdominal pain. Colitis can last a short time (be acute), or it may last a long time (become chronic). What are the causes? This condition may be caused by: ??? Infections from viruses or bacteria. ??? A reaction to medicine. ??? Certain autoimmune diseases, such as Crohn's disease or ulcerative colitis. ??? Radiation treatment. ??? Decrea (more content not included)... [facility] 01-03-2025 Note Endoscopic Procedure Report - Other Patient: MARYCRUZ ORTIZ Age: 49 years Sex: Female : 1975 Associated Diagnoses: None Author: Hien Melendez MD Pre-Procedure Procedure Date 01/03/2025 11:14:00 . Procedure Type: Esophagogastroduodenoscopy with biopsy. Procedure provider Performed by Hien Melendez MD. Current history and physical Documented on chart. Informed Consent After discussing the rationale, risks and benefits, and alternatives to this procedure, the patient provided signed consent for the procedure. Pre-procedure diagnosis: anemia. Medications Anticoagulant/antiplatelet None. ASA Classification: Class III. . Monitoring: See anesthesia record. . Procedure The procedure was performed in the hospital. See anesthesia record for sedation given during procedure. The patient was positioned starting in the left lateral decubitus position and with safety measures. Endoscope type used was an adult-size, introduced orally, advanced to the 3rd portion of the duodenum. No difficulty was encountered during the procedure. Views were excellent. The patient tolerated the procedure well. Findings 1. 1. Esophageal landmarks identified, normal examined esophagus 2. Evidence of surgery in the stomach with gastric sleeve anatomy, diffuse nonspecific patchy erythema with multiple small erosions in the body of the stomach, random biopsies were taken to rule out H. pylori 3. Normal examined duodenum Images Procedure images: Rec_hd_video___[id number]. jpg Rec_hd_video___[id number]. jpg Rec_hd_video___[id number]. jpg Rec_hd_video___[id number]. jpg Rec1_hd_video_2024___[id number]. jpg Rec1_hd_video_2024____[id number]. jpg . Post-Procedure Complications: none. Estimated blood loss: minimal. Specimens: sent to pathology. Devices/ implants: none left in place. Impression and Plan 1. Esophageal landmarks identified, normal examined esophagus 2. Evidence of surgery in the stomach with gastric sleeve anatomy, diffuse nonspecific patchy erythema with multiple small erosions in the body of the stomach, random biopsies were taken to rule out H. pylori 3. Normal examined duodenum Recommendations: -Resume previous diet -Resume home medications -Await pathology results, follow in GI clinic in 1-2 after discharge [facility] Comment on above: Result Comment: Elec tronically Signed By: Nora BAGLEY, Hien Hernandez\.br\Date and Time Signed: 01/03/25 11:16 EDT Other Comment: Lisy somers Attachment - attachment storage system not supported [id number] Can be viewed in source system Missing Attachment - attachment storage system not supported [id number] Can be viewed in source system Missing Attachment - attachment storage system not supported [id number] Can be viewed in source system Missing Attachment - attachment storage system not supported [id number] Can be viewed in source system Missing Attachment - attachment storage system not supported [id number] Can be viewed in source system Missing Attachment - attachment storage system not supported [id number] Can be viewed in source system 01-03-2025 Note History and Physical Patient: MARYCRUZ ORTIZ Age: 49 years Sex: Female : 1975 Associated Diagnoses: None Author: Hien Melendez MD Preoperative Information Indication for procedure and diagnosis: GI bleed Chief Complaint as above Review of Systems All systems reviewed, negative except as mentioned above Health Status Current medications: (Selected) Inpatient Medications Ordered Sodium Chloride 0.9% IV Sharon 1000 mL 1,000 mL: 1,000 mL, IV, 20 mL/hr, Routine, Start date 01/03/25 6:42:00 EDT, 50 hour(s), Total volume (mL): 1,000, 95.7 kg, 2.08, m2 Prescriptions Prescribed Nexium 40 mg Cap-EC: 40 mg, Oral, Daily, Pharmacy may substitue PPI covered by insurance company, X 90 day(s), # 90 caplet(s), Refills(s) 3, [id number] 162, cm, 12/30/24 8:25:00 EDT, Height/Length Dosing, 95.7, kg, 12/30/24 8:25:00 EDT, Weight Dosing Vitamin D 50,000 intl units (1.25 mg) oral capsule: 50,000 International_Unit = 1 cap(s), Oral, qWeek, X 90 day(s), # 13 cap(s), Refills(s) 3, [id number], 162, cm, 12/30/24 8:25:00 EDT, Height/Length Dosing, 95.7, kg, 12/30/24 8:25:00 EDT, Weight Dosing ferrous gluconate 324 mg (38 mg elemental iron) oral tablet: 324 mg = 1 tab(s), Oral, TID, # 90 tab(s), Refills(s) 3, [id number], 162, cm, 12/30/24 8:25:00 EDT, Height/Length Dosing, 95.7, kg, 12/30/24 8:25:00 EDT, Weight Dosing Documented Medications Documented Phenergan: 25 mg, Oral, q6hr, PRN as needed for nausea/vomiting, Refills(s) 0 Vitamin B12: Oral, Daily, Oral, 0 Refill(s), Refills(s) 0, Prophylaxis Vitamin C: Oral, Daily, Refills(s) 0, Prophylaxis Xanax 0.5 mg Tab: 0.5 mg = 1 tab(s), Oral, Bedtime, PRN for anxiety, Refills(s) 0 cyclobenzaprine: Oral, 0 Refill(s), Refills(s) 0, Muscle pain dicyclomine 20 mg Tab: 20 mg = 1 tab(s), Oral, PRN Spasm, 20 Unknown, Oral, 0 Refill(s), Refills(s) 0 phentermine 37.5 mg Tab: Oral, 0 Refill(s), Refills(s) 0, Home Medications (10) Active cyclobenzaprine dicyclomine 20 mg Tab 20 mg = 1 tab(s), PRN, Oral ferrous gluconate 324 mg (38 mg elemental iron) oral tablet 324 mg = 1 tab(s), Oral, TID Nexium 40 mg Cap-EC 40 mg, Oral, Daily Phenergan 25 mg, PRN, Oral, q6hr phentermine 37.5 mg Tab Vitamin B12 , Oral, Daily Vitamin C , Oral, Daily Vitamin D 50,000 intl units (1.25 mg) oral capsule 50,000 International_Unit = 1 cap(s), Oral, qWeek Xanax 0.5 mg Tab 0.5 mg = 1 tab(s), PRN, Oral, Bedtime Problem list: All Problems Arthritis of spine / SNOMED CT 9047711380 / Confirmed Obesity / SNOMED CT [id number] / Confirmed Pseudotumor cerebri / SNOMED CT 507983880 / Confirmed Herniation of lumbar intervertebral disc with radiculopathy / SNOMED CT 565513130 / Confirmed Smoker / IMO [id number] / Confirmed Added secondary to documentation in Social History. Hematochezia / SNOMED CT 4467769746 / Confirmed Lower abdominal pain / SNOMED CT 63212087 / Confirmed Bilateral lower limb edema / SNOMED CT 0418689167 / Confirmed Benign essential hypertension / SNOMED CT 6141439 / Confirmed Obstructive sleep apnea syndrome / SNOMED CT 414338561 / Confirmed Obese class II / SNOMED CT 507660266960280 / Confirmed Nodule of lung / SNOMED CT 5073623350 / Confirmed Lumbosacral spondylosis without myelopathy / SNOMED CT 79817930 / Confirmed Low back pain / SNOMED CT 576896959 / Confirmed History of ulcerative colitis / SNOMED CT 028050673 / Confirmed S/P gastric sleeve procedure / SNOMED CT 0472322864 / Confirmed Hoarseness / SNOMED CT 883668497 / Confirmed Histories Past Medical History: Active Pseudotumor cerebri (335196958) Family History: Sister Primary malignant neoplasm of female breast Procedure history: Gastric sleeve ([id number]) on 07/07/2020 at 45 Years. Colonoscopy (procedure) (553490042) on 02/18/2019 at 43 Years. left L5-S1 discectomy on 08/04/2014 at 39 Years. Colonoscopy (601915542) on 07/22/2011 at 36 Years. EGD on 07/22/2011 at 36 Years. Hysterectomy (703473804). LAP-BAND surgery status ([id number]) . Abdominoplasty (749435222). Breast reduction (272609564). section (32511803). RSO - Right salpingo-oophorectomy (605542627). Exploratory laparotomy (111547518). Incidental appendectomy (173592155). Hernia repair (72119860). Social History Social & Psychosocial Habits Alcohol 12/30/2024 Risk Assessment: Low Risk 12/30/2024 Use: Current Type: Beer Frequency: 1-2 times per month Has alcohol use interfered with work or home life? No Do you ever drink more than intended? No Has anyone been hurt or at risk by your drinking? No Ready to change: No Concerns about alcohol use in household: No 12/30/2024 Use: Never Comment: Denies. - 08/05/2020 22:52 - Tobias SCOTT, Madyson A Exercise 12/30/2024 Risk Assessment: Occasional exercise Substance Abuse 12/30/2024 Risk As (more content not included)... [facility] Comment on above: Result Comment: Elec tronically Signed By: Nora BAGLEY, Hien Hernandez\.br\Date and Time Signed: 01/03/25 11:09 EDT 08-26-2024 Telephone encounter Note [facility] 08-26-2024 Miscellaneous Notes documented in this encounter [facility] 07-10-2024 History of Present illness Narrative Associated Problem(s): Hematochezia Blood with BM for months and refer to GI. Associated Problem(s): SELVIN (generalized anxiety disorder) (CMS/HCC) Symptoms unchanged and use xanax PRN. Associated Problem(s): Bilateral leg edema Edema worse and resume lasix. Elevated legs PRN. Limit sodium intake. Associated Problem(s): Benign essential hypertension (CMS/HCC) BP elevated and start losartan. Monitor PRN. Discussed DASH diet. Associated Problem(s): Abdominal cramping Frequent cramping and try bentyl. Follow with GI. Subjective Patient ID: Marycruz Ortiz is a 49 y.o. female who presents for Follow-up (Referral to gastro). C/o blood in stool for several months. Notice bright red blood with BM 2-3 times a day. Frequent cramping in lower abdomen and urgency for BM. Blood in toilet mixed with stool and with wiping. Last colonoscopy in 2018. Checking BP PRN and elevated. BP very elevated today. Edema worse and retaining fluid. Swelling in feet and ankles and worse at end of day. Prior lasix but not for years. Continues to have stress and anxiety. Nervous and worry all the time. Stressed out and overwhelmed. Thought racing and hard to clear mind. Heck, irritable and snapping at others. Easily upset and overreact. Uses xanax PRN and helps. Review of Systems Respiratory: Negative for cough, shortness of breath and wheezing. Cardiovascular: Negative for chest pain and palpitations. Gastrointestinal: Negative for abdominal pain, diarrhea, nausea and vomiting. Genitourinary: Negative for dysuria. Objective Physical Exam Constitutional: General: She is not in acute distress. Appearance: Normal appearance. HENT: Head: Normocephalic. Right Ear: Tympanic membrane normal. Left Ear: Tympanic membrane normal. Eyes: Extraocular Movements: Extraocular movements intact. Pupils: Pupils are equal, round, and reactive to light. Cardiovascular: Rate and Rhythm: Normal rate and regular rhythm. Heart sounds: No murmur heard. No friction rub. No gallop. Pulmonary: Effort: Pulmonary effort is normal. Breath sounds: Normal breath sounds. No wheezing, rhonchi or rales. Abdominal: General: Bowel sounds are normal. There is no distension. Palpations: Abdomen is soft. Tenderness: There is no abdominal tenderness. There is no guarding or rebound. Musculoskeletal: Cervical back: Neck supple. Right lower leg: No edema. Left lower leg: No edema. Neurological: Mental Status: She is alert. Assessment/Plan Problem List Items Addressed This Visit Benign essential hypertension (CMS/HCC) - Primary BP elevated and start losartan. Monitor PRN. Discussed DASH diet. Relevant Medications losartan (Cozaar) 25 MG tablet Bilateral leg edema Edema worse and resume lasix. Elevated legs PRN. Limit sodium intake. Relevant Medications furosemide (Lasix) 40 MG tablet SELVIN (generalized anxiety disorder) (CMS/HCC) Symptoms unchanged and use xanax PRN. Hematochezia Blood with BM for months and refer to GI. Relevant Orders Ambulatory referral to Gastroenterology Abdominal cramping Frequent cramping and try bentyl. Follow with GI. Relevant Medications dicyclomine (Bentyl) 20 MG tablet Other Relevant Orders Ambulatory referral to Gastroenterology documented in this encounter [facility] 05-24-2024 Telephone encounter Note [facility] 05-24-2024 Miscellaneous Notes documented in this encounter [facility] 04-25-2024 Telephone encounter Note [facility] 04-25-2024 Miscellaneous Notes documented in this encounter [facility] 12-22-2020 Note HNO ID: [id number] Author: Jazlyn Calderon RD Service: ? Author Type: Registered Dietitian Type: Progress Notes Filed: 12/22/2020 11:33 AM Note Text: Nutritional Therapy Re-Assessment Virtual Visit This visit was performed as a virtual/telehealth visit due to the COVID-19 pandemic as an effort to protect patients and minimize exposure. Consent from patient received to conduct visit virtually/telehealth. It required patient-provider interaction for the medical decision making as documented below. Nutrition Diagnosis: Altered Gastrointestinal Tract Function, related to, S/P bariatric surgery, as evidenced by increased protein needs, s/p LSG RECOMMENDED MALNUTRITION DIAGNOSIS: NO MALNUTRITION IDENTIFIED NUTRITION CARE PLAN: Nutrition Intervention 12/22/2020: 1. Continue Bariatric Fusion (2 tablets, 2x per day) 2. Eat 4 small meals per day or 3 meals and 1-2 small snacks for additional protein 3. Protein goal: 71-90 grams protein/day. Eat protein first at all meals. Lean meats, low fat/part skim dairy products, peanut butter, eggs, beans 4. Fluid goal: 64oz per day water. (no calories, no caffeine, no carbonation, no alcohol) 5. Exercise goal: 150-250 minutes combination cardio/strength training/week 6. Practice these: Eat protein first, vegetable and fruit second and whole grain carbohydrates last. * Separate eating and drinking by 30 minutes * Chew your food 20-30x per bite * Meals should last 30 minutes. 7. Advance to Phase 5 diet Nutrition Monitoring AND Evaluation: BMI <30 Need for Follow up: 6 months - call [phone] to schedule annual visit PROGRESS: Patient presents 6 months post LSG (07/07/2020). Patient has lost 40 lbs since initial assessment (225 lbs) accounting for 42% loss excess body weight (94 lbs). Tolerating stage 4 diet without difficulty. Protein needs estimated at 71-90 grams of protein per day (1.2 - 1.5 g/kg IBW). Diet recall indicates consistent meal pattern and appropriate use of protein shakes as meal replacements. Fluid consumption is adequate and appropriate. Patient is taking all recommended vitamin/minerals. Pt is very active and on her feet at work all day but does not do structured exercise outside of work. She may benefit from incorporating additional activity to promote further weight loss. Pt reports she has hit a weight loss plateau - she may not be eating adequate calories, pt will advance to phase 5 diet to incorporate more balanced meals/snacks. Nutrition Intervention 08/12/2020: 1. Protein: Continue to strive for 71-90 g protein per day. Eat protein first at all meals. Lean meats, low fat/part skim dairy products, peanut butter, eggs, beans. 2. Eat 4 small meals per day or 3 meals and 1-2 small snacks for additional protein 3. Fluids: 64 oz per day, minimum. No carbonation, no caffeine, no calories, no alcohol. 4. Vitamin/minerals: Continue daily Bariatric Fusion Multivitamin (2 tabs, 2x per day) 5. Exercise: strive for daily activity - combine strength training and cardio for best workouts. Goal is 30 minutes 5-6x per week. 6. Practice these: * Separate eating and drinking by 30 minutes * Chew your food 20-30x per bite * Meals should last 30 minutes. Diet History: - travels a lot for work Breakfast - protein shake Snack - cheesestick Lunch - protein shake Snack - cheese stick OR lunch meat Dinner - meat + vegetable +little to no starch Snack - none Beverages - water Alcohol - none Vitamins/Supplements - Bariatric Fusion 2 tablets twice daily Activity: Activities of Daily Living: active on her feet (walking) Additional Activity: none Anthropometrics: Height: Last 1 Encounter Ht Readings: Date: Ht: 08/12/2020 162.6 cm (5' 4 ) Current weight: Last 1 Encounter Wt Readings: Date: Wt: 10/05/2020 86.2 kg (190 lb) Body mass index is 31.74 kg/m?. Resting Metabolic Rate: 1489 Malnutrition Screening Significant unintentional weight loss? No Eating less than 75% of usual intake for more than 2 weeks? No Potential Signs of Inflammation: no identifiable sources Education Materials Provided: None this visit READINESS TO LEARN Cognitive ability: Alert and oriented Motivation to learn: Eager Family support: Unable to assess - Family not present Instruction provided to: Patient Patient learns best by: Multiple Methods Factors affecting learning: None Physical limitations affecting learning: None Start Time: 11:02 am Stop Time: 11:20 am Billed Time: 18 minutes SIGNATURE: Jazlyn Calderon RD PATIENT NAME: Marycruz Ortiz DATE: December 22, 2020 TIME: 9:15 AM PAGER: [id number] [facility] 10-05-2020 Note HNO ID: [id number] Author: Pancho Maldonado Service: ? Author Type: Physician Type: Progress Notes Filed: 10/05/2020 12:27 PM Note Text: BMI OM PostOp Clinic Note Distance Health Visit October 05, 2020 This visit was performed virtually due to the COVID-19 epidemic as an effort to protect patients and minimize exposure. Index Surgery Date of Surgery: 08/09/2018 Surgeon: Vincent Urena MD Surgical Procedure: LAPAROSCOPIC REMOVAL OF ADJUSTABLE GASTRIC BAND AND COMPONENTS Pre-surgical weight: 96.3 kg (212 lb 6.4 oz) Override Index Surgery Information? No Other Bariatric Surgeries Date of Surgery Surgeon Procedure 07/07/2020 Vincent Urena LAPAROSCOPIC LONGITUDINAL GASTRECTOMY, GASTRIC RESTRICTIVE PROCEDURE Visit: 2 years Today's Visit: There were no vitals taken for this visit. No weight on file for this encounter. Last Visit: Wt: 85.7 kg (189 lb) BMI: 32.44 kg/(m2) Total weight loss: 40+ lbs [place] weight: 66.1 kg (145 lb 10.6 oz) Excess weight: 30.3 kg (66 lb 11.8 oz) % of excess body weight lost: 96.3 kg (212 lb 6.4 oz) (318.26% of excess weight loss) COMPLICATIONS SINCE LAST VISIT?: NONE INTERVAL HISTORY Here for postop visit 3 months Frustrated that she is not losing more. DIET INTAKE: tolerating food intake Taking sufficient fluids. Protein shakes. Met with RDN DAILY SUPPLEMENTS: Yes, bariatric fusion x 4 per day Calcium: included in multivitamin Multivitamin AND Minerals: 1 per day Iron Supplement: included in multi-vitamin Vitamin B12: included in multivitamin Vitamin D3: included in multi-vitamin Other: Actigall 300 mg twice daily EXERCISE: Regular exercise daily. Active at work. TikTok videos, walking beach. SLEEP: MANINDER YES , CPAP No Are you attending any Support Groups? Not known Current Outpatient Medications Medication Sig - ALPRAZolam (XANAX) 0.5 mg tablet Take 0.5 mg by mouth as needed. - Ascorbic Acid (VITAMIN C) 1,000 mg tablet Take 1,000 mg by mouth once daily. - famotidine (PEPCID AC) 20 mg tablet Take 1 tablet by mouth twice daily. - ursodiol (ACTIGALL) 300 mg capsule Take 1 capsule by mouth twice daily. - CPAP AutoPAP 5-15 cmH2O, mask (pt pref), chin strap, heated tubing AND humidity, filters. Lifetime supplies. MANINDER: G47.33. - hydroCHLOROthiazide (HYDRODIURIL, ESIDRIX) 50 mg tablet Take 50 mg by mouth once daily. No current facility-administered medications for this visit. REVIEW OF SYSTEMS: Denies nausea, vomiting, dumping syndrome, reactive hypoglycemia, gustatory rhinorrhea, Denies abdominal pain, constipation, diarrhea, melena, hematochezia, Denies paresthesias, gait abnormality, fatigue, weakness, lower extremity edema and Denies taking NSAIDs OBESITY MEDICINE COMORBIDITIES: Obstructive Sleep Apnea Sleep Apnea no use CPAP, Bi-PAP or similar technology PHYSICAL EXAM: Virtual. NAD Assessment 45 year old F with Class I obesity 3 months. s/p LAPAROSCOPIC REMOVAL OF ADJUSTABLE GASTRIC BAND AND COMPONENTS, responding well, lost nearly 20% BW. Healthy lifestyle. Taking supplements regularly Off CPAP Patient Active Problem List Morbid obesity (HCC) MANINDER on CPAP HTN (hypertension) History of lumbosacral spine surgery Obesity, Class II, BMI 35-39.9 Epigastric pain LAP-BAND surgery status Food intolerance Lower GI bleeding Cheloid Lumbar disc herniation with radiculopathy Lung nodule Pseudotumor cerebri Resolved Hospital Problems No resolved problems to display. Plan - Continue Actigall and PPI DISPOSITION: Return 3 month to Post-op follow up/ individual office visit EDUCATION: Encouraged to continue with healthy lifestyle changes and incorporate cardiovascular and resistance training, Discussed weight loss expectations after bariatric and metabolic surgery, Advised PT to avoid NSAIDs, smoking tobacco given increased risk of marginal ulcers or Discussed importance of protein intake as per the RDN note REFERRALS: n/a LABS: in 2-3 months: See Epic Orders Pancho Maldonado MD I spent a total of 31 minutes on the date of the service which included preparing to see the patient, [id number] patient care, completing clinical documentation, counseling and educating the patient/family/caregiver and ordering medications, tests, or procedures. [facility] Evaluation + Plan note Future Appointments Appointment Date:09/02/2024 08:30:00 AM Scheduled Provider:Hien Melendez MD Location:[facility] Dig[facility]ive Health Appointment Type:[facility] Patient [facility] Digestive [facility] Evaluation + Plan note Future Appointments Appointment Date:09/19/2024 02:00:00 PM Scheduled Provider:Hien Melendez MD Location:[facility] Digestive [facility] Appointment Type:[facility] Patient [facility] Evaluation + Plan note Future Appointments Appointment Date:01/03/2025 11:05:00 AM Scheduled Provider: Location:[facility] Surgical Services Appointment Type:Surgery FT Future Scheduled TestsTIBC Calculated 12/30/24Ferritin 12/30/24Iron Level 12/30/24 [facility] Evaluation + Plan note Future Appointments Appointment Date:01/03/2025 11:05:00 AM Scheduled Provider: Location:[facility] Appointment Type:Surgery FT Diagnostic Tests PendingHepatitis B Surface Antibody 12/30/24Hepatitis B Surface Antigen 12/30/24Quantiferon-TB Plus (Client Incubated) 12/30/24 Future Scheduled TestsTIBC Calculated 12/30/24Ferritin 12/30/24Iron Level 12/30/24 [facility] Evaluation + Plan note Future Appointments Appointment Date:01/03/2025 11:05:00 AM Scheduled Provider: Location:[facility] Appointment Type:Surgery FT [facility] Evaluation + Plan note Future Appointments Appointment Date:03/13/2025 03:00:00 PM Scheduled Provider: Location:[facility] Appointment Type:ASU IV Other (FT) Appointment Date:04/10/2025 03:00:00 PM Scheduled Provider: Location:[facility] Appointment Type:ASU IV Other (FT) [facility] Evaluation note Diagnosis SELVIN (generalized anxiety disorder) (CMS/HCC)- Primary Generalized anxiety disorder [facility] Diagnosis Obesity (BMI 30-39.9) [facility] Diagnosis Annual physical exam- Primary Routine general medical examination at a health care facility Breast cancer screening by mammogram Benign essential hypertension (CMS/HCC) Essential hypertension, benign Obesity (BMI 30-39.9) Obesity (BMI 30-39.9) [facility] Diagnosis Annual physical exam- Primary Routine general medical examination at a health care facility Breast cancer screening by mammogram Benign essential hypertension (CMS/HCC) Essential hypertension, benign Obesity (BMI 30-39.9) Benign essential hypertension (CMS/HCC)- Primary Essential hypertension, benign Hematochezia Blood in stool Abdominal cramping Abdominal pain, unspecified site Bilateral leg edema Edema SELVIN (generalized anxiety disorder) (CMS/HCC) Generalized anxiety disorder [facility] Diagnosis Lumbar back pain Lumbago Obesity (BMI 30-39.9) [facility] Diagnosis Annual physical exam- Primary Routine general medical examination at a health care facility Breast cancer screening by mammogram Benign essential hypertension (CMS/HCC) Essential hypertension, benign Obesity (BMI 30-39.9) Benign essential hypertension (CMS/HCC)- Primary Essential hypertension, benign Hematochezia Blood in stool Abdominal cramping Abdominal pain, unspecified site Bilateral leg edema Edema SELVIN (generalized anxiety disorder) (CMS/HCC) Generalized anxiety disorder Obesity (BMI 30-39.9) SELVIN (generalized anxiety disorder) (CMS/HCC) Generalized anxiety disorder documented in this encounter [facility]* Diagnosis Annual physical exam- Primary Routine general medical examination at a health care facility Breast cancer screening by mammogram Benign essential hypertension (CMS/HCC) Essential hypertension, benign Obesity (BMI 30-39.9) Benign essential hypertension (CMS/HCC)- Primary Essential hypertension, benign Hematochezia Blood in stool Abdominal cramping Abdominal pain, unspecified site Bilateral leg edema Edema SELVIN (generalized anxiety disorder) (CMS/HCC) Generalized anxiety disorder Nausea Nausea alone Obesity (BMI 30-39.9) Lumbar back pain Lumbago documented in this encounter [facility]* Diagnosis Annual physical exam- Primary Routine general medical examination at a [facility] Breast cancer screening by mammogram Benign essential hypertension (CMS/HCC) Essential hypertension, benign Obesity (BMI 30-39.9) Benign essential hypertension (CMS/HCC)- Primary Essential hypertension, benign Hematochezia Blood in stool Abdominal cramping Abdominal pain, unspecified site Bilateral leg edema Edema SELVIN (generalized anxiety disorder) (CMS/HCC) Generalized anxiety disorder SELVIN (generalized anxiety disorder) (CMS/HCC) Generalized anxiety disorder documented in this encounter [facility]* Diagnosis Annual physical exam- Primary Routine general medical examination at a [facility] Breast cancer screening by mammogram Benign essential hypertension (CMS/HCC) Essential hypertension, benign Obesity (BMI 30-39.9) Benign essential hypertension (CMS/HCC)- Primary Essential hypertension, benign Hematochezia Blood in stool Abdominal cramping Abdominal pain, unspecified site Bilateral leg edema Edema SELVIN (generalized anxiety disorder) (CMS/HCC) Generalized anxiety disorder Obesity (BMI 30-39.9) documented in this encounter [facility]* Diagnosis Annual physical exam- Primary Routine general medical examination at a [facility] Breast cancer screening by mammogram Benign essential hypertension (CMS/HCC) Essential hypertension, benign Obesity (BMI 30-39.9) Benign essential hypertension (CMS/HCC)- Primary Essential hypertension, benign Hematochezia Blood in stool Abdominal cramping Abdominal pain, unspecified site Bilateral leg edema Edema SELVIN (generalized anxiety disorder) (CMS/HCC) Generalized anxiety disorder Nausea Nausea alone SELVIN (generalized anxiety disorder) (CMS/HCC) Generalized anxiety disorder documented in this encounter [facility]* Diagnosis Annual physical exam- Primary Routine general medical examination at a [facility] Breast cancer screening by mammogram Benign essential hypertension Essential hypertension, benign Obesity (BMI 30-39.9) Benign essential hypertension- Primary Essential hypertension, benign Hematochezia Blood in stool Abdominal cramping Abdominal pain, unspecified site Bilateral leg edema Edema SELVIN (generalized anxiety disorder) Generalized anxiety disorder Obesity (BMI 30-39.9) SELVIN (generalized anxiety disorder) Generalized anxiety disorder documented in this encounter [facility]* Diagnosis Annual physical exam- Primary Routine general medical examination at a [facility] Breast cancer screening by mammogram Benign essential hypertension Essential hypertension, benign Obesity (BMI 30-39.9) Benign essential hypertension- Primary Essential hypertension, benign Hematochezia Blood in stool Abdominal cramping Abdominal pain, unspecified site Bilateral leg edema Edema SELVIN (generalized anxiety disorder) Generalized anxiety disorder SELVIN (generalized anxiety disorder) Generalized anxiety disorder Obesity (BMI 30-39.9) documented in this encounter [facility]* Diagnosis Annual physical exam- Primary Routine general medical examination at a health care facility Breast cancer screening by mammogram Benign essential hypertension Essential hypertension, benign Obesity (BMI 30-39.9) Benign essential hypertension- Primary Essential hypertension, benign Hematochezia Blood in stool Abdominal cramping Abdominal pain, unspecified site Bilateral leg edema Edema SELVIN (generalized anxiety disorder) Generalized anxiety disorder Benign essential hypertension- Primary Essential hypertension, benign SELVIN (generalized anxiety disorder) Generalized anxiety disorder Crohn's disease of both small and large intestine without complication (HCC) Bilateral leg edema Edema Class 2 severe obesity due to excess calories with serious comorbidity and body mass index (BMI) of 37.0 to 37.9 in adult (CMS-HCC) Annual physical exam Routine general medical examination at a health care facility documented in this encounter [facility] Narrative No data available for this section [facility] Discharge instructions No data available for this section [facility] Progress note No data available for this section [facility] Summary Purpose Family History No Family History Records FoundNo Family History Records FoundNo Family History Records FoundNo Family History Records FoundNo Family History Records Found No data available for this section No data available for this section No data available for this section No Family History Records FoundNo Family History Records FoundNo Family History Records Found No data available for this section No Family History Records Found No data available for this section No Family History Records Found No data available for this section No Family History Records FoundNo Family History Records FoundNo Family History Records FoundNo Family History Records FoundNo Family History Records FoundNo Family History Records FoundNo Family History Records FoundNo Family History Records FoundNo Family History Records Found No data available for this section No Family History Records FoundNo Family History Records FoundNo Family History Records Found No data available for this section No Family History Records FoundNo Family History Records Found Advance Directives No Advanced Directives Records FoundNo Advanced Directives Records FoundNo Advanced Directives Records FoundNo Advanced Directives Records FoundNo Advanced Directives Records FoundNo Advanced Directives Records FoundNo Advanced Directives Records FoundNo Advanced Directives Records FoundNo Advanced Directives Records FoundNo Advanced Directives Records FoundNo Advanced Directives Records FoundNo Advanced Directives Records FoundNo Advanced Directives Records FoundNo Advanced Directives Records FoundNo Advanced Directives Records FoundNo Advanced Directives Records FoundNo Advanced Directives Records FoundNo Advanced Directives Records FoundNo Advanced Directives Records FoundNo Advanced Directives Records FoundNo Advanced Directives Records FoundNo Advanced Directives Records FoundNo Advanced Directives Records FoundNo Advanced Directives Records Found Additional Source Comments INFORMATION SOURCE (unrecogn ized section and content) DATE CREATED AUTHOR 08/27/2019 [facility] DATE CREATED AUTHOR AUTHOR'S ORGANIZ ATION 10/03/2019 [facility] DATE CREATED AUTHOR AUTHOR'S ORGANIZ ATION 09/29/2021 [facility] DATE CREATED AUTHOR AUTHOR'S ORGANIZ ATION 06/27/2022 [facility] DATE CREATED AUTHOR AUTHOR'S ORGANIZ ATION 09/22/2023 [facility] DATE CREATED AUTHOR AUTHOR'S ORGANIZ ATION 12/30/2024 [facility] DATE CREATED AUTHOR AUTHOR'S ORGANIZ ATION 12/31/2024 [facility] DATE CREATED AUTHOR AUTHOR'S ORGANIZ ATION 01/01/2025 [facility] DATE CREATED AUTHOR AUTHOR'S ORGANIZ ATION 01/08/2025 [facility] DATE CREATED AUTHOR AUTHOR'S ORGANIZ ATION 01/10/2025 [facility] DATE CREATED AUTHOR AUTHOR'S ORGANIZ ATION 01/11/2025 [facility] DATE CREATED AUTHOR AUTHOR'S ORGANIZ ATION 01/12/2025 [facility] DATE CREATED AUTHOR AUTHOR'S ORGANIZ ATION 01/23/2025 [facility] DATE CREATED AUTHOR AUTHOR'S ORGANIZ ATION 03/15/2025 [facility] DATE CREATED AUTHOR AUTHOR'S ORGANIZ ATION 03/19/2025 Krystian Parson [facility] Reason for Visit (unrecogniz ed section and content) Reason Onset Date Comments Med Refill 09/19/2023 Reason Comments Med Refill Reason Comments Follow-up Referral to gastro Reason Comments Follow-up Med refills Care Teams (unrecognized sec tion and content) [employer] Relationship Specialty Start Date End Date Mata Villalba MD PCP - General Family Medicine 04/14/23 [employer]er Relationship Specialty Start Date End Date Mata Villalba MD [address] [place] [phone] PCP - General Family Medicine 01/10/24 [employer]er Relationship Specialty Start Date End Date Mata Villalba MD [address] [place] [phone] PCP - General Family Medicine 01/10/24 [employer]er Separation [employer]er Relationship Specialty Start Date End Date Mata Villalba MD [address] [place] [phone] PCP - General Family Medicine 01/10/24 [employer]er Separation [employer]er Relationship Specialty Start Date End Date Mata Villalba MD [address] [place] [phone] PCP - General Family Medicine 01/10/24 [employer]er Separation Designer Relationship Specialty Start Date End Date Mata Villalba MD [address] [place] [phone] PCP - General Family Medicine 01/10/24 [employer]er Separation Designer Relationship Specialty Start Date End Date Mata Villalba MD [address] [place] [phone] PCP - General Family Medicine 01/10/24 [employer]er Separation [employer]er Relationship Specialty Start Date End Date Mata Villalba MD [address] [place] [address] PCP - General Family Medicine 01/10/24 [employer] Separation [employer]er Relationship Specialty Start Date End Date Mata Villalba MD [address] [place] [phone] PCP - General Family Medicine 01/10/24 Mata Villalba MD [address] [place] [phone] PCP - [place] [employer] 08/14/24 [employer]er Separation Designer Relationship Specialty Start Date End Date Mata Villalba MD [address] [place] [phone] PCP - General Family Medicine 01/10/24 Mata Villalba MD [address] [place] [phone] PCP - [place] [employer] 08/14/24 [employer] Separation [employer]er Relationship Specialty Start Date End Date Mata Villalba MD [address] [place] [address] PCP - General Family Medicine 01/10/24 [employer] Separation [employer]er Relationship Specialty Start Date End Date Mata Villalba MD [address] [place] [phone] PCP - General Family Medicine 01/10/24 [employer]er Separation Designer Relationship Specialty Start Date End Date Mata Villalba MD [address] [place] [address] PCP - General Family Medicine 01/10/24 FOR RECORDS PERTAINING TO PATIENTS WHO ARE OR HAVE BEEN ENROLLED IN A CHEMICAL DEPENDENCY/SUBSTANCEABUSE PROGRAM, SOME INFORMATION MAY BE OMITTED. This clinical summary was aggregated from multiple sources. Caution should be exercised in using it in the provision of clinical care. This summary normalizes information from multiple sources, and as a consequence, information in this document may materially change the coding, format and clinical context of patient data. In addition, data may be omitted in some cases. CLINICAL DECISIONS SHOULD BE BASED ON THE PRIMARY CLINICAL RECORDS. [employer] [facility] provides no warranty or guarantee of the accuracy or completeness of information in this document.
[2025-04-02 11:24] LABS: Hematocrit 38.8 % (36.0-48.0); Hemoglobin 12.4 g/dL (12.0-16.0); Immature Granulocytes Abs Auto 0.03 10^3/uL (0.00-0.03); Immature Granulocytes Pct Auto 0.4 % (0.0-0.5); Lymphocytes Absolute Auto 2.5 10^3/uL (1.2-3.8); Mean Corpuscular HGB Conc 32.0 g/dL (29.9-35.2); Mean Corpuscular Hemoglobin 23.0 pg (26.7-34.0); Mean Corpuscular Volume 72.1 fL (81.0-99.0); Platelet Count 401 10^3/uL (150-450); Red Blood Count 5.38 10^6/uL (4.20-5.40); White Blood Count 8.5 10^3/uL (4.0-11.0)
[2025-04-02 11:54] LABS: Alanine Aminotransferase 28 U/L (14-59); Albumin Globulin Ratio 0.9; Albumin Level 3.7 g/dL (3.4-5.0); Alkaline Phosphatase 99 U/L (46-116); Anion Gap 13.9; Aspartate Amino Transferase 20 U/L (15-37); Blood Urea Nitrogen 11.0 mg/dL (7.0-18.0); Calcium 8.8 mg/dL (8.5-10.1); Carbon Dioxide 23.7 mmol/L (21.0-32.0); Chloride 105 mmol/L (98-107); Cholesterol 232 mg/dL (<=200); Estimated GFR (African America >60 (>=60 mL/min/1.73m^2); Estimated GFR (Non-African Ame 57 (>=60 mL/min/1.73m^2); Globulin 4.0 g/dL; Glucose 102 mg/dL (74-106); HDL Cholesterol 53 mg/dL (40-60); Potassium 3.6 mmol/L (3.5-5.1); Sodium 139 mmol/L (136-145); TSH W/ REFLEX FT4 3.909 uIU/mL (0.358-3.740); Total Protein 7.7 g/dL (6.4-8.2); Triglycerides 151 mg/dL (<=150); VLDL CHOLESTEROL 30.2 mg/dL
== END 2025-04-02 10:38 | disposition home or self-care (01) ==
PROVIDERS: PCP Family Medicine; Visit Provider Family Medicine
DX: Z00.00 Encounter for general adult medical examination without abnormal findings (principal)
CPT/HCPCS: 36415; 80048; 80061; 80076; 83036; 84439; 84443; 85025

== ENCOUNTER 2025-06-02 08:51 | Outpatient (OUT) | payer BC, SELFPAY ==
--- OUTSIDE RECORDS SUMMARY | 2025-06-02 08:58 | XMS_ITS | CCD ---
Author Organization [facility] Care Team Providers Care Clay Carman Name Role Phone MARKER, DR ZEE Admitting Unavailable NADERER, DR MATA Hawkins Primary Care Unavailable MARKER, DR ZEE Attending Unavailable MARKER, DR ZEE Consulting Unavailable STARK, LOUISE Consulting Unavailable NADERER, DR MATA Hawkins Consulting Unavailable NADERESnow, DR MATA Hawkins Primary Care Unavailable NADERESnow, DR MATA Hawkins Admitting Unavailable NADERER, DR MATA Hawkins Attending Unavailable Orly BAGLEY, Mata Primary Care Provider Orly BAGLEY, Mata Primary Care Provider MTAA VILLALBA Primary Care Physician Orly BAGLEY, Mata Unavailable Hien Melendez Talal Attending Unavaila ble [...] ble Sarmini, Stanford Talal Attending Unavaila ble MATA VILLALBA Attending Unavailable MATA VILLALBA Attending Unavailable Sarmini, Hien Talal Admitting Unavaila ble Sarmini, Stanford Talal Attending Unavaila ble Sarmini, Stanford Talal Referring Unavaila ble Sarmini, Stanford Talal Attending Unavaila ble Sarmini, Hien Talal Attending Unavaila ble Sarmini, Stanford Talal Admitting Unavaila ble Sarmini, Stanford Talal Attending Unavaila ble Sarmini, Stanford Talal Referring Unavaila ble Sarmini, Stanford Talal Admitting Unavaila ble Sarmini, Stanford Talal Attending Unavaila ble Sarmini, Stanford Talal Referring Unavaila ble NO FAMILY, PHYSICIAN Primary Care Provider Unava ilable Mata Villalba MD Attending Provider Mata Villalba MD Primary Care Provider [phone] Mata Villalba Admitting Unavailable Mata Villalba Attending Unavailable Mata Villalba Primary Care Unavailable Allergies Allergy Classification Reported Allergen(s) Allergy Type Date of Onset Reaction(s) Facility (20 sources) Vancomycin; Translations: [vancomycin] Drug Allergy 07-01-2020 [facility] (5 sources) Acetaminophen / HYDROcodone; Translations: [Vicodin] Drug Allergy [facility] (5 sources) Acetaminophen / oxyCODONE; Translations: [Percocet 5/325] Drug Allergy [facility] Medications Current Medications Medication Drug Class(es) Dates Sig (Normalized) Sig (Original) [id number] 200 actuat albuterol 0.09 mg/actuat metered dose inhaler (2 sources) beta2-Adrenergic Agonist Start: 04-17-2025 take 1 puff(s) by inhalation every four hours as needed for wheezing Albuterol (Eqv-ProAir HFA) 90 mcg/inh inhalation aerosol (1 source) Start: 05-02-2025 Albuterol (Eqv-ProAir HFA) 90 mcg/inh inhalation aerosol See Instructions, Refill(s) 0 Start Date: 05/02/25 Status: Ordered Repeat number: 1 ALPRAZolam 0.5 mg oral tablet (20 sources) Benzodiazepine Start: 04-30-2025 End: 04-30-2025 take 1 tablet by mouth three times daily as needed for anxiety Start: 08-05-2020 End: 03-13-2025 take 1 tablet by mouth three times daily as needed for anxiety ALPRAZolam (Xanax) 0.5 MG tablet Indications: SELVIN (generalized anxiety disorder) Take 1 tablet (0.5 mg) by mouth 3 (three) times a day as needed for anxiety 90 tablet 2 03/13/2025 Active Ascorbic Acid (9 sources) Vitamin C Start: 08-05-2020 Vitamin C [...] oral liquid 1 (one) time Active cyclobenzaprine hydrochlorid e 10 mg oral tablet (20 sources) Muscle Relaxant Start: 05-01-2025 End: 05-20-2025 take 1 tablet by mouth three times daily as needed for muscle spasms Start: 12-23-2024 take 1 tablet by lara th three times daily as needed cyclobenzaprine (Flexeril) [...] Start Date: 01/25/24 Status: Ordered dicyclomine hydrochloride 10 mg oral capsule (20 sources) Anticholinergic Start: 05-02-2025 End: 06-27-2025 take 1 capsule by mouth four times daily Bentyl 10 mg Cap 10 mg = 1 cap(s), Oral, QID, X 14 day(s), # 56 cap(s), Refills(s) 3, Pharmacy: [facility]/pharmacy #[id number], 162, cm, 05/02/25 9:20:00 EDT, Height/Length Dosing, 98.3, kg, 05/02/25 9:20:00 EDT, Weight Dosing Start Date: 05/02/25 Stop Date: 06/27/25 Status: Ordered Quantity: 56.0 Unit: cap(s) Repeat number: 4 Start: 07-17-2024 take 1 tablet by lara th four [...] 60 tablet 3 07/10/2024 Active Start: 07-09-2024 ergocalciferol 1.25 mg oral capsule (2 sources) Provitamin D2 Compound Start: 05-26-2025 take 1 capsule by mouth every week esomeprazole 40 mg delayed release oral capsule (8 sources) Proton Pump Inhibitor Start: 12-30-2024 End: 12-25-2025 take 1 capsule by mouth once daily famotidine 20 mg oral tablet (6 sources) Histamine-2 Receptor Antagonist Start: 08-05-2020 take 1 tablet by mouth twice daily Pepcid 20 mg Tab 20 mg = 1 tab(s), Oral, BID, Refills(s) 0 Start Date: 08/05/20 Status: Ordered Repeat number: 1 ferrous gluconate 324 mg oral tablet (4 sources) Start: 12-31-2024 ferrous gluconate 324 mg (38 mg elemental iron) oral tablet 324 mg = 1 tab(s), Oral, TID, # 90 tab(s), Refills(s) 3, Pharmacy: [facility]/pharmacy #[id number], 162, cm, 12/30/24 8:25:00 EDT, Height/Length Dosing, 95.7, kg, 12/30/24 8:25:00 EDT, Weight Dosing Start Date: 12/31/24 Status: Ordered Quantity: 90.0 Unit: tab(s) Repeat number: 4 ferrous sulfate 324 mg delayed release oral tablet (2 sources) Start: 05-26-2025 take 1 tablet by mouth once daily fidaxomicin 200 mg oral tablet (2 sources) Macrolide Antibacterial Start: 01-07-2025 End: 03-04-2025 take 1 tablet by mouth twice daily fidaxomicin 200 mg oral tablet 200 mg = 1 tab(s), Oral, BID, X 14 day(s), # 28 tab(s), Refills(s) 3, Pharmacy: [facility]/pharmacy #[id number], 162, cm, 01/03/25 10:06:00 EDT, [...] 07/10/2024 Discontinued furosemide 40 mg oral tablet (20 sources) Loop Diuretic Start: 04-30-2025 End: 05-05-2025 take 1 tablet by mouth once daily Start: 11-11-2024 take 1 tablet by lara th once [...] blood pressure Start Date: 09/29/18 Status: Ordered Ibgard 90 mg oral delayed release capsule (1 source) Start: 03-05-2025 take 2 capsules by mouth twice daily Ibgard 90 mg oral delayed release capsule 180 mg = 2 cap(s), Oral, BID, # 60 cap(s), Refills(s) 0, Pharmacy: [facility]/pharmacy #[id number], 162, cm, 01/10/25 11:09:00 EDT, Height/Length Dosing, 95.7, kg, 01/10/25 11:09:00 EDT, Weight Dosing Start Date: 03/05/25 Status: Ordered Quantity: 60.0 Unit: cap(s) Repeat number: 1 levothyroxine sodium 0.05 mg oral capsule (6 sources) l-Thyroxine Start: 05-02-2025 levothyroxine 50 mcg, Daily, Refills(s) 0 Start Date: 05/02/25 Status: Ordered Repeat number: 1 Start: 05-01-2025 End: 05-20-2025 take 1 capsule by mouth once daily Start: 04-03-2025 take 1 tablet by lara th before mealtime levothyroxine (Synthroid) 50 MCG tablet Indications: Adult hypothyroidism Take 1 tablet (50 mcg) by mouth in the morning. Take before meals. 30 tablet 3 04/03/2025 Active losartan potassium 100 mg oral tablet (20 sources) Angiotensin 2 Receptor Bharathi Start: 05-26-2025 take 1 tablet by mouth once daily Start: 05-01-2025 End: 05-26-2025 take 1 tablet by mouth once daily Losartan 50 mg tablet Discontinued 50 MG PO Daily 30 5 May 22, 2025 7:26am May 26, 2025 10:30am Start: 03-13-2025 take 1 tablet by lara [...] follow instructions per packaging and physician's handout, [facility]/pharmacy #[id number], 162, cm, 12/30/24 8:25:00 EDT, Height/Length Dosing, 95.7, kg, 12/30/24 8:25:00 EDT, Weight Dosing Start Date: 12/30/24 Status: Ordered Quantity: 1.0 Unit: EA Repeat number: 1 Multivitamin, Therapeutic w/ Minerals (3 sources) Start: 08-05-2020 Multivitamin, Therapeutic w/ Minerals Oral, Daily, Refill(s) 0 Start Date: 08/05/20 Status: Ordered polyethylene glycol 3350 61190 mg powder for oral solution (1 source) Osmotic Laxative Start: 05-02-2025 take 17 g by mouth once daily Miralax 3350 17 gram packet 17 gm, Oral, Daily, # 72 EA, Refills(s) 3, Pharmacy: [facility]/pharmacy #[id number], 162, cm, 05/02/25 9:20:00 EDT, Height/Length Dosing, 98.3, kg, 05/02/25 9:20:00 EDT, Weight Dosing Start Date: 05/02/25 Status: Ordered Quantity: 72.0 Unit: EA Repeat number: 4 predniSONE 5 mg oral tablet (2 sources) Start: 01-03-2025 take 1 tablet by mouth once daily predniSONE 5 mg Tab See Instructions, 1 tab(s) Oral Daily, # 260 tab(s), Refills(s) 0, Pharmacy: [facility]/pharmacy #[id number], 162, cm, 01/03/25 10:06:00 EDT, Height/Length Dosing, 95.7, kg, 01/03/25 10:06:00 EDT, Weight Dosing Start Date: 01/03/25 Status: Ordered Quantity: 260.0 Unit: tab(s) Repeat number: 1 promethazine hydrochloride 25 mg oral tablet (20 sources) Phenothiazine Start: 04-30-2025 take 1 tablet by mouth every six hours as needed for nausea and vomiting Start: 04-13-2025 take 1 tablet by lara th every six hours for nausea and nausea promethazine (Phenergan) 25 MG tablet Indications: Nausea TAKE 1 TABLET BY MOUTH EVERY 6 HOURS NEEDED 30 tablet 1 04/13/2025 Active Start: 02-18-2019 End: 04-13-2025 take 1 tablet by mouth every six hours for nausea and nausea promethazine (Phenergan) 25 MG tablet Indications: Nausea TAKE 1 TABLET BY MOUTH EVERY 6 HOURS NEEDED 30 tablet 1 01/17/2025 04/13/2025 Discontinued Skyrizi (1 source) Start: 05-02-2025 Skyrizi q4wk, Refills(s) 0 Start Date: 05/02/25 Status: Ordered Repeat number: 1 Risankizumab-Rzaa (2 sources) Start: 05-26-2025 Start: 05-26-2025 Risankizumab-R zaa (Skyrizi) 360 mg/2.4 mL (150 mg/mL) wearable injector Active MG SUBCUT May 26, 2025 12:00am Complies with drug therapy Risankizumab-rzaa (Skyrizi) 150 MG/ML solution prefilled syringe (4 sources) Risankizumab-rza a (Skyrizi) 150 MG/ML solution prefilled syringe Inject under the skin Active simethicone 180 mg oral capsule (1 source) Start: 5 take 1 capsule by mouth four times daily simethicone 180 mg oral capsule 180 mg = 1 cap(s), Oral, QID, # 60 cap(s), Refills(s) 3, Pharmacy: [facility]/pharmacy #[id number], 162, cm, 05/02/25 9:20:00 EDT, Height/Length Dosing, 98.3, kg, 05/02/25 9:20:00 EDT, Weight Dosing Start Date: 05/02/25 Status: Ordered Quantity: 60.0 Unit: cap(s) Repeat number: 4 Tirzepatide-Weight Management (Zepbound) 2.5 MG/0.5ML solution auto-injector (6 sources) Start: 4 End: 4 inject 2.5 mg by subcutaneous injection every [...] injectable solution (20 sources) Vitamin B12 Start: 05-01-2025 End: 05-20-2025 inject 1000 ug by intramuscular injection every month Start: 02-18-2025 cyanocobalamin (Vitamin B-12) 1000 MCG/ML [...] MONTHLY DIRECTED 3 mL 11 02/01/2024 Active Zofran ODT 4 mg Tab-Dis (1 source) Start: 05-02-2025 take 1 tablet by mouth every eight hours as needed for nausea Zofran ODT 4 mg Tab-Dis 4 mg = 1 tab(s), Oral, q8hr, PRN Nausea/Vomiting, # 30 tab(s), Refills(s) 6, Pharmacy: [facility]/pharmacy #[id number], 162, cm, 05/02/25 9:20:00 EDT, Height/Length Dosing, 98.3, kg, 05/02/25 9:20:00 EDT, Weight Dosing Start Date: 05/02/25 Status: Ordered Quantity: 30.0 Unit: tab(s) Repeat number: 7 Completed/Discontinued Medications Medication Drug Class(es) Dates Sig (Normalized) Sig (Original) phentermine hydrochloride 37.5 mg oral tablet (20 sources) Sympathomimetic Amine Anorectic Start: 04-30-2025 End: 05-26-2025 take 1 tablet by mouth once daily 30 minutes after breakfast Phentermine (Adipex-P) 37.5 mg tablet Discontinued 37.5 MG PO Daily May 12, 2025 12:59pm May 26, 2025 10:29am Obesity, class 2 Morbid (severe) obesity due to excess calories Body mass index [BMI] 37.0-37.9, adult must administer 30 minutes before or 1-2 hours after breakfast Start: 04-13-2025 take 37-37.9 tablets by mouth before mealtime phentermine (Adipex-P) 37.5 MG tablet Indications: Class 2 severe obesity due to excess calories with serious comorbidity and body mass index (BMI) of 37.0 to 37.9 in adult ([facility]) TAKE 1 TABLET BY MOUTH IN THE MORNING BEFORE MEALS 30 tablet 04/13/2025 Active Start: 03-25-2024 End: 04-13-2025 take 37-37.9 tablets by mouth before mealtime phentermine (Adipex-P) 37.5 MG tablet Indications: Class 2 severe obesity due to excess calories with serious comorbidity and body mass index (BMI) of 37.0 to 37.9 in adult ([facility]) Take 1 tablet (37.5 mg) by mouth in the morning. Take before meals. 30 tablet 03/13/2025 04/13/2025 Discontinued Vitamin D 50,000 intl units (1.25 mg) oral capsule (4 sources) Start: 12-31-2024 End: 12-26-2025 take 1 capsule by mouth every week Vitamin D 50,000 intl units (1.25 mg) oral capsule 50,000 International_Unit = 1 cap(s), Oral, qWeek, X 90 day(s), # 13 cap(s), Refills(s) 3, Pharmacy: [facility]/pharmacy #[id number], 162, cm, 12/30/24 8:25:00 EDT, Height/Length Dosing, 95.7, kg, 12/30/24 8:25:00 EDT, Weight Dosing Start Date: 12/31/24 Stop Date: 12/26/25 Status: Ordered Quantity: 13.0 Unit: cap(s) Repeat number: 4 Problems Active Problems Problem Classification Problem Date Documented Da te Episodic/Chronic Abdominal pain (20 sources) Finding of sensation of abdomen; Translations: [Unspecified abdominal pain] Onset: 4 Resolved: 5 07-10-2024 Episodic Anxiety disorders (20 sources) Generalized anxiety disorder; Translations: [Generalized anxiety disorder] Onset: 4 09-19-2023 Chronic Cardiac dysrhythmias (4 sources) Palpitations; Translations: [Palpitations] 05-26-2025 Episodic Diabetes mellitus without complication (1 source) Prediabetes; Translations: [Prediabetes] 05-26-2025 Episodic Essential hypertension (20 sources) Essential (primary) hypertension; Translations: [Benign essential hypertension] Onset: 2 01-10-2024 Chronic Gastrointestinal hemorrhage (20 sources) Blood-tinged feces; Translations: [Melena] Onset: 4 Resolved: 5 07-10-2024 Episodic Intestinal infection (3 sources) Clostridium difficile diarrhea 01-03-2025 Episodic Comment on above: Problem added second amira to positive C-Diff lab result. Nausea and vomiting (3 sources) Nausea; Translations: [Nausea] 08-23-2024 Episodic Nutritional deficiencies (1 source) Iron deficiency; Translations: [Iron deficiency] Onset: 5 Episodic Other gastrointestinal disorders (20 sources) History of laparoscopic adjustable gastric banding; Translations: [Bariatric surgery status] Onset: 4 01-10-2024 Episodic Other gastrointestinal disorders (6 sources) H/O: gastrointestinal disease; Translations: [Personal history of other diseases of the digestive system] Onset: 4 Episodic Other gastrointestinal disorders (9 sources) H/O: ulcerative colitis 07-26-2024 Episodic Other gastrointestinal disorders (2 sources) Abnormal feces; Translations: [Other fecal abnormalities] Onset: 5 Episodic Other lower respiratory disease (9 sources) Nodule of lung 07-26-2024 Episodic Other nervous system disorders (1 source) Other chronic pain; Translations: [OTHER CHRONIC PAIN] Onset: 2 Chronic Other nervous system disorders (9 sources) Benign intracranial hypertension 07-30-2014 Chronic Other nutritional; endocrine; and metabolic disorders (1 source) Hypercalcemia; Translations: [HYPERCALCEMIA] Onset: 2 Chronic Other nutritional; endocrine; and metabolic disorders (20 sources) Body mass index 30+ - obesity; Translations: [Obesity, unspecified] Onset: 4 05-23-2024 Chronic Other nutritional; endocrine; and metabolic disorders (9 sources) Obese class II Onset: 8 07-26-2024 Chronic Other nutritional; endocrine; and metabolic disorders (9 sources) Obesity 07-30-2014 Chronic Other nutritional; endocrine; and metabolic disorders (9 sources) Severe obesity; Translations: [Class 2 severe obesity due to excess calories with serious comorbidity and body mass index (BMI) of 37.0 to 37.9 in adult ([facility])] Onset: 4 03-13-2025 Chronic Other screening for suspected conditions (not mental disorders or infectious disease) (4 sources) Bacterial growth present; Translations: [Serum iron low] 01-10-2025 Episodic Other upper respiratory disease (3 sources) Difficulty talking; Translations: [Dysphonia] Onset: 5 Episodic Other upper respiratory disease (6 sources) Hoarse 12-30-2024 Episodic Regional enteritis and ulcerative colitis (8 sources) Crohn's disease of small AND large intestines; Translations: [Crohn's disease of both small and large intestine without complications] Onset: 5 03-13-2025 Chronic Residual codes; unclassified (9 sources) Obstructive sleep apnea syndrome Onset: 0 [...] disc disorders; other back problems (20 sources) Dorsalgia, unspecified; Translations: [Low back pain] Onset: 2 04-24-2024 Episodic Substance-related disorders (10 sources) Nicotine dependence, cigarettes, uncomplicated; Translations: [Smoker] Onset: 2 08-17-2015 Chronic Comment on above: Added secondary to d ocumentation in Social History. Thyroid disorders (4 sources) Hypothyroidism; Translations: [Hypothyroidism, unspecified] Onset: 5 04-03-2025 Chronic Unclassified (2 sources) LOW BACK PAIN, UNSPECIFIED; Translations: [LOW BACK PAIN, UNSPECIFIED] Onset: 2 Unclassified (9 sources) History of sleeve gastrectomy 07-26-2024 Past or Other Problems Problem Classification Problem Date Documented Da te Episodic/Chronic E Codes: Fall (1 source) Fall (on) (from) unspecified stairs and steps, initial encounter; Translations: [FALL ON FROM UNS STAIRS STEPS INIT] Onset: 11-24-2021 Episodic Other aftercare (1 source) Other senior care (current) drug therapy; Translations: [OTH 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 THERAPY] Onset: 11-24-2021 Episodic Sprains and strains (1 source) Unspecified sprain of left foot, initial encounter; Translations: [UNSPECIFIED SPRAIN LT FOOT INITIAL] Onset: 11-24-2021 Episodic Unclassified (1 source) LOW BACK PAIN, UNSPECIFIED; Translations: [LOW BACK PAIN, UNSPECIFIED] Onset: 11-23-2021 Unclassified (2 sources) Finding of sensation of abdomen 07-10-2024 Results Test Name Value Interpretation Reference Range Facility Ambulatory Visit Summaryon 0 05-02-2025 Ambulatory Visit Summary Ambulatory Visit Summary MARYCRUZ ORTIZ :1975 Visit Date:05/02/2025 Ambulatory Visit Instructions Your Diagnosis History of ulcerative colitis Hematochezia Hoarseness Stool culture positive for Clostridium difficile Low iron Your Care Team Attending Physician - Nora BAGLEY, Hien Hernandez Primary Care Physician - ORLY BAGLEY, MATA This Is Your Medications List dicyclomine (Bentyl 10 mg Cap) ondansetron (Zofran ODT 4 mg Tab-Dis) polyethylene glycol 3350 (Miralax 3350 17 gram packet) simethicone (simethicone 180 mg oral capsule) Contact prescribing physician if questions or concerns albuterol (Albuterol (Eqv-ProAir HFA) 90 mcg/inh inhalation aerosol) alprazolam (Xanax 0.5 mg Tab) ascorbic acid (Vitamin C) cyanocobalamin (Vitamin B12) cyclobenzaprine dicyclomine (dicyclomine 20 mg Tab) ergocalciferol (Vitamin D 50,000 intl units (1.25 mg) oral capsule) esomeprazole (Nexium 40 mg Cap-EC) ferrous gluconate (ferrous gluconate 324 mg (38 mg elemental iron) oral tablet) levothyroxine losartan (losartan 50 mg Tab) peppermint oil (Ibgard 90 mg oral delayed release capsule) promethazine (Phenergan) risankizumab (Skyrizi) Procedures Performed Gastric sleeve (07/07/2020), Colonoscopy (02/18/2019), left L5-S1 discectomy (08/04/2014), Colonoscopy (07/22/2011), EGD (07/22/2011), Abdominoplasty, Breast reduction, section, Exploratory laparotomy, Hernia repair, Hysterectomy, Incidental appendectomy, LAP-BAND surgery status...., RSO - Right salpingo-oophorectomy. Discharge Vitals Height 162 cm Height 64 in Weight 98.3 kg Weight 216.714 lb BMI 37.46 What to do next You Need to Complete the Following Calprotectin, Fecal, Stool, Routine collect, 05/02/25, Order for future visit, Nurse collect, History of ulcerative colitis Hematochezia, Print Label By Order Location CBC w/ Auto Diff, Blood, Routine collect, 05/02/25, Order for future visit, Lab Collect, Hematochezia Hoarseness, Print Label By Order Location Comprehensive Metabolic Panel, Blood, Routine collect, 05/02/25, Order for future visit, Lab Collect, Hematochezia Hoarseness, Print Label By Order Location Ferritin, Blood, Routine collect, 05/02/25, Order for future visit, Lab Collect, Hematochezia Hoarseness, Print Label By Order Location Iron Level, Blood, Routine collect, 05/02/25, Order for future visit, Lab Collect, Hoarseness Hematochezia, Print Label By Order Location TIBC Calculated, Blood, Routine collect, 05/02/25, Order for future visit, Lab Collect, Hoarseness Hematochezia, Print Label By Order Location Medications What How Much When Instructions New dicyclomine (Bentyl 10 mg Cap) 1 Capsules By Mouth 4 times a day Duration: 14 Days Refills: 3 Pickup at [facility]/pharmacy #[id number] New ondansetron (Zofran ODT 4 mg Tab-Dis) 1 Tablets By Mouth Every 8 hours as needed for Nausea/Vomiting Refills: 6 Pickup at [facility]/pharmacy #[id number] New polyethylene glycol 3350 (Miralax 3350 17 gram packet) 17 Gram By Mouth Every day Refills: 3 Pickup at [facility]/pharmacy #[id number] New simethicone (simethicone 180 mg oral capsule) 1 Capsules By Mouth 4 times a day Refills: 3 Pickup at [facility]/pharmacy #[id number] Unchanged albuterol (Albuterol (Eqv-ProAir HFA) 90 mcg/ inh inhalation aerosol) See instructions Contact prescribing physician if questions or concerns Unchanged alprazolam (Xanax 0.5 mg Tab) 1 [...] prescribing physician if questions or concerns Unchanged levothyroxine 50 Microgram Every day Contact prescribing physician if questions or concerns Unchanged losartan (losartan 50 mg Tab) 1 Tablets Contact prescribing physician if questions or concerns Unchanged peppermint oil (Ibgard 90 mg oral delayed release capsule) 2 Capsules By Mouth 2 times a day Contact prescribing physician if ques (more content not included)... Normal [facility] Gastroenterology Office/Clin ic Noteon 05-02-2025 Gastroenterology Office/Clinic Note Gastroenterology Office/Clinic Note Chief Complaint 2 month follow up HPI Staff Established patient is a(n) 49 year old female who presents today for a(n) 4 month follow up. Pharmacy was unable to get [facility] prior to [place]'s trip [place] 01/10[place]. Vanco script given in place. Pt received IV inductions 02/13/25, 03/13/25 and 04/10/25. Since starting infusions, she has had severe fatigue, joint ache, panic attacks, short of breath (started albuterol inhaler) she is still nauseated, wanted to know if we could do a refill on zofran. OBI due 05/08/25. Had trouble with servicing pharmacy. Re-ran benefit investigation and script was sent to [facility]. Waiting for them to run benefits. Any blood thinners? no. Any GLP-1 agonists? no. Laboratory Results CBC CMP Basophil Absolute: 0.1 [...] fL Low (12/30/24) Chloride: 104 mmol/L (12/30/24) [place] Absolute: 0.6 E9/L (12/30/24) CO2: 26 mmol/L (12/30/24) [place] Auto: 10.2 % (12/30/24) Creatinine: 0.8 mg/dL [...] Low (12/31/24) TIBC: 511 mcg/dL High (12/31/24) Hep Bs Ab Reactive (12/30/24) Hep Bs Ag Negative (12/30/24) TB Negative (12/30/24) History of Present Illness Reviewed HPI collected by staff Review of Systems PHQ Score Initial Depression Screen Score: 0 SCORE All systems reviewed, negative; Except for above Physical Exam Vitals & Measurements HT: 162 cm HT: 64 in WT: 98.3 kg WT: 216.714 lb BMI: 37.46 No acute distress Assessment/Plan 1. History of ulcerative colitis (Z87.19: Personal history of other diseases of the digestive system) Diagnosed in 2019, did not start treatment She had hematochezia on and off for few years, but usually it stops after few days or a month max. Has been a chronic issue, has never lasted this long. Was having 3+ BMs daily with urgency [...] based on the pattern of inflammation Colonoscopy 12/2024: Small internal hemorrhoids, Severe colitis in the left colon characterized by ulcers in the rectum, erosions through the left colon, decreased vascular pattern, friability and erythema, Anaya score 3. Couple small erosions in the transverse colon. Biopsy showed chronic active colitis, mild. No granuloma or dysplasia Discussed Health Maintenance: Mediterranean diet recommended Avoid NSAIDs Discussed treatment options- benefits and risks. Infliximab vs Humira, with Imuran or Skyrizi. Proceeded with Syrizi, had 3 injections. Previously on steroids Since starting infusions, she has had severe fatigue, joint ache, panic attacks, short of breath (started albuterol inhaler) Some constipation now Having left sided abdominal pain, taking IBGard C/o bloating, likely related to constipation C Diff was positive, Dificid prescribed, finished course - Continue IBGard - Advised to use MiraLAX and titrate to have 1-2 bowel movements every day - Bentyl and Simethicone prescribed - Stool testing ordered, in 3 months - Colonoscopy in 3 months to evaluate. Discussed risks such as bleeding, injury and perforation as well as benefits. Patient agreeable. 2. Hematochezia (K92.1: Melena) 3. Hoarseness (R49.0: Dysphonia) Hx of gastric sleeve, thinks it was done in 2019 Occasional heartburn symptoms, taking Nexium Also she describes early satiety Continues to have hoarseness EGD 12/2024: Evidence of surgery in the stomach with gastric sleeve anatomy, diffuse nonspecific patchy erythema with multiple small erosions in the body of the stomach. Pathology (more content not included)... [facility] Comment on above: Result Comment: Elec tronically Signed By: Nora BAGLEY, Hien Hernandez\.br\Date and Time Signed: 05/02/25 11:41 EDT\.br\Electronically Co-Signed By: Bibiana Tao MA\.br\Date and Time Co-Signed: 05/02/25 10:24 EDT ALL CBC WITH AUTO DIFFon [facility]HILS [facility] Bas[facility]/100 WBC (Bld) 0.9 % 0.2 - 2.0 % [facility] Eosinophils/100 WBC (Bld) 1.9 % 0.9 - 7.0 % [facility] Erythrocyte distribution width (RBC) [Ratio] 17.4 % High 11.0 - 15.0 % [facility] Hematocrit (Bld) [Volume fraction] 38.8 % 36.0 - 48.0 % [facility] Hemoglobin (Bld) [Mass/Vol] 12.4 g/dL 12.0 - 16.0 g/dL [facility] IMMATURE GRANULOCYTES ABS AUTO 0.03 [facility] Immature granulocytes/100 WBC (Bld) 0.4 % 0.0 - 0.5 % [facility] Interpretation and review of laboratory results Abnormal [facility] LYMPHOCYTES ABSOLUTE AUTO 2.5 [facility] Lymphocytes/100 WBC (Bld) 29.3 % 20.5 - 60.0 % [facility] MCH (RBC) [Entitic mass] 23 pg Low 26.7 - 34.0 pg [facility] MCHC (RBC) [Mass/Vol] 32 g/dL 29.9 - 35.2 g/dL [facility] MCV (RBC) [Entitic vol] 72.1 fL Low 81.0 - 99.0 fL [facility] MONOCYTES ABSOLUTE AUTO 0.7 [facility] Monocytes/100 WBC (Bld) 8 % 1.7 - 12.0 % [facility] NEUTROPHILS ABSOLUTE AUTO 5.1 [facility] Neutrophils/100 WBC (Bld) 59.5 % 43.0 - 75.0 % [facility] Platelet mean volume (Bld) [Entitic vol] 9 fL Low 9.5 - 13.5 fL [facility] TBH EO # 0.2 [facility] TB PLT [address] [facility] RBC 5.[address] [facility] WBC 8.5 [facility] Gastroenterology Office/Clin ic Noteon 01-21-2025 Gastroenterology Office/Clinic Note Gastroenterology Office/Clinic Note Chief Complaint Dificid not approved. [facility] Staff Patient is a(n) 49 year old [...] fL Low (12/30/24) Chloride: 104 mmol/L (12/30/24) [facility] Absolute: 0.6 E9/L (12/30/24) CO2: 26 mmol/L (12/30/24) [facility] Auto: 10.2 % (12/30/24) Creatinine: 0.8 mg/dL [...] inflammation Colonoscopy (more content not included)... [facility] Comment on above: Result Comment: Elec tronically Signed By: Megan Mcdonnell MA\.br\Date and Time Signed: 01/21/25 09:49 EDT Ambulatory Visit Summaryon 0 01-10-2025 Ambulatory Visit Summary Ambulatory Visit Summary MARYCRUZ ORTIZ :1975 Visit Date:01/10/2025 Ambulatory Visit Instructions Your [...] Follow Up with Nora BAGLEY, KA[facility], [facility] When: In 3 months Where: [address] [place], [place] [address]jonathan, [address] [address] [phone] Medications What How Much When Instructions Unchanged [...] for choosing us for your care. [facility] Surgical Pathology Reporton 01-10-2025 Surgical Pathology Report [address] [address]- Surgical Pathology Report Collected Date/Time: 01/03/2025 11:17 [...] 11:17 EDT Pathologist: Dinesh BAGLEY PhD, Jessica aHney Received Date/Time: 01/03/2025 12:32 EDT Nora BAGLEY, [...] recognition technology and might contain unintended computerized supplies packer errors. The use of one or more reagents in the above tests is regulated as an analyte specific reagent (ASR). The test or tests are ordered following initial H&E microscopic examination. The performance characteristics were determined by the [facility]. They have not been cleared [...] recognition technology and might contain unintended computerized supplies packer errors. [facility] Comment on above: Performed By: #### 4 [id number] #### [facility] [address] [place] [address] Main OR Intraoperative Recor don 01-07-2025 Main OR Intraoperative Record Main OR Intraoperative Record IntraOp Document Type FT Summary Primary Physician: Hien Melendez MD Finalized Date/Time: 01/07/25 11:06:42 Pt. Name: MARYCRUZ ORTIZ/Sex: 1975 Female Med Rec #: [id number] Physician: Hien Melendez MD Financial #: [id number] Pt. Type: O Room/Bed: / Admit/Disch: 01/03/25 09:52:45 - 01/03/25 23:59:59 Institution: Case Times FT Entry 1 Patient Times In Room 01/03/25 11:06:00 Out Room 01/03/25 11:36:00 Procedure Times Start 01/03/25 11:11:00 Stop 01/03/25 11:32:00 Anesthesia Times Start 01/03/25 11:06:00 Stop 01/03/25 11:36:00 Time at [facility] 01/03/25 11:19:00 Last Modified By: Antonio SCOTT, Debora King 01/03/25 11:36:05 General Comments: 1113 EGD completed. /MD,RN 1117 Colonoscopy started. /MD,RN Case Attendance FT Entry 1 Entry 2 Entry 3 Case Attendee Ez LICENSED INVESTMENT SALES ASSISTANT, Igor Alvarez RN, Mateo Trejo Role Performed LICENSED INVESTMENT SALES ASSISTANT School Commissioner - Primary Scrub - Primary Time In 01/03/25 11:06:00 01/03/25 11:06:00 01/03/25 11:06:00 Time Out 01/03/25 11:36:00 01/03/25 11:36:00 01/03/25 11:36:00 Procedure EGD AND COLONOSCOPY(.) EGD AND COLONOSCOPY(.) EGD AND COLONOSCOPY(.) Comments Dr. Cruz supervising case Last Modified By: Antonio RN, Debora Alvarez RN, Debora Alvarez RN, Debora F 01/03/25 11:36:06 F 01/03/25 11:36:06 F 01/03/25 11:36:06 Entry 4 Entry 5 Case Attendee Nori AGRAWAL, Nadine Melendez MD, Hien Hernandez Role Performed Staff - Other Surgeon - Primary Time In 01/03/25 11:06:00 01/03/25 11:06:00 Time Out 01/03/25 11:36:00 01/03/25 11:36:00 Procedure EGD AND COLONOSCOPY(.) EGD AND COLONOSCOPY(.) Comments help in room Last Modified By: Antonio RN, Debora Alvarez RN, Debora F 01/03/25 11:36:06 F 01/03/25 11:36:06 Perioperative Protocols [...] Igor Hui CRNA, Given Participants Antonio SCOTT, Debora King, Mateo Caballero, Nori AGRAWAL, Nora Geller MD, Hien Hernandez [...] and tissue Entry 1 Skin Integrity Intact, [place], Warm, & Skin Abnormality No Dry Outcomes Met? Yes Last Modified By: Antonio SCOTT, Debora King 01/03/25 11:15:58 Post-Care Text: The patient is free from signs and symptoms of inj (more content not included)... [facility] Lab Miscellaneous-LCon 01-06 Lab Miscellaneous COMMENT Invalid Interpretation Code [facility] Comment on above: Result Comment: Test Ordered: [id number] C difficile Toxins A+B, EIA C difficile Toxins A+B, EIA Negative CB Reference Range: Negative Performed at: [facility] [address] [id number] PhD Tana Harris Performed By: #### 1 [id number] #### [facility] [address] [place] [address] C. diff by PCRon 01-03-2025 C. diff by PCR Clostridium difficil e by PCR Specimen Positive for toxigenic C. difficile by DNA amplification. Repeat specimens for this patient will not be accepted for the next 10 Days. ASM Guidelines recommend against using laboratory assays as tests of cure . Abnormal Negative [facility] Comment on above: Result Comment: Resu lts Called To Dr. Melendez By [id number] And Read Back For Confirmation On 01/03/2025 16:54:42 EDT. This test result should be correlated with clinical presentations and medical history by a healthcare provider to determine its clinical significance.\.br\.br\ Other Comment: Order added by Discern Expert. Clostridium difficile by PCR Positive Abnormal Negative [facility] Comment on above: Order Comment: Order added by Discern Expert. Result Comment: Resu lts Called To Dr. Melendez By [id number] And Read Back For Confirmation On 01/03/2025 16:54:42 EDT. This test result should be correlated with clinical presentations and medical history by a healthcare provider to determine its clinical significance. Performed By: #### 4 [id number] #### [facility] [address] [place] [address] CDiff PCRon 01-03-2025 C. difficile toxin A+B Ql (Stl) No, PCR to follow Normal [facility] Comment on above: Performed By: #### 3 [id number] #### [facility] [address] [place] [id number] CDiff PCR Order Cancelled Specimen has been found to be acceptable for C. difficile testing. Normal [facility] Discharge Instructionson Discharge Instructions Discharge Instructions MARYCRUZ ORTIZ :1975 Visit Date:01/03/2025 Inpatient Discharge Instructions Your Care Team Admitting Physician - Hien Melendez MD Referring Physician - Nora BAGLEY, Hien Hernandez [...] Follow Up with Nora BAGLEY, Hien Hernandez [facility] When: Comments: call office to schedule follow up Where: [address], [address] [phone] Medications What How Much When Instructions Next Dose New predniSONE (predniSONE 5 mg Tab) See instructions 1 tab(s) Oral Daily Pickup at [facility]/pharmacy #[id number] Unchanged alprazolam (Xanax 0.5 mg Tab) 1 [...] for as needed for nausea/vomiting Pharmacy Information [facility]/pharmacy #[id number]: [address], [place] [phone] Test Results No qualifying data available. Allergies [...] normal acti (more content not included)... [facility] Comment on above: Result Comment: Elec tronically Signed By: Mariama SCOTT, Shanae\.br\Date and Time Signed: 01/03/25 11:51 EDT Discharge Instructions Discharge Instructions EMSETHABELAARTITUYET Rocha :1975 Visit Date:01/03/2025 Inpatient Discharge Instructions Your [...] after Discharge Follow Up with Nora BAGLEY, [facility], [facility] When: Comments: call office to schedule follow up Where: [address] [place] [address], [address] [phone] Medications What How Much When Instructions Next Dose New predniSONE (predniSONE 5 mg Tab) See instructions 1 tab(s) Oral Daily Pickup at [facility]/pharmacy #[id number] Unchanged alprazolam (Xanax 0.5 mg Tab) 1 [...] for as needed for nausea/vomiting Pharmacy Information [facility]/pharmacy #[id number]: [address], [place] [phone] Test Results No qualifying data available. Allergies [...] normal acti (more content not included)... [facility] Comment on above: Result Comment: Elec tronically Signed By: Mariama SCTOT, Shanae\.br\Date and Time Signed: 01/03/25 11:50 EDT Enteric Panel by PCRon 01-03 C. coli+jejuni+upsaliens is DNA PACO+non-probe Ql (Stl) Not detected [facility] Comment on above: Result Comment: Test ing was performed utilizing reverse supplies packer (RT), polymerase chain reaction (PCR), and array [...] nulcleic acid test. Performed By: #### 1 [id number] #### [facility] [address] [place] [address] E. coli stx1 gene PACO+probe Ql (Unsp spec) Not detected [facility] Comment on above: Performed By: #### 1 [id number] #### [facility] [address] [place] [address] E. coli stx1+stx2 genes PACO+non-probe Ql (Stl) Negative [facility] Comment on above: Performed By: #### 1 [id number] #### [facility] [address] [place] [address] E. coli stx2 gene PACO+probe Ql (Unsp spec) Not detected [facility] Comment on above: Performed By: #### 1 [id number] #### [facility] [address] [place] [address] Enteric Panel by PCR Shiga Tox Interp Negative for Shiga Toxin producing E. coli Normal [facility] Enteric Panel Intrl QC Pass Normal [facility] Comment on above: Result Comment: Test ing was performed utilizing reverse supplies packer (RT), polymerase chain reaction (PCR), and array [...] 1 and 2. Performed By: #### 1 [id number] #### [facility] [address] [place] [address] Norovirus genogroup I+II RNA PACO+non-probe Ql (Stl) Not detected [facility] Comment on above: Performed By: #### 1 [id number] #### [facility] [address] [place] [address] Rotavirus A RNA PACO+non-probe Ql (Stl) Not detected [facility] Comment on above: Performed By: #### 1 [id number] #### [facility] [address] [place] [address] S. enterica+bongori DNA PACO+non-probe Ql (Stl) Not detected [facility] Comment on above: Result Comment: This test result should be correlated with clinical presentations and medical history by a healthcare provider to determine its clinical significance. Performed By: #### 1 [id number] #### [facility] [address] [place] [address] Shigella species+EIEC invasion plasmid antigen H ipaH gene PACO+non-probe Ql (Stl) Not detected [facility] Comment on above: Performed By: #### 1 [id number] #### [facility] [address] [place] [address] V. cholerae+parahaemolyt icus+vulnificus DNA PACO+non-probe Ql (Stl) Not detected [facility] Comment on above: Performed By: #### 1 [id number] #### [facility] [address] [place] [address] Y. enterocolitica DNA PACO+non-probe Ql (Stl) Not detected [facility] Comment on above: Performed By: #### 1 [id number] #### [facility] [address] [place] [address] Inpatient Patient Summaryon 01-03-2025 Inpatient Patient Summary Inpatient Patient Summary [address] [address] [facility] Clinical Discharge Instructions PERSON INFORMATION Name: MARYCRUZ ORTIZ [facility]#:[id number] PHYSICIANS Admitting Physician: Hien Melendez MD Attending Physician: Hien Melendez MD PCP: MATA VILLALBA MD Discharge Diagnosis: Acute GI bleeding Comment: PATIENT [...] needed as needed for nausea/vomiting. Comment: Normal [facility] Miscellaneous-LCon 01-03 Source stool Invalid Interpretation Code [facility] Comment on above: Performed By: #### 1 [id number] #### [facility] [address] [place] [address] Test Code 413221 Invalid Interpretation Code [facility] Comment on above: Performed By: #### 1 [id number] #### [facility] [address] [place] [address] Test Name Cdiff Toxin EIA Invalid Interpretation Code [facility] Comment on above: Performed By: #### 1 [id number] #### [facility] [address] [place] [address] Main OR Intraoperative Recor don 01-03-2025 Main OR Intraoperative Record Main OR Intraoperative Record IntraOp Document Type FT Summary Primary Physician: Hien Melendez MD Finalized Date/Time: 01/03/25 11:36:12 Pt. Name: MARYCRUZ ORTIZ/Sex: 1975 Female Med Rec #: [id number] Physician: Hien Melendez MD Financial #: [id number] Pt. Type: O Room/Bed: / Admit/Disch: 01/03/25 [...] 1 Entry 2 Entry 3 Case Attendee Igor Hui CRNA, RN, Mateo Trejo Role Performed LICENSED INVESTMENT SALES ASSISTANT School Commissioner - Primary Scrub - Primary Time In [...] Participants Antonio SCOTT, Ada John Micala E, Nroi AGRAWAL, Nora Geller MD, Hien Hernandez Time [...] and tissue Entry 1 Skin Integrity Intact, [place], Warm, & Skin Abnormality No Dry Outcomes Met? Yes Last Modified By: Debora Alvarez RN 01/03/25 11:15:58 Post-Care Text: The patient is free from signs and symptoms of injury caused by extran (more content not included)... Normal [facility] Main OR PACU II Recordon Main OR PACU II Record Main OR PACU II Record PACU Phase II Document Type FT Summary Primary Physician: Hien Melendez MD Finalized Date/Time: 01/03/25 12:39:43 Pt. Name: EMDEEPTHIMARYCRUZ/Sex: 1975 Female Med Rec #: [id number] Physician: Hien Melendez MD Financial #: [id number] Pt. Type: O Room/Bed: / Admit/Disch: 01/03/25 [...] By: Shanae Leslie RN 01/03/25 12:39 Normal [facility] Main OR Preoperative Recordo n 01-03-2025 Main OR Preoperative Record Main OR Preoperative Record Holding Area Document Type FT Summary Primary Physician: Hien Melendez MD Finalized Date/Time: 01/03/25 10:06:00 Pt. Name: CINDYMARYCRUZ/Sex: 1975 Female Med Rec #: [id number] Physician: Hien Melendez MD Financial #: [id number] Pt. Type: O Room/Bed: / Admit/Disch: 01/03/25 [...] of Pain: Yes Pain Comment: Abd pain 03/23 Operative Site n/a Availability Equipment Marking: Verified: Does Patient Smoke No Patient states Yes Comment - Adult Sister/mom postop adult Supervision supervision available Case Cancelled in No Holding Area see comments below for reason Last Modified By: Dee Kwan RN 01/03/25 10:05:55 General Comments: Pt completed prep at 0700 and remained NPO since/SONIA WALSH Finalized By: Dee Kwan RN Document Signatures Signed By: Dee Kwan RN 01/03/25 10:06 [facility] Outpatient Surgery Discharge Instructionon 01-03-2025 Outpatient Surgery Discharge Instruction Outpatient Surgery Discharge Instruction [place] [id number] Patient Discharge Instructions PERSON INFORMATION Name: MARYCRUZ ORTIZ Date of : 1975 Current Date: 01/03/2025 11:09:23 PHYSICIANS Admitting Physician: Hien Melendez MD Discharge Diagnosis: Acute GI bleeding MARYCRUZ ORTIZ [...] were given Patient Signature Date Clinican/Nurse Signature ___ Date Follow up: Pharmacy Information: You may receive a survey from Robert Krishnan asking you to rate your care experience. Your feedback is important and will help us understand what we do well and how we can improve the quality of care we provide to you, your loved ones and our community. It???s an honor to serve you. Thank you for choosing [facility] HERE ARE THE MEDICATION CHANGES THAT OCCURRED [...] PATIENT EDUCATION INFORMATION Instructions: Medication Leaflets: Normal [facility] Quantiferon-TB Plus (Client Incubated)on 01-01-2025 Gamma interferon background IA Qn (Bld) 0.04 International_Unit/mL Invalid Interpretation Code [facility] Comment on above: Performed By: #### 1 [id number] ####[place] [address] [place] [address] M. tuberculosis stim IFN-g by CD4+ CD8+ T-cells corrected for background Qn (Bld) 0.04 International_Unit/mL Invalid Interpretation Code [facility] Comment on above: Performed By: #### 1 [id number] ####[place] [address] [place] [address] M. tuberculosis stim IFN-g by CD4+ T-cells corrected for background Qn (Bld) 0.05 International_Unit/mL Invalid Interpretation Code [facility] Comment on above: Performed By: #### 1 [id number] ####[place] [address] M. tuberculosis stim IFN-g Ql (Bld) [Interp] Negative Invalid Interpretation Code Negative [facility] Comment on above: Result Comment: No [...] interferon gamma. Chemiluminescence immunoassay methodology Performed at: [employer] [id number] PhD Tana Harris Performed By: #### 1 [id number] ####[place] [address] [place] [address] Mitogen stimulated gamma interferon corrected for background Qn (Bld) >10.00 Invalid Interpretation Code [facility] Comment on above: Performed By: #### 1 [id number] ####[place] [address] [place] [id number] Service comment (Unsp spec) [Interp] Comment Invalid Interpretation Code [facility] Comment on above: Result Comment: Asad [...] for the test. Performed By: #### 1 [id number] ####[facility] [address] [place] [address] CHEMISTRYOrdered By: SYSTEM SYSTEM on 12-31-2024 Ferritin [Mass/Vol] 4 ng/mL Low 11 - 307 ng/mL Remisol Chem Iron [Mass/Vol] 19 ug/dL Low 35 - 153 mcg/dL Remisol Chem Iron binding capacity [Mass/Vol] 511 ug/dL High 250 - 400 mcg/dL Remisol Chem Transferrin [Mass/Vol] 365 mg/dL Normal 200 - 370 mg/dL Remisol Chem Ferritinon 12-31-2024 Ferritin [Mass/Vol] 4 ng/mL Low 11-307 [facility] Comment on above: Performed By: #### 2 [id number] #### [facility] [address] [place] [address] Hep Bs Abon 12-31-2024 HBV surface Ab Ql (S) Reactive Invalid Interpretation Code [facility] Comment on above: Result Comment: Non Reactive: Not immune to HBV infection. Equivocal: Unable to determine if anti-HBs is present at levels consistent with immunity. Reactive: Anti-HBs concentration detected at greater than 10 mIU/mL. Individual is considered to be immune to infection with HBV. Performed at: [employer] [address] [id number] PhD Tana Harris Performed By: #### 2 [id number] #### [facility] [address] [place] [address] Hep Bs Agon 12-31-2024 HBV surface Ag IA Ql Negative Invalid Interpretation Code Negative [facility] Comment on above: Result Comment: Perf ormed at: [employer] [address] [id number] PhD Tana Harris Performed By: #### 2 [id number] #### [facility] [address] [place] [address] Ironon 12-31-2024 Iron [Mass/Vol] 19 microgram/dL Low 35-153 [facility] Comment on above: Performed By: #### 2 [id number] #### [facility] [address] [place] [address] TIBC Calculatedon 12-31-2024 Iron binding capacity [Mass/Vol] 511 microgram/dL High 250-400 [facility] Comment on above: Performed By: #### 1 [id number] #### [facility] [address] [place] [address] Transferrin [Mass/Vol] 365 mg/dL Normal 200-370 [facility] Comment on above: Performed By: #### 1 [id number] #### [facility] [address] [place] [address] Ambulatory Visit Summaryon 0 12-30-2024 Ambulatory Visit [...] PPI covered by insurance company Pickup at [facility]/pharmacy #[id number] New magnesium sulfate/ potass Cl/ sodium sulf (Sutab oral tablet) See instructions Please follow instructions per packaging and physician's handout Pickup at [facility]/pharmacy #6143 Unchanged alprazolam (Xanax 0.5 mg Tab) 1 [...] physician if questions or concerns Pharmacy Information [facility]/pharmacy #6177: [address], [place] [phone] Allergies vancomycin (Hives) Problems Ongoing - Any [...] you for choosing us for your care. [facility] Ambulatory Visit Summary Ambulatory Visit Summary MARYCRUZ [...] Pharmacy may substitue PPI covered by insurance Oesiaup at [facility]/pharmacy #6194 New magnesium sulfate/ potass Cl/ sodium sulf (Sutab oral tablet) See instructions Please follow instructions per packaging and physician's handout Pickup at [facility]/pharmacy #6189 Unchanged alprazolam (Xanax 0.5 mg Tab) 1 [...] physician if questions or concerns [facility] [address], [place] [phone] Allergies vancomycin (Hives) Problems Ongoing - Any [...] for choosing us for your care. Normal [facility] CBC w/ Auto Diffon 5 Basophils/100 WBC (Bld) 1.2 % Normal 0.0-2.0 [facility] Comment on above: Performed By: #### 2 [id number] #### [facility] [address] [place] [address] Basophils/Leukocytes Auto (Bld) [Pure # fraction] 0.1 E9/L Normal 0.0-0.2 [facility] Comment on above: Performed By: #### 2 [id number] #### [facility] [address] [place] [address] Eosinophils (Bld) [#/Vol] 0.4 E9/L Normal 0.0-0.5 [facility] Comment on above: Performed By: #### 2 [id number] #### [facility] [address] [place] [address] Eosinophils/100 WBC (Bld) 6.5 % Normal 0.0-8.0 [facility] Comment on above: Performed By: #### 2 [id number] #### [facility] [address] [place] [address] Erythrocyte distribution width (RBC) [Ratio] 16.6 % High 10.9-14.2 [facility] Comment on above: Performed By: #### 2 [id number] #### [facility] [address] [place] [address] Hematocrit (Bld) [Volume fraction] 31.8 % Low 34.0-46.0 [facility] Comment on above: Performed By: #### 2 [id number] #### [facility] [address] [place] [address] Hemoglobin (Bld) [Mass/Vol] 10.2 g/dL Low 12.0-16.0 [facility] Comment on above: Performed By: #### 2 [id number] #### [facility] [address] [place] [address] Hypochromia Auto Ql (Bld) PRESENT Invalid Interpretation Code [facility] Comment on above: Performed By: #### 2 [id number] #### [facility] [address] [place] [address] Lymphocytes (Bld) [#/Vol] 1.6 E9/L Normal 1.0-4.0 [facility] Comment on above: Performed By: #### 2 [id number] #### [facility] [address] [place] [address] Lymphocytes/100 WBC (Bld) 25.4 % Normal 14.0-50.0 [facility] Comment on above: Performed By: #### 2 [id number] #### [facility] [address] [place] [address] MCH (RBC) [Entitic mass] 22.7 pg Low 27.0-34.0 [facility] Comment on above: Performed By: #### 2 [id number] #### [facility] [address] [place] [address] MCHC (RBC) [Mass/Vol] 32.0 g/dL Normal 31.4-36.0 [facility] Comment on above: Performed By: #### 2 [id number] #### [facility] [address] [place] [address] MCV (RBC) [Entitic vol] 71.0 fL Low 80.0-100.0 [facility] Comment on above: Performed By: #### 2 [id number] #### [facility] [address] [place] [address] Monocytes (Bld) [#/Vol] 0.6 E9/L Normal 0.2-1.0 [facility] Comment on above: Performed By: #### 2 325105 #### [facility] [address] [place] [address] Neutrophils (Bld) [#/Vol] 3.5 E9/L Normal 2.0-7.5 [facility] Comment on above: Performed By: #### 2 [id number] #### [facility] [address] [place] [address] Neutrophils/100 WBC (Bld) 56.7 % Normal 36.0-75.0 [facility] Comment on above: Performed By: #### 2 [id number] #### [facility] [address] [place] [address] Platelet 431.0 E9/L Normal 150.0-500.0 [facility] Comment on above: Performed By: #### 2 [id number] #### [facility] [address] [place] [address] Platelet mean volume (Bld) [Entitic vol] 6.5 fL Normal 6.4-10.8 [facility] Comment on above: Performed By: #### 2 [id number] #### [facility] [address] [place] [address] RBC (Bld) [#/Vol] 4.5 E12/L Normal 4.3-5.9 [facility] Comment on above: Performed By: #### 2 [id number] #### [facility] [address] [place] [address] RBC size Nom (Bld) SEE MORPHOLOGY Invalid Interpretation Code [facility] Comment on above: Performed By: #### 2 [id number] #### [facility] [address] [place] [address] WBC corrected for nucl RBC Auto (Bld) [#/Vol] 6.3 E9/L Normal 4.0-11.0 [facility] Comment on above: Performed By: #### 2 [id number] #### [facility] [address] [place] [address] CHEMISTRYOrdered By: SYSTEM SYSTEM on 12-30-2024 25-hydroxyvitamin [...] CRP [Mass/Vol] 0.7 mg/dL Normal <=1.9mg/dL Remisol Ch em eGFR 89 mL/min/1.73 m2 Normal >=59mL/min /1 [...] 12-30-2024 Albumin [Mass/Vol] 4.1 g/dL Normal 3.3-5.0 [facility] Comment on above: Performed By: #### 2 [id number] #### [facility] [address] [place] [address] Albumin/Globulin (S) [Mass conc ratio] 1.3 Normal 1.1-2.2 [facility] Comment on above: Performed By: #### 2 687144 #### [facility] [address] [place] [address] ALP [Catalytic activity/Vol] 104 Int._Unit/L High 21-98 [facility] Comment on above: Performed By: #### 2 [id number] #### [facility] [address] [place] [address] ALT No additional P-5'-P [Catalytic activity/Vol] 16 Int._Unit/L Normal 6-46 [facility] Comment on above: Performed By: #### 2 [id number] #### [facility] [address] [place] [address] Anion gap [Moles/Vol] 10 mmol/L Normal 6-16 [facility] Comment on above: Performed By: #### 2 615779 #### [facility] [address] [place] [address] AST [Catalytic activity/Vol] 16 Int._Unit/L Normal 5-43 [facility] Comment on above: Performed By: #### 2 352136 #### [facility] [address] [place] [address] Bilirubin [Mass/Vol] 0.3 mg/dL Normal 0.0-1.1 [facility] Comment on above: Performed By: #### 2 740993 #### [facility] [address] [place] [address] Calcium [Mass/Vol] 8.7 mg/dL Low 8.9-11.1 [facility] Comment on above: Performed By: #### 2 728419 #### [facility] [address] [place] [address] Chloride [Moles/Vol] 104 mmol/L Normal 101-111 [facility] Comment on above: Performed By: #### 2 940556 #### [facility] [address] [place] [address] CO2 [Moles/Vol] 26 mmol/L Normal 21-31 [facility] Comment on above: Performed By: #### 2 [id number] #### [facility] [address] [place] [address] Creatinine [Mass/Vol] 0.8 mg/dL Normal 0.5-1.3 [facility] Comment on above: Performed By: #### 2 984048 #### [facility] [address] [place] [address] Globulin (S) [Mass/Vol] 3.1 g/dL Normal 1.4-4.0 [facility] Comment on above: Performed By: #### 2 248448 #### [facility] [address] [place] [address] Glucose [Mass/Vol] 92 mg/dL Normal 55-199 [facility] Comment on above: Performed By: #### 2 245463 #### [facility] [address] [place] [address] Potassium [Moles/Vol] 3.3 mmol/L Low 3.5-5.3 [facility] Comment on above: Performed By: #### 2 798221 #### [facility] [address] [place] [address] Protein [Mass/Vol] 7.2 g/dL Normal 6.0-7.8 [facility] Comment on above: Performed By: #### 2 416370 #### [facility] [address] [place] [address] Sodium [Moles/Vol] 137 mmol/L Normal 135-145 [facility] Comment on above: Performed By: #### 2 042940 #### [facility] [address] [place] [address] Urea nitrogen [Mass/Vol] 9 mg/dL Normal 5-21 [facility] Comment on above: Performed By: #### 2 458569 #### [facility] [address] [place] [address] Urea nitrogen/Creatinine [Mass ratio] 11 No Units Normal 10-20 [facility] Comment on above: Performed By: #### 2 581915 #### [facility] [address] [place] [address] CRPon 12-30-2024 CRP [Mass/Vol] 0.7 mg/dL Normal <=1.9 [facility] Comment on above: Performed By: #### 2 514498 #### [facility] [address] [place] [address] Gastroenterology Office/Clin ic Noteon 12-30-2024 Gastroenterology Office/Clinic [...] vancomycin (Hives) (more content not included)... Normal [facility] Comment on above: Result Comment: Elec [...] 25-hydroxyvitamin D3 [Mass/Vol] 17.3 ng/mL Low 30.0-100.0 [facility] Comment on above: Performed By: #### 5 [id number] #### [facility] [address] [place] [address] eGFRon 12-30-2024 eGFR 89 mL/min/1.73 m2 Normal >=59 [facility] Comment on above: Performed By: #### 1 [id number] #### [facility] [address] [place] [address] CBC AUTO DIFFon 06-22-2022 BASO # 0.1 103/ul Normal 0.0-0.1 [facility] Comment on above: Performed By: #### C BC ####[facility] [address] [address]Dr. Jessica Montiel Basophils/100 WBC (Bld) 0.9 % Normal 0.2-2.0 [facility] Comment on above: Performed By: #### C BC ####[facility] [address] [place], [place] [address]Dr. Jessica Montiel EO # 0.1 103/ul Normal 0.0-0.7 [facility] Comment on above: Performed By: #### C BC ####[facility] [address] [address]Dr. Jessica Montiel Eosinophils/100 WBC (Bld) 1.6 % Normal 0.9-7.0 [facility] Comment on above: Performed By: #### C BC ####[facility] [address] [place], [place] [address]Dr. Jessica Montiel Erythrocyte distribution width (RBC) [Ratio] 13.8 % Normal 11.0-15.0 [facility] Comment on above: Performed By: #### C BC ####[facility] [address] [address]Dr. Jessica Montiel Hematocrit (Bld) [Volume fraction] 42.8 % Normal 36.0-48.0 [facility] Comment on above: Performed By: #### C BC ####[facility] [address] [place], [place] [address]Dr. Jessica Montiel Hemoglobin (Bld) [Mass/Vol] 14.4 g/dL Normal 12.0-16.0 [facility] Comment on above: Performed By: #### C BC ####[facility] [address] [place], [place] [address]DrCindy Montiel IG # 0.01 10e3/ul Normal 0.00-0.03 [facility] Comment on above: Performed By: #### C BC ####[facility] [address] [address]DrCindy Montiel IG % 0.2 % Normal 0.0-0.5 [facility] Comment on above: Performed By: #### C BC ####[facility] [address] [address]DrCindy Montiel LYMPH # 1.7 103/ul Normal 1.2-3.8 [facility] Comment on above: Performed By: #### C BC ####[facility] [address] [place], [place] [address]DrCindy Montiel Lymphocytes/100 WBC (Bld) 25.9 % Normal 20.5-60.0 [facility] Comment on above: Performed By: #### C BC ####[facility] [address] [place], [place] [address]DrCindy Montiel MANUAL DIFF REQ NO Normal [facility] Comment on above: Performed By: #### C BC ####[facility] [address] [place], [place] [address]DrCindy Montiel MCH (RBC) [Entitic mass] 32.3 pg Normal 26.7-34.0 [facility] Comment on above: Performed By: #### C BC ####[facility] [address] [place], [place] [address]DrCindy Montiel MCHC (RBC) [Mass/Vol] 33.6 g/dL Normal 29.9-35.2 [facility] Comment on above: Performed By: #### C BC ####[facility] [address] [address]DrCindy Montiel MCV (RBC) [Entitic vol] 96.0 fL Normal 81.0-99.0 [facility] Comment on above: Performed By: #### C BC ####[facility] [address] [place], [place] [address]DrCindy Montiel MONO # 0.5 103/ul Normal 0.3-0.8 [facility] Comment on above: Performed By: #### C BC ####[facility] [address] [id number]. Jessica Montiel Monocytes/100 WBC (Bld) 7.4 % Normal 1.7-12.0 [facility] Comment on above: Performed By: #### C BC ####[facility] [address] [id number]. Jessica Montiel NEUT # 4.1 103/ul Normal 1.4-6.5 [facility] Comment on above: Performed By: #### C BC ####[facility] [address] [id number]. Jessica Montiel Neutrophils/100 WBC (Bld) 64.0 % Normal 43.0-75.0 [facility] Comment on above: Performed By: #### C BC ####[facility] [address] [place], [place] [id number]. Jessica Montiel Platelet mean volume (Bld) [Entitic vol] 9.6 fL Normal 9.5-13.5 [facility] Comment on above: Performed By: #### C BC ####[facility] [address] [id number]. Jessica Montiel PLT 293 103/ul Normal 150-450 [facility] Comment on above: Performed By: #### C BC ####[facility] [address] [id number]. Jessica Montiel RBC 4.46 106/ul Normal 4.20-5.40 [facility] Comment on above: Performed By: #### C BC ####[facility] [address] [place] [id number]. Jessica Montiel WBC 6.4 103/ul Normal 4.0-11.0 [facility] Comment on above: Performed By: #### C BC ####[facility] [address] [place] [id number] Jessica Montiel GLYCOHEMOGLOBIN A1Con 2021 ADA RECOMMENDATION SEE BELOW Normal [facility] Comment on above: Result Comment: ADA RECOMMENDED LIMIT 4.0 - 6.0 ADA THERAPEUTIC TARGET < 7.0 ACTION SUGGESTED > 7.0 Performed By: #### A 1C #### [facility] [address] [place] [address] Dr. Jessica Montiel Glucose [Mass/Vol] 100 mg/dL Normal [facility] Comment on above: Performed By: #### A 1C #### [facility] [address] [address] [address] Jessica Montiel HbA1c (Bld) [Mass fraction] 5.1 % Normal 4.5-6.2 [facility] Comment on above: Performed By: #### A 1C #### [facility] [address] [place] [address] Dr. Jessica Montiel LIPID PROFILEon 06-22-2022 CHOL-HDL RATIO NORM SEE BELOW Normal [facility] Comment on above: Result Comment: 3.3 - 4.4 LOW RISK 4.4 - 7.1 AVERAGE RISK 7.1 - 11.0 MODERATE RISK >11.0 HIGH RISK Performed By: #### L IVER, LIPID, TSH, BMP #### [facility] [address] [place] [address] Dr. Jessica Montiel Cholesterol [Mass/Vol] 177 mg/dL Normal <=200 [facility] Comment on above: Performed By: #### L IVER, LIPID, TSH, BMP #### [facility] [address] [place] [address] Dr. Jessica Montiel Cholesterol in HDL [Mass/Vol] 67 mg/dL Critically high 40-60 [facility] Comment on above: Performed By: #### L IVER, LIPID, TSH, BMP #### [facility] [address] [address] [address] Jessica Montiel Cholesterol in LDL [Mass/Vol] 89.2 mg/dL Normal [facility] Comment on above: Performed By: #### L IVER, LIPID, TSH, BMP #### [facility] [address] [place] [address] Dr. Jessica Montiel Cholesterol.total/Cho lesterol in HDL [Mass ratio] 2.6 {ratio} Normal [facility] Comment on above: Performed By: #### L IVER, LIPID, TSH, BMP #### [facility] [address] [address] [address] Jessica Montiel HDL NORMAL > or = 60 mg/dl - LO W CARDIOVASCULAR RISK <40 mg/dl - HIGH CARDIOVASCULAR RISK Normal [facility] Comment on above: Performed By: #### L IVER, LIPID, TSH, BMP #### [facility] [address] [place] [address] Dr. Jessica Montiel LDL CALC NORMAL SEE BELOW Normal [facility] Comment on above: Result Comment: <100 mg/dl OPTIMAL 100 - 129 mg/dl NEAR OR ABOVE OPTIMAL 130 - 159 mg/dl BORDERLINE HIGH 160 - 189 mg/dl HIGH >190 mg/dl VERY HIGH Performed By: #### L IVER, LIPID, TSH, BMP #### [facility] [address] [address] [address] Jessica Montiel Triglyceride [Mass/Vol] 104 mg/dL Normal <=150 [facility] Comment on above: Performed By: #### L IVER, LIPID, TSH, BMP #### [facility] [address] [place] [address] Dr. Jessica Montiel VLDL CALC 20.8 mg/dL Normal [facility] Comment on above: Performed By: #### L IVER, LIPID, TSH, BMP #### [facility] [address] [address] [address] Jessica Montiel LIVER PROFILEon 06-22-2022 Albumin [Mass/Vol] 3.6 g/dL Normal 3.4-5.0 [facility] Comment on above: Performed By: #### L IVER, LIPID, TSH, BMP #### [facility] [address] [place] [address] Dr. Jessica Montiel Albumin/Globulin [Mass ratio] 1.1 {ratio} Normal [facility] Comment on above: Performed By: #### L IVER, LIPID, TSH, BMP #### [facility] [address] [place] [address] Dr. Jessica Montiel ALP [Catalytic activity/Vol] 52 U/L Normal 46-116 [facility] Comment on above: Performed By: #### L IVER, LIPID, TSH, BMP #### [facility] [address] [address] [address] Jessica Montiel ALT [Catalytic activity/Vol] 29 U/L Normal 14-59 [facility] Comment on above: Performed By: #### L IVER, LIPID, TSH, BMP #### [facility] [address] [place] [address] Dr. Jessica Montiel AST [Catalytic activity/Vol] 22 U/L Normal 15-37 [facility] Comment on above: Performed By: #### L IVER, LIPID, TSH, BMP #### [facility] [address] [place] [address] Dr. Jessica Montiel BILI, CONJUGATED 0.1 mg/dL Normal 0.0-0.2 [facility] Comment on above: Performed By: #### L IVER, LIPID, TSH, BMP #### [facility] [address] [place] [address] Dr. Jessica Montiel Bilirubin [Mass/Vol] 0.5 mg/dL Normal 0.2-1.0 [facility] Comment on above: Performed By: #### L IVER, LIPID, TSH, BMP #### [facility] [address] [place] [address] Dr. Jessica Montiel Globulin (S) [Mass/Vol] 3.2 g/dL Normal [facility] Comment on above: Performed By: #### L IVER, LIPID, TSH, BMP #### [facility] [address] [place] [address] Dr. Jessica Montiel Protein [Mass/Vol] 6.8 g/dL Normal 6.4-8.2 [facility] Comment on above: Performed By: #### L IVER, LIPID, TSH, BMP #### [facility] [address] [place] [address] Dr. Jessica Montiel PROF CHEM 8 (BAS METB)on Anion gap [Moles/Vol] 11.3 mmol/L Normal [facility] Comment on above: Performed By: #### L IVER, LIPID, TSH, BMP #### [facility] [address] [place] [address] Dr. Jessica Montiel Calcium [Mass/Vol] 8.4 mg/dL Critically low 8.5-10.1 [facility] Comment on above: Performed By: #### L IVER, LIPID, TSH, BMP #### [facility] [address] [place] [address] Dr. Jessica Montiel Chloride [Moles/Vol] 105 mmol/L Normal 98-107 [facility] Comment on above: Performed By: #### L IVER, LIPID, TSH, BMP #### [facility] [address] [place] [address] Dr. Jessica Montiel CO2 [Moles/Vol] 27.2 mmol/L Normal 21.0-32.0 [facility] Comment on above: Performed By: #### L IVER, LIPID, TSH, BMP #### [facility] [address] [place] [address] Dr. Jessica Montiel Creatinine [Mass/Vol] 0.71 mg/dL Normal 0.55-1.02 [facility] Comment on above: Performed By: #### L IVER, LIPID, TSH, BMP #### [facility] [address] [place] [address] Dr. Jessica Montiel EGFR-AF AUSTRIAN >60 Normal >=60 [facility] Comment on above: Performed By: #### L IVER, LIPID, TSH, BMP #### [facility] [address] [place] [address] Dr. Jessica Montiel EGFR-NON AF AUSTRIAN >60 Normal >=60 [facility] Comment on above: Performed By: #### L IVER, LIPID, TSH, BMP #### [facility] [address] [place] [address] Dr. Jessica Montiel Glucose [Mass/Vol] 75 mg/dL Normal 74-106 [facility] Comment on above: Performed By: #### L IVER, LIPID, TSH, BMP #### [facility] [address] [place] [address] Dr. Jessica Montiel Potassium [Moles/Vol] 3.5 mmol/L Normal 3.5-5.1 [facility] Comment on above: Performed By: #### L IVER, LIPID, TSH, BMP #### [facility] [address] [place] [address] Dr. Jessica Montiel Sodium [Moles/Vol] 140 mmol/L Normal 136-145 [facility] Comment on above: Performed By: #### L IVER, LIPID, TSH, BMP #### [facility] [address] [place] [address] Dr. Jessica Montiel Urea nitrogen [Mass/Vol] 11.0 mg/dL Normal 7.0-18.0 [facility] Comment on above: Performed By: #### L IVER, LIPID, TSH, BMP #### [facility] [address] [place] [address] Dr. Jessica Montiel Urea nitrogen/Creatinine [Mass ratio] 15.5 mg/mg Normal [facility] Comment on above: Performed By: #### L IVER, LIPID, TSH, BMP #### [facility] [address] [place] [address] Dr. Jessica Montiel TSHon 06-22-2022 TSH 2.114 uIU/mL Normal 0.358-3.740 [facility] Comment on above: Performed By: #### L IVER, LIPID, TSH, BMP #### [facility] [address] [place] [address] Dr. Jessica Montiel VITAMIN D 25 OHon 06-22-2022 VIT D 25-OH 49.7 ng/mL Normal [facility] Comment on above: Performed By: #### V ITAD #### [facility] [address] [place] [address] Dr. Jessica Montiel VIT D RANGES SEE BELOW Normal [facility] Comment on above: Result Comment: <20 ng/mL Vit D deficient 20 - <30 ng/mL Vit D insufficient 30 - 100 ng/mL Vit D sufficient >100 ng/mL Potential Toxicity Performed By: #### V ITAD #### [facility] [address] [address] [address] LSPINE WO CONon [...] Date: 2021-11-23 00:37 Normal [facility] XR FOOT LT MIN 3 VIEWSon XR [...] by: Tiera STARK Date: 2021-11-23 00:33 Normal [facility] XR HIP RT 2 3V [...] by: Tiera STARK Date: 2021-11-23 00:31 Normal [facility] XR SACRUM_COCCYXon 2 XR SACRUM_COCCYX EXAM: XR [...] Date: 2021-11-23 04:11 Normal [facility] SEDIMENTATION RATE, ERYTHROC YTEon 10-02-2019 SEDIMENTATION RATE, ERYTHROCYTE 14 mm/h Normal 0 - 20 [facility] Comment on above: Performed By: #### E SRWS #### [facility] [address] [place] [address] C-REACTIVE PROTEINon 020 CRP [Mass/Vol] 0.89 mg/dL Normal [facility] Comment on above: Result Comment: REF VALUE < 1.00 Performed By: #### C RP #### [facility] [address] [facility] [place] [address] CBC AND DIFFERENTIALon 10-01 % AUTOMATED IMMATURE GRAN 0.3 % Normal 0.0 - 0.9 [facility] Comment on above: Result Comment: Romelia ture Granulocyte Count (IG) includes promyelocytes, myelocytes and metamyelocytes but does not include bands. Percent differential counts (%) should be interpreted in the context of the absolute cell counts (cells/L). Performed By: #### C BCDF #### [facility] [address] [place] [address] Basophils (Bld) [#/Vol] 0.10 10*3/uL Normal 0.00 - 0.10 [facility] Comment on above: Performed By: #### C BCDF #### [facility] [address] [place] [address] Basophils/100 WBC (Bld) 0.9 % Normal 0.0 - 2.0 [facility] Comment on above: Performed By: #### C BCDF #### [facility] [address] [place] [address] Eosinophils (Bld) [#/Vol] 0.14 10*3/uL Normal 0.00 - 0.70 [facility] Comment on above: Performed By: #### C BCDF #### [facility] [id number] [place] [address] Eosinophils/100 WBC (Bld) 1.3 % Normal 0.0 - 6.0 [facility] Comment on above: Performed By: #### C BCDF #### [facility] [address] [place] [address] Erythrocyte distribution width (RBC) [Ratio] 14.4 % Normal 11.5 - 14.5 [facility] Comment on above: Performed By: #### C BCDF #### [facility] [address] [place] [address] Hematocrit (Bld) [Volume fraction] 47.6 % High 36.0 - 46.0 [facility] Comment on above: Performed By: #### C BCDF #### [facility] [address] [place] [address] Hemoglobin (Bld) [Mass/Vol] 15.6 g/dL Normal 12.0 - 16.0 [facility] Comment on above: Performed By: #### C BCDF #### [facility] [address] [facility] [place] [address] Lymphocytes (Bld) [#/Vol] 2.97 10*3/uL Normal 1.20 - 4.80 [facility] Comment on above: Performed By: #### C BCDF #### [facility] [address] [place] [address] Lymphocytes/100 WBC (Bld) 26.6 % Normal 13.0 - 44.0 [facility] Comment on above: Performed By: #### C BCDF #### [facility] [address] [facility] [place] [address] MCHC (RBC) [Mass/Vol] 32.8 g/dL Normal 32.0 - 36.0 [facility] Comment on above: Performed By: #### C BCDF #### [facility] [address] [place] [address] MCV (RBC) [Entitic vol] 90 fL Normal 80 - 100 [facility] Comment on above: Performed By: #### C BCDF #### [facility] [address] [facility] [place] [address] Monocytes (Bld) [#/Vol] 0.82 10*3/uL Normal 0.10 - 1.00 [facility] Comment on above: Performed By: #### C BCDF #### [facility] [address] [facility] [place] [place] [address] Monocytes/100 WBC (Bld) 7.3 % Normal 2.0 - 10.0 [facility] Comment on above: Performed By: #### C BCDF #### [facility] [address] [place] [address] Neutrophils (Bld) [#/Vol] 7.10 10*3/uL Normal 1.20 - 7.70 [facility] Comment on above: Performed By: #### C BCDF #### [facility] [address] [place] [address] Neutrophils/100 WBC (Bld) 63.6 % Normal 40.0 - 80.0 [facility] Comment on above: Performed By: #### C BCDF #### [facility] [address] [place] [address] Platelets (Bld) [#/Vol] 418 10*3/uL Normal 150 - 450 [facility] Comment on above: Performed By: #### C BCDF #### [facility] [address] [place] [address] RBC (Bld) [#/Vol] 5.27 x10E12/L High 4.00 - 5.20 [facility] Comment on above: Performed By: #### C BCDF #### [facility] [address] [place] [address] WBC (Bld) [#/Vol] 11.2 10*3/uL Normal 4.4 - 11.3 [facility] Comment on above: Performed By: #### C BCDF #### [facility] [address] [place] [address] [facility] 08-27-2019 [employer] SMEAR: NO ACID-FAST BACILLI OBSERVED ON DIRECT SMEAR/ DONE AT [facility] NO ACID FAST BACILLI SEEN (CONC)/DONE AT [facility] NO GROWTH AFTER 5 WEEKS Normal [facility] Comment on above: Order Comment: PATIE NT IS GETTING CAT SCAN DONE NURSE WILL CALL/PAGE WHEN PATIENT IS BACK ON THE FLOOR CONSERVATION Performed By: #### L 500.43183, L500.77640, L500.22037, L500.32986, L500.18319 #### Test performed at: [address] 08-22-2019 [employer] SMEAR: NO ACID-FAST BACILLI OBSERVED ON DIRECT SMEAR/ DONE AT [facility] NO ACID FAST BACILLI SEEN (CONC)/DONE AT [facility] NO GROWTH AFTER 5 WEEKS Normal [facility] Comment on above: Order Comment: PATIE NT IS GETTING CAT SCAN DONE NURSE WILL CALL/PAGE WHEN PATIENT IS BACK ON THE FLOOR CONSERVATION Performed By: #### L 500.41000, L500.86782, L500.65345, L500.97451, L500.89687 #### Test performed at: [place] [address] BLOOD CULTUREon 08-17-2019 Bacteria identified Cx Nom (Bld) NO GROWTH 5 DAYS Normal [facility] Comment on above: Order Comment: BRIELLE NT IS GETTING CAT SCAN DONE NURSE WILL CALL/PAGE WHEN PATIENT IS BACK ON THE FLOOR CONSERVATION Performed By: #### L 200.04955, L200.26401 #### Test performed at: [place] [address] Performed By: #### L 500.85285, L500.93262, L500.27023, L500.46416, L500.61024 #### Test performed at: [place] [address] URINE CULTUREon 08-14-2019 Bacteria identified Cx Nom (U) NO GROWTH 2 DAYS Normal [facility] Comment on above: Order Comment: BRIELLE NT IS GETTING CAT SCAN DONE NURSE WILL CALL/PAGE WHEN PATIENT IS BACK ON THE FLOOR CONSERVATION Performed By: #### L 500.36187, L500.24330, L500.40748, L500.51652, L500.02824 #### Test performed at: [place] [address] BASIC MET PANELon 08-13-2019 Anion gap [Moles/Vol] 13 mmol/L Normal 6-18 [facility] Comment on above: Order Comment: BRIELLE NT IS GETTING CAT SCAN DONE NURSE WILL CALL/PAGE WHEN PATIENT IS BACK ON THE FLOOR CONSERVATION Performed By: #### L 500.41522, L500.10656, L500.41370, L500.26518, L500.40843 #### Test performed at: [place] [address] Calcium [Mass/Vol] 8.4 mg/dL Low 8.5-10.1 [facility] Comment on above: Order Comment: BANDARE NT IS GETTING CAT SCAN DONE NURSE WILL CALL/PAGE WHEN PATIENT IS BACK ON THE FLOOR CONSERVATION Performed By: #### L 500.65956, L500.41929, L500.51450, L500.50911, L500.85601 #### Test performed at: [address] [address] Chloride [Moles/Vol] 107 mmol/L Normal 98-107 [facility] Comment on above: Order Comment: BRIELLE NT IS GETTING CAT SCAN DONE NURSE WILL CALL/PAGE WHEN PATIENT IS BACK ON THE FLOOR CONSERVATION Performed By: #### L 500.96011, L500.02320, L500.30183, L500.71285, L500.26577 #### Test performed at: [address] [address] CO2 [Moles/Vol] 22 mmol/L Normal 21-32 [facility] Comment on above: Order Comment: BRIELLE NT IS GETTING CAT SCAN DONE NURSE WILL CALL/PAGE WHEN PATIENT IS BACK ON THE FLOOR CONSERVATION Performed By: #### L 500.49790, L500.20736, L500.09477, L500.26442, L500.14563 #### Test performed at: [address] [address] Creatinine [Mass/Vol] 1.020 mg/dL Normal 0.550-1.020 [facility] Comment on above: Order Comment: BRIELLE NT IS GETTING CAT SCAN DONE NURSE WILL CALL/PAGE WHEN PATIENT IS BACK ON THE FLOOR CONSERVATION Performed By: #### L 500.91138, L500.49060, L500.57666, L500.34503, L500.59911 #### Test performed at: [address] [address] Glucose [Mass/Vol] 210 mg/dL High 70-99 [facility] Comment on above: Order Comment: PATIE NT IS GETTING CAT SCAN DONE NURSE WILL CALL/PAGE WHEN PATIENT IS BACK ON THE FLOOR CONSERVATION Result Comment: Fast ing GLUCOSE reference range has been updated per (ADA) [place] [employer]'s recommendation. 11/06/2018 Performed By: #### L 500.11191, L500.99099, L500.39037, L500.59900, L500.90479 #### Test performed at: [address] [address] OSM 296 mosm/kg Normal 270-300 [facility] Comment on above: Order Comment: PATIE NT IS GETTING CAT SCAN DONE NURSE WILL CALL/PAGE WHEN PATIENT IS BACK ON THE FLOOR CONSERVATION Performed By: #### L 500.79112, L500.01354, L500.29688, L500.04813, L500.27443 #### Test performed at: [place] [id number] Potassium [Moles/Vol] 3.6 mmol/L Normal 3.5-5.1 [facility] Comment on above: Order Comment: PATIE NT IS GETTING CAT SCAN DONE NURSE WILL CALL/PAGE WHEN PATIENT IS BACK ON THE FLOOR CONSERVATION Performed By: #### L 500.89778, L500.64945, L500.37277, L500.75419, L500.75622 #### Test performed at: [address] [address] Sodium [Moles/Vol] 138 mmol/L Normal 136-145 [facility] Comment on above: Order Comment: PATIE NT IS GETTING CAT SCAN DONE NURSE WILL CALL/PAGE WHEN PATIENT IS BACK ON THE FLOOR CONSERVATION Performed By: #### L 500.06429, L500.47713, L500.54820, L500.49450, L500.60556 #### Test performed at: [address] [address] Urea nitrogen [Mass/Vol] 22 mg/dL High 7-18 [facility] Comment on above: Order Comment: PATIE NT IS GETTING CAT SCAN DONE NURSE WILL CALL/PAGE WHEN PATIENT IS BACK ON THE FLOOR CONSERVATION Performed By: #### L 500.30654, L500.22520, L500.34036, L500.49366, L500.80436 #### Test performed at: [address] [address] CBC W/DIFFon 08-13-2019 BASO ABS 0.0 K/uL Normal 0.0-0.2 [facility] Comment on above: Order Comment: PATIE NT IS GETTING CAT SCAN DONE NURSE WILL CALL/PAGE WHEN PATIENT IS BACK ON THE FLOOR CONSERVATION Performed By: #### L 500.91397, L500.96195, L500.17389, L500.58497, L500.75678 #### Test performed at: [address] [address] Basophils/100 WBC (Bld) 0.2 % Normal [facility] Comment on above: Order Comment: PATIE NT IS GETTING CAT SCAN DONE NURSE WILL CALL/PAGE WHEN PATIENT IS BACK ON THE FLOOR CONSERVATION Performed By: #### L 500.28116, L500.96719, L500.82116, L500.08181, L500.95826 #### Test performed at: [address] [address] EOS ABS 0.0 K/uL Normal 0.0-0.5 [facility] Comment on above: Order Comment: PATIE NT IS GETTING CAT SCAN DONE NURSE WILL CALL/PAGE WHEN PATIENT IS BACK ON THE FLOOR CONSERVATION Performed By: #### L 500.87324, L500.65907, L500.35125, L500.80627, L500.50237 #### Test performed at: [address] [address] Eosinophils/100 WBC (Bld) 0.2 % Normal [facility] Comment on above: Order Comment: PATIE NT IS GETTING CAT SCAN DONE NURSE WILL CALL/PAGE WHEN PATIENT IS BACK ON THE FLOOR CONSERVATION Performed By: #### L 500.26487, L500.16339, L500.48571, L500.48061, L500.13908 #### Test performed at: [address] [address] Erythrocyte distribution width (RBC) [Ratio] 14.3 % Normal 11.5-14.5 [facility] Comment on above: Order Comment: PATIE NT IS GETTING CAT SCAN DONE NURSE WILL CALL/PAGE WHEN PATIENT IS BACK ON THE FLOOR CONSERVATION Performed By: #### L 500.16108, L500.06162, L500.16031, L500.35447, L500.85524 #### Test performed at: [place] [address] [place] [address] Hematocrit (Bld) [Volume fraction] 34.5 % Low 36.0-48.0 [facility] Comment on above: Order Comment: BANDARE NT IS GETTING CAT SCAN DONE NURSE WILL CALL/PAGE WHEN PATIENT IS BACK ON THE FLOOR CONSERVATION Performed By: #### L 500.93819, L500.36151, L500.84874, L500.95087, L500.67549 #### Test performed at: [place] [address] [place] [address] Hemoglobin (Bld) [Mass/Vol] 11.8 g/dL Low 12.0-15.0 [facility] Comment on above: Order Comment: BANDARE NT IS GETTING CAT SCAN DONE NURSE WILL CALL/PAGE WHEN PATIENT IS BACK ON THE FLOOR CONSERVATION Performed By: #### L 500.26157, L500.16412, L500.06906, L500.53944, L500.89509 #### Test performed at: [place] [address] [place] [address] IG % 0.9 % Normal [facility] Comment on above: Order Comment: PATIE NT IS GETTING CAT SCAN DONE NURSE WILL CALL/PAGE WHEN PATIENT IS BACK ON THE FLOOR CONSERVATION Performed By: #### L 500.47966, L500.31780, L500.84135, L500.08210, L500.40064 #### Test performed at: [place] [address] [place] [address] IG ABS 0.12 K/uL High 0-0.05 [facility] Comment on above: Order Comment: PATIE NT IS GETTING CAT SCAN DONE NURSE WILL CALL/PAGE WHEN PATIENT IS BACK ON THE FLOOR CONSERVATION Performed By: #### L 500.83346, L500.60203, L500.29796, L500.88859, L500.73127 #### Test performed at: [address] [address] Lymphocytes (Bld) [#/Vol] 1.1 10*3/uL Low 1.2-3.5 [facility] Comment on above: Order Comment: PATIE NT IS GETTING CAT SCAN DONE NURSE WILL CALL/PAGE WHEN PATIENT IS BACK ON THE FLOOR CONSERVATION Performed By: #### L 500.08871, L500.94014, L500.21260, L500.51639, L500.34757 #### Test performed at: [address] [address] Lymphocytes/100 WBC (Bld) 8.3 % Normal [facility] Comment on above: Order Comment: PATIE NT IS GETTING CAT SCAN DONE NURSE WILL CALL/PAGE WHEN PATIENT IS BACK ON THE FLOOR CONSERVATION Performed By: #### L 500.68502, L500.83682, L500.69242, L500.09097, L500.24311 #### Test performed at: [address] [address] MCH (RBC) [Entitic mass] 29.9 pg Normal 25.4-34.6 [facility] Comment on above: Order Comment: PATIE NT IS GETTING CAT SCAN DONE NURSE WILL CALL/PAGE WHEN PATIENT IS BACK ON THE FLOOR CONSERVATION Performed By: #### L 500.86886, L500.83337, L500.64851, L500.08037, L500.06849 #### Test performed at: [address] [address] MCHC (RBC) [Mass/Vol] 34.2 g/dL Normal 31.5-36.5 [facility] Comment on above: Order Comment: PATIE NT IS GETTING CAT SCAN DONE NURSE WILL CALL/PAGE WHEN PATIENT IS BACK ON THE FLOOR CONSERVATION Performed By: #### L 500.88806, L500.11221, L500.73496, L500.72564, L500.98672 #### Test performed at: [address] [address] MCV (RBC) [Entitic vol] 87.6 fL Normal 79.0-98.0 [facility] Comment on above: Order Comment: PATIE NT IS GETTING CAT SCAN DONE NURSE WILL CALL/PAGE WHEN PATIENT IS BACK ON THE FLOOR CONSERVATION Performed By: #### L 500.03677, L500.22610, L500.24919, L500.09647, L500.19563 #### Test performed at: [place] [id number] MONO ABS 0.4 K/uL Normal 0.0-1.0 [facility] Comment on above: Order Comment: PATIE NT IS GETTING CAT SCAN DONE NURSE WILL CALL/PAGE WHEN PATIENT IS BACK ON THE FLOOR CONSERVATION Performed By: #### L 500.74593, L500.00020, L500.97934, L500.44372, L500.86874 #### Test performed at: [address] [address] Monocytes/100 WBC (Bld) 2.9 % Normal [facility] Comment on above: Order Comment: PATIE NT IS GETTING CAT SCAN DONE NURSE WILL CALL/PAGE WHEN PATIENT IS BACK ON THE FLOOR CONSERVATION Performed By: #### L 500.28240, L500.66064, L500.76093, L500.33966, L500.07352 #### Test performed at: [address] [address] NEUTROPHIL ABS 11.3 K/uL High 1.4-6.6 [facility] Comment on above: Order Comment: PATIE NT IS GETTING CAT SCAN DONE NURSE WILL CALL/PAGE WHEN PATIENT IS BACK ON THE FLOOR CONSERVATION Performed By: #### L 500.26665, L500.21872, L500.94809, L500.02058, L500.44072 #### Test performed at: [address] [address] Neutrophils/100 WBC (Bld) 87.5 % Normal [facility] Comment on above: Order Comment: PATIE NT IS GETTING CAT SCAN DONE NURSE WILL CALL/PAGE WHEN PATIENT IS BACK ON THE FLOOR CONSERVATION Performed By: #### L 500.47672, L500.61968, L500.49577, L500.16860, L500.24285 #### Test performed at: [place] [address] NRBC # 0.000 K/uL Normal 0-0.012 [facility] Comment on above: Order Comment: PATIE NT IS GETTING CAT SCAN DONE NURSE WILL CALL/PAGE WHEN PATIENT IS BACK ON THE FLOOR CONSERVATION Performed By: #### L 500.00552, L500.64320, L500.16966, L500.99573, L500.08962 #### Test performed at: [place] [id number] NRBC % 0.0 /100 WBC Normal 0-0.2 [facility] Comment on above: Order Comment: PATIE NT IS GETTING CAT SCAN DONE NURSE WILL CALL/PAGE WHEN PATIENT IS BACK ON THE FLOOR CONSERVATION Performed By: #### L 500.12756, L500.20892, L500.37113, L500.81980, L500.32228 #### Test performed at: [place] [id number] Platelet mean volume (Bld) [Entitic vol] 9.5 fL Normal 8.7-12.4 [facility] Comment on above: Order Comment: PATIE NT IS GETTING CAT SCAN DONE NURSE WILL CALL/PAGE WHEN PATIENT IS BACK ON THE FLOOR CONSERVATION Performed By: #### L 500.52635, L500.95471, L500.69357, L500.85173, L500.25070 #### Test performed at: [address] [address] Platelets (Bld) [#/Vol] 231 10*3/uL Normal 140-440 [facility] Comment on above: Order Comment: PATIE NT IS GETTING CAT SCAN DONE NURSE WILL CALL/PAGE WHEN PATIENT IS BACK ON THE FLOOR CONSERVATION Performed By: #### L 500.79235, L500.06559, L500.48680, L500.30520, L500.67016 #### Test performed at: [place] [id number] RBC (Bld) [#/Vol] 3.94 10*6/uL Normal 3.5-5.5 [facility] Comment on above: Order Comment: PATIE NT IS GETTING CAT SCAN DONE NURSE WILL CALL/PAGE WHEN PATIENT IS BACK ON THE FLOOR CONSERVATION Performed By: #### L 500.53438, L500.48925, L500.45955, L500.53944, L500.87808 #### Test performed at: [address] [address] WBC (Bld) [#/Vol] 12.9 10*3/uL High 3.9-11.0 [facility] Comment on above: Order Comment: PATIE NT IS GETTING CAT SCAN DONE NURSE WILL CALL/PAGE WHEN PATIENT IS BACK ON THE FLOOR CONSERVATION Performed By: #### L 500.24197, L500.13881, L500.37213, L500.30710, L500.59458 #### Test performed at: [place] [id number] EST. CREAT CLRon 08-13-2019 Creatinine [Mass/Vol] 109.953 ML/MIN Normal [facility] Comment on above: Order Comment: PATIE NT IS GETTING CAT SCAN DONE NURSE WILL CALL/PAGE WHEN PATIENT IS BACK ON THE FLOOR CONSERVATION Result Comment: This result is an ESTIMATED blood creatinine clearance value which is derived from the patient age, sex, weight, and previous blood creatinine result. Performed By: #### L 500.55888, L500.59551, L500.15023, L500.97986, L500.39951 #### Test performed at: [place] [address] GFR ESTIMATEon 08-13-2019 IF AMER > 60 Normal > 60 [facility] Comment on above: Order Comment: PATIE [...] for clinical interpretation. Performed By: #### L 500.96311, L500.79289, L500.49588, L500.66490, L500.30698 #### Test performed at: [place] [address] IF non-AFR AMER 59 Low > 60 [facility] Comment on above: Order Comment: PATIE NT IS GETTING CAT SCAN DONE NURSE WILL CALL/PAGE WHEN PATIENT IS BACK ON THE FLOOR CONSERVATION Performed By: #### L 500.69039, L500.88411, L500.68931, L500.71080, L500.89051 #### Test performed at: [place] [address] CBC W/DIFFon 08-12-2019 BASO ABS 0.0 K/uL Normal 0.0-0.2 [facility] Comment on above: Order Comment: PATIE NT IS GETTING CAT SCAN DONE NURSE WILL CALL/PAGE WHEN PATIENT IS BACK ON THE FLOOR CONSERVATION Performed By: #### L 500.92452, L500.06454, L500.46482, L500.89380, L500.31531 #### Test performed at: [address] [address] Basophils/100 WBC (Bld) 0.4 % Normal [facility] Comment on above: Order Comment: PATIE NT IS GETTING CAT SCAN DONE NURSE WILL CALL/PAGE WHEN PATIENT IS BACK ON THE FLOOR CONSERVATION Performed By: #### L 500.83475, L500.35844, L500.74086, L500.60528, L500.02541 #### Test performed at: [address] [address] EOS ABS 1.1 K/uL High 0.0-0.5 [facility] Comment on above: Order Comment: PATIE NT IS GETTING CAT SCAN DONE NURSE WILL CALL/PAGE WHEN PATIENT IS BACK ON THE FLOOR CONSERVATION Performed By: #### L 500.27086, L500.06653, L500.82528, L500.33996, L500.83030 #### Test performed at: [address] [address] Eosinophils/100 WBC (Bld) 13.6 % Normal [facility] Comment on above: Order Comment: PATIE NT IS GETTING CAT SCAN DONE NURSE WILL CALL/PAGE WHEN PATIENT IS BACK ON THE FLOOR CONSERVATION Performed By: #### L 500.21626, L500.70590, L500.57910, L500.25559, L500.06873 #### Test performed at: [address] [address] Erythrocyte distribution width (RBC) [Ratio] 14.6 % High 11.5-14.5 [facility] Comment on above: Order Comment: PATIE NT IS GETTING CAT SCAN DONE NURSE WILL CALL/PAGE WHEN PATIENT IS BACK ON THE FLOOR CONSERVATION Performed By: #### L 500.09679, L500.41817, L500.21413, L500.31820, L500.02141 #### Test performed at: [place] [id number] Hematocrit (Bld) [Volume fraction] 37.5 % Normal 36.0-48.0 [facility] Comment on above: Order Comment: PATIE NT IS GETTING CAT SCAN DONE NURSE WILL CALL/PAGE WHEN PATIENT IS BACK ON THE FLOOR CONSERVATION Performed By: #### L 500.35951, L500.65026, L500.73539, L500.28915, L500.54225 #### Test performed at: [place] [address] Hemoglobin (Bld) [Mass/Vol] 12.8 g/dL Normal 12.0-15.0 [facility] Comment on above: Order Comment: PATIE NT IS GETTING CAT SCAN DONE NURSE WILL CALL/PAGE WHEN PATIENT IS BACK ON THE FLOOR CONSERVATION Performed By: #### L 500.47575, L500.62035, L500.77577, L500.02628, L500.45549 #### Test performed at: [place] [address] IG % 0.7 % Normal [facility] Comment on above: Order Comment: PATIE NT IS GETTING CAT SCAN DONE NURSE WILL CALL/PAGE WHEN PATIENT IS BACK ON THE FLOOR CONSERVATION Performed By: #### L 500.47530, L500.22105, L500.24588, L500.31872, L500.38164 #### Test performed at: [place] [address] IG ABS 0.06 K/uL High 0-0.05 [facility] Comment on above: Order Comment: PATIE NT IS GETTING CAT SCAN DONE NURSE WILL CALL/PAGE WHEN PATIENT IS BACK ON THE FLOOR CONSERVATION Performed By: #### L 500.14607, L500.63810, L500.07789, L500.67742, L500.80128 #### Test performed at: [place] [address] Lymphocytes (Bld) [#/Vol] 0.9 10*3/uL Low 1.2-3.5 [facility] Comment on above: Order Comment: PATIE NT IS GETTING CAT SCAN DONE NURSE WILL CALL/PAGE WHEN PATIENT IS BACK ON THE FLOOR CONSERVATION Performed By: #### L 500.38746, L500.95029, L500.23264, L500.16656, L500.24148 #### Test performed at: [place] [address] Lymphocytes/100 WBC (Bld) 11.0 % Normal [facility] Comment on above: Order Comment: PATIE NT IS GETTING CAT SCAN DONE NURSE WILL CALL/PAGE WHEN PATIENT IS BACK ON THE FLOOR CONSERVATION Performed By: #### L 500.01139, L500.46896, L500.08803, L500.52030, L500.55298 #### Test performed at: [place] [id number] MCH (RBC) [Entitic mass] 29.6 pg Normal 25.4-34.6 [facility] Comment on above: Order Comment: PATIE NT IS GETTING CAT SCAN DONE NURSE WILL CALL/PAGE WHEN PATIENT IS BACK ON THE FLOOR CONSERVATION Performed By: #### L 500.48256, L500.50210, L500.63221, L500.77946, L500.56982 #### Test performed at: [place] [id number] MCHC (RBC) [Mass/Vol] 34.1 g/dL Normal 31.5-36.5 [facility] Comment on above: Order Comment: PATIE NT IS GETTING CAT SCAN DONE NURSE WILL CALL/PAGE WHEN PATIENT IS BACK ON THE FLOOR CONSERVATION Performed By: #### L 500.49533, L500.87927, L500.34944, L500.89158, L500.91099 #### Test performed at: [address] [address] MCV (RBC) [Entitic vol] 86.8 fL Normal 79.0-98.0 [facility] Comment on above: Order Comment: PATIE NT IS GETTING CAT SCAN DONE NURSE WILL CALL/PAGE WHEN PATIENT IS BACK ON THE FLOOR CONSERVATION Performed By: #### L 500.66077, L500.82368, L500.94583, L500.31700, L500.30491 #### Test performed at: [address] [address] MONO ABS 0.7 K/uL Normal 0.0-1.0 [facility] Comment on above: Order Comment: PATIE NT IS GETTING CAT SCAN DONE NURSE WILL CALL/PAGE WHEN PATIENT IS BACK ON THE FLOOR CONSERVATION Performed By: #### L 500.94726, L500.92081, L500.83209, L500.51731, L500.09312 #### Test performed at: [address] [address] Monocytes/100 WBC (Bld) 8.3 % Normal [facility] Comment on above: Order Comment: PATIE NT IS GETTING CAT SCAN DONE NURSE WILL CALL/PAGE WHEN PATIENT IS BACK ON THE FLOOR CONSERVATION Performed By: #### L 500.24199, L500.67533, L500.40538, L500.43671, L500.75581 #### Test performed at: [address] [address] NEUTROPHIL ABS 5.4 K/uL Normal 1.4-6.6 [facility] Comment on above: Order Comment: PATIE NT IS GETTING CAT SCAN DONE NURSE WILL CALL/PAGE WHEN PATIENT IS BACK ON THE FLOOR CONSERVATION Performed By: #### L 500.26618, L500.09538, L500.63266, L500.32972, L500.22192 #### Test performed at: [address] [address] Neutrophils/100 WBC (Bld) 66.0 % Normal [facility] Comment on above: Order Comment: PATIE NT IS GETTING CAT SCAN DONE NURSE WILL CALL/PAGE WHEN PATIENT IS BACK ON THE FLOOR CONSERVATION Performed By: #### L 500.84597, L500.10104, L500.06428, L500.40656, L500.12130 #### Test performed at: [place] [id number] NRBC # 0.000 K/uL Normal 0-0.012 [facility] Comment on above: Order Comment: PATIE NT IS GETTING CAT SCAN DONE NURSE WILL CALL/PAGE WHEN PATIENT IS BACK ON THE FLOOR CONSERVATION Performed By: #### L 500.72413, L500.63212, L500.73277, L500.41829, L500.73158 #### Test performed at: [place] [address] NRBC % 0.0 /100 WBC Normal 0-0.2 [facility] Comment on above: Order Comment: PATIE NT IS GETTING CAT SCAN DONE NURSE WILL CALL/PAGE WHEN PATIENT IS BACK ON THE FLOOR CONSERVATION Performed By: #### L 500.09365, L500.91091, L500.03457, L500.26917, L500.50595 #### Test performed at: [place] [id number] Platelet mean volume (Bld) [Entitic vol] 9.1 fL Normal 8.7-12.4 [facility] Comment on above: Order Comment: PATIE NT IS GETTING CAT SCAN DONE NURSE WILL CALL/PAGE WHEN PATIENT IS BACK ON THE FLOOR CONSERVATION Performed By: #### L 500.58048, L500.71161, L500.35822, L500.68270, L500.49412 #### Test performed at: [place] [id number] Platelets (Bld) [#/Vol] 215 10*3/uL Normal 140-440 [facility] Comment on above: Order Comment: PATIE NT IS GETTING CAT SCAN DONE NURSE WILL CALL/PAGE WHEN PATIENT IS BACK ON THE FLOOR CONSERVATION Performed By: #### L 500.64534, L500.49674, L500.31701, L500.00755, L500.02320 #### Test performed at: [address] [address] RBC (Bld) [#/Vol] 4.32 10*6/uL Normal 3.5-5.5 [facility] Comment on above: Order Comment: PATIE NT IS GETTING CAT SCAN DONE NURSE WILL CALL/PAGE WHEN PATIENT IS BACK ON THE FLOOR CONSERVATION Performed By: #### L 500.01834, L500.66148, L500.28933, L500.52602, L500.43338 #### Test performed at: [address] [address] WBC (Bld) [#/Vol] 8.2 10*3/uL Normal 3.9-11.0 [facility] Comment on above: Order Comment: PATIE NT IS GETTING CAT SCAN DONE NURSE WILL CALL/PAGE WHEN PATIENT IS BACK ON THE FLOOR CONSERVATION Performed By: #### L 500.76580, L500.24599, L500.14440, L500.88204, L500.74232 #### Test performed at: [place] [id number] COMP META PANELon 08-12-2019 Albumin [Mass/Vol] 3.5 g/dL Normal 3.4-5.0 [facility] Comment on above: Order Comment: PATIE NT IS GETTING CAT SCAN DONE NURSE WILL CALL/PAGE WHEN PATIENT IS BACK ON THE FLOOR CONSERVATION Performed By: #### L 500.50863, L500.20874, L500.87294, L500.71374, L500.30107 #### Test performed at: [address] [address] ALK PHOS TOTAL 102 U/L Normal 45-117 [facility] Comment on above: Order Comment: PATIE NT IS GETTING CAT SCAN DONE NURSE WILL CALL/PAGE WHEN PATIENT IS BACK ON THE FLOOR CONSERVATION Performed By: #### L 500.56106, L500.71409, L500.85067, L500.60258, L500.43049 #### Test performed at: [address] [address] ALT [Catalytic activity/Vol] 108 U/L High 13-61 [facility] Comment on above: Order Comment: PATIE NT IS GETTING CAT SCAN DONE NURSE WILL CALL/PAGE WHEN PATIENT IS BACK ON THE FLOOR CONSERVATION Performed By: #### L 500.04410, L500.52250, L500.07502, L500.13497, L500.30418 #### Test performed at: [place] [id number] AST [Catalytic activity/Vol] 57 U/L High 15-37 [facility] Comment on above: Order Comment: PATIE NT IS GETTING CAT SCAN DONE NURSE WILL CALL/PAGE WHEN PATIENT IS BACK ON THE FLOOR CONSERVATION Performed By: #### L 500.30395, L500.81818, L500.81502, L500.14281, L500.59570 #### Test performed at: [place] [id number] BILI TOTAL 0.5 mg/dL Normal 0.2-1.0 [facility] Comment on above: Order Comment: PATIE NT IS GETTING CAT SCAN DONE NURSE WILL CALL/PAGE WHEN PATIENT IS BACK ON THE FLOOR CONSERVATION Performed By: #### L 500.36065, L500.06803, L500.70367, L500.98607, L500.14736 #### Test performed at: [address] [address] Calcium [Mass/Vol] 8.7 mg/dL Normal 8.5-10.1 [facility] Comment on above: Order Comment: PATIE NT IS GETTING CAT SCAN DONE NURSE WILL CALL/PAGE WHEN PATIENT IS BACK ON THE FLOOR CONSERVATION Performed By: #### L 500.48546, L500.75454, L500.37298, L500.10948, L500.99383 #### Test performed at: [address] [address] Chloride [Moles/Vol] 105 mmol/L Normal 98-107 [facility] Comment on above: Order Comment: PATIE NT IS GETTING CAT SCAN DONE NURSE WILL CALL/PAGE WHEN PATIENT IS BACK ON THE FLOOR CONSERVATION Performed By: #### L 500.17153, L500.17877, L500.93340, L500.01304, L500.84645 #### Test performed at: [address] [address] CO2 [Moles/Vol] 25 mmol/L Normal 21-32 [facility] Comment on above: Order Comment: PATIE NT IS GETTING CAT SCAN DONE NURSE WILL CALL/PAGE WHEN PATIENT IS BACK ON THE FLOOR CONSERVATION Performed By: #### L 500.59294, L500.69780, L500.49449, L500.72551, L500.72214 #### Test performed at: [address] [address] Creatinine [Mass/Vol] 1.010 mg/dL Normal 0.550-1.020 [facility] Comment on above: Order Comment: PATIE NT IS GETTING CAT SCAN DONE NURSE WILL CALL/PAGE WHEN PATIENT IS BACK ON THE FLOOR CONSERVATION Performed By: #### L 500.22359, L500.68921, L500.71832, L500.15315, L500.37558 #### Test performed at: [address] [address] Glucose [Mass/Vol] 99 mg/dL Normal 70-99 [facility] Comment on above: Order Comment: PATIE NT IS GETTING CAT SCAN DONE NURSE WILL CALL/PAGE WHEN PATIENT IS BACK ON THE FLOOR CONSERVATION Result Comment: Fast ing GLUCOSE reference range has been updated per (ADA) [place] [employer]'s recommendation. 11/06/2018 Performed By: #### L 500.85891, L500.16108, L500.20607, L500.42185, L500.84219 #### Test performed at: [address] [address] Potassium [Moles/Vol] 3.6 mmol/L Normal 3.5-5.1 [facility] Comment on above: Order Comment: PATIE NT IS GETTING CAT SCAN DONE NURSE WILL CALL/PAGE WHEN PATIENT IS BACK ON THE FLOOR CONSERVATION Performed By: #### L 500.46940, L500.21441, L500.81789, L500.75331, L500.37635 #### Test performed at: [address] [address] Protein [Mass/Vol] 6.7 g/dL Normal 6.4-8.2 [facility] Comment on above: Order Comment: PATIE NT IS GETTING CAT SCAN DONE NURSE WILL CALL/PAGE WHEN PATIENT IS BACK ON THE FLOOR CONSERVATION Performed By: #### L 500.79917, L500.99042, L500.34061, L500.08908, L500.41383 #### Test performed at: [address] [address] Sodium [Moles/Vol] 138 mmol/L Normal 136-145 [facility] Comment on above: Order Comment: PATIE NT IS GETTING CAT SCAN DONE NURSE WILL CALL/PAGE WHEN PATIENT IS BACK ON THE FLOOR CONSERVATION Performed By: #### L 500.01783, L500.60091, L500.64294, L500.34749, L500.52164 #### Test performed at: [address] [address] Urea nitrogen [Mass/Vol] 16 mg/dL Normal 7-18 [facility] Comment on above: Order Comment: PATIE NT IS GETTING CAT SCAN DONE NURSE WILL CALL/PAGE WHEN PATIENT IS BACK ON THE FLOOR CONSERVATION Performed By: #### L 500.49382, L500.65000, L500.29304, L500.00998, L500.96303 #### Test performed at: [place] [address] CRPon 08-12-2019 CRP [Mass/Vol] 93.6 mg/L High 0.0-3.0 [facility] Comment on above: Order Comment: PATIE NT IS GETTING CAT SCAN DONE NURSE WILL CALL/PAGE WHEN PATIENT IS BACK ON THE FLOOR CONSERVATION Performed By: #### L 500.82207, L500.24659, L500.69933, L500.66718, L500.51980 #### Test performed at: [place] [address] GFR ESTIMATEon 08-12-2019 IF AMER > 60 Normal > 60 [facility] Comment on above: Order Comment: PATIE [...] for clinical interpretation. Performed By: #### L 500.85809, L500.23243, L500.67306, L500.49701, L500.03381 #### Test performed at: [place] [address] IF non-AFR AMER 59 Low > 60 [facility] Comment on above: Order Comment: PATIE NT IS GETTING CAT SCAN DONE NURSE WILL CALL/PAGE WHEN PATIENT IS BACK ON THE FLOOR CONSERVATION Performed By: #### L 500.75429, L500.48032, L500.33793, L500.33833, L500.59750 #### Test performed at: [place] [address] LACTIC ACIDon 08-12-2019 Lactate [Moles/Vol] 0.7 mmol/L Normal 0.4-2.0 [facility] Comment on above: Order Comment: BANDARE NT IS GETTING CAT SCAN DONE NURSE WILL CALL/PAGE WHEN PATIENT IS BACK ON THE FLOOR CONSERVATION Performed By: #### L 500.46038, L500.91501, L500.03490, L500.77215, L500.60672 #### Test performed at: [place] [address] LIMIT UR TOXon 08-12-2019 UR AMPH Negative Normal Negative [facility] Comment on above: Order Comment: BANDARE NT IS GETTING CAT SCAN DONE NURSE WILL CALL/PAGE WHEN PATIENT IS BACK ON THE FLOOR CONSERVATION Result Comment: CUTO FZ=2357 Performed By: #### L 500.63963, L500.48986, L500.09648, L500.49822, L500.93411 #### Test performed at: [place] [address] UR AVINASH Negative Normal Negative [facility] Comment on above: Order Comment: BRIELLE NT IS GETTING CAT SCAN DONE NURSE WILL CALL/PAGE WHEN PATIENT IS BACK ON THE FLOOR CONSERVATION Result Comment: CUTO JC=071 Performed By: #### L 500.81621, L500.83594, L500.73394, L500.67147, L500.11011 #### Test performed at: [place] [address] UR BALDOMERO Negative Normal Negative [facility] Comment on above: Order Comment: BRIELLE NT IS GETTING CAT SCAN DONE NURSE WILL CALL/PAGE WHEN PATIENT IS BACK ON THE FLOOR CONSERVATION Result Comment: CUTO ZH=490 Performed By: #### L 500.12973, L500.06663, L500.95254, L500.90627, L500.96385 #### Test performed at: [place] [address] UR BUPREN/NORBU Negative Normal Negative [facility] Comment on above: Order Comment: BANDARE NT IS GETTING CAT SCAN DONE NURSE WILL CALL/PAGE WHEN PATIENT IS BACK ON THE FLOOR CONSERVATION Result Comment: CUTO FF=10 Performed By: #### L 500.17964, L500.42651, L500.11281, L500.55022, L500.95856 #### Test performed at: [address] [address] UR SHAQUILLE/THC Negative Normal Negative [facility] Comment on above: Order Comment: PATIE NT IS GETTING CAT SCAN DONE NURSE WILL CALL/PAGE WHEN PATIENT IS BACK ON THE FLOOR CONSERVATION Result Comment: CUTO FF=50 Performed By: #### L 500.51756, L500.20624, L500.67683, L500.51809, L500.08156 #### Test performed at: [place] [id number] UR NIKO Negative Normal Negative [facility] Comment on above: Order Comment: PATIE NT IS GETTING CAT SCAN DONE NURSE WILL CALL/PAGE WHEN PATIENT IS BACK ON THE FLOOR CONSERVATION Result Comment: CUTO QO=863 Performed By: #### L 500.29846, L500.75293, L500.95674, L500.49368, L500.33056 #### Test performed at: [place] [id number] UR ECSTASY Negative Normal Negative [facility] Comment on above: Order Comment: PATIE NT IS GETTING CAT SCAN DONE NURSE WILL CALL/PAGE WHEN PATIENT IS BACK ON THE FLOOR CONSERVATION Result Comment: CUTO HD=801 Performed By: #### L 500.30705, L500.63439, L500.79642, L500.22590, L500.96480 #### Test performed at: [place] [id number] UR FENTANYL Negative Normal Negative [facility] Comment on above: Order Comment: PATIE NT IS GETTING CAT SCAN DONE NURSE WILL CALL/PAGE WHEN PATIENT IS BACK ON THE FLOOR CONSERVATION Result Comment: CUTO GV=1167 Performed By: #### L 500.38128, L500.82932, L500.08162, L500.93883, L500.59852 #### Test performed at: [address] [address] UR METH Negative Normal Negative [facility] Comment on above: Order Comment: PATIE NT IS GETTING CAT SCAN DONE NURSE WILL CALL/PAGE WHEN PATIENT IS BACK ON THE FLOOR CONSERVATION Result Comment: CUTO YG=746 Performed By: #### L 500.44855, L500.35408, L500.20403, L500.31981, L500.24511 #### Test performed at: [place] [id number] UR OPIAT Positive Critically abnormal Negative [facility] Comment on above: Order Comment: PATIE NT IS GETTING CAT SCAN DONE NURSE WILL CALL/PAGE WHEN PATIENT IS BACK ON THE FLOOR CONSERVATION Result Comment: CUTO BH=052 Performed By: #### L 500.10920, L500.62348, L500.18099, L500.74546, L500.38878 #### Test performed at: [address] [address] UR OXYCOCONE Positive Critically abnormal Negative [facility] Comment on above: Order Comment: PATIE NT IS GETTING CAT SCAN DONE NURSE WILL CALL/PAGE WHEN PATIENT IS BACK ON THE FLOOR CONSERVATION Result Comment: CUTO AX=047 Performed By: #### L 500.22838, L500.73538, L500.47652, L500.31353, L500.46836 #### Test performed at: [address] [address] UR PCP Negative Normal Negative [facility] Comment on above: Order Comment: PATIE NT IS GETTING CAT SCAN DONE NURSE WILL CALL/PAGE WHEN PATIENT IS BACK ON THE FLOOR CONSERVATION Result Comment: CUTO FF=25 Performed By: #### L 500.95129, L500.07278, L500.51065, L500.22006, L500.96150 #### Test performed at: [place] [id number] PH TOX 7.0 Normal 5.0-8.0 [facility] Comment on above: Order Comment: BANDARE NT IS GETTING CAT SCAN DONE NURSE WILL CALL/PAGE WHEN PATIENT IS BACK ON THE FLOOR CONSERVATION Performed By: #### L 500.88132, L500.70136, L500.79185, L500.17385, L500.40931 #### Test performed at: [place] [id number] TOX COMMENT *PLEASE NOTE: Normal [facility] Comment on above: Order Comment: PATIE NT IS GETTING CAT SCAN DONE NURSE WILL CALL/PAGE WHEN PATIENT IS BACK ON THE FLOOR CONSERVATION Result Comment: UNCO NFIRMED Toxicology results. For MEDICAL purposes only. Performed By: #### L 500.71850, L500.29350, L500.08719, L500.74619, L500.48849 #### Test performed at: [place] [id number] LUMBAR SP W & WO CONTRASTon 08-12-2019 LUMBAR SP W & WO CONTRAST STUDY: LUMBAR SP W WO CONTRAST; 08/12/2019 11:30 am INDICATION: low back pain . COMPARISON: 07/20/2019 ACCESSION NUMBER(S): [id number] ORDERING CLINICIAN: Manfred Mac TECHNIQUE: Sagittal STIR, [...] be postsurgical in etiology although a superimposed infectious/inflammator y process could give a similar MRI appearance [...] represent postoperative granulation tissue/scar although a superimposed infectious/inflammator y process could give a similar MRI appearance and can not be excluded. There is persistent posterior osteophytic spurring and posterior disc bulge. The current study demonstrates aofd-xi-dtoozmbi narrowing of the thecal sac within the [...] be postsurgical in etiology although a superimposed infectious/inflammator y process could give a similar MRI appearance [...] described above. The study was interpreted at [facility]. Normal [facility] PROCALCITONINon 08-12-2019 PROCALCITONIN 0.18 ng/mL Normal [facility] Comment on above: Order Comment: [...] or septic shock. Performed By: #### L 500.67918, L500.67944, L500.46710, L500.16505, L500.93002 #### Test performed at: [place] [address] UA COMPLETEon 08-12-2019 Appearance (U) CLEAR Normal CLEAR [facility] Comment on above: Order Comment: BANDARE NT IS GETTING CAT SCAN DONE NURSE WILL CALL/PAGE WHEN PATIENT IS BACK ON THE FLOOR CONSERVATION Performed By: #### L 500.61030, L500.58269, L500.24925, L500.32967, L500.85809 #### Test performed at: [address] [address] Bilirubin [Mass/Vol] Negative Normal NEGATIVE [facility] Comment on above: Order Comment: PATIE NT IS GETTING CAT SCAN DONE NURSE WILL CALL/PAGE WHEN PATIENT IS BACK ON THE FLOOR CONSERVATION Performed By: #### L 500.34807, L500.96076, L500.70569, L500.44517, L500.54736 #### Test performed at: [address] [address] BLOOD Negative Normal NEGATIVE [facility] Comment on above: Order Comment: PATIE NT IS GETTING CAT SCAN DONE NURSE WILL CALL/PAGE WHEN PATIENT IS BACK ON THE FLOOR CONSERVATION Result Comment: ASCO RBIC ACID IS PRESENT AND MAY INTERFERE WITH THE URINE BLOOD RESULT. Performed By: #### L 500.14648, L500.03352, L500.16260, L500.58366, L500.48691 #### Test performed at: [place] [address] Color (U) YELLOW Normal YELLOW [facility] Comment on above: Order Comment: PATIE NT IS GETTING CAT SCAN DONE NURSE WILL CALL/PAGE WHEN PATIENT IS BACK ON THE FLOOR CONSERVATION Performed By: #### L 500.00717, L500.36928, L500.54877, L500.03636, L500.52171 #### Test performed at: [place] [address] Glucose [Mass/Vol] Negative Normal NEGATIVE [facility] Comment on above: Order Comment: PATIE NT IS GETTING CAT SCAN DONE NURSE WILL CALL/PAGE WHEN PATIENT IS BACK ON THE FLOOR CONSERVATION Performed By: #### L 500.13781, L500.66129, L500.44414, L500.54813, L500.70262 #### Test performed at: [place] [id number] KETONE Negative Normal NEGATIVE [facility] Comment on above: Order Comment: BANDARE NT IS GETTING CAT SCAN DONE NURSE WILL CALL/PAGE WHEN PATIENT IS BACK ON THE FLOOR CONSERVATION Performed By: #### L 500.44688, L500.28339, L500.45766, L500.64380, L500.78585 #### Test performed at: [address] [address] LEUK ESTERASE Negative Normal NEGATIVE [facility] Comment on above: Order Comment: PATIE NT IS GETTING CAT SCAN DONE NURSE WILL CALL/PAGE WHEN PATIENT IS BACK ON THE FLOOR CONSERVATION Performed By: #### L 500.46686, L500.30783, L500.69622, L500.44113, L500.33421 #### Test performed at: [address] [address] Nitrite Ql (U) Negative Normal NEGATIVE [facility] Comment on above: Order Comment: PATIE NT IS GETTING CAT SCAN DONE NURSE WILL CALL/PAGE WHEN PATIENT IS BACK ON THE FLOOR CONSERVATION Performed By: #### L 500.64854, L500.44412, L500.70761, L500.13134, L500.11484 #### Test performed at: [place] [id number] Protein [Mass/Vol] Negative Normal NEGATIVE [facility] Comment on above: Order Comment: PATIE NT IS GETTING CAT SCAN DONE NURSE WILL CALL/PAGE WHEN PATIENT IS BACK ON THE FLOOR CONSERVATION Performed By: #### L 500.45098, L500.82497, L500.32395, L500.67227, L500.72858 #### Test performed at: [place] [id number] SPEC GRAV 1.032 High 1.005-1.030 [facility] Comment on above: Order Comment: PATIE NT IS GETTING CAT SCAN DONE NURSE WILL CALL/PAGE WHEN PATIENT IS BACK ON THE FLOOR CONSERVATION Performed By: #### L 500.50601, L500.14010, L500.86306, L500.28750, L500.27893 #### Test performed at: [place] [id number] UA ASC ACID 40 mg/dL Normal [facility] Comment on above: Order Comment: PATIE NT IS GETTING CAT SCAN DONE NURSE WILL CALL/PAGE WHEN PATIENT IS BACK ON THE FLOOR CONSERVATION Performed By: #### L 500.02661, L500.07075, L500.81538, L500.66772, L500.20154 #### Test performed at: [place] [id number] UA PH 5.0 Normal 5.0-8.0 [facility] Comment on above: Order Comment: PATIE NT IS GETTING CAT SCAN DONE NURSE WILL CALL/PAGE WHEN PATIENT IS BACK ON THE FLOOR CONSERVATION Performed By: #### L 500.48504, L500.04719, L500.92758, L500.71997, L500.23494 #### Test performed at: [place] [address] UROBIL NORMAL Normal NORMAL [facility] Comment on above: Order Comment: PATIE NT IS GETTING CAT SCAN DONE NURSE WILL CALL/PAGE WHEN PATIENT IS BACK ON THE FLOOR CONSERVATION Performed By: #### L 500.72142, L500.61224, L500.10455, L500.84610, L500.02705 #### Test performed at: [place] [address] WSR/MODon 08-12-2019 WSR/MOD 40 mm/hr High 0-20 [facility] Comment on above: Order Comment: PATIE NT IS GETTING CAT SCAN DONE NURSE WILL CALL/PAGE WHEN PATIENT IS BACK ON THE FLOOR CONSERVATION Result Comment: Delt a: 8 on 07/16/19 Performed By: #### L 500.71812, L500.49485, L500.95022, L500.14492, L500.74600 #### Test performed at: [place] [id number] AEROBIC CULTon 08-01-2019 AEROBIC CULT NO GROWTH 10 DAYS Normal [facility] Comment on above: Order Comment: PATIE NT IS GETTING CAT SCAN DONE NURSE WILL CALL/PAGE WHEN PATIENT IS BACK ON THE FLOOR CONSERVATION Performed By: #### L 500.02762, L500.48534, L500.34936, L500.19585, L500.88168 #### Test performed at: [address] [address] ANAER CULTUREon 08-01-2019 ANAER CULTURE NO ANAEROBES ISOLATE D 10 DAYS Normal [facility] Comment on above: Order Comment: BRIELLE NT IS GETTING CAT SCAN DONE NURSE WILL CALL/PAGE WHEN PATIENT IS BACK ON THE FLOOR CONSERVATION Performed By: #### L 500.17304, L500.23636, L500.97742, L500.49171, L500.22998 #### Test performed at: [address] Inf Disease Progress Not francis 08-01-2019 [facility] Inf Disease Progress Note [facility] Pt Name: ERIKA ORTIZ [facility] hospital[facility] [address] MR#: [id number] [place] [address] ACCT: [id number] PROGRESS NOTE- Infectious Disease : 74 [facility] Date of Service: 08/01/19 Text NAME: ERIKA ORTIZ MR#: [id number] DATE OF SERVICE: 08/01/2019 [facility] INFECTIOUS DISEASE PROGRESS NOTE Ms. Ortiz returns [...] last laboratories done on July 29 at [facility] near her home note a vancomycin trough of 18. The white count was 12,300, hematocrit 38.6, platelets 322,000, sedimentation rate was 33, BUN 6, creatinine 0.84. C-reactive protein 3.7. Reviewing prior labs while hospitalized, her CRP July 16 was 10.2. ASSESSMENT: Clinically, this patient is being treated for culture negative [facility] Pt Name: REIKA ORTIZ [address] [place] [address] MR#: [id number] [place] [address] ACCT: [id number] PROGRESS NOTE- Infectious Disease : [facility] [...] and medication prescribed by [employer] from a [place] office. ROBERT GILL MD [facility]/MODL/[id number] Electronically Signed eSign Date and Time Robert Gill 08/12/19 1549 Normal [facility] AEROBIC CULTon 07-27-2019 AEROBIC CULT NO GROWTH 10 DAYS Normal [facility] Comment on above: Order Comment: CONSE RVATION List patient's anticoagulants for PT: NONE SPECIFIED Performed By: #### L 300.85039 #### Test performed at: [address] [address] ANAER CULTUREon 07-27-2019 ANAER CULTURE NO ANAEROBES ISOLATE D 10 DAYS Normal [facility] Comment on above: Order Comment: CONSE RVATION List patient's anticoagulants for PT: NONE SPECIFIED Performed By: #### L 300.02004 #### Test performed at: [place] [address] BLOOD CULTUREon 07-23-2019 Bacteria identified Cx Nom (Bld) NO GROWTH 5 DAYS Normal [facility] Comment on above: Order Comment: PATIE NT IS GETTING CAT SCAN DONE NURSE WILL CALL/PAGE WHEN PATIENT IS BACK ON THE FLOOR CONSERVATION Performed By: #### L 500.11211, L500.32119, L500.93066, L500.28598, L500.52356 #### Test performed at: [place] [id number] BASIC MET PANELon 07-22-2019 Anion gap [Moles/Vol] 17 mmol/L Normal 6-18 [facility] Comment on above: Order Comment: PATIE NT IS GETTING CAT SCAN DONE NURSE WILL CALL/PAGE WHEN PATIENT IS BACK ON THE FLOOR CONSERVATION Performed By: #### L 500.79339, L500.83797, L500.93846, L500.93284, L500.43235 #### Test performed at: [address] [address] Calcium [Mass/Vol] 9.4 mg/dL Normal 8.5-10.1 [facility] Comment on above: Order Comment: PATIE NT IS GETTING CAT SCAN DONE NURSE WILL CALL/PAGE WHEN PATIENT IS BACK ON THE FLOOR CONSERVATION Performed By: #### L 500.75651, L500.85759, L500.73966, L500.59826, L500.37188 #### Test performed at: [address] [address] Chloride [Moles/Vol] 100 mmol/L Normal 98-107 [facility] Comment on above: Order Comment: PATIE NT IS GETTING CAT SCAN DONE NURSE WILL CALL/PAGE WHEN PATIENT IS BACK ON THE FLOOR CONSERVATION Performed By: #### L 500.85714, L500.20987, L500.14892, L500.67079, L500.58479 #### Test performed at: [address] [address] CO2 [Moles/Vol] 25 mmol/L Normal 21-32 [facility] Comment on above: Order Comment: PATIE NT IS GETTING CAT SCAN DONE NURSE WILL CALL/PAGE WHEN PATIENT IS BACK ON THE FLOOR CONSERVATION Performed By: #### L 500.75075, L500.95573, L500.45270, L500.86118, L500.66213 #### Test performed at: [address] [address] Creatinine [Mass/Vol] 1.010 mg/dL Normal 0.550-1.020 [facility] Comment on above: Order Comment: PATIE NT IS GETTING CAT SCAN DONE NURSE WILL CALL/PAGE WHEN PATIENT IS BACK ON THE FLOOR CONSERVATION Performed By: #### L 500.56509, L500.28173, L500.22539, L500.69039, L500.94708 #### Test performed at: [address] [address] Glucose [Mass/Vol] 157 mg/dL High 70-99 [facility] Comment on above: Order Comment: PATIE NT IS GETTING CAT SCAN DONE NURSE WILL CALL/PAGE WHEN PATIENT IS BACK ON THE FLOOR CONSERVATION Result Comment: Fast ing GLUCOSE reference range has been updated per (ADA) [place] [employer]'s recommendation. 11/06/2018 Performed By: #### L 500.28652, L500.39881, L500.63002, L500.80927, L500.73757 #### Test performed at: [address] [address] OSM 291 mosm/kg Normal 270-300 [facility] Comment on above: Order Comment: PATIE NT IS GETTING CAT SCAN DONE NURSE WILL CALL/PAGE WHEN PATIENT IS BACK ON THE FLOOR CONSERVATION Performed By: #### L 500.33538, L500.38248, L500.55303, L500.89712, L500.17772 #### Test performed at: [address] [address] Potassium [Moles/Vol] 4.0 mmol/L Normal 3.5-5.1 [facility] Comment on above: Order Comment: PATIE NT IS GETTING CAT SCAN DONE NURSE WILL CALL/PAGE WHEN PATIENT IS BACK ON THE FLOOR CONSERVATION Performed By: #### L 500.96635, L500.66044, L500.91017, L500.88124, L500.65149 #### Test performed at: [address] [address] Sodium [Moles/Vol] 138 mmol/L Normal 136-145 [facility] Comment on above: Order Comment: PATIE NT IS GETTING CAT SCAN DONE NURSE WILL CALL/PAGE WHEN PATIENT IS BACK ON THE FLOOR CONSERVATION Performed By: #### L 500.35613, L500.63427, L500.53350, L500.89187, L500.63538 #### Test performed at: [address] [address] Urea nitrogen [Mass/Vol] 18 mg/dL Normal 7-18 [facility] Comment on above: Order Comment: PATIE NT IS GETTING CAT SCAN DONE NURSE WILL CALL/PAGE WHEN PATIENT IS BACK ON THE FLOOR CONSERVATION Performed By: #### L 500.65576, L500.03109, L500.59024, L500.12739, L500.13093 #### Test performed at: [address] [address] CBC W/DIFFon 07-22-2019 BASO ABS 0.0 K/uL Normal 0.0-0.2 [facility] Comment on above: Order Comment: PATIE NT IS GETTING CAT SCAN DONE NURSE WILL CALL/PAGE WHEN PATIENT IS BACK ON THE FLOOR CONSERVATION Performed By: #### L 500.78806, L500.42149, L500.55744, L500.64512, L500.74610 #### Test performed at: [address] [address] Basophils/100 WBC (Bld) 0.1 % Normal [facility] Comment on above: Order Comment: PATIE NT IS GETTING CAT SCAN DONE NURSE WILL CALL/PAGE WHEN PATIENT IS BACK ON THE FLOOR CONSERVATION Performed By: #### L 500.93943, L500.68309, L500.97278, L500.49090, L500.27025 #### Test performed at: [address] [address] EOS ABS 0.0 K/uL Normal 0.0-0.5 [facility] Comment on above: Order Comment: PATIE NT IS GETTING CAT SCAN DONE NURSE WILL CALL/PAGE WHEN PATIENT IS BACK ON THE FLOOR CONSERVATION Performed By: #### L 500.04734, L500.77348, L500.06502, L500.01862, L500.50850 #### Test performed at: [address] [address] Eosinophils/100 WBC (Bld) 0.0 % Normal [facility] Comment on above: Order Comment: PATIE NT IS GETTING CAT SCAN DONE NURSE WILL CALL/PAGE WHEN PATIENT IS BACK ON THE FLOOR CONSERVATION Performed By: #### L 500.48178, L500.12620, L500.78565, L500.69117, L500.77415 #### Test performed at: [address] [address] IG % 0.8 % Normal [facility] Comment on above: Order Comment: BANDARE NT IS GETTING CAT SCAN DONE NURSE WILL CALL/PAGE WHEN PATIENT IS BACK ON THE FLOOR CONSERVATION Performed By: #### L 500.61105, L500.84762, L500.50274, L500.62315, L500.04915 #### Test performed at: [address] [address] IG ABS 0.19 K/uL High 0-0.05 [facility] Comment on above: Order Comment: PATIE NT IS GETTING CAT SCAN DONE NURSE WILL CALL/PAGE WHEN PATIENT IS BACK ON THE FLOOR CONSERVATION Performed By: #### L 500.67141, L500.47004, L500.34370, L500.92345, L500.82213 #### Test performed at: [place] [id number] Lymphocytes (Bld) [#/Vol] 1.9 10*3/uL Normal 1.2-3.5 [facility] Comment on above: Order Comment: PATIE NT IS GETTING CAT SCAN DONE NURSE WILL CALL/PAGE WHEN PATIENT IS BACK ON THE FLOOR CONSERVATION Performed By: #### L 500.44702, L500.29111, L500.95734, L500.97593, L500.94286 #### Test performed at: [address] [address] Lymphocytes/100 WBC (Bld) 7.8 % Normal [facility] Comment on above: Order Comment: PATIE NT IS GETTING CAT SCAN DONE NURSE WILL CALL/PAGE WHEN PATIENT IS BACK ON THE FLOOR CONSERVATION Performed By: #### L 500.46704, L500.20915, L500.43721, L500.45530, L500.61580 #### Test performed at: [address] [address] MONO ABS 1.2 K/uL High 0.0-1.0 [facility] Comment on above: Order Comment: PATIE NT IS GETTING CAT SCAN DONE NURSE WILL CALL/PAGE WHEN PATIENT IS BACK ON THE FLOOR CONSERVATION Performed By: #### L 500.90875, L500.88582, L500.66885, L500.24223, L500.16323 #### Test performed at: [address] [address] Monocytes/100 WBC (Bld) 5.1 % Normal [facility] Comment on above: Order Comment: PATIE NT IS GETTING CAT SCAN DONE NURSE WILL CALL/PAGE WHEN PATIENT IS BACK ON THE FLOOR CONSERVATION Performed By: #### L 500.89119, L500.75117, L500.36645, L500.78150, L500.33802 #### Test performed at: [address] [address] NEUTROPHIL ABS 20.8 K/uL High 1.4-6.6 [facility] Comment on above: Order Comment: PATIE NT IS GETTING CAT SCAN DONE NURSE WILL CALL/PAGE WHEN PATIENT IS BACK ON THE FLOOR CONSERVATION Performed By: #### L 500.22932, L500.91452, L500.97561, L500.83042, L500.64180 #### Test performed at: [address] [address] Neutrophils/100 WBC (Bld) 86.2 % Normal [facility] Comment on above: Order Comment: PATIE NT IS GETTING CAT SCAN DONE NURSE WILL CALL/PAGE WHEN PATIENT IS BACK ON THE FLOOR CONSERVATION Performed By: #### L 500.46085, L500.01123, L500.66363, L500.56642, L500.01384 #### Test performed at: [address] [address] SCREEN REQUIRED YES Normal [facility] Comment on above: Order Comment: PATIE NT IS GETTING CAT SCAN DONE NURSE WILL CALL/PAGE WHEN PATIENT IS BACK ON THE FLOOR CONSERVATION Result Comment: [place] pheral Smear reviewed by technologist. Performed By: #### L 500.81335, L500.07089, L500.78834, L500.99433, L500.24869 #### Test performed at: [address] [address] Erythrocyte distribution width (RBC) [Ratio] 13.1 % Normal 11.5-14.5 [facility] Comment on above: Order Comment: PATIE NT IS GETTING CAT SCAN DONE NURSE WILL CALL/PAGE WHEN PATIENT IS BACK ON THE FLOOR CONSERVATION Performed By: #### L 500.89254, L500.54239, L500.23729, L500.77855, L500.24874 #### Test performed at: [address] [address] Hematocrit (Bld) [Volume fraction] 42.3 % Normal 36.0-48.0 [facility] Comment on above: Order Comment: PATIE NT IS GETTING CAT SCAN DONE NURSE WILL CALL/PAGE WHEN PATIENT IS BACK ON THE FLOOR CONSERVATION Performed By: #### L 500.69711, L500.51193, L500.18822, L500.65706, L500.21634 #### Test performed at: [address] [address] Hemoglobin (Bld) [Mass/Vol] 14.5 g/dL Normal 12.0-15.0 [facility] Comment on above: Order Comment: PATIE NT IS GETTING CAT SCAN DONE NURSE WILL CALL/PAGE WHEN PATIENT IS BACK ON THE FLOOR CONSERVATION Performed By: #### L 500.63438, L500.02009, L500.22408, L500.75045, L500.06849 #### Test performed at: [address] [address] MCH (RBC) [Entitic mass] 30.0 pg Normal 25.4-34.6 [facility] Comment on above: Order Comment: PATIE NT IS GETTING CAT SCAN DONE NURSE WILL CALL/PAGE WHEN PATIENT IS BACK ON THE FLOOR CONSERVATION Performed By: #### L 500.40409, L500.88864, L500.02987, L500.08733, L500.32404 #### Test performed at: [address] [address] MCHC (RBC) [Mass/Vol] 34.3 g/dL Normal 31.5-36.5 [facility] Comment on above: Order Comment: PATIE NT IS GETTING CAT SCAN DONE NURSE WILL CALL/PAGE WHEN PATIENT IS BACK ON THE FLOOR CONSERVATION Performed By: #### L 500.70117, L500.75555, L500.43083, L500.41079, L500.33762 #### Test performed at: [address] [address] MCV (RBC) [Entitic vol] 87.6 fL Normal 79.0-98.0 [facility] Comment on above: Order Comment: PATIE NT IS GETTING CAT SCAN DONE NURSE WILL CALL/PAGE WHEN PATIENT IS BACK ON THE FLOOR CONSERVATION Performed By: #### L 500.16965, L500.15075, L500.29348, L500.07533, L500.51460 #### Test performed at: [place] [address] NRBC # 0.000 K/uL Normal 0-0.012 [facility] Comment on above: Order Comment: PATIE NT IS GETTING CAT SCAN DONE NURSE WILL CALL/PAGE WHEN PATIENT IS BACK ON THE FLOOR CONSERVATION Performed By: #### L 500.10231, L500.72338, L500.18829, L500.46026, L500.28807 #### Test performed at: [address] [address] NRBC % 0.0 /100 WBC Normal 0-0.2 [facility] Comment on above: Order Comment: PATIE NT IS GETTING CAT SCAN DONE NURSE WILL CALL/PAGE WHEN PATIENT IS BACK ON THE FLOOR CONSERVATION Performed By: #### L 500.01034, L500.08050, L500.89652, L500.57525, L500.57996 #### Test performed at: [place] [address] Platelet mean volume (Bld) [Entitic vol] 9.7 fL Normal 8.7-12.4 [facility] Comment on above: Order Comment: PATIE NT IS GETTING CAT SCAN DONE NURSE WILL CALL/PAGE WHEN PATIENT IS BACK ON THE FLOOR CONSERVATION Performed By: #### L 500.35025, L500.07215, L500.44415, L500.71640, L500.73592 #### Test performed at: [address] [address] Platelets (Bld) [#/Vol] 307 10*3/uL Normal 140-440 [facility] Comment on above: Order Comment: PATIE NT IS GETTING CAT SCAN DONE NURSE WILL CALL/PAGE WHEN PATIENT IS BACK ON THE FLOOR CONSERVATION Performed By: #### L 500.95778, L500.49259, L500.61011, L500.45709, L500.09354 #### Test performed at: [address] [address] RBC (Bld) [#/Vol] 4.83 10*6/uL Normal 3.5-5.5 [facility] Comment on above: Order Comment: PATIE NT IS GETTING CAT SCAN DONE NURSE WILL CALL/PAGE WHEN PATIENT IS BACK ON THE FLOOR CONSERVATION Performed By: #### L 500.31046, L500.80281, L500.99769, L500.51032, L500.45382 #### Test performed at: [address] [address] WBC (Bld) [#/Vol] 24.2 10*3/uL High 3.9-11.0 [facility] Comment on above: Order Comment: PATIE NT IS GETTING CAT SCAN DONE NURSE WILL CALL/PAGE WHEN PATIENT IS BACK ON THE FLOOR CONSERVATION Result Comment: Delt a: 11.8 on 07/21/19 Performed By: #### L 500.82957, L500.08673, L500.18022, L500.95032, L500.93410 #### Test performed at: [place] [address] EST. CREAT CLRon 07-22-2019 Creatinine [Mass/Vol] 106.600 ML/MIN Normal [facility] Comment on above: Order Comment: PATIE NT IS GETTING CAT SCAN DONE NURSE WILL CALL/PAGE WHEN PATIENT IS BACK ON THE FLOOR CONSERVATION Result Comment: This result is an ESTIMATED blood creatinine clearance value which is derived from the patient age, sex, weight, and previous blood creatinine result. Performed By: #### L 500.96133, L500.01383, L500.33689, L500.41409, L500.73174 #### Test performed at: [place] [id number] GFR ESTIMATEon 07-22-2019 IF AMER > 60 Normal > 60 [facility] Comment on above: Order Comment: PATIE [...] for clinical interpretation. Performed By: #### L 500.77758, L500.65200, L500.90183, L500.99340, L500.57513 #### Test performed at: [place] [address] IF non-AFR AMER 59 Low > 60 [facility] Comment on above: Order Comment: PATIE NT IS GETTING CAT SCAN DONE NURSE WILL CALL/PAGE WHEN PATIENT IS BACK ON THE FLOOR CONSERVATION Performed By: #### L 500.78653, L500.56999, L500.60291, L500.59125, L500.95669 #### Test performed at: [address] [address] VANC TROUGHon 07-22-2019 VANC TROUGH 12.7 ug/mL Normal 10-15 [facility] Comment on above: Order Comment: BRIELLE NT IS GETTING CAT SCAN DONE NURSE WILL CALL/PAGE WHEN PATIENT IS BACK ON THE FLOOR CONSERVATION Result Comment: For SUSPECTED or DOCUMENTED infections of STAPHYLOCOCCUS where the M.I.C is > OR = 2 mg/L, the recommended dosage for VANCOMYCIN is 15-20 ug/mL. Performed By: #### L 500.55360, L500.65369, L500.28213, L500.21554, L500.00590 #### Test performed at: [address] [address] BASIC MET PANELon 07-21-2019 Anion gap [Moles/Vol] 14 mmol/L Normal 6-18 [facility] Comment on above: Order Comment: BRIELLE NT IS GETTING CAT SCAN DONE NURSE WILL CALL/PAGE WHEN PATIENT IS BACK ON THE FLOOR CONSERVATION Performed By: #### L 500.25364, L500.75718, L500.11737, L500.66348, L500.71591 #### Test performed at: [address] [address] Calcium [Mass/Vol] 9.1 mg/dL Normal 8.5-10.1 [facility] Comment on above: Order Comment: BRIELLE NT IS GETTING CAT SCAN DONE NURSE WILL CALL/PAGE WHEN PATIENT IS BACK ON THE FLOOR CONSERVATION Performed By: #### L 500.42118, L500.76919, L500.52273, L500.13894, L500.37740 #### Test performed at: [address] [address] Chloride [Moles/Vol] 101 mmol/L Normal 98-107 [facility] Comment on above: Order Comment: BRIELLE NT IS GETTING CAT SCAN DONE NURSE WILL CALL/PAGE WHEN PATIENT IS BACK ON THE FLOOR CONSERVATION Performed By: #### L 500.20966, L500.74929, L500.04324, L500.73682, L500.11998 #### Test performed at: [place] [id number] CO2 [Moles/Vol] 25 mmol/L Normal 21-32 [facility] Comment on above: Order Comment: PATIE NT IS GETTING CAT SCAN DONE NURSE WILL CALL/PAGE WHEN PATIENT IS BACK ON THE FLOOR CONSERVATION Performed By: #### L 500.21320, L500.39157, L500.12060, L500.46242, L500.99974 #### Test performed at: [place] [address] Creatinine [Mass/Vol] 0.719 mg/dL Normal 0.550-1.020 [facility] Comment on above: Order Comment: PATIE NT IS GETTING CAT SCAN DONE NURSE WILL CALL/PAGE WHEN PATIENT IS BACK ON THE FLOOR CONSERVATION Performed By: #### L 500.95070, L500.26628, L500.28352, L500.10246, L500.15769 #### Test performed at: [place] [id number] Glucose [Mass/Vol] 138 mg/dL High 70-99 [facility] Comment on above: Order Comment: PATIE NT IS GETTING CAT SCAN DONE NURSE WILL CALL/PAGE WHEN PATIENT IS BACK ON THE FLOOR CONSERVATION Result Comment: Fast ing GLUCOSE reference range has been updated per (ADA) [place] [employer]'s recommendation. 11/06/2018 Performed By: #### L 500.18851, L500.07956, L500.54496, L500.22859, L500.87241 #### Test performed at: [place] [id number] OSM 285 mosm/kg Normal 270-300 [facility] Comment on above: Order Comment: PATIE NT IS GETTING CAT SCAN DONE NURSE WILL CALL/PAGE WHEN PATIENT IS BACK ON THE FLOOR CONSERVATION Performed By: #### L 500.00879, L500.72381, L500.74205, L500.02173, L500.34582 #### Test performed at: [address] [address] Potassium [Moles/Vol] 4.1 mmol/L Normal 3.5-5.1 [facility] Comment on above: Order Comment: PATIE NT IS GETTING CAT SCAN DONE NURSE WILL CALL/PAGE WHEN PATIENT IS BACK ON THE FLOOR CONSERVATION Performed By: #### L 500.37484, L500.33705, L500.89792, L500.04652, L500.33261 #### Test performed at: [address] [address] Sodium [Moles/Vol] 136 mmol/L Normal 136-145 [facility] Comment on above: Order Comment: PATIE NT IS GETTING CAT SCAN DONE NURSE WILL CALL/PAGE WHEN PATIENT IS BACK ON THE FLOOR CONSERVATION Performed By: #### L 500.84998, L500.59465, L500.17966, L500.81951, L500.40803 #### Test performed at: [address] [address] Urea nitrogen [Mass/Vol] 15 mg/dL Normal 7-18 [facility] Comment on above: Order Comment: PATIE NT IS GETTING CAT SCAN DONE NURSE WILL CALL/PAGE WHEN PATIENT IS BACK ON THE FLOOR CONSERVATION Performed By: #### L 500.37090, L500.79195, L500.89158, L500.70177, L500.68569 #### Test performed at: [address] [address] CBC W/DIFFon 07-21-2019 BASO ABS 0.0 K/uL Normal 0.0-0.2 [facility] Comment on above: Order Comment: PATIE NT IS GETTING CAT SCAN DONE NURSE WILL CALL/PAGE WHEN PATIENT IS BACK ON THE FLOOR CONSERVATION Performed By: #### L 500.47039, L500.61763, L500.71147, L500.34428, L500.94108 #### Test performed at: [address] [address] Basophils/100 WBC (Bld) 0.1 % Normal [facility] Comment on above: Order Comment: PATIE NT IS GETTING CAT SCAN DONE NURSE WILL CALL/PAGE WHEN PATIENT IS BACK ON THE FLOOR CONSERVATION Performed By: #### L 500.65884, L500.67817, L500.55121, L500.21923, L500.59096 #### Test performed at: [address] [address] EOS ABS 0.0 K/uL Normal 0.0-0.5 [facility] Comment on above: Order Comment: PATIE NT IS GETTING CAT SCAN DONE NURSE WILL CALL/PAGE WHEN PATIENT IS BACK ON THE FLOOR CONSERVATION Performed By: #### L 500.62331, L500.02487, L500.36048, L500.38382, L500.04170 #### Test performed at: [address] [address] Eosinophils/100 WBC (Bld) 0.0 % Normal [facility] Comment on above: Order Comment: PATIE NT IS GETTING CAT SCAN DONE NURSE WILL CALL/PAGE WHEN PATIENT IS BACK ON THE FLOOR CONSERVATION Performed By: #### L 500.44444, L500.79791, L500.11329, L500.65297, L500.98217 #### Test performed at: [address] [address] IG % 0.7 % Normal [facility] Comment on above: Order Comment: PATIE NT IS GETTING CAT SCAN DONE NURSE WILL CALL/PAGE WHEN PATIENT IS BACK ON THE FLOOR CONSERVATION Performed By: #### L 500.18317, L500.99027, L500.30252, L500.08419, L500.02903 #### Test performed at: [address] [address] IG ABS 0.08 K/uL High 0-0.05 [facility] Comment on above: Order Comment: PATIE NT IS GETTING CAT SCAN DONE NURSE WILL CALL/PAGE WHEN PATIENT IS BACK ON THE FLOOR CONSERVATION Performed By: #### L 500.11645, L500.16793, L500.42476, L500.15625, L500.76807 #### Test performed at: [address] [address] Lymphocytes (Bld) [#/Vol] 1.0 10*3/uL Low 1.2-3.5 [facility] Comment on above: Order Comment: PATIE NT IS GETTING CAT SCAN DONE NURSE WILL CALL/PAGE WHEN PATIENT IS BACK ON THE FLOOR CONSERVATION Performed By: #### L 500.26264, L500.65644, L500.04630, L500.28397, L500.51050 #### Test performed at: [address] [address] Lymphocytes/100 WBC (Bld) 8.0 % Normal [facility] Comment on above: Order Comment: PATIE NT IS GETTING CAT SCAN DONE NURSE WILL CALL/PAGE WHEN PATIENT IS BACK ON THE FLOOR CONSERVATION Performed By: #### L 500.43458, L500.97478, L500.07241, L500.83034, L500.09911 #### Test performed at: [address] [address] MONO ABS 0.3 K/uL Normal 0.0-1.0 [facility] Comment on above: Order Comment: PATIE NT IS GETTING CAT SCAN DONE NURSE WILL CALL/PAGE WHEN PATIENT IS BACK ON THE FLOOR CONSERVATION Performed By: #### L 500.73895, L500.70094, L500.14873, L500.86977, L500.25050 #### Test performed at: [address] [address] Monocytes/100 WBC (Bld) 2.3 % Normal [facility] Comment on above: Order Comment: PATIE NT IS GETTING CAT SCAN DONE NURSE WILL CALL/PAGE WHEN PATIENT IS BACK ON THE FLOOR CONSERVATION Performed By: #### L 500.22534, L500.44989, L500.73322, L500.33873, L500.50059 #### Test performed at: [address] [address] NEUTROPHIL ABS 10.5 K/uL High 1.4-6.6 [facility] Comment on above: Order Comment: PATIE NT IS GETTING CAT SCAN DONE NURSE WILL CALL/PAGE WHEN PATIENT IS BACK ON THE FLOOR CONSERVATION Performed By: #### L 500.18221, L500.03771, L500.37628, L500.80842, L500.23018 #### Test performed at: [address] [address] Neutrophils/100 WBC (Bld) 88.9 % Normal [facility] Comment on above: Order Comment: PATIE NT IS GETTING CAT SCAN DONE NURSE WILL CALL/PAGE WHEN PATIENT IS BACK ON THE FLOOR CONSERVATION Performed By: #### L 500.39390, L500.32166, L500.52214, L500.32608, L500.05503 #### Test performed at: [address] [address] Erythrocyte distribution width (RBC) [Ratio] 12.9 % Normal 11.5-14.5 [facility] Comment on above: Order Comment: PATIE NT IS GETTING CAT SCAN DONE NURSE WILL CALL/PAGE WHEN PATIENT IS BACK ON THE FLOOR CONSERVATION Performed By: #### L 500.60718, L500.07168, L500.60236, L500.59974, L500.45262 #### Test performed at: [address] [address] Hematocrit (Bld) [Volume fraction] 43.4 % Normal 36.0-48.0 [facility] Comment on above: Order Comment: PATIE NT IS GETTING CAT SCAN DONE NURSE WILL CALL/PAGE WHEN PATIENT IS BACK ON THE FLOOR CONSERVATION Performed By: #### L 500.93416, L500.09354, L500.84117, L500.34299, L500.59560 #### Test performed at: [place] [id number] Hemoglobin (Bld) [Mass/Vol] 14.9 g/dL Abnormal 12.0-15.0 [facility] Comment on above: Order Comment: PATIE NT IS GETTING CAT SCAN DONE NURSE WILL CALL/PAGE WHEN PATIENT IS BACK ON THE FLOOR CONSERVATION Result Comment: Delt a: 12.8 on 07/20/19 Performed By: #### L 500.44360, L500.38792, L500.06451, L500.36492, L500.60376 #### Test performed at: [place] [address] MCH (RBC) [Entitic mass] 29.5 pg Normal 25.4-34.6 [facility] Comment on above: Order Comment: PATIE NT IS GETTING CAT SCAN DONE NURSE WILL CALL/PAGE WHEN PATIENT IS BACK ON THE FLOOR CONSERVATION Performed By: #### L 500.41117, L500.70944, L500.50643, L500.90232, L500.82834 #### Test performed at: [place] [id number] MCHC (RBC) [Mass/Vol] 34.3 g/dL Normal 31.5-36.5 [facility] Comment on above: Order Comment: PATIE NT IS GETTING CAT SCAN DONE NURSE WILL CALL/PAGE WHEN PATIENT IS BACK ON THE FLOOR CONSERVATION Performed By: #### L 500.60068, L500.71037, L500.60717, L500.55413, L500.92465 #### Test performed at: [place] [id number] MCV (RBC) [Entitic vol] 85.9 fL Normal 79.0-98.0 [facility] Comment on above: Order Comment: PATIE NT IS GETTING CAT SCAN DONE NURSE WILL CALL/PAGE WHEN PATIENT IS BACK ON THE FLOOR CONSERVATION Performed By: #### L 500.50729, L500.18253, L500.81609, L500.58797, L500.16214 #### Test performed at: [place] [address] NRBC # 0.000 K/uL Normal 0-0.012 [facility] Comment on above: Order Comment: BANDARE NT IS GETTING CAT SCAN DONE NURSE WILL CALL/PAGE WHEN PATIENT IS BACK ON THE FLOOR CONSERVATION Performed By: #### L 500.02607, L500.65077, L500.30319, L500.15416, L500.96493 #### Test performed at: [place] [address] NRBC % 0.0 /100 WBC Normal 0-0.2 [facility] Comment on above: Order Comment: BANDARE NT IS GETTING CAT SCAN DONE NURSE WILL CALL/PAGE WHEN PATIENT IS BACK ON THE FLOOR CONSERVATION Performed By: #### L 500.42816, L500.44262, L500.32740, L500.31882, L500.31168 #### Test performed at: [place] [id number] Platelet mean volume (Bld) [Entitic vol] 9.6 fL Normal 8.7-12.4 [facility] Comment on above: Order Comment: BANDARE NT IS GETTING CAT SCAN DONE NURSE WILL CALL/PAGE WHEN PATIENT IS BACK ON THE FLOOR CONSERVATION Performed By: #### L 500.70611, L500.82233, L500.51465, L500.02607, L500.46993 #### Test performed at: [place] [address] Platelets (Bld) [#/Vol] 243 10*3/uL Normal 140-440 [facility] Comment on above: Order Comment: BANDARE NT IS GETTING CAT SCAN DONE NURSE WILL CALL/PAGE WHEN PATIENT IS BACK ON THE FLOOR CONSERVATION Performed By: #### L 500.88287, L500.30529, L500.73714, L500.62556, L500.00759 #### Test performed at: [place] [id number] RBC (Bld) [#/Vol] 5.05 10*6/uL Normal 3.5-5.5 [facility] Comment on above: Order Comment: PATIE NT IS GETTING CAT SCAN DONE NURSE WILL CALL/PAGE WHEN PATIENT IS BACK ON THE FLOOR CONSERVATION Performed By: #### L 500.63842, L500.72954, L500.31880, L500.80255, L500.91892 #### Test performed at: [place] [id number] WBC (Bld) [#/Vol] 11.8 10*3/uL High 3.9-11.0 [facility] Comment on above: Order Comment: PATIE NT IS GETTING CAT SCAN DONE NURSE WILL CALL/PAGE WHEN PATIENT IS BACK ON THE FLOOR CONSERVATION Performed By: #### L 500.49790, L500.40326, L500.29065, L500.36308, L500.08438 #### Test performed at: [place] [id number] EST. CREAT CLRon 07-21-2019 Creatinine [Mass/Vol] 149.745 ML/MIN Normal [facility] Comment on above: Order Comment: PATIE NT IS GETTING CAT SCAN DONE NURSE WILL CALL/PAGE WHEN PATIENT IS BACK ON THE FLOOR CONSERVATION Result Comment: This result is an ESTIMATED blood creatinine clearance value which is derived from the patient age, sex, weight, and previous blood creatinine result. Performed By: #### L 500.18007, L500.75856, L500.87608, L500.45640, L500.59186 #### Test performed at: [place] [address] GFR ESTIMATEon 07-21-2019 IF AMER > 60 Normal > 60 [facility] Comment on above: Order Comment: BRIELLE [...] for clinical interpretation. Performed By: #### L 500.10283, L500.75441, L500.89148, L500.90693, L500.60532 #### Test performed at: [place] [address] IF non-AFR AMER > 60 Normal > 60 [facility] Comment on above: Order Comment: BRIELLE HERNANDEZ IS GETTING CAT SCAN DONE NURSE WILL CALL/PAGE WHEN PATIENT IS BACK ON THE FLOOR CONSERVATION Performed By: #### L 500.09319, L500.92619, L500.81703, L500.66713, L500.84497 #### Test performed at: [place] [address] GLUCOSE METERon 07-21-2019 Glucose [Mass/Vol] 139 mg/dL High 70-99 [facility] Comment on above: Order Comment: BRIELLE HERNANDEZ IS GETTING CAT SCAN DONE NURSE WILL CALL/PAGE WHEN PATIENT IS BACK ON THE FLOOR CONSERVATION Result Comment: Fast ing GLUCOSE reference range has been updated per (ADA) [place] [employer]'s recommendation. 11/06/2018 Performed By: #### L 500.22052, L500.30004, L500.74022, L500.09179, L500.96015 #### Test performed at: [place] [address] Infect Disease Progress Note on 07-21-2019 Infect Disease Progress Note [facility] Pt Name: ERIKA ORTIZ [address] [place] [address] MR#: [id number] [place] [address] ACCT: [id number] PROGRESS NOTE - Infectious Disease : 73 Service Date: 07/21/19 1204 NAME: ERIKA ORTIZ MR#: [id number] DATE OF SERVICE: 07/21/2019 INFECTIOUS DISEASE PROGRESS [...] to surgery today. I spoke to Dr. Pilo crawford, and we both felt an infection was [...] lower extremities well. Laboratories preoperatively, white count 96648, hematocrit 43.3, platelets 243,000 with normal diff. Chemistries noted a BUN of 15, creatinine 0.719. The patient will remain on vancomycin at present, pending any surgical cultures obtained, and our service will follow. I hope that this current intervention will help her pain and aid in recovery. Our service will address antibiotic therapy as needed. ROBERT GILL MD [facility]/CELESTEL/[id number] Electronically Signed eSign Date and Time Robert Gill 07/22/19 1627 Normal [facility] OPERATIVE REPORTon 9 OPERATIVE REPORT NAME: ERIKA ORTIZ MR#: [id number] SURGEON: Varghese Daigle MD DATE OF SURGERY: [...] additional disk herniation from within both axilla. AUTO BODY SHOP MANAGER: Dr. Mora. SECOND AUTO BODY SHOP MANAGER: Sara. INDICATIONS: This patient is 44 years [...] out another very large fragment from the [facility] PT NAME: ERIKA ORTIZ MR#: [id number] [address] [place], [place] [address] ACCT: [id number] : 73 OPERATIVE REPORT epidural space. Multiple [...] CSF leak was noted anywhere. MD KAT NARANJO/[facility]/[id number] E/S: Varghese Daigle 08/19/19 1456 Electronically Signed [facility] PT NAME: ERIKA ORTIZ MR#: [id number] [address] [place], [place] [address] ACCT: [id number] : 73 OPERATIVE REPORT Normal [facility] BASIC MET PANELon 07-20-2019 Anion gap [Moles/Vol] 12 mmol/L Normal 6-18 [facility] Comment on above: Order Comment: PATIE NT IS GETTING CAT SCAN DONE NURSE WILL CALL/PAGE WHEN PATIENT IS BACK ON THE FLOOR CONSERVATION Performed By: #### L 500.72343, L500.23002, L500.34142, L500.97078, L500.15773 #### Test performed at: [address] [address] Calcium [Mass/Vol] 8.7 mg/dL Normal 8.5-10.1 [facility] Comment on above: Order Comment: BANDARE NT IS GETTING CAT SCAN DONE NURSE WILL CALL/PAGE WHEN PATIENT IS BACK ON THE FLOOR CONSERVATION Performed By: #### L 500.81284, L500.67399, L500.19888, L500.97452, L500.97794 #### Test performed at: [address] [address] Chloride [Moles/Vol] 102 mmol/L Normal 98-107 [facility] Comment on above: Order Comment: BANDARE NT IS GETTING CAT SCAN DONE NURSE WILL CALL/PAGE WHEN PATIENT IS BACK ON THE FLOOR CONSERVATION Performed By: #### L 500.76782, L500.11172, L500.69219, L500.94939, L500.46208 #### Test performed at: [address] [address] CO2 [Moles/Vol] 28 mmol/L Normal 21-32 [facility] Comment on above: Order Comment: BANDARE NT IS GETTING CAT SCAN DONE NURSE WILL CALL/PAGE WHEN PATIENT IS BACK ON THE FLOOR CONSERVATION Performed By: #### L 500.55008, L500.08242, L500.46272, L500.98787, L500.41298 #### Test performed at: [address] [address] Creatinine [Mass/Vol] 0.703 mg/dL Normal 0.550-1.020 [facility] Comment on above: Order Comment: BANDARE NT IS GETTING CAT SCAN DONE NURSE WILL CALL/PAGE WHEN PATIENT IS BACK ON THE FLOOR CONSERVATION Performed By: #### L 500.84316, L500.67391, L500.41970, L500.91245, L500.58280 #### Test performed at: [address] [address] Glucose [Mass/Vol] 87 mg/dL Normal 70-99 [facility] Comment on above: Order Comment: PATIE NT IS GETTING CAT SCAN DONE NURSE WILL CALL/PAGE WHEN PATIENT IS BACK ON THE FLOOR CONSERVATION Result Comment: Fast ing GLUCOSE reference range has been updated per (ADA) [place] [employer]'s recommendation. 11/06/2018 Performed By: #### L 500.86808, L500.52761, L500.23115, L500.91410, L500.68654 #### Test performed at: [address] [address] OSM 285 mosm/kg Normal 270-300 [facility] Comment on above: Order Comment: PATIE NT IS GETTING CAT SCAN DONE NURSE WILL CALL/PAGE WHEN PATIENT IS BACK ON THE FLOOR CONSERVATION Performed By: #### L 500.54022, L500.81573, L500.29970, L500.86243, L500.08900 #### Test performed at: [address] [address] Potassium [Moles/Vol] 3.9 mmol/L Normal 3.5-5.1 [facility] Comment on above: Order Comment: PATIE NT IS GETTING CAT SCAN DONE NURSE WILL CALL/PAGE WHEN PATIENT IS BACK ON THE FLOOR CONSERVATION Performed By: #### L 500.45013, L500.94241, L500.73182, L500.36951, L500.38075 #### Test performed at: [address] [address] Sodium [Moles/Vol] 138 mmol/L Normal 136-145 [facility] Comment on above: Order Comment: PATIE NT IS GETTING CAT SCAN DONE NURSE WILL CALL/PAGE WHEN PATIENT IS BACK ON THE FLOOR CONSERVATION Performed By: #### L 500.95130, L500.33952, L500.57149, L500.83460, L500.61567 #### Test performed at: [address] [address] Urea nitrogen [Mass/Vol] 11 mg/dL Normal 7-18 [facility] Comment on above: Order Comment: PATIE NT IS GETTING CAT SCAN DONE NURSE WILL CALL/PAGE WHEN PATIENT IS BACK ON THE FLOOR CONSERVATION Performed By: #### L 500.78433, L500.57372, L500.54596, L500.08284, L500.46130 #### Test performed at: [address] [address] CBC W/DIFFon 07-20-2019 BASO ABS 0.0 K/uL Normal 0.0-0.2 [facility] Comment on above: Order Comment: PATIE NT IS GETTING CAT SCAN DONE NURSE WILL CALL/PAGE WHEN PATIENT IS BACK ON THE FLOOR CONSERVATION Performed By: #### L 500.84473, L500.56013, L500.29963, L500.62562, L500.55718 #### Test performed at: [address] [address] Basophils/100 WBC (Bld) 0.4 % Normal [facility] Comment on above: Order Comment: PATIE NT IS GETTING CAT SCAN DONE NURSE WILL CALL/PAGE WHEN PATIENT IS BACK ON THE FLOOR CONSERVATION Performed By: #### L 500.01294, L500.21667, L500.57866, L500.66252, L500.03155 #### Test performed at: [address] [address] EOS ABS 0.1 K/uL Normal 0.0-0.5 [facility] Comment on above: Order Comment: PATIE NT IS GETTING CAT SCAN DONE NURSE WILL CALL/PAGE WHEN PATIENT IS BACK ON THE FLOOR CONSERVATION Performed By: #### L 500.49085, L500.70661, L500.17084, L500.63694, L500.79403 #### Test performed at: [address] [address] Eosinophils/100 WBC (Bld) 1.1 % Normal [facility] Comment on above: Order Comment: PATIE NT IS GETTING CAT SCAN DONE NURSE WILL CALL/PAGE WHEN PATIENT IS BACK ON THE FLOOR CONSERVATION Performed By: #### L 500.38901, L500.40633, L500.12801, L500.99376, L500.52425 #### Test performed at: [address] [address] Erythrocyte distribution width (RBC) [Ratio] 13.2 % Normal 11.5-14.5 [facility] Comment on above: Order Comment: PATIE NT IS GETTING CAT SCAN DONE NURSE WILL CALL/PAGE WHEN PATIENT IS BACK ON THE FLOOR CONSERVATION Performed By: #### L 500.40124, L500.95438, L500.44234, L500.22637, L500.66799 #### Test performed at: [address] [address] Hematocrit (Bld) [Volume fraction] 37.3 % Normal 36.0-48.0 [facility] Comment on above: Order Comment: PATIE NT IS GETTING CAT SCAN DONE NURSE WILL CALL/PAGE WHEN PATIENT IS BACK ON THE FLOOR CONSERVATION Performed By: #### L 500.78517, L500.72109, L500.65627, L500.43209, L500.24510 #### Test performed at: [address] [address] Hemoglobin (Bld) [Mass/Vol] 12.8 g/dL Normal 12.0-15.0 [facility] Comment on above: Order Comment: PATIE NT IS GETTING CAT SCAN DONE NURSE WILL CALL/PAGE WHEN PATIENT IS BACK ON THE FLOOR CONSERVATION Performed By: #### L 500.51026, L500.53061, L500.28512, L500.99689, L500.82385 #### Test performed at: [address] [address] IG % 0.5 % Normal [facility] Comment on above: Order Comment: PATIE NT IS GETTING CAT SCAN DONE NURSE WILL CALL/PAGE WHEN PATIENT IS BACK ON THE FLOOR CONSERVATION Performed By: #### L 500.94553, L500.75605, L500.25049, L500.87314, L500.84523 #### Test performed at: [address] [address] IG ABS 0.06 K/uL High 0-0.05 [facility] Comment on above: Order Comment: PATIE NT IS GETTING CAT SCAN DONE NURSE WILL CALL/PAGE WHEN PATIENT IS BACK ON THE FLOOR CONSERVATION Performed By: #### L 500.57011, L500.45997, L500.93487, L500.83799, L500.01458 #### Test performed at: [address] [address] Lymphocytes (Bld) [#/Vol] 2.6 10*3/uL Normal 1.2-3.5 [facility] Comment on above: Order Comment: PATIE NT IS GETTING CAT SCAN DONE NURSE WILL CALL/PAGE WHEN PATIENT IS BACK ON THE FLOOR CONSERVATION Performed By: #### L 500.02249, L500.38936, L500.96024, L500.95227, L500.74800 #### Test performed at: [address] [address] Lymphocytes/100 WBC (Bld) 22.7 % Normal [facility] Comment on above: Order Comment: PATIE NT IS GETTING CAT SCAN DONE NURSE WILL CALL/PAGE WHEN PATIENT IS BACK ON THE FLOOR CONSERVATION Performed By: #### L 500.63350, L500.87897, L500.84647, L500.88351, L500.30334 #### Test performed at: [address] [address] MCH (RBC) [Entitic mass] 30.1 pg Normal 25.4-34.6 [facility] Comment on above: Order Comment: PATIE NT IS GETTING CAT SCAN DONE NURSE WILL CALL/PAGE WHEN PATIENT IS BACK ON THE FLOOR CONSERVATION Performed By: #### L 500.96171, L500.58261, L500.37370, L500.71581, L500.46152 #### Test performed at: [place] [address] [place] [address] MCHC (RBC) [Mass/Vol] 34.3 g/dL Normal 31.5-36.5 [facility] Comment on above: Order Comment: BANDARE NT IS GETTING CAT SCAN DONE NURSE WILL CALL/PAGE WHEN PATIENT IS BACK ON THE FLOOR CONSERVATION Performed By: #### L 500.92878, L500.79875, L500.15415, L500.47204, L500.60859 #### Test performed at: [place] [address] [place], [place] [id number] MCV (RBC) [Entitic vol] 87.8 fL Normal 79.0-98.0 [facility] Comment on above: Order Comment: BANDARE NT IS GETTING CAT SCAN DONE NURSE WILL CALL/PAGE WHEN PATIENT IS BACK ON THE FLOOR CONSERVATION Performed By: #### L 500.65513, L500.62079, L500.86682, L500.53231, L500.31081 #### Test performed at: [place] [address] [place] [address] MONO ABS 0.8 K/uL Normal 0.0-1.0 [facility] Comment on above: Order Comment: PATIE NT IS GETTING CAT SCAN DONE NURSE WILL CALL/PAGE WHEN PATIENT IS BACK ON THE FLOOR CONSERVATION Performed By: #### L 500.15661, L500.55326, L500.54214, L500.67467, L500.04262 #### Test performed at: [place] [address] [place], [place] [id number] Monocytes/100 WBC (Bld) 7.0 % Normal [facility] Comment on above: Order Comment: PATIE NT IS GETTING CAT SCAN DONE NURSE WILL CALL/PAGE WHEN PATIENT IS BACK ON THE FLOOR CONSERVATION Performed By: #### L 500.72804, L500.13322, L500.63771, L500.75036, L500.58818 #### Test performed at: [place] [address] NEUTROPHIL ABS 7.8 K/uL High 1.4-6.6 [facility] Comment on above: Order Comment: PATIE NT IS GETTING CAT SCAN DONE NURSE WILL CALL/PAGE WHEN PATIENT IS BACK ON THE FLOOR CONSERVATION Performed By: #### L 500.90038, L500.42023, L500.87294, L500.58102, L500.13846 #### Test performed at: [place] [id number] Neutrophils/100 WBC (Bld) 68.3 % Normal [facility] Comment on above: Order Comment: PATIE NT IS GETTING CAT SCAN DONE NURSE WILL CALL/PAGE WHEN PATIENT IS BACK ON THE FLOOR CONSERVATION Performed By: #### L 500.08225, L500.54939, L500.74454, L500.77486, L500.76579 #### Test performed at: [place] [address] NRBC # 0.000 K/uL Normal 0-0.012 [facility] Comment on above: Order Comment: PATIE NT IS GETTING CAT SCAN DONE NURSE WILL CALL/PAGE WHEN PATIENT IS BACK ON THE FLOOR CONSERVATION Performed By: #### L 500.01155, L500.72126, L500.96230, L500.30291, L500.12864 #### Test performed at: [address] [address] NRBC % 0.0 /100 WBC Normal 0-0.2 [facility] Comment on above: Order Comment: PATIE NT IS GETTING CAT SCAN DONE NURSE WILL CALL/PAGE WHEN PATIENT IS BACK ON THE FLOOR CONSERVATION Performed By: #### L 500.91766, L500.37335, L500.93680, L500.60178, L500.53611 #### Test performed at: [address] [address] Platelet mean volume (Bld) [Entitic vol] 9.5 fL Normal 8.7-12.4 [facility] Comment on above: Order Comment: PATIE NT IS GETTING CAT SCAN DONE NURSE WILL CALL/PAGE WHEN PATIENT IS BACK ON THE FLOOR CONSERVATION Performed By: #### L 500.73058, L500.13096, L500.53901, L500.29938, L500.07128 #### Test performed at: [address] [address] Platelets (Bld) [#/Vol] 213 10*3/uL Normal 140-440 [facility] Comment on above: Order Comment: PATIE NT IS GETTING CAT SCAN DONE NURSE WILL CALL/PAGE WHEN PATIENT IS BACK ON THE FLOOR CONSERVATION Performed By: #### L 500.27607, L500.16581, L500.75602, L500.47493, L500.00359 #### Test performed at: [address] [address] RBC (Bld) [#/Vol] 4.25 10*6/uL Normal 3.5-5.5 [facility] Comment on above: Order Comment: PATIE NT IS GETTING CAT SCAN DONE NURSE WILL CALL/PAGE WHEN PATIENT IS BACK ON THE FLOOR CONSERVATION Performed By: #### L 500.25370, L500.29260, L500.62791, L500.54055, L500.45504 #### Test performed at: [address] [address] WBC (Bld) [#/Vol] 11.4 10*3/uL High 3.9-11.0 [facility] Comment on above: Order Comment: PATIE NT IS GETTING CAT SCAN DONE NURSE WILL CALL/PAGE WHEN PATIENT IS BACK ON THE FLOOR CONSERVATION Performed By: #### L 500.06998, L500.18064, L500.30881, L500.58265, L500.36385 #### Test performed at: [place] [address] EST. CREAT CLRon 07-20-2019 Creatinine [Mass/Vol] 153.153 ML/MIN Normal [facility] Comment on above: Order Comment: PATIE NT IS GETTING CAT SCAN DONE NURSE WILL CALL/PAGE WHEN PATIENT IS BACK ON THE FLOOR CONSERVATION Result Comment: This result is an ESTIMATED blood creatinine clearance value which is derived from the patient age, sex, weight, and previous blood creatinine result. Performed By: #### L 500.39131, L500.27902, L500.63140, L500.97992, L500.96188 #### Test performed at: [place] [address] GFR ESTIMATEon 07-20-2019 IF AMER > 60 Normal > 60 [facility] Comment on above: Order Comment: PATIE [...] for clinical interpretation. Performed By: #### L 500.90469, L500.28330, L500.22223, L500.99211, L500.79218 #### Test performed at: [place] [address] IF non-AFR AMER > 60 Normal > 60 [facility] Comment on above: Order Comment: PATIE NT IS GETTING CAT SCAN DONE NURSE WILL CALL/PAGE WHEN PATIENT IS BACK ON THE FLOOR CONSERVATION Performed By: #### L 500.86828, L500.68417, L500.14513, L500.05837, L500.19290 #### Test performed at: [place] [address] Infect Disease Progress Note on 07-20-2019 Infect Disease Progress Note [facility] Pt Name: ERIKA ORTIZ [address] [place] [address] MR#: [id number] [place] [id number] ACCT: [id number] PROGRESS NOTE - Infectious Disease : 73 Service Date: 07/20/19929 NAME: ERIKA ORTIZ MR#: [id number] DATE OF SERVICE: 07/20/2019 INFECTIOUS DISEASE PROGRESS [...] hips. [place]ORAT[place]: [place] [address], hematocrit 37.3, platelets 213,000 with normal diff. [...] from surgery on 07/17 are no growth. [facility] Pt Name: ERIKA ORTIZ [address] [place] [address] MR#: [id number] [place] [address] ACCT: [id number] PROGRESS NOTE - Infectious Disease : 73 [...] therapy for the present. ROBERT GILL MD [facility]/MODL/[id number] Electronically Signed eSign Date and Time Robert Gill 07/21/19 0954 Normal [facility] LUMBAR SP W & WO CONTRASTon 07-20-2019 LUMBAR SP W & WO CONTRAST STUDY: LUMBAR SP W WO CONTRAST; 07/20/2019 3:43 pm INDICATION: INTRACTABLE LOW BACK, HIP PAIN . COMPARISON: MRI of lumbar spine from 07/17/2019 ACCESSION NUMBER(S): [id number] ORDERING CLINICIAN: Ely Moseley TECHNIQUE: Sagittal and [...] and lower lumbar level. These may reflect postsurgical/hemorrhag ic collections with reactive associated dural enhancement, however [...] on 07/20/2019 The study was interpreted at [facility]. ------ ADDENDUM: The amount of Gadavist administered was not documented in the technologist's notes. On subsequent communication with the technologist through the Rad ops, it was conveyed to me that 10 cc Gadavist was administered as intravenous contrast agent. Normal [facility] VANC TROUGHon 07-20-2019 VANC TROUGH 13.5 ug/mL Normal 10-15 [facility] Comment on above: Order Comment: BRIELLE NT IS GETTING CAT SCAN DONE NURSE WILL CALL/PAGE WHEN PATIENT IS BACK ON THE FLOOR CONSERVATION Result Comment: For SUSPECTED or DOCUMENTED infections of STAPHYLOCOCCUS where the M.I.C is > OR = 2 mg/L, the recommended dosage for VANCOMYCIN is 15-20 ug/mL. Performed By: #### L 500.13716, L500.97453, L500.12301, L500.34205, L500.91906 #### Test performed at: [place] [address] BASIC MET PANELon 07-19-2019 Anion gap [Moles/Vol] 10 mmol/L Normal 6-18 [facility] Comment on above: Order Comment: CONSE RVATION List patient's anticoagulants for PT: NONE SPECIFIED Performed By: #### L 300.08317 #### Test performed at: [address] [address] Calcium [Mass/Vol] 8.3 mg/dL Low 8.5-10.1 [facility] Comment on above: Order Comment: CONSE RVATION List patient's anticoagulants for PT: NONE SPECIFIED Performed By: #### L 300.44168 #### Test performed at: [address] [address] Chloride [Moles/Vol] 106 mmol/L Normal 98-107 [facility] Comment on above: Order Comment: CONSE RVATION List patient's anticoagulants for PT: NONE SPECIFIED Performed By: #### L 300.93922 #### Test performed at: [address] [address] CO2 [Moles/Vol] 28 mmol/L Normal 21-32 [facility] Comment on above: Order Comment: CONSE RVATION List patient's anticoagulants for PT: NONE SPECIFIED Performed By: #### L 300.32999 #### Test performed at: [address] [address] Creatinine [Mass/Vol] 0.738 mg/dL Normal 0.550-1.020 [facility] Comment on above: Order Comment: CONSE RVATION [facility] patient's anticoagulants for PT: NONE SPECIFIED Performed By: #### L 300.11736 #### Test performed at: [address] [address] Glucose [Mass/Vol] 114 mg/dL High 70-99 [facility] Comment on above: Order Comment: CONSE RVATION [facility] patient's anticoagulants for PT: NONE SPECIFIED Result Comment: Fast ing GLUCOSE reference range has been updated per (ADA) [place] [employer]'s recommendation. 11/06/2018 Performed By: #### L 300.98320 #### Test performed at: [address] [address] OSM 292 mosm/kg Normal 270-300 [facility] Comment on above: Order Comment: CONSE RVATION [facility] patient's anticoagulants for PT: NONE SPECIFIED Performed By: #### L 300.02117 #### Test performed at: [address] [address] Potassium [Moles/Vol] 3.5 mmol/L Normal 3.5-5.1 [facility] Comment on above: Order Comment: CONSE RVATION List patient's anticoagulants for PT: NONE SPECIFIED Performed By: #### L 300.04406 #### Test performed at: [address] [address] Sodium [Moles/Vol] 141 mmol/L Normal 136-145 [facility] Comment on above: Order Comment: CONSE RVATION List patient's anticoagulants for PT: NONE SPECIFIED Performed By: #### L 300.78459 #### Test performed at: [address] [address] Urea nitrogen [Mass/Vol] 11 mg/dL Normal 7-18 [facility] Comment on above: Order Comment: CONSE RVATION [facility] patient's anticoagulants for PT: NONE SPECIFIED Performed By: #### L 300.65809 #### Test performed at: [address] [address] CBC W/DIFFon 07-19-2019 BASO ABS 0.0 K/uL Normal 0.0-0.2 [facility] Comment on above: Order Comment: CONSE RVATION List patient's anticoagulants for PT: NONE SPECIFIED Performed By: #### L 300.50516 #### Test performed at: [address] [address] Basophils/100 WBC (Bld) 0.3 % Normal [facility] Comment on above: Order Comment: CONSE RVATION List patient's anticoagulants for PT: NONE SPECIFIED Performed By: #### L 300.04611 #### Test performed at: [address] [address] EOS ABS 0.0 K/uL Normal 0.0-0.5 [facility] Comment on above: Order Comment: CONSE RVATION List patient's anticoagulants for PT: NONE SPECIFIED Performed By: #### L 300.61387 #### Test performed at: [address] [address] Eosinophils/100 WBC (Bld) 0.1 % Normal [facility] Comment on above: Order Comment: CONSE RVATION List patient's anticoagulants for PT: NONE SPECIFIED Performed By: #### L 300.88703 #### Test performed at: [address] [address] IG % 0.4 % Normal [facility] Comment on above: Order Comment: CONSE RVATION List patient's anticoagulants for PT: NONE SPECIFIED Performed By: #### L 300.61386 #### Test performed at: [address] [address] IG ABS 0.04 K/uL Normal 0-0.05 [facility] Comment on above: Order Comment: CONSE RVATION List patient's anticoagulants for PT: NONE SPECIFIED Performed By: #### L 300.44839 #### Test performed at: [address] [address] Lymphocytes (Bld) [#/Vol] 2.9 10*3/uL Normal 1.2-3.5 [facility] Comment on above: Order Comment: CONSE RVATION List patient's anticoagulants for PT: NONE SPECIFIED Performed By: #### L 300.14749 #### Test performed at: [address] [address] Lymphocytes/100 WBC (Bld) 26.1 % Normal [facility] Comment on above: Order Comment: CONSE RVATION List patient's anticoagulants for PT: NONE SPECIFIED Performed By: #### L 300.85537 #### Test performed at: [address] [address] MONO ABS 0.8 K/uL Normal 0.0-1.0 [facility] Comment on above: Order Comment: CONSE RVATION List patient's anticoagulants for PT: NONE SPECIFIED Performed By: #### L 300.86731 #### Test performed at: [address] [address] Monocytes/100 WBC (Bld) 7.4 % Normal [facility] Comment on above: Order Comment: CONSE RVATION List patient's anticoagulants for PT: NONE SPECIFIED Performed By: #### L 300.64840 #### Test performed at: [address] [address] NEUTROPHIL ABS 7.3 K/uL High 1.4-6.6 [facility] Comment on above: Order Comment: CONSE RVATION List patient's anticoagulants for PT: NONE SPECIFIED Performed By: #### L 300.73752 #### Test performed at: [address] [address] Neutrophils/100 WBC (Bld) 65.7 % Normal [facility] Comment on above: Order Comment: CONSE RVATION List patient's anticoagulants for PT: NONE SPECIFIED Performed By: #### L 300.03605 #### Test performed at: [address] [address] Erythrocyte distribution width (RBC) [Ratio] 13.5 % Normal 11.5-14.5 [facility] Comment on above: Order Comment: CONSE RVATION [facility] patient's anticoagulants for PT: NONE SPECIFIED Performed By: #### L 300.74715 #### Test performed at: [address] [address] Hematocrit (Bld) [Volume fraction] 35.7 % Low 36.0-48.0 [facility] Comment on above: Order Comment: CONSE RVATION List patient's anticoagulants for PT: NONE SPECIFIED Performed By: #### L 300.95064 #### Test performed at: [address] [address] Hemoglobin (Bld) [Mass/Vol] 11.8 g/dL Low 12.0-15.0 [facility] Comment on above: Order Comment: CONSE RVATION List patient's anticoagulants for PT: NONE SPECIFIED Performed By: #### L 300.74351 #### Test performed at: [address] [place] [address] MCH (RBC) [Entitic mass] 29.5 pg Normal 25.4-34.6 [facility] Comment on above: Order Comment: CONSE RVATION List patient's anticoagulants for PT: NONE SPECIFIED Performed By: #### L 300.04922 #### Test performed at: [place] [address] MCHC (RBC) [Mass/Vol] 33.1 g/dL Normal 31.5-36.5 [facility] Comment on above: Order Comment: CONSE RVATION List patient's anticoagulants for PT: NONE SPECIFIED Performed By: #### L 300.31456 #### Test performed at: [place] [address] MCV (RBC) [Entitic vol] 89.3 fL Normal 79.0-98.0 [facility] Comment on above: Order Comment: CONSE RVATION List patient's anticoagulants for PT: NONE SPECIFIED Performed By: #### L 300.70781 #### Test performed at: [place] [address] NRBC # 0.000 K/uL Normal 0-0.012 [facility] Comment on above: Order Comment: CONSE RVATION List patient's anticoagulants for PT: NONE SPECIFIED Performed By: #### L 300.93210 #### Test performed at: [place] [address] NRBC % 0.0 /100 WBC Normal 0-0.2 [facility] Comment on above: Order Comment: CONSE RVATION List patient's anticoagulants for PT: NONE SPECIFIED Performed By: #### L 300.11956 #### Test performed at: [place] [address] Platelet mean volume (Bld) [Entitic vol] 9.9 fL Normal 8.7-12.4 [facility] Comment on above: Order Comment: CONSE RVATION List patient's anticoagulants for PT: NONE SPECIFIED Performed By: #### L 300.83709 #### Test performed at: [address] [address] Platelets (Bld) [#/Vol] 245 10*3/uL Normal 140-440 [facility] Comment on above: Order Comment: CONSE RVATION List patient's anticoagulants for PT: NONE SPECIFIED Performed By: #### L 300.47131 #### Test performed at: [place] [address] RBC (Bld) [#/Vol] 4.00 10*6/uL Normal 3.5-5.5 [facility] Comment on above: Order Comment: CONSE RVATION List patient's anticoagulants for PT: NONE SPECIFIED Performed By: #### L 300.37591 #### Test performed at: [place] [address] WBC (Bld) [#/Vol] 11.0 10*3/uL Normal 3.9-11.0 [facility] Comment on above: Order Comment: CONSE RVATION List patient's anticoagulants for PT: NONE SPECIFIED Performed By: #### L 300.91255 #### Test performed at: [address] [address] EST. CREAT CLRon 07-19-2019 Creatinine [Mass/Vol] 145.889 ML/MIN Normal [facility] Comment on above: Order Comment: CONSE RVATION List patient's anticoagulants for PT: NONE SPECIFIED Result Comment: This result is an ESTIMATED blood creatinine clearance value which is derived from the patient age, sex, weight, and previous blood creatinine result. Performed By: #### L 300.72555 #### Test performed at: [place] [id number] GFR ESTIMATEon 07-19-2019 IF AMER > 60 Normal > 60 [facility] Comment on above: Order Comment: BRIELLE [...] for clinical interpretation. Performed By: #### L 500.46330, L500.72711, L500.02542, L500.37190, L500.59792 #### Test performed at: [place] [address] IF non-AFR AMER > 60 Normal > 60 [facility] Comment on above: Order Comment: BRIELLE HERNANDEZ IS GETTING CAT SCAN DONE NURSE WILL CALL/PAGE WHEN PATIENT IS BACK ON THE FLOOR CONSERVATION Performed By: #### L 500.27415, L500.06091, L500.50515, L500.40554, L500.82587 #### Test performed at: [place] [address] VANC TROUGHon 07-19-2019 VANC TROUGH 15.8 ug/mL High 10-15 [facility] Comment on above: Order Comment: BRIELLE HERNANDEZ IS GETTING CAT SCAN DONE NURSE WILL CALL/PAGE WHEN PATIENT IS BACK ON THE FLOOR CONSERVATION Result Comment: For SUSPECTED or DOCUMENTED infections of STAPHYLOCOCCUS where the M.I.C is > OR = 2 mg/L, the recommended dosage for VANCOMYCIN is 15-20 ug/mL. Performed By: #### L 500.62769, L500.32904, L500.67448, L500.11913, L500.80114 #### Test performed at: [place] [address] BASIC MET PANELon 07-18-2019 Anion gap [Moles/Vol] 12 mmol/L Normal 6-18 [facility] Comment on above: Order Comment: CONSE RVATION List patient's anticoagulants for PT: NONE SPECIFIED Performed By: #### L 300.33030 #### Test performed at: [address] [address] Calcium [Mass/Vol] 8.5 mg/dL Normal 8.5-10.1 [facility] Comment on above: Order Comment: CONSE RVATION [facility] patient's anticoagulants for PT: NONE SPECIFIED Performed By: #### L 300.84305 #### Test performed at: [address] [address] Chloride [Moles/Vol] 108 mmol/L High 98-107 [facility] Comment on above: Order Comment: CONSE RVATION [facility] patient's anticoagulants for PT: NONE SPECIFIED Performed By: #### L 300.13800 #### Test performed at: [address] [address] CO2 [Moles/Vol] 25 mmol/L Normal 21-32 [facility] Comment on above: Order Comment: CONSE RVATION [facility] patient's anticoagulants for PT: NONE SPECIFIED Performed By: #### L 300.59947 #### Test performed at: [address] [address] Creatinine [Mass/Vol] 0.777 mg/dL Normal 0.550-1.020 [facility] Comment on above: Order Comment: CONSE RVATION [facility] patient's anticoagulants for PT: NONE SPECIFIED Performed By: #### L 300.60858 #### Test performed at: [address] [address] Glucose [Mass/Vol] 135 mg/dL High 70-99 [facility] Comment on above: Order Comment: CONSE RVATION [facility] patient's anticoagulants for PT: NONE SPECIFIED Result Comment: Fast ing GLUCOSE reference range has been updated per (ADA) [place] [employer]'s recommendation. 11/06/2018 Performed By: #### L 300.07678 #### Test performed at: [place] [address] [address] OSM 294 mosm/kg Normal 270-300 [facility] Comment on above: Order Comment: CONSE RVATION List patient's anticoagulants for PT: NONE SPECIFIED Performed By: #### L 300.96138 #### Test performed at: [address] [address] Potassium [Moles/Vol] 4.3 mmol/L Normal 3.5-5.1 [facility] Comment on above: Order Comment: CONSE RVATION [facility] patient's anticoagulants for PT: NONE SPECIFIED Performed By: #### L 300.79255 #### Test performed at: [place] [id number] Sodium [Moles/Vol] 141 mmol/L Normal 136-145 [facility] Comment on above: Order Comment: CONSE RVATION [facility] patient's anticoagulants for PT: NONE SPECIFIED Performed By: #### L 300.59188 #### Test performed at: [address] [address] Urea nitrogen [Mass/Vol] 12 mg/dL Normal 7-18 [facility] Comment on above: Order Comment: CONSE RVATION List patient's anticoagulants for PT: NONE SPECIFIED Performed By: #### L 300.66621 #### Test performed at: [address] [address] CBC W/DIFFon 07-18-2019 BASO ABS 0.0 K/uL Normal 0.0-0.2 [facility] Comment on above: Order Comment: CONSE RVATION [facility] patient's anticoagulants for PT: NONE SPECIFIED Performed By: #### L 300.19928 #### Test performed at: [address] [address] Basophils/100 WBC (Bld) 0.1 % Normal [facility] Comment on above: Order Comment: CONSE RVATION List patient's anticoagulants for PT: NONE SPECIFIED Performed By: #### L 300.74677 #### Test performed at: [address] [address] EOS ABS 0.0 K/uL Normal 0.0-0.5 [facility] Comment on above: Order Comment: CONSE RVATION List patient's anticoagulants for PT: NONE SPECIFIED Performed By: #### L 300.76547 #### Test performed at: [address] [address] Eosinophils/100 WBC (Bld) 0.0 % Normal [facility] Comment on above: Order Comment: CONSE RVATION List patient's anticoagulants for PT: NONE SPECIFIED Performed By: #### L 300.48457 #### Test performed at: [address] [address] Erythrocyte distribution width (RBC) [Ratio] 13.4 % Normal 11.5-14.5 [facility] Comment on above: Order Comment: CONSE RVATION List patient's anticoagulants for PT: NONE SPECIFIED Performed By: #### L 300.81661 #### Test performed at: [place] [id number] Hematocrit (Bld) [Volume fraction] 38.6 % Normal 36.0-48.0 [facility] Comment on above: Order Comment: CONSE RVATION List patient's anticoagulants for PT: NONE SPECIFIED Performed By: #### L 300.75791 #### Test performed at: [address] [address] Hemoglobin (Bld) [Mass/Vol] 12.7 g/dL Normal 12.0-15.0 [facility] Comment on above: Order Comment: CONSE RVATION List patient's anticoagulants for PT: NONE SPECIFIED Performed By: #### L 300.17756 #### Test performed at: [address] [address] IG % 0.6 % Normal [facility] Comment on above: Order Comment: CONSE RVATION List patient's anticoagulants for PT: NONE SPECIFIED Performed By: #### L 300.16194 #### Test performed at: [address] [address] IG ABS 0.13 K/uL High 0-0.05 [facility] Comment on above: Order Comment: CONSE RVATION [facility] patient's anticoagulants for PT: NONE SPECIFIED Performed By: #### L 300.56498 #### Test performed at: [address] [address] Lymphocytes (Bld) [#/Vol] 1.1 10*3/uL Low 1.2-3.5 [facility] Comment on above: Order Comment: CONSE RVATION [facility] patient's anticoagulants for PT: NONE SPECIFIED Performed By: #### L 300.54893 #### Test performed at: [place] [id number] Lymphocytes/100 WBC (Bld) 5.2 % Normal [facility] Comment on above: Order Comment: CONSE RVATION [facility] patient's anticoagulants for PT: NONE SPECIFIED Performed By: #### L 300.10122 #### Test performed at: [address] [address] MCH (RBC) [Entitic mass] 29.5 pg Normal 25.4-34.6 [facility] Comment on above: Order Comment: CONSE RVATION [facility] patient's anticoagulants for PT: NONE SPECIFIED Performed By: #### L 300.24408 #### Test performed at: [address] [address] MCHC (RBC) [Mass/Vol] 32.9 g/dL Normal 31.5-36.5 [facility] Comment on above: Order Comment: CONSE RVATION List patient's anticoagulants for PT: NONE SPECIFIED Performed By: #### L 300.49011 #### Test performed at: [address] [address] MCV (RBC) [Entitic vol] 89.8 fL Normal 79.0-98.0 [facility] Comment on above: Order Comment: CONSE RVATION List patient's anticoagulants for PT: NONE SPECIFIED Performed By: #### L 300.00227 #### Test performed at: [address] [address] MONO ABS 1.2 K/uL High 0.0-1.0 [facility] Comment on above: Order Comment: CONSE RVATION List patient's anticoagulants for PT: NONE SPECIFIED Performed By: #### L 300.50049 #### Test performed at: [place] [id number] Monocytes/100 WBC (Bld) 5.8 % Normal [facility] Comment on above: Order Comment: CONSE RVATION List patient's anticoagulants for PT: NONE SPECIFIED Performed By: #### L 300.07623 #### Test performed at: [place] [id number] NEUTROPHIL ABS 18.6 K/uL High 1.4-6.6 [facility] Comment on above: Order Comment: CONSE RVATION List patient's anticoagulants for PT: NONE SPECIFIED Performed By: #### L 300.90869 #### Test performed at: [address] [address] Neutrophils/100 WBC (Bld) 88.3 % Normal [facility] Comment on above: Order Comment: CONSE RVATION List patient's anticoagulants for PT: NONE SPECIFIED Performed By: #### L 300.74497 #### Test performed at: [place] [id number] NRBC # 0.000 K/uL Normal 0-0.012 [facility] Comment on above: Order Comment: CONSE RVATION List patient's anticoagulants for PT: NONE SPECIFIED Performed By: #### L 300.52335 #### Test performed at: [address] [address] NRBC % 0.0 /100 WBC Normal 0-0.2 [facility] Comment on above: Order Comment: CONSE RVATION List patient's anticoagulants for PT: NONE SPECIFIED Performed By: #### L 300.06849 #### Test performed at: [address] [address] Platelet mean volume (Bld) [Entitic vol] 9.8 fL Normal 8.7-12.4 [facility] Comment on above: Order Comment: CONSE RVATION List patient's anticoagulants for PT: NONE SPECIFIED Performed By: #### L 300.95951 #### Test performed at: [address] [address] Platelets (Bld) [#/Vol] 294 10*3/uL Normal 140-440 [facility] Comment on above: Order Comment: CONSE RVATION List patient's anticoagulants for PT: NONE SPECIFIED Performed By: #### L 300.52635 #### Test performed at: [address] [address] RBC (Bld) [#/Vol] 4.30 10*6/uL Normal 3.5-5.5 [facility] Comment on above: Order Comment: CONSE RVATION List patient's anticoagulants for PT: NONE SPECIFIED Performed By: #### L 300.31007 #### Test performed at: [address] [address] WBC (Bld) [#/Vol] 21.0 10*3/uL High 3.9-11.0 [facility] Comment on above: Order Comment: CONSE RVATION List patient's anticoagulants for PT: NONE SPECIFIED Performed By: #### L 300.27808 #### Test performed at: [address] [address] EST. CREAT AMYon 07-18-2019 Creatinine [Mass/Vol] 138.567 ML/MIN Normal [facility] Comment on above: Order Comment: CONSE RVATION [facility] patient's anticoagulants for PT: NONE SPECIFIED Result Comment: This result is an ESTIMATED blood creatinine clearance value which is derived from the patient age, sex, weight, and previous blood creatinine result. Performed By: #### L 300.54724 #### Test performed at: [place] [address] GFR ESTIMATEon 07-18-2019 IF AMER > 60 Normal > 60 [facility] Comment on above: Order Comment: CONSE [facility] patient's anticoagulants for PT: NONE SPECIFIED Result Comment: eGFR (Estimated GFR) Units of measure:mL/min/1.73 meters sq. *CALCULATION REVISED 06/02/2015;IDMS-traceable MDRD equation eGFR is derived from the reexpressed MDRD Study equation using the following parameters: serum creatinine, age, gender and race. An eGFR<60 mL/min/1.73m2 for >3 months is consistent with chronic kidney disease. Refer to KDOQI guidelines for clinical interpretation. Performed By: #### L 300.57050 #### Test performed at: [place] [address] IF non-AFR AMER > 60 Normal > 60 [facility] Comment on above: Order Comment: CONSE RVATION [facility] patient's anticoagulants for PT: NONE SPECIFIED Performed By: #### L 300.41470 #### Test performed at: [place] [address] GRAM STAINon 07-18-2019 Microscopic observation Gram stain Nom (Unsp spec) GRAM STAIN: FEW WBC NO ORGANISMS OBSERVED Normal [facility] Comment on above: Order Comment: CONSE RVATION [facility] patient's anticoagulants for PT: NONE SPECIFIED Performed By: #### L 300.43567 #### Test performed at: [place] [address] INS PICC WO P/P W GDNCE >5YR Son 07-18-2019 INS PICC WO P/P W GDNCE >5YRS STUDY: INS PICC WO P/P W GDNCE >5YRS; 07/19/2019 2:08 pm INDICATION: IV abx. COMPARISON: None. ACCESSION NUMBER(S): [id number] ORDERING CLINICIAN: Allie López TECHNIQUE: Fluoroscopic image of the chest during right upper extremity PICC placement. FINDINGS: The tip of the right upper extremity PICC is in the right atrium. IMPRESSION: The tip of the right upper extremity PICC is in the right atrium. Normal [facility] BASIC MET PANELon 07-17-2019 Anion gap [Moles/Vol] 14 mmol/L Normal 6-18 [facility] Comment on above: Order Comment: CONSE RVATION Performed By: #### L 600.07896 #### Test performed at: [address] [address] Calcium [Mass/Vol] 8.6 mg/dL Normal 8.5-10.1 [facility] Comment on above: Order Comment: CONSE RVATION Performed By: #### L 600.56040 #### Test performed at: [address] [address] Chloride [Moles/Vol] 106 mmol/L Normal 98-107 [facility] Comment on above: Order Comment: CONSE RVATION Performed By: #### L 600.58676 #### Test performed at: [address] [address] CO2 [Moles/Vol] 21 mmol/L Normal 21-32 [facility] Comment on above: Order Comment: CONSE RVATION Performed By: #### L 600.92113 #### Test performed at: [address] [address] Creatinine [Mass/Vol] 0.952 mg/dL Normal 0.550-1.020 [facility] Comment on above: Order Comment: CONSE RVATION Performed By: #### L 600.85949 #### Test performed at: [address] [address] Glucose [Mass/Vol] 180 mg/dL High 70-99 [facility] Comment on above: Order Comment: CONSE RVATION Result Comment: Fast ing GLUCOSE reference range has been updated per (ADA) [place] [employer]'s recommendation. 11/06/2018 Performed By: #### L 600.13295 #### Test performed at: [place] [id number] OSM 288 mosm/kg Normal 270-300 [facility] Comment on above: Order Comment: CONSE RVATION Performed By: #### L 600.02575 #### Test performed at: [place] [address] Potassium [Moles/Vol] 4.3 mmol/L Normal 3.5-5.1 [facility] Comment on above: Order Comment: CONSE RVATION Performed By: #### L 600.75973 #### Test performed at: [address] [address] Sodium [Moles/Vol] 137 mmol/L Normal 136-145 [facility] Comment on above: Order Comment: CONSE RVATION Performed By: #### L 600.09098 #### Test performed at: [address] [address] Urea nitrogen [Mass/Vol] 12 mg/dL Normal 7-18 [facility] Comment on above: Order Comment: CONSE RVATION Performed By: #### L 600.70638 #### Test performed at: [address] [address] CBC W/DIFFon 07-17-2019 Erythrocyte distribution width (RBC) [Ratio] 13.0 % Normal 11.5-14.5 [facility] Comment on above: Order Comment: CONSE RVATION Performed By: #### L 600.37321 #### Test performed at: [address] [address] Hematocrit (Bld) [Volume fraction] 40.1 % Normal 36.0-48.0 [facility] Comment on above: Order Comment: CONSE RVATION Performed By: #### L 600.15811 #### Test performed at: [address] [address] Hemoglobin (Bld) [Mass/Vol] 14.0 g/dL Normal 12.0-15.0 [facility] Comment on above: Order Comment: CONSE RVATION Performed By: #### L 600.61594 #### Test performed at: [place] [address] MCH (RBC) [Entitic mass] 30.4 pg Normal 25.4-34.6 [facility] Comment on above: Order Comment: CONSE RVATION Performed By: #### L 600.44482 #### Test performed at: [place] [address] MCHC (RBC) [Mass/Vol] 34.9 g/dL Normal 31.5-36.5 [facility] Comment on above: Order Comment: CONSE RVATION Performed By: #### L 600.12085 #### Test performed at: [place] [address] MCV (RBC) [Entitic vol] 87.2 fL Normal 79.0-98.0 [facility] Comment on above: Order Comment: CONSE RVATION Performed By: #### L 600.40717 #### Test performed at: [place] [address] NRBC # 0.000 K/uL Normal 0-0.012 [facility] Comment on above: Order Comment: CONSE RVATION Performed By: #### L 600.74819 #### Test performed at: [place] [address] NRBC % 0.0 /100 WBC Normal 0-0.2 [facility] Comment on above: Order Comment: CONSE RVATION Performed By: #### L 600.66868 #### Test performed at: [address] [address] Platelet mean volume (Bld) [Entitic vol] 9.5 fL Normal 8.7-12.4 [facility] Comment on above: Order Comment: CONSE RVATION Performed By: #### L 600.66590 #### Test performed at: [address] [address] Platelets (Bld) [#/Vol] 290 10*3/uL Normal 140-440 [facility] Comment on above: Order Comment: CONSE RVATION Performed By: #### L 600.38044 #### Test performed at: [address] [address] RBC (Bld) [#/Vol] 4.60 10*6/uL Normal 3.5-5.5 [facility] Comment on above: Order Comment: CONSE RVATION Performed By: #### L 600.87260 #### Test performed at: [address] [address] WBC (Bld) [#/Vol] 22.6 10*3/uL High 3.9-11.0 [facility] Comment on above: Order Comment: CONSE RVATION Result Comment: Delt a: 9.2 on 07/16/19 Performed By: #### L 600.87824 #### Test performed at: [address] [address] EST. CREAT CLRon 07-17-2019 Creatinine [Mass/Vol] 113.095 ML/MIN Normal [facility] Comment on above: Order Comment: CONSE RVATION Result Comment: This result is an ESTIMATED blood creatinine clearance value which is derived from the patient age, sex, weight, and previous blood creatinine result. Performed By: #### L 600.84827 #### Test performed at: [place] [address] GFR ESTIMATEon 07-17-2019 IF AMER > 60 Normal > 60 [facility] Comment on above: Order Comment: CONSE [...] for clinical interpretation. Performed By: #### L 600.25080 #### Test performed at: [place] [address] IF non-AFR AMER > 60 Normal > 60 [facility] Comment on above: Order Comment: CONSE RVATION Performed By: #### L 600.37975 #### Test performed at: [place] [address] LUMBAR SP WO CONTRASTon LUMBAR SP WO CONTRAST STUDY: LUMBAR SP WO CONTRAST; 07/17/2019 3:40 pm INDICATION: POSSIBLE HEMATOMA. Severe low back pain with left hip and leg radiculopathy, possible hematoma. COMPARISON: 07/16/2019 MR ACCESSION NUMBER(S): [id number] ORDERING CLINICIAN: Varghese Daigle TECHNIQUE: Sagittal T1, [...] disc protrusion deforming the adjacent cord. Normal [facility] MANUAL DIFFon 07-17-2019 BAND 25 % High 0-5 [facility] Comment on above: Order Comment: CONSE RVATION Performed By: #### L 600.30582 #### Test performed at: [address] [address] Lymphocytes/100 WBC (Bld) 3 % Low 20-50 [facility] Comment on above: Order Comment: CONSE RVATION Performed By: #### L 600.52226 #### Test performed at: [address] [address] MONOCYTE 1 % Low 2-12 [facility] Comment on above: Order Comment: CONSE RVATION Performed By: #### L 600.73953 #### Test performed at: [address] [address] NEUTROPHIL 71 % Normal 40-80 [facility] Comment on above: Order Comment: CONSE RVATION Performed By: #### L 600.57989 #### Test performed at: [address] [address] Platelets (Bld) [#/Vol] ADEQ Normal [facility] Comment on above: Order Comment: CONSE RVATION Performed By: #### L 600.44726 #### Test performed at: [address] [place], [place] [address] POLYCHROMASIA OCC Normal [facility] Comment on above: Order Comment: CONSE RVATION Performed By: #### L 600.76615 #### Test performed at: [facility] [address] [place] [address] TOTAL CELLS 100 #CELLS Normal [facility] Comment on above: Order Comment: CONSE RVATION Performed By: #### L 600.14757 #### Test performed at: [place] [address] [place] [address] OPERATIVE REPORTon OPERATIVE REPORT NAME: ERIKA ORTIZ MR#: [id number] SURGEON: Varghese Daigle MD DATE OF SURGERY: [...] the bone. Once a complete laminectomy was [facility] PT NAME: ERIKA ORTIZ MR#: [id number] [address] [place] [address] ACCT: [id number] : 73 OPERATIVE REPORT performed, we found [...] are no known intraoperative complications. MD KAT NARANJO/MODL/[id number] E/S: Varghese Daigle 08/19/19 1456 Electronically Signed [facility] PT NAME: ERIKA ORTIZ MR#: [id number] [address] [place] [address] ACCT: [id number] : 73 OPERATIVE REPORT Normal [facility] BASIC MET PANELon 07-16-2019 Anion gap [Moles/Vol] 13 mmol/L Normal 6-18 [facility] Comment on above: Order Comment: PATIE NT IS GETTING CAT SCAN DONE NURSE WILL CALL/PAGE WHEN PATIENT IS BACK ON THE FLOOR CONSERVATION Performed By: #### L 500.97329, L500.59988, L500.58381, L500.50513, L500.03015 #### Test performed at: [place] [address] Calcium [Mass/Vol] 9.0 mg/dL Normal 8.5-10.1 [facility] Comment on above: Order Comment: PATIE NT IS GETTING CAT SCAN DONE NURSE WILL CALL/PAGE WHEN PATIENT IS BACK ON THE FLOOR CONSERVATION Performed By: #### L 500.78841, L500.65085, L500.35248, L500.55335, L500.70465 #### Test performed at: [place] [address] Chloride [Moles/Vol] 107 mmol/L Normal 98-107 [facility] Comment on above: Order Comment: PATIE NT IS GETTING CAT SCAN DONE NURSE WILL CALL/PAGE WHEN PATIENT IS BACK ON THE FLOOR CONSERVATION Performed By: #### L 500.39749, L500.03781, L500.87225, L500.49912, L500.72431 #### Test performed at: [place] [address] CO2 [Moles/Vol] 24 mmol/L Normal 21-32 [facility] Comment on above: Order Comment: PATIE NT IS GETTING CAT SCAN DONE NURSE WILL CALL/PAGE WHEN PATIENT IS BACK ON THE FLOOR CONSERVATION Performed By: #### L 500.72162, L500.51408, L500.48061, L500.05182, L500.56874 #### Test performed at: [place] [address] Creatinine [Mass/Vol] 0.761 mg/dL Normal 0.550-1.020 [facility] Comment on above: Order Comment: PATIE NT IS GETTING CAT SCAN DONE NURSE WILL CALL/PAGE WHEN PATIENT IS BACK ON THE FLOOR CONSERVATION Performed By: #### L 500.54474, L500.97575, L500.23484, L500.36921, L500.57624 #### Test performed at: [place] [address] Glucose [Mass/Vol] 89 mg/dL Normal 70-99 [facility] Comment on above: Order Comment: PATIE NT IS GETTING CAT SCAN DONE NURSE WILL CALL/PAGE WHEN PATIENT IS BACK ON THE FLOOR CONSERVATION Result Comment: Fast ing GLUCOSE reference range has been updated per (ADA) [place] [employer]'s recommendation. 11/06/2018 Performed By: #### L 500.38274, L500.62342, L500.96510, L500.21015, L500.12097 #### Test performed at: [place] [id number] OSM 289 mosm/kg Normal 270-300 [facility] Comment on above: Order Comment: PATIE NT IS GETTING CAT SCAN DONE NURSE WILL CALL/PAGE WHEN PATIENT IS BACK ON THE FLOOR CONSERVATION Performed By: #### L 500.28722, L500.37472, L500.56964, L500.59597, L500.15788 #### Test performed at: [place] [id number] Potassium [Moles/Vol] 4.0 mmol/L Normal 3.5-5.1 [facility] Comment on above: Order Comment: PATIE NT IS GETTING CAT SCAN DONE NURSE WILL CALL/PAGE WHEN PATIENT IS BACK ON THE FLOOR CONSERVATION Performed By: #### L 500.43053, L500.63789, L500.33466, L500.02431, L500.93178 #### Test performed at: [address] [address] Sodium [Moles/Vol] 140 mmol/L Normal 136-145 [facility] Comment on above: Order Comment: PATIE NT IS GETTING CAT SCAN DONE NURSE WILL CALL/PAGE WHEN PATIENT IS BACK ON THE FLOOR CONSERVATION Performed By: #### L 500.89609, L500.89728, L500.81951, L500.19679, L500.75132 #### Test performed at: [place] [id number] Urea nitrogen [Mass/Vol] 10 mg/dL Normal 7-18 [facility] Comment on above: Order Comment: PATIE NT IS GETTING CAT SCAN DONE NURSE WILL CALL/PAGE WHEN PATIENT IS BACK ON THE FLOOR CONSERVATION Performed By: #### L 500.46788, L500.60572, L500.79759, L500.26981, L500.98563 #### Test performed at: [address] [address] CBC W/DIFFon 07-16-2019 BASO ABS 0.1 K/uL Normal 0.0-0.2 [facility] Comment on above: Order Comment: PATIE NT IS GETTING CAT SCAN DONE NURSE WILL CALL/PAGE WHEN PATIENT IS BACK ON THE FLOOR CONSERVATION Performed By: #### L 200.75144, L200.85986 #### Test performed at: [address] [address] Basophils/100 WBC (Bld) 0.8 % Normal [facility] Comment on above: Order Comment: PATIE NT IS GETTING CAT SCAN DONE NURSE WILL CALL/PAGE WHEN PATIENT IS BACK ON THE FLOOR CONSERVATION Performed By: #### L 200.85257, L200.52730 #### Test performed at: [address] [address] EOS ABS 0.2 K/uL Normal 0.0-0.5 [facility] Comment on above: Order Comment: PATIE NT IS GETTING CAT SCAN DONE NURSE WILL CALL/PAGE WHEN PATIENT IS BACK ON THE FLOOR CONSERVATION Performed By: #### L 200.64153, L200.49373 #### Test performed at: [address] [address] Eosinophils/100 WBC (Bld) 2.2 % Normal [facility] Comment on above: Order Comment: PATIE NT IS GETTING CAT SCAN DONE NURSE WILL CALL/PAGE WHEN PATIENT IS BACK ON THE FLOOR CONSERVATION Performed By: #### L 200.22090, L200.86712 #### Test performed at: [address] [address] Erythrocyte distribution width (RBC) [Ratio] 13.3 % Normal 11.5-14.5 [facility] Comment on above: Order Comment: PATIE NT IS GETTING CAT SCAN DONE NURSE WILL CALL/PAGE WHEN PATIENT IS BACK ON THE FLOOR CONSERVATION Performed By: #### L 200.75348, L200.02245 #### Test performed at: [address] [address] Hematocrit (Bld) [Volume fraction] 43.7 % Normal 36.0-48.0 [facility] Comment on above: Order Comment: PATIE NT IS GETTING CAT SCAN DONE NURSE WILL CALL/PAGE WHEN PATIENT IS BACK ON THE FLOOR CONSERVATION Performed By: #### L 200.43148, L200.46695 #### Test performed at: [address] [address] Hemoglobin (Bld) [Mass/Vol] 15.1 g/dL High 12.0-15.0 [facility] Comment on above: Order Comment: PATIE NT IS GETTING CAT SCAN DONE NURSE WILL CALL/PAGE WHEN PATIENT IS BACK ON THE FLOOR CONSERVATION Performed By: #### L 200.40712, L200.48094 #### Test performed at: [address] [address] IG % 0.4 % Normal [facility] Comment on above: Order Comment: BRIELLE NT IS GETTING CAT SCAN DONE NURSE WILL CALL/PAGE WHEN PATIENT IS BACK ON THE FLOOR CONSERVATION Performed By: #### L 200.43342, L200.63818 #### Test performed at: [address] [address] IG ABS 0.04 K/uL Normal 0-0.05 [facility] Comment on above: Order Comment: BRIELLE NT IS GETTING CAT SCAN DONE NURSE WILL CALL/PAGE WHEN PATIENT IS BACK ON THE FLOOR CONSERVATION Performed By: #### L 200.02498, L200.37988 #### Test performed at: [address] [address] Lymphocytes (Bld) [#/Vol] 2.2 10*3/uL Normal 1.2-3.5 [facility] Comment on above: Order Comment: BRIELLE NT IS GETTING CAT SCAN DONE NURSE WILL CALL/PAGE WHEN PATIENT IS BACK ON THE FLOOR CONSERVATION Performed By: #### L 200.11611, L200.34700 #### Test performed at: [address] [address] Lymphocytes/100 WBC (Bld) 24.1 % Normal [facility] Comment on above: Order Comment: BRIELLE NT IS GETTING CAT SCAN DONE NURSE WILL CALL/PAGE WHEN PATIENT IS BACK ON THE FLOOR CONSERVATION Performed By: #### L 200.97433, L200.36257 #### Test performed at: [address] [address] MCH (RBC) [Entitic mass] 30.0 pg Normal 25.4-34.6 [facility] Comment on above: Order Comment: BRIELLE NT IS GETTING CAT SCAN DONE NURSE WILL CALL/PAGE WHEN PATIENT IS BACK ON THE FLOOR CONSERVATION Performed By: #### L 200.14374, L200.87332 #### Test performed at: [address] [address] MCHC (RBC) [Mass/Vol] 34.6 g/dL Normal 31.5-36.5 [facility] Comment on above: Order Comment: PATIE NT IS GETTING CAT SCAN DONE NURSE WILL CALL/PAGE WHEN PATIENT IS BACK ON THE FLOOR CONSERVATION Performed By: #### L 200.42061, L200.38671 #### Test performed at: [address] [address] MCV (RBC) [Entitic vol] 86.7 fL Normal 79.0-98.0 [facility] Comment on above: Order Comment: PATIE NT IS GETTING CAT SCAN DONE NURSE WILL CALL/PAGE WHEN PATIENT IS BACK ON THE FLOOR CONSERVATION Performed By: #### L 200.80487, L200.10672 #### Test performed at: [address] [address] MONO ABS 0.6 K/uL Normal 0.0-1.0 [facility] Comment on above: Order Comment: PATIE NT IS GETTING CAT SCAN DONE NURSE WILL CALL/PAGE WHEN PATIENT IS BACK ON THE FLOOR CONSERVATION Performed By: #### L 200.53774, L200.68080 #### Test performed at: [address] [address] Monocytes/100 WBC (Bld) 6.8 % Normal [facility] Comment on above: Order Comment: PATIE NT IS GETTING CAT SCAN DONE NURSE WILL CALL/PAGE WHEN PATIENT IS BACK ON THE FLOOR CONSERVATION Performed By: #### L 200.31230, L200.85084 #### Test performed at: [address] [address] NEUTROPHIL ABS 6.1 K/uL Normal 1.4-6.6 [facility] Comment on above: Order Comment: PATIE NT IS GETTING CAT SCAN DONE NURSE WILL CALL/PAGE WHEN PATIENT IS BACK ON THE FLOOR CONSERVATION Performed By: #### L 200.37925, L200.83142 #### Test performed at: [address] [address] Neutrophils/100 WBC (Bld) 65.7 % Normal [facility] Comment on above: Order Comment: BRIELLE NT IS GETTING CAT SCAN DONE NURSE WILL CALL/PAGE WHEN PATIENT IS BACK ON THE FLOOR CONSERVATION Performed By: #### L 200.63874, L200.18090 #### Test performed at: [address] [address] NRBC # 0.020 K/uL High 0-0.012 [facility] Comment on above: Order Comment: BRIELLE NT IS GETTING CAT SCAN DONE NURSE WILL CALL/PAGE WHEN PATIENT IS BACK ON THE FLOOR CONSERVATION Performed By: #### L 200.02917, L200.31170 #### Test performed at: [address] [address] NRBC % 0.2 /100 WBC Normal 0-0.2 [facility] Comment on above: Order Comment: BRIELLE NT IS GETTING CAT SCAN DONE NURSE WILL CALL/PAGE WHEN PATIENT IS BACK ON THE FLOOR CONSERVATION Performed By: #### L 200.10309, L200.93309 #### Test performed at: [address] [address] Platelet mean volume (Bld) [Entitic vol] 9.1 fL Normal 8.7-12.4 [facility] Comment on above: Order Comment: BANDARE NT IS GETTING CAT SCAN DONE NURSE WILL CALL/PAGE WHEN PATIENT IS BACK ON THE FLOOR CONSERVATION Performed By: #### L 200.59957, L200.13114 #### Test performed at: [address] [address] Platelets (Bld) [#/Vol] 302 10*3/uL Normal 140-440 [facility] Comment on above: Order Comment: BANDARE NT IS GETTING CAT SCAN DONE NURSE WILL CALL/PAGE WHEN PATIENT IS BACK ON THE FLOOR CONSERVATION Performed By: #### L 200.24123, L200.10777 #### Test performed at: [place] [address] [place] [address] RBC (Bld) [#/Vol] 5.04 10*6/uL Normal 3.5-5.5 [facility] Comment on above: Order Comment: BRIELLE NT IS GETTING CAT SCAN DONE NURSE WILL CALL/PAGE WHEN PATIENT IS BACK ON THE FLOOR CONSERVATION Performed By: #### L 200.64555, L200.27627 #### Test performed at: [address] [address] WBC (Bld) [#/Vol] 9.2 10*3/uL Normal 3.9-11.0 [facility] Comment on above: Order Comment: BRIELLE NT IS GETTING CAT SCAN DONE NURSE WILL CALL/PAGE WHEN PATIENT IS BACK ON THE FLOOR CONSERVATION Performed By: #### L 200.79501, L200.86198 #### Test performed at: [address] [address] CONSULTATION REPORTon 2018 CONSULTATION REPORT NAME: ERIKA ORTIZ MR#: [id number] MANAGER INVENTORY: Varghese Daigle MD DATE OF CONSULTATION: 07/20/2019 [...] believed this to be the fact. The [facility] PT NAME: ERIKA ORTIZ MR#: [id number] [address] [place] [address] ACCT: [id number] : 73 CONSULTATION arachnoiditis will take time to resolve and may not ever resolve fully. Our goal will be to evacuate any compressive pathology once again optimizing her chances for recovery and pain relief. MD KAT NARANJO/MODL/[id number] E/S: Varghese Daigle 08/19/19 1456 Electronically Signed [facility] PT NAME: ERIKA ORTIZ MR#: [id number] [address] [place] [address] ACCT: [id number] : 73 CONSULTATION Normal [facility] CRPon 07-16-2019 CRP [Mass/Vol] 10.2 mg/L High 0.0-3.0 [facility] Comment on above: Order Comment: PATIJonathan NT IS GETTING CAT SCAN DONE NURSE WILL CALL/PAGE WHEN PATIENT IS BACK ON THE FLOOR CONSERVATION Performed By: #### L 500.80532, L500.55757, L500.24646, L500.11996, L500.29423 #### Test performed at: [place] [address] EST. CREAT CLRon 07-16-2019 Creatinine [Mass/Vol] 141.480 ML/MIN Normal [facility] Comment on above: Order Comment: BRIELLE NT IS GETTING CAT SCAN DONE NURSE WILL CALL/PAGE WHEN PATIENT IS BACK ON THE FLOOR CONSERVATION Result Comment: This result is an ESTIMATED blood creatinine clearance value which is derived from the patient age, sex, weight, and previous blood creatinine result. Performed By: #### L 500.94656, L500.26891, L500.90096, L500.59093, L500.17259 #### Test performed at: [place] [address] GFR ESTIMATEon 07-16-2019 IF AMER > 60 Normal > 60 [facility] Comment on above: Order Comment: BRIELLE [...] for clinical interpretation. Performed By: #### L 500.66416, L500.42808, L500.78977, L500.12313, L500.86185 #### Test performed at: [place] [address] IF non-AFR AMER > 60 Normal > 60 [facility] Comment on above: Order Comment: PATIE NT IS GETTING CAT SCAN DONE NURSE WILL CALL/PAGE WHEN PATIENT IS BACK ON THE FLOOR CONSERVATION Performed By: #### L 500.79415, L500.75220, L500.53591, L500.40635, L500.62095 #### Test performed at: [place] [address] HCG QUANTon 07-16-2019 HCG QUANT < 1 Low 1-3 Non-preg [facility] Comment on above: Order Comment: [...] 10,000 - 100,000 Performed By: #### L 500.63455, L500.35085, L500.13164, L500.00464, L500.45646 #### Test performed at: [place] [address] LUMB SP COMP W FLEX/EXT 6 VW Son 07-16-2019 LUMB SP COMP W FLEX/EXT 6 VWS STUDY: LUMB SP COMP W FLEX/EXT 6 VWS ; 07/16/2019 9:31 am INDICATION: PAIN. COMPARISON: None. ACCESSION NUMBER(S): [id number] ORDERING CLINICIAN: Say Avila FINDINGS: No fracture or subluxation of the lumbar spine. Severe disc height loss T12-L1 and L5-S1. Milder disc height loss throughout the remainder of the lumbar spine. Scattered small endplate osteophytes. Lower lumbar predominant facet arthropathy. No pars defects. No spondylolisthesis. No instability on flexion or extension. IMPRESSION: Degenerative changes of the lumbar spine without dynamic instability. Normal [facility] LUMBAR SP W & WO CONTRASTon 07-16-2019 LUMBAR SP W & WO CONTRAST STUDY: LUMBAR SP W WO CONTRAST; 07/16/2019 1:56 pm INDICATION: low back pain, urinary incontinence . COMPARISON: Lumbar spine x-rays, same day ACCESSION NUMBER(S): [id number] ORDERING CLINICIAN: Ely Moseley TECHNIQUE: Sagittal T1, T2, STIR, axial T1 and T2 weighted images of the lumbar spine were acquired. After the uncomplicated administration of 10 mL Gadavist gadolinium based contrast, additional axial and sagittal T1 weighted images were obtained. FINDINGS: 5 lumbar-type vertebral bodies are again noted, the last well-formed disc is labeled L5-S1 Alignment: The vertebral alignment is maintained. Vertebrae/Intervertebr al Discs: The vertebral bodies demonstrate expected height.Heterogeneous [...] prior outside imaging to assess stability. Normal [facility] LUMBAR SPINE 2 OR 3 VIEWSon 07-16-2019 LUMBAR SPINE 2 OR 3 VIEWS Exam: Fluoroscopy lumbar spine Clinical History: L5-S1 DECOMPRESSION, DISCECETOMY Comparison: None. Findings: Intraoperative fluoroscopic images demonstrate surgical instruments posterior to L5. Impression: As above Dictated: 07/17/19 1007 REPORT SIGNATURE ON FILE07/17/19(1007) Reported By: LOPEZ BANSAL Signed By: LOPEZ BANSAL Normal [facility] OPERATIVE REPORTon 9 OPERATIVE REPORT NAME: ERIKA ORTIZ MR#: [id number] SURGEON: Blaise Ortiz MD DATE OF SURGERY: 07/16/2019 OPERATIVE REPORT PREOPERATIVE DIAGNOSIS: Recurrent herniated disk, L5-S1. POSTOPERATIVE DIAGNOSIS: Recurrent herniated disk, L5-S1. OPERATIVE PROCEDURE: Bilateral revision L5-S1 laminotomy, foraminotomy, decompression with lysis of adhesions and diskectomy. TECHNICAL PROGRAMS MANAGER: Jose C. ANESTHESIA: General. DESCRIPTION OF PROCEDURE: [...] The wound was irrigated with saline Betadine [facility] PT NAME: ERIKA ORTIZ MR#: [id number] [address] [place] [address] ACCT: [id number] : 73 OPERATIVE REPORT solution and hemostasis [...] There were no complications. BLAISE ORTIZ MD [facility]/[id number] E/S: Blaise Ortiz MD 07/26/19 1547 Electronically Signed [facility] PT NAME: ERIKA ORTIZ MR#: [id number] [address] [place] [address] ACCT: [id number] : 73 OPERATIVE REPORT Normal [facility] PROTIMEon 07-16-2019 INR Coag (PPP) [Relative time] 1.00 {INR} Normal 0.00-1.20 [facility] Comment on above: Order Comment: CONSE RVATION List patient's anticoagulants for PT: NONE SPECIFIED Result Comment: Antione mmended therapeutic range is an INR of 2.0-3.0 except for prevention of recurrent acute [place] and mechanical prosthetic heart valve where an INR of 2.5-3.5 is recommended. Performed By: #### L 300.41916 #### Test performed at: [place] [address] PT Coag (PPP) [Time] 10.3 s Normal 9.0-12.0 [facility] Comment on above: Order Comment: CONSE RVATION List patient's anticoagulants for PT: NONE SPECIFIED Performed By: #### L 300.05761 #### Test performed at: [place] [address] UA COMPLETEon 07-16-2019 Appearance (U) CLEAR Normal CLEAR [facility] Comment on above: Order Comment: CONSE RVATION Performed By: #### L 600.66959 #### Test performed at: [place] [id number] Bilirubin [Mass/Vol] Negative Normal NEGATIVE [facility] Comment on above: Order Comment: CONSE RVATION Performed By: #### L 600.83047 #### Test performed at: [place] [id number] BLOOD Negative Normal NEGATIVE [facility] Comment on above: Order Comment: CONSE RVATION Performed By: #### L 600.58422 #### Test performed at: [address] [address] Color (U) YELLOW Normal YELLOW [facility] Comment on above: Order Comment: CONSE RVATION Performed By: #### L 600.71107 #### Test performed at: [place] [id number] Glucose [Mass/Vol] Negative Normal NEGATIVE [facility] Comment on above: Order Comment: CONSE RVATION Performed By: #### L 600.31801 #### Test performed at: [place] [id number] KETONE Negative Normal NEGATIVE [facility] Comment on above: Order Comment: CONSE RVATION Performed By: #### L 600.31505 #### Test performed at: [place] [address] LEUK ESTERASE Negative Normal NEGATIVE [facility] Comment on above: Order Comment: CONSE RVATION Performed By: #### L 600.55970 #### Test performed at: [place] [address] Nitrite Ql (U) Negative Normal NEGATIVE [facility] Comment on above: Order Comment: CONSE RVATION Performed By: #### L 600.58755 #### Test performed at: [place] [address] Protein [Mass/Vol] Negative Normal NEGATIVE [facility] Comment on above: Order Comment: CONSE RVATION Performed By: #### L 600.27012 #### Test performed at: [place] [address] SPEC GRAV 1.018 Normal 1.005-1.030 [facility] Comment on above: Order Comment: CONSE RVATION Performed By: #### L 600.47358 #### Test performed at: [place] [address] UA ASC ACID Negative Normal [facility] Comment on above: Order Comment: CONSE RVATION Performed By: #### L 600.90795 #### Test performed at: [place] [address] UA PH 5.0 Normal 5.0-8.0 [facility] Comment on above: Order Comment: CONSE RVATION Performed By: #### L 600.08182 #### Test performed at: [address] [address] UROBIL NORMAL Normal NORMAL [facility] Comment on above: Order Comment: CONSE RVATION Performed By: #### L 600.71663 #### Test performed at: [address] [address] WSR/MODon 07-16-2019 WSR/MOD 8 mm/hr Normal 0-20 [facility] Comment on above: Order Comment: PATIE NT IS GETTING CAT SCAN DONE NURSE WILL CALL/PAGE WHEN PATIENT IS BACK ON THE FLOOR CONSERVATION Performed By: #### L 200.02922, L200.91566 #### Test performed at: [address] [address] Vital Signs Date Time Vital Sign Value Performing Clinician Facility 05-26-2025 10:130400 Body height 162.56 cm PHYSICIAN NO [facility] 05-26-2025 10:13-0400 Body mass index (BMI) [Ratio] 37.8 kg/m2 PHYSICIAN NO [facility] 05-26-2025 10:13-0400 Body temperature 97.5 [degF] PHYSICIAN NO [facility] 05-26-2025 10:13-0400 Body weight 99.79 kg PHYSICIAN NO [facility] 05-26-2025 10:13-0400 Diastolic blood pressure 86 mm[Hg] PHYSICIAN NO [facility] 05-26-2025 10:13-0400 Heart rate 100 /min PHYSICIAN NO [facility] 05-26-2025 10:13-0400 Respiratory rate 20 /min PHYSICIAN NO [facility] 05-26-2025 10:13-0400 SaO2% (BldA) [Mass fraction] 98 % PHYSICIAN NO [facility] 05-26-2025 10:13-0400 Systolic blood pressure 154 mm[Hg] PHYSICIAN NO [facility] 03-13-2025 10:35-0400 Body height 160 cm Mata Villalba MD Work Phone: [facility] 03-13-2025 10:35-0400 Body mass index (BMI) [Ratio] 37.38 kg/m2 Mata Villalba MD Work Phone: [facility] 03-13-2025 10:35-0400 Body temperature 97.3 [degF] Mata Villalba MD Work Phone: [facility] 03-13-2025 10:35-0400 Body weight 95.71 kg Mata Villalba MD Work Phone: [facility] 03-13-2025 10:35-0400 Diastolic blood pressure 102 mm[Hg] Mata Villalba MD Work Phone: [facility] 03-13-2025 10:35-0400 Heart rate 97 /min Mata Villalba MD Work Phone: [facility] 03-13-2025 10:35-0400 Respiratory rate 22 /min Mata Villalba MD Work Phone: [facility] 03-13-2025 10:35-0400 SaO2% (BldA) [Mass fraction] 98 % Mata Villalba MD Work Phone: [facility] 03-13-2025 10:35-0400 Systolic blood pressure 156 mm[Hg] Mata Villalba MD Work Phone: [facility] 12-30-2024 08:15-0400 Diastolic blood pressure 109 mm[Hg] [facility] 12-30-2024 08:15-0400 Heart rate 98 /min [facility] 12-30-2024 08:15-0400 Systolic blood pressure 164 mm[Hg] [facility] 07-10-2024 09:24-0500 Body height 160 cm Mata Villalba MD Work Phone: [facility] 07-10-2024 09:24-0500 Body mass index (BMI) [Ratio] 36.67 kg/m2 Mata Villalba MD Work Phone: [facility] 07-10-2024 09:24-0500 Body temperature 97.5 [degF] Mata Villalba MD Work Phone: [facility] 07-10-2024 09:24-0500 Body weight 93.89 kg Mata Villalba MD Work Phone: [facility] 07-10-2024 09:24-0500 Diastolic blood pressure 110 mm[Hg] Mata Villalba MD Work Phone: [facility] 07-10-2024 09:24-0500 Heart rate 105 /min Mata Villalba MD Work Phone: [facility] 07-10-2024 09:24-0500 Respiratory rate 20 /min Mata Villalba MD Work Phone: [facility] 07-10-2024 09:24-0500 SaO2% (BldA) [Mass fraction] 99 % Mata Villalba MD Work Phone: [facility] 07-10-2024 09:24-0500 Systolic blood pressure 194 mm[Hg] Mata Villalba MD Work Phone: [facility] Healthcare Encounters Encounter Date Encounter Type Care Provider Facility Start: 07-14-2025 ambulatory [facility] Facility:[facility] Start: 06-01-2025 End: 06-01-2025 Patient encounter procedure Mata Villalba MD -[facility] Work Phone: Start: 06-01-2025 End: 06-01-2025 ambulatory PHYSICIAN NO FAMILY -[facility] Start: 05-26-2025 End: 05-26-2025 ambulatory PHYSICIAN NO FAMILY [facility] Work Phone: Start: 05-26-2025 End: 05-26-2025 Patient encounter procedure Mata Villalba MD -[facility] [place] Work Phone: Start: 05-02-2025 End: 05-02-2025 ambulatory Hein Melendez Facility:[facility] Start: 05-02-2025 End: 05-02-2025 Patient encounter procedure Hien Melendez [facility] Start: 04-13-2025 End: 04-13-2025 Refill Mata Villalba MD Work Phone: [facility] Comment on above: Nausea; Class 2 severe obesity due to excess calories with serious comorbidity and body mass index (BMI) of 37.0 to 37.9 in adult ([facility]) Start: 04-10-2025 End: 04-10-2025 ambulatory Hien Melendez Facility:[facility] Start: 04-02-2025 End: 04-02-2025 Clinisync Result Encounter Mata Villalba MD Work Phone: [facility] Unsolicited Start: 04-02-2025 End: 04-02-2025 Clinisync Result Encounter Mata Villalba MD Work Phone: [facility] External Department Unsolicited Start: 03-13-2025 End: 03-13-2025 ambulatory Hien Melendez Facility:[facility] Start: 03-13-2025 End: 03-13-2025 Bamboo flowsheet Mata Villalba MD Work Phone: [facility] Start: 03-13-2025 End: 03-13-2025 Bamboo flowsheet Mata Villalba MD Work Phone: [facility] Start: 03-13-2025 End: 03-13-2025 Office [...] (BMI) of 37.0 to 37.9 in adult ([facility]); Annual physical exam Start: 03-13-2025 End: 03-13-2025 Patient encounter procedure Mata Villalba MD Work Phone: [facility] Start: 03-13-2025 End: 03-13-2025 ambulatory MATA VILLALBA Not Available Start: 02-28-2025 End: 02-28-2025 Refill Mata Villalba MD Work Phone: [facility] Comment on above: SELVIN (generalized anx iety disorder) ; Obesity (BMI 30-39.9) Start: 02-13-2025 End: 02-13-2025 ambulatory Stanford Talal Sarmini Facility:[facility] Start: 02-13-2025 End: 02-13-2025 Patient encounter procedure Stanford Talal Sarmini [facility] Start: 01-26-2025 End: 01-27-2025 Refill Mata Villalba MD Work Phone: [facility] Comment on above: Obesity (BMI 30-39.9 ); SELVIN (generalized anxiety disorder) Start: 01-10-2025 End: 01-10-2025 ambulatory Stanford Talal Sarmini Facility:[facility] Start: 01-10-2025 End: 01-10-2025 Patient encounter procedure Stanford Talal Sarmini [facility] Start: 01-03-2025 End: 01-03-2025 ambulatory Stanford Talal Sarmini Facility:[facility] Start: 12-31-2024 End: 12-31-2024 ambulatory Stanford Talal Sarmini Facility:[facility] Start: 12-31-2024 End: 12-31-2024 Patient encounter procedure Stanford Talal Sarmini [facility] Start: 12-30-2024 End: 12-30-2024 ambulatory Stanford Talal Sarmini Facility:[facility] Start: 12-30-2024 End: 12-30-2024 Patient encounter procedure Stanford Talal Sarmini [facility] Start: 11-29-2024 End: 11-29-2024 Refill Mata Villalba MD Work Phone: [facility] Comment on above: Obesity (BMI 30-39.9 ) Start: 11-23-2024 End: 11-25-2024 Refill Mata Villalba MD Work Phone: [facility] Comment on above: Nausea; SELVIN (generalized anxiety disorder) ([facility]) Start: 09-26-2024 End: 09-27-2024 Refill Mata Villalba MD Work Phone: [facility] Comment on above: Obesity (BMI 30-39.9 ) Start: 09-21-2024 End: 09-23-2024 Refill Mata Villalba MD Work Phone: [facility] Comment on above: SELVIN (generalized anx iety disorder) ([facility]) Start: 09-19-2024 End: 09-19-2024 ambulatory Stanford Talal Sarmini Facility:[facility] Start: 09-19-2024 End: 09-19-2024 Patient encounter procedure Stanford Talal Sarmini [facility] Start: 09-02-2024 End: 09-02-2024 ambulatory Stanford Talal Sarmini Facility:[facility] Start: 09-02-2024 End: 09-02-2024 Patient encounter procedure Stanford Talal Sarmini [facility] Start: 08-23-2024 End: 08-26-2024 Refill Mata Villalba MD Work Phone: [facility] Comment on above: Nausea; Obesity (BMI 30-39.9); Lumbar back pain Start: 07-29-2024 End: 07-29-2024 ambulatory Hien Melendez Facility:[facility] Start: 07-29-2024 End: 07-29-2024 Patient encounter procedure [facility] Start: 07-22-2024 End: 07-23-2024 Refill Mata Villalba MD Work Phone: [facility] Comment on above: Obesity (BMI 30-39.9 ); SELVIN (generalized anxiety disorder) (CMS/HCC) Start: 07-10-2024 End: 07-10-2024 Bamboo flowsheet Mata [...] encounter procedure Mata Villalba MD Work Phone: [facility] Healthcare Start: 09-19-2023 Refill Mata Skinner Work Phone: [facility] Comment on above: SEVLIN (generalized anx iety disorder) ([facility]) (Primary Dx) Start: 06-27-2022 Encounter for genera l adult medical examination without abnormal findings DR MATA VILLALBA [facility] Start: 06-22-2022 End: 06-23-[address] MATA VILLALBA Facility:[facility] Start: 06-22-2022 End: 06-23-2022 Encounter for general adult medical examination without abnormal findings DR MATA VILLALBA Facility:[facility] Start: 11-23-2021 End: 11-23-[address] YAYO DRISCOLL Facility:[facility] Procedures Date Procedure Procedure Detail Performing Clinician Start: 04-02-2025 ALL CBC WITH AUTO DIFF Mata Villalba MD Work Phone: Start: 07-07-2020 Gastric sleeve Stanford Sarmini Start: 07-18-2019 Electrocardiogram Start: 02-18-2019 End: 02-18-2019 Colonoscopy Mata Villalba MD Work Phone: Start: 08-04-2014 left L5-S1 discectomy Stanford Sarmini Start: 07-22-2011 Colonoscopy Stanford Sarmini Start: 07-22-2011 Esophagogastroduodenoscopy Stanford Sarm ini Abdominoplasty Stanford Sarm ini section Stanford Sa rmini Exploratory laparotomy Merry Melendez Hernia repair Hien slater History of laparosco pic adjustable gastric banding Hien Melendez Incidental appendectomy Shona Melendez Reduction mammoplasty Rafael Melendez Right salpingo-oophorectomy Hien Melendez Plan of Treatment Date Care Activity Detail Author Start: 02-18-2029 Screening for malign ant neoplasm of colon [facility] Start: 05-16-2025 End: 05-16-2025 Patient encounter procedure 05/16/2025 10:15 AM EDT Office Visit [facility] [address] [place] [phone] Mata Villalba MD [address] [place] [phone] [facility] Start: 04-14-2025 Influenza vaccination Influenza Vacc ine (#1) [facility] Start: 03-13-2025 End: 03-13-2026 Basic metabolic 1998 panel - Serum or Plasma Basic metabolic panel Lab Routine Annual physical exam Expected: 03/13/2025 (Approximate), Expires: 03/13/2026 [facility] Comment on above: Expected: 03/13/2025 (Approximate), Expires: 03/13/2026 Start: 03-13-2025 End: 03-13-2026 CBC W Auto Differential panel - Blood CBC and differential Lab Routine Annual physical exam Expected: 03/13/2025 (Approximate), Expires: 03/13/2026 [facility] Comment on above: Expected: 03/13/2025 (Approximate), Expires: 03/13/2026 Start: 03-13-2025 End: 03-13-2026 Hemoglobin A1c/Hemoglobin.total in Blood Hemoglobin A1c Lab Routine Annual physical exam Expected: 03/13/2025 (Approximate), Expires: 03/13/2026 [facility] Work Phone: Comment on above: Expected: 03/13/2025 (Approximate), Expires: 03/13/2026 Start: 03-13-2025 End: 03-13-2026 Hepatic function 2000 panel - Serum or Plasma Hepatic function panel Lab Routine Annual physical exam Expected: 03/13/2025 (Approximate), Expires: 03/13/2026 [facility] Comment on above: Expected: 03/13/2025 (Approximate), Expires: 03/13/2026 Start: 03-13-2025 End: 03-13-2026 Lipid 1996 panel - Serum or Plasma Lipid panel Lab Routine Annual physical exam Expected: 03/13/2025 (Approximate), Expires: 03/13/2026 [facility] Comment on above: Expected: 03/13/2025 (Approximate), Expires: 03/13/2026 Start: 03-13-2025 End: 03-13-2026 TSH W/REFLEX TO FT4 TSH W/REFLEX TO FT4 Lab Routine Annual physical exam Expected: 03/13/2025 (Approximate), Expires: 03/13/2026 [facility] Comment on above: Expected: 03/13/2025 (Approximate), Expires: 03/13/2026 Start: 03-13-2025 End: 03-13-2025 Patient encounter procedure 03/13/2025 10:30 AM EDT Office Visit [facility] [address] [place] [phone] Mata Villalba MD [address] [place] [phone] Arrived [facility] Comment on above: Arrived Start: 08-26-2024 End: 08-26-2024 Patient encounter procedure 08/26/2024 8:00 AM EST Office Visit [facility] [address] [place] [address] Mata Villalba MD [address] [place] [phone] [facility] Start: 04-14-2024 Influenza vaccination Influenza Vacc ine (#1) [facility] Start: 04-14-2023 Influenza vaccination Influenza Vacc ine (#1) [facility] Start: 2014 Screening for malign ant neoplasm of breast Mammogram [facility] Start: 2004 Screening for malign ant neoplasm of cervix [facility] Start: 1995 Screening for malign ant neoplasm of cervix Pap Smear [facility] Start: 1974 Screening for malign ant neoplasm of colon [facility] Holter monitor study [facility] Immunizations Immunization Date Immunization Notes Care Provider Fa cility 08-14-2024 tetanus toxoid, redu yvonne diphtheria toxoid, and acellular pertussis vaccine, adsorbed Stanford Sarmini [facility] 04-27-2024 influenza virus vaccine, unspecified formulation Stanford Sarmini [facility] 09-22-2023 influenza virus vaccine, unspecified formulation Mata Villalba MD Work Phone: [facility] 07-24-2021 SARS-CoV-2 (COVID-19 ) mRNA-1273 vaccine Stanford Sarmini [facility] Comment on above: Result Comment: 2024: [id number] 09-18-2020 SARS-CoV-2 (COVID-19 ) mRNA-1273 vaccine Stanford Sarmini [facility] Comment on above: Result Comment: 2024: TPV20 08-17-2020 SARS-CoV-2 (COVID-19 ) mRNA-1273 vaccine Stanford Sarmini [facility] Comment on above: Result Comment: 2024: TPV20 04-23-2020 influenza virus vaccine, unspecified formulation Stanford Sarmini [facility] 06-18-2019 influenza virus vaccine, unspecified formulation Stanford Sarmini [facility] 06-18-2019 tetanus toxoid, redu yvonne diphtheria toxoid, and acellular pertussis vaccine, adsorbed Stanford Sarmini [facility] 05-18-2018 influenza virus vaccine, unspecified formulation Stanford Sarmini [facility] 05-17-2016 influenza virus vaccine, unspecified formulation Stanford Sarmini [facility] 2014 influenza virus vaccine, unspecified formulation Stanford Sarmini [facility] 07-05-2013 influenza virus vaccine, unspecified formulation Stanford Sarmini [facility] 10-04-2002 hepatitis B vaccine, adult dosage Stanford Sarmini [facility] 07-01-2002 measles, mumps and rubella virus vaccine Stanford Sarmini [facility] 04-22-2002 hepatitis B vaccine, adult dosage Stanford Sarmini [facility] 03-20-2002 hepatitis B vaccine, adult dosage Stanford Sarmini [facility] Payers Date Payer Category Payer Self-pay 2023 [facility] er [id number] 2023 Unknown [id number] .[id number] 2023 Unknown [id number] 2023 Unknown [id number] 2022 Private Health Insurance [id number] .[id number] 1974 Unknown [id number] 2.16.840.1.342312.3.579 .2.593 1974 Unknown [id number] 2.16.840.1.040972.3.579 .2.593 1974 Unknown [id number] 2.16.840.1.932127.3.579 .2.727 1974 Unknown [id number] 2.16.840.1.798619.3.579 .2.727 1974 Unknown [id number] 2.16.840.1.305532.3.579 .2.727 1974 Unknown [id number] 2.16.840.1.293034.3.579 .2.727 1974 Unknown [id number] 2.16.840.1.104231.3.579 .2.727 1974 Unknown [id number] 2.16.840.1.085375.3.579 .2.727 1974 Unknown [id number] 2.16.840.1.284071.3.579 .2.727 1974 Unknown [id number] 2.16.840.1.403042.3.579 .2.727 1974 Unknown [id number] 2.16.840.1.162113.3.579 .2.1259 1974 Unknown [id number] 2.16.840.1.754237.3.579 .2.1259 1974 Unknown [id number] 2.16.840.1.377777.3.579 .2.727 1974 Unknown [id number] 2.16.840.1.162894.3.579 .2.727 1974 Unknown [id number] 2.16.840.1.395551.3.579 .2.727 1974 Unknown [id number] 2.16.840.1.135580.3.579 .2.727 1974 Unknown [id number] 2.16.840.1.281431.3.579 .2.727 1959 Unknown [id number] Private Health Insurance [id number] Unknown [place] BC/BS [id number] Unknown [id number] 2.16.840.1.412539.3.579 .2.531 Social History Date Type Detail Facility Tobacco smoking status MEIS Tobacco smoking consumption unknown [facility] Start: 1975 Sex Assigned At Not on file [facility] Start: 01-10-2024 End: 03-13-2025 Gender identity Not on file [facility] Start: 01-10-2024 End: 05-26-2025 Tobacco smoking status MEIS Ex-smoker [facility] History of tobacco use Current smoker [facility] History of tobacco use Cigarette Smoker [facility] Start: 01-10-2024 Tobacco use and exposure Smokeless tobacco non-user [facility] Start: 01-10-2024 End: 03-13-2025 History of Social function [facility] Tobacco Yoana [facility] Comment on above: Denies. Tobacco smoking status [facility] Tobacco smoking status Never [facility] Start: 03-29-2012 Sex Female (finding) [facility] Start: 1975 Sex Assigned At Female F [facility] Medical Equipment Procedure Code Equipment Code Equipment Origin al Text Equipment Identifier Dates Syringe With Nee dle (Carepoint Luer Lock Syr-Needle) 3 mL 25 gauge x 1 syringe Start: 05-21-2025 Syringe With Nee dle (Carepoint Luer Lock Syr-Needle) 3 mL 25 gauge x 1 syringe Start: 05-21-2025 Functional Status Date Assessment Result Facility 12-30-2024 Functional Status N/A [facility] Clinical Notes 10-05-2020 to 05-26-2025 Note Date & Type Note Facility 05-26-2025 Evaluation note Diagnosis Onset Date Resolution Adult hypothyroidism acute 2024 10:03am Annual physical exam acute 2024 10:03am Benign essential hypertension acute May 26 10:03am SELVIN (generalized anxiety disorder) acute May 26 10:03am Palpitations acute May 10:03am [facility] Work Phone: 1(834) 237-245909-19-2025 Evaluation + Plan note Future Scheduled Tests Laboratory* Calprotectin, Fecal 05/02/25 * TIBC Calculated 05/02/25 * CBC w/ Auto Diff 05/02/25 * Comprehensive Metabolic Panel 05/02/25 * Ferritin 05/02/25 * Iron Level 05/02/25 [facility] 07-31-2025 History of Present illness Narrative* Mata Villalba MD - 03/13/2025 11:13 AM EDTAssociated Problem(s): SELVIN (generalized anxiety disorder) Symptoms unchanged and use xanax PRN. * Mata Villalba MD - 03/13/2025 11:13 AM EDTAssociated Problem(s): Crohn's disease of both small and large intestine without complication (HCC) Improved with treatment and follow with GI. * Mata Villalba MD - 03/13/2025 11:13 AM EDTAssociated Problem(s): Class 2 severe obesity due to excess calories with serious comorbidity and body mass index (BMI) of 37.0 to 37.9 in adult ([facility]) Continue adipex. Discussed proper diet and regular aerobic exercise. Recommend Weight Watchers and need to limit calories and smaller portions. Need to increase activity and regular aerobic exercise several days a week for 30 minutes at a time. * Mata Villalba MD - 03/13/2025 11:13 AM EDTAssociated Problem(s): Bilateral leg edema Edema stable and continue lasix. Elevated legs PRN. Limit sodium intake. * Mata Villalba MD - 03/13/2025 11:13 AM EDTAssociated Problem(s): Benign essential hypertension BP elevated and increase losartan. Monitor PRN. Discussed DASH diet. * Mata Villalba MD - 03/13/2025 10:30 AM EDT Images from the original note were not included. Subjective Patient ID: Marycruz Ortiz is a 49 y.o. female who presents for Follow-up (Med refills). Follow up HTN, anxiety, edema, and weight. Seen by GI and diagnosed with Crohn's disease. Initiallyon high dose steroids for few months. Recently [...] serious comorbidity and body mass index (BMI) of37.0 to 37.9 in adult ([facility]) Continue adipex. Discussed proper diet and regular [...] and follow with GI. documented in this [facility]06-16-2025 Telephone encounter Note* Telephone Encounter - Erika Harris - 01/27/2025 11:07 AM EDT Patient called and stated she is in [place] until Monday and is out of her xanax. She would like you to send a refill to the [facility] there. an [id number] Miscellaneous Notes* Telephone Encounter - Erika Harris - 01/27/2025 11:07 AM EDT Patient called and stated she is in [place] until Monday and is out of her xanax. She would like you to send a refill to the [facility] there. an documented in this [facility]05-27-2025 Hospital Discharge instructions Follow Up Care 01/07/2025 09:55:16 With:Nora BAGLEY, KAITY [facility], [facility] Address: [address] [place] [address], [address] [phone] When:Within 3 Month(s) [facility] [phone] NoteProgress Note-Physician Patient: MARYCRUZ ORTIZ Age: 49 years Sex: [...] Problem list: All Problems Smoker / IMO [id number] / Confirmed Added secondary to documentation in Social History. Pseudotumor cerebri / SNOMED CT 883751099 / Confirmed Obstructive sleep apnea syndrome / SNOMED CT 694778248 / Confirmed Obesity / SNOMED CT [id number] / Confirmed Obese class II / SNOMED CT 145390519531450 / Confirmed Nodule of lung / SNOMED CT 5947164857 / Confirmed Lumbosacral spondylosis without myelopathy / SNOMED CT 08913590 / Confirmed Herniation of lumbar intervertebral disc with radiculopathy / SNOMED CT 675818098 / Confirmed Lower abdominal pain / SNOMED CT 32005499 / Confirmed Low back pain / SNOMED CT 397120486 / Confirmed Hoarseness / SNOMED CT 931759273 / Confirmed S/P gastric sleeve procedure / SNOMED CT 5282132602 / Confirmed Hematochezia / SNOMED CT 7324912462 / Confirmed History of ulcerative colitis / SNOMED CT 530958883 / Confirmed Bilateral lower limb edema / SNOMED CT 6172311717 / Confirmed Benign essential hypertension / SNOMED CT 1342988 / Confirmed Arthritis of spine / SNOMED CT 5565772603 / Confirmed Histories Procedure history: Gastric sleeve (0764022563) on 07/07/2020 at 45 Years. Colonoscopy (procedure) ([id number]) on 02/18/2019 at 43 Years. left L5-S1 discectomy on 08/04/2014 at 39 Years. Colonoscopy ([id number]) on 07/22/2011 at 36 Years. EGD on 07/22/2011 at 36 Years. Hysterectomy (830415599). LAP-BAND surgery status ([id number]). Abdominoplasty (403563089). Breast reduction (759335150). section (32917572). RSO - Right salpingo-oophorectomy (506668493). Exploratory laparotomy (904441405). Incidental appendectomy (996454202). Hernia repair (22568716). Social History Social & Psychosocial Habits Alcohol [...] in household: No 12/30/2024 Use: Never Comment: Valeri. - 08/05/2020 22:52 - Tobias SCOTT, Madyson Hawkins Exercise 12/30/2024 Risk Assessment: Occasional exercise Substance Abuse 12/30/2024 Risk Assessment: Denies Substance Abuse 12/30/2024 Use: Current Comment: valeri - 09/29/2018 13:57 - Sanjana Marks RN 12/30/2024 Use: Never Comment: Denies. - 08/05/2020 22:52 - Tobias SCOTT, Madyson Hawkins Tobacco 12/30/2024 Risk Assessment: Low Risk 12/30/2024 Tobacco Use: Former smoker, quit more Smokeless tobacco use: Never Type: Cigarettes . Physical Examination Airway: Mallampati classification: II (soft palate, fauces, uvula visible). Respiratory: adequate air exchange. Cardiovascular: Regular rhythm. Plan [place] [employer]esthesi[employer] (ASA) physical status classification: Class III. Anesthetic Preoperative Plan: Anesthesia General, and Patient educated on benefits, alternatives and inherent risk of anesthesia including, but not all inclusive, Allergic reactions, dental damage, nerve damage and cardio-pulmonary complications and wishes to proceed with anesthetic plan..[facility]Result Comment: Electronically Signed By: Girish Curz Jr, DO\.sha\Date and Time Signed: 01/07/25 11:14 [id number] NoteProgress Note-Physician Patient: MARYCRUZ ORTIZ Age: 49 years Sex: [...] Discharge when meets criteria ( To home ).[facility]:Result Comment: Electronically Signed By: Girish Cruz Jr, DO\Date and Time Signed: 01/07/25 11:13 EDT 01-03-2025 NoteEndoscopic Procedure Report - Other Patient: MARYCRUZ ORTIZ Age: 49 years Sex: Female : 1975 Associated Diagnoses: None Author: Hien Melendez MD Pre-Procedure Procedure Date 01/03/2025 11:31:00 . Procedure Type: Colonoscopy with biopsy. Procedure provider Performed by Hien Melendez MD. Current history and physical Reviewed. Gastric sleeve (4656319405) on 07/07/2020 at 45 Years. Colonoscopy (procedure) ([id number]) on 02/18/2019 at 43 Years. left L5-S1 discectomy on 08/04/2014 at 39 Years. Colonoscopy ([id number]) on 07/22/2011 at 36 Years. EGD on 07/22/2011 at 36 Years. Hysterectomy (553088303). LAP-BAND surgery status ([id number]). Abdominoplasty (338905209). Breast reduction (344630025). section (68243881). RSO - Right salpingo-oophorectomy (779271360). Exploratory laparotomy (116279238). Incidental appendectomy (356000510). Hernia repair (93663498).. Past Medical History Active Pseudotumor cerebri (572099042). Family History Primary malignant neoplasm of female breast Sister . Procedure History Gastric sleeve (1912349281) on 07/07/2020 at 45 Years. Colonoscopy (procedure) ([id number]) on 02/18/2019 at 43 Years. left L5-S1 discectomy on 08/04/2014 at 39 Years. Colonoscopy ([id number]) on 07/22/2011 at 36 Years. EGD on 07/22/2011 at 36 Years. Hysterectomy (770866770). LAP-BAND surgery status ([id number]). Abdominoplasty (046778038). Breast reduction (161277445). section (53810830). RSO - Right salpingo-oophorectomy (847694481). Exploratory laparotomy (211874608). Incidental appendectomy (680962352). Hernia repair (67881559).. Colorectal neoplasm risk assessment Average risk. Informed [...] may substitue PPI covered by insurance company, X90 day(s), # 90 caplet(s), Refills(s) 3, Pharmacy: [facility]/pharmacy #[id number], 162, cm, 12/30/24 8:25:00 EDT, Height/Length Dosing, 95.7, kg, 12/30/24 8:25:00 EDT, Weight Dosing Vitamin D 50,000 intl units (1.25 mg) oral capsule: 50,000 International_Unit = 1 cap(s), Oral, qWeek, X 90 day(s), # 13 cap(s), Refills(s) 3, Pharmacy: [facility]/pharmacy #[id number], 162, cm, 12/30/24 8:25:00 EDT, Height/Length Dosing, 95.7, kg, 12/30/24 8:25:00 EDT, Weight Dosing ferrous gluconate 324 mg (38 mg elemental iron) oral tablet: 324 mg = 1 tab(s), Oral, TID, # 90 tab(s), Refills(s) 3, Pharmacy: [facility]/pharmacy #[id number], 162, cm, 12/30/24 8:25:00 EDT, [...] PRN Spasm, 20 Unknown, Oral, 0 Refill(s), Refills(s)0 phentermine 37.5 mg Tab: Oral, 0 Refill(s), Refills(s) 0 reviewed. ASA Classification: Class III. . Monitoring: See anesthesia record. . Procedure The procedure was performed in the hospital. See anesthesia record for sedation given during procedure. The patient was positioned starting in the left lateral decubitus position. Endoscope type usedwas a pediatric-size. The endoscope was lubricated then [...] and erythema, Anaya score 3, although noted graduallyimproving from rectum into descending colon. 3. Couple small erosions in the transverse colon, otherwise normal colonic mucosa extending from transverse colon into cecum. Random biopsies were taken from transverse colon, left colon and rectum for histology, rule out CMV, assess for Crohn's and ulcerative colitis 4. Normal examined terminal ileum Images Procedure image (more content not included)...[facility] HospitalComment on above:Result Comment: Electronically Signed By: Nora BAGLEY, Hien Hernandez\.sha\Date and Time Signed: 01/03/25 11:54 EDTOther Comment: Missing Attachment - attachment storage system not supported [id number] Can be viewed in source system Missing Attachment - attachment storage system not supported [id number] Can be viewed in source systemMissing Attachment - attachment storage system not supported [id number] Can be viewed in source systemMissing Attachment - attachment storage system not supported [id number] Can be viewed in source systemMissing Attachment - attachment storage system not supported [id number] Can be viewed in source systemMissing Attachment - attachment storage system not supported 6445649 Can be viewed in source systemMissing Attachment - attachment storage system not supported 7716141 Can be viewed in source systemMissing Attachment - attachment storage system not supported 8111173 Can be viewed in source system Missing Attachment - attachment storage system not supported 6282659 Can be viewed in source systemMissing Attachment - attachment storage system not supported [id number] Can be viewed in source systemMissing Attachment - attachment storage system not supported 7714755 Can be viewed in source systemMissing Attachment - attachment storage system not supported [id number] Can be viewed in source systemMissing Attachment - attachment storage system not supported 2414174 Can be viewed in source systemMissing Attachment - attachment storage system not supported 4161102 Can be viewed in source systemMissing Attachment - attachment storage system not supported 9973086 Can be viewed in source system Missing Attachment - attachment storage system not supported 7141547 Can be viewed in source systemMissing Attachment - attachment storage system not supported [id number] Can be viewed in source [phone] NotePatient Education - Text Colonoscopy Care After Surgery Please read the instructions outlined below and refer to this sheet in the next few weeks. These discharge instructions provide you with general information on caring for yourself after you leave thespital. Your doctor may also give you specific [...] Heavy or fried foods are harder to digestand may make you feel nauseated (sick to [...] activities are safe for you. ??? Take gurd-dwi-yoknfgl and prescription medicines only as told by [...] a sore throat, mild stomach discomfort, bloating, andnausea. ??? If you were given a sedative [...] provider. Document Revised: 11/09/2022 Document Reviewed: 11/09/2022 [employer] Patient Education ? 2023 [employer]. Colitis Colitis is a condition in which [...] Radiation treatment. ??? Decrea (more content not included)...[facility] NoteEndoscopic Procedure Report - Other Patient: MARYCRUZ ORTIZ [...] safety measures. Endoscope type used was an adult- size, introduced orally, advanced to the 3rd portion [...] 3. Normal examined duodenum Images Procedure images: Rec_hd_video____10_837.jpg Rec_hd_video___03_323.jpg Rec_hd_video___57_175.jpg Rec_hd_video___25_414.jpg Rec_hd_video___40_976.jpg Rec1_hd_video___22_387.jpg . Post-Procedure Complications: none. Estimated blood loss: [...] follow in GI clinic in 1-2 after dischargeCherrington HospitalComment on above:Result Comment: Electronically Signed By: Nora BAGLEY, Hien Hernandez\.br\Date and Time Signed: 01/03/25 11:16 EDTOther Comment: Missing Attachment - attachment storage system not supported [id number] Can be viewed in source system Missing Attachment - attachment storage system not supported 8127536 Can be viewed in source systemMissing Attachment - attachment storage system not supported [id number] Can be viewed in source systemMissing Attachment - attachment storage system not supported 0409360 Can be viewed in source systemMissing Attachment - attachment storage system not supported 9934138 Can be viewed in source systemMissing Attachment - attachment storage system not supported [id number] Can be viewed in source [id number] NoteHistory and Physical Patient: MARYCRUZ ORTIZ Age: 49 years Sex: Female : 1975 Associated Diagnoses: None Author: Nora BAGLEY, Hien Hernandez Preoperative Information Indication for procedure and diagnosis: [...] may substitue PPI covered by insurance company, X90 day(s), # 90 caplet(s), Refills(s) 3, [id number] 162, cm, 12/30/24 8:25:00 EDT, Height/Length Dosing, 95.7, kg, 12/30/24 8:25:00 EDT, Weight Dosing Vitamin D 50,000 intl units (1.25 mg) oral capsule: 50,000 International_Unit = 1 cap(s), Oral, qWeek, X 90 day(s), # 13 cap(s), Refills(s) 3, [id number] 162, cm, 12/30/24 8:25:00 EDT, Height/Length Dosing, 95.7, kg, 12/30/24 8:25:00 EDT, Weight Dosing ferrous gluconate 324 mg (38 mg elemental iron) oral tablet: 324 mg = 1 tab(s), Oral, TID, # 90 tab(s), Refills(s) 3, [id number] 162, cm, 12/30/24 8:25:00 EDT, Height/Length [...] PRN Spasm, 20 Unknown, Oral, 0 Refill(s), Refills(s)0 phentermine 37.5 mg Tab: Oral, 0 Refill(s), [...] Problems Arthritis of spine / SNOMED CT 8619313228 / Confirmed Obesity / SNOMED CT [id number] / Confirmed Pseudotumor cerebri / SNOMED CT 757401484 / Confirmed Herniation of lumbar intervertebral disc with radiculopathy / SNOMED CT 385877684 / Confirmed Smoker / IMO 843377 / Confirmed Added secondary to documentation in Social History. Hematochezia / SNOMED CT 0889257835 / Confirmed Lower abdominal pain / SNOMED CT 45816264 / Confirmed Bilateral lower limb edema / SNOMED CT 6958152309 / Confirmed Benign essential hypertension / SNOMED CT 6645899 / Confirmed Obstructive sleep apnea syndrome / SNOMED CT 033730290 / Confirmed Obese class II / SNOMED CT 290856494199794 / Confirmed Nodule of lung / SNOMED CT 1640030328 / Confirmed Lumbosacral spondylosis without myelopathy / SNOMED CT 97713868 / Confirmed Low back pain / SNOMED CT 253562150 / Confirmed History of ulcerative colitis / SNOMED CT 147874811 / Confirmed S/P gastric sleeve procedure / SNOMED CT 3075318706 / Confirmed Hoarseness / SNOMED CT 758538800 / Confirmed Histories Past Medical History: Active Pseudotumor cerebri (741240211) Family History: Sister Primary malignant neoplasm of female breast Procedure history: Gastric sleeve (2467175635) on 07/07/2020 at 45 Years. Colonoscopy (procedure) (700045272) on 02/18/2019 at 43 Years. left L5-S1 discectomy on 08/04/2014 at 39 Years. Colonoscopy (912510094) on 07/22/2011 at 36 Years. EGD on 07/22/2011 at 36 Years. Hysterectomy (208859635). LAP-BAND surgery status ([id number]). Abdominoplasty (190096257). Breast reduction (645497640). section (85250938). RSO - Right salpingo-oophorectomy (350592426). Exploratory laparotomy (129890930). Incidental appendectomy (704978345). Hernia repair (46722204). Social History Social & Psychosocial Habits Alcohol [...] Abuse 12/30/2024 Risk As (more content not included)...[facility] Comment on above:Result Comment: Electronically Signed By: Nora BAGLEY, Hien Hernandez\.br\Date and Time Signed: 01/03/25 11:09 [id number] Telephone encounter Note* Telephone Encounter - Mata Villalba MD - 08/26/2024 2:58 PM EST [facility] [id number] Miscellaneous Notes* Telephone Encounter - Mata Villalba MD - 08/26/2024 2:58 PM EST documented in this encounterNOShriners Hospitals for [id number] History of Present illness Narrative* Mata Villalba MD - 07/10/2024 10:01 AM ESTAssociated Problem(s): Hematochezia Blood with BM for months and refer to GI. * Mata Villalba MD - 07/10/2024 10:00 AM ESTAssociated Problem(s): SELVIN (generalized anxiety disorder) (CMS/HCC) Symptoms unchanged and use xanax PRN. * Mata Villalba MD - 07/10/2024 10:00 AM ESTAssociated Problem(s): Bilateral leg edema Edema worse and resume lasix. Elevated legs PRN. Limit sodium intake. * Mata Villalba MD - 07/10/2024 10:00 AM ESTAssociated Problem(s): Benign essential hypertension (CMS/HCC) BP elevated and start losartan. Monitor PRN. Discussed DASH diet. * Mata Villalba MD - 07/10/2024 10:00 AM ESTAssociated Problem(s): Abdominal cramping Frequent cramping and try bentyl. Follow with GI. * Mata Villalba MD - 07/10/2024 9:00 AM EST Subjective Patient ID: Marycruz Ortiz is a 49 y.o. female who presents for Follow-up (Referral to gastro). C/o blood in stool for several months. Notice bright red blood with BM 2-3 times a day. Frequent cramping in lower abdomen and urgency for BM. Blood in toilet mixed with stool and with wiping. Last colonoscopy in 2019. Checking BP PRN and elevated. BP very elevated today. Edema worse and retaining fluid. Swelling in feet and ankles and worse at end of day. Prior lasix but not for years. Continuesto have stress and anxiety. Nervous and worry [...] Ambulatory referral to Gastroenterology documented in this encounterThe[place] [id number] Telephone encounter Note* Telephone Encounter - Mata Villalba MD - 05/24/2024 11:52 AM EDT [id number] Miscellaneous Notes* Telephone Encounter - Mata Villlaba MD - 05/24/2024 11:52 AM EDT documented in this [facility]09-12-2024 Telephone encounter Note* Telephone Encounter - Mata Villalba MD - 04/25/2024 9:39 PM EDT [facility] [id number] Miscellaneous Notes* Telephone Encounter - Mata Villalba MD - 04/25/2024 9:39 PM EDT documented in this [facility]05-11-2021 NoteHNO ID: [id number] Author: Jazlyn Calderon RD Service: ? Author [...] for Follow up: 6 months - call [phone] to schedule annual visit PROGRESS: Patient presents [...] December 22, 2020 TIME: 9:15 AM PAGER: [id number] Wert [facility]02-[facility]-2021 NoteHNO ID: [id number] Author: Pancho Maldonado Service: ? Author Type: [...] 32.44 kg/(m2) Total weight loss: 40+ lbs [place] weight: 66.1 kg (145 lb 10.6 oz) [...] EXERCISE: Regular exercise daily. Active at work. [employer], walking beach. 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 [facility] Future Appointments Appointment Date:09/02/2024 08:30:00 AM Scheduled Provider:Hien Melendez MD Location:[facility] Appointment Type:[facility] [place] Patient [facility] Evaluation + Plan note Future Appointments Appointment Date:09/19/2024 02:00:00 PM Scheduled Provider:Hien Melendez MD Location:[facility] Appointment Type:[facility] New Patient [facility] Evaluation + Plan note Future Appointments Appointment Date:01/03/2025 11:05:00 AM Scheduled Provider: Location:[facility] Appointment Type:Surgery FT Future Scheduled Tests Laboratory* TIBC Calculated 12/30/24 * Ferritin 12/30/24 * Iron Level 12/30/24 [facility] Evaluation + Plan note Future Appointments Appointment Date:01/03/2025 11:05:00 AM Scheduled Provider: Location:[facility] Appointment Type:Surgery FT Diagnostic Tests Pending * Hepatitis B Surface Antibody 12/30/24 * Hepatitis B Surface Antigen 12/30/24 * Quantiferon-TB Plus (Client Incubated) 12/30/24 Future Scheduled Tests Laboratory* TIBC Calculated 12/30/24 * Ferritin 12/30/24 * Iron Level 12/30/24 [facility] Evaluation + Plan note Future Appointments Appointment Date:01/03/2025 11:05:00 AM Scheduled Provider: Location:[facility] Appointment Type:Surgery FT [facility] evaluation + Plan note Future Appointments Appointment Date:03/13/2025 03:00:00 PM Scheduled Provider: Location:[facility] Appointment Type:ASU IV Other (FT) Appointment Date:04/10/2025 03:00:00 PM Scheduled Provider: Location:[facility] Appointment Type:ASU IV Other (FT) [facility] evaluation note* Diagnosis SELVIN (generalized anxiety disorder) (CMS/HCC)- Primary [...] Primary Routine [facility] Breast cancer screening by mammogram [...] Primary Routine general medical examination at a [facility] Breast cancer screening by mammogram [...] Primary Routine general medical examination at a [facility] Breast cancer screening by mammogram [...] health care facility documented in this encounter [facility]* [...] (BMI) of 37.0 to 37.9 in adult ([facility]) Annual physical exam Routine general medical examination at a health care facility Nausea Nausea alone Class 2 severe obesity due to excess calories with serious comorbidity and body mass index (BMI) of 37.0 to 37.9 in adult ([facility]) documented in this encounter [facility] HealthcareEvaluation note* Diagnosis Onset Date Resolution Status Admit Date Annual physical exam acute Octo 2024 10:03am Benign essential hypertension acute May 26, 2025 10:03am Palpitations acute May 10:03am [facility] Work Phone: Hospital course Narrative No data available for this section [facility] Hospital Discharge instructions No data available for this section [facility] Progress note No data available for this section [facility] Reason for referral (narrative)No reason for referral information availableOhiohealth [facility] Work Phone: Summary Purpose Family History No Family History [...] Found Advance Directives No Advanced Directives Records Found Advance Directive Response Recorded Date/ Time Advance Directives No July 6:38pm Chief Complaint and Reason for Visit Chief Complaint Admit Date follow up May 26, 2025 1 0:03am Reason for Visit Admit Date Annual physical exam May 26, 2025 10:03am Benign essential hypertension May 262024 10:03am Palpitations May 26, 2025 1 0:03am Chief Complaint Admit Date follow up May 26, 2025 1 0:03am R00.2 June 01, 2025 1 0:46am Reason for Visit Admit Date Adult hypothyroidism May 26, 2025 10:03am Annual physical exam May 26, 2025 10:03am Benign essential hypertension May 262024 10:03am SELVIN (generalized anxiety disorder) Octob er 2024 10:03am Palpitations May 26, 2025 1 0:03am Additional Source Comments INFORMATION SOURCE (unrecogn ized section and content) DATE CREATED AUTHOR 08/27/2019 [facility] DATE CREATED AUTHOR AUTHOR'S ORGANIZ ATION 10/03/2019 [facility] DATE CREATED AUTHOR AUTHOR'S ORGANIZ ATION 09/29/2021 [facility] DATE CREATED AUTHOR AUTHOR'S ORGANIZ ATION 06/27/2022 [facility] DATE CREATED AUTHOR AUTHOR'S ORGANIZ ATION 12/30/2024 [facility] DATE CREATED AUTHOR AUTHOR'S ORGANIZ ATION 12/31/2024 [facility] DATE CREATED AUTHOR AUTHOR'S ORGANIZ ATION 01/01/2025 [facility] DATE CREATED AUTHOR AUTHOR'S ORGANIZ ATION 01/08/2025 [facility] DATE CREATED AUTHOR AUTHOR'S ORGANIZ ATION 01/10/2025 [facility] DATE CREATED AUTHOR AUTHOR'S ORGANIZ ATION 01/11/2025 [facility] DATE CREATED AUTHOR AUTHOR'S ORGANIZ ATION 01/12/2025 [facility] DATE CREATED AUTHOR AUTHOR'S ORGANIZ ATION 01/23/2025 [facility] DATE CREATED AUTHOR AUTHOR'S ORGANIZ ATION 03/15/2025 [facility] DATE CREATED AUTHOR AUTHOR'S ORGANIZ ATION 05/18/2025 [facility] DATE CREATED AUTHOR AUTHOR'S ORGANIZ ATION 06/02/2025 [facility] Reason for Visit (unrecogniz ed section and content) Reason Onset Date Comments Med Refill 09/19/2023 Reason Comments Med Refill Reason Comments Follow-up Referral to gastro Reason Comments Follow-up Med refills Care Teams (unrecognized sec tion and content) Clay Carman Relationship Specialty Start Date End Date Mata Villalba MD PCP - General Family Medicine 04/14/23 Clay Carman Relationship Specialty Start Date End Date Mata Villalba MD [address] [place] [phone] PCP - General Family Medicine 01/10/24 Clay Carman Relationship Specialty Start Date End Date Mata Villalba MD [address] [place] [phone] PCP - General Family Medicine 01/10/24 Clay Carman Relationship Specialty Start Date End Date Mata Villalba MD [address] [place] [phone] PCP - General Family Medicine 01/10/24 Clay Carman Relationship Specialty Start Date End Date Mata Villalba MD [address] [place] [address] PCP - General Family Medicine 01/10/24 Clay Carman Relationship Specialty Start Date End Date Mata Villalba MD [address] [place] [address] PCP - General Family Medicine 01/10/24 Clay Carman Relationship Specialty Start Date End Date Mata Villalba MD [address] [place] [address] PCP - General Family Medicine 01/10/24 Clay Carman Relationship Specialty Start Date End Date Mata Villlaba MD [address] [place] [address] PCP - General Family Medicine 01/10/24 Clay Carman Relationship Specialty Start Date End Date Mata Villalba MD [address] [place] [address] PCP - General Family Medicine 01/10/24 Mata Villalba MD [address] [place] [address] PCP - [employer] 08/14/24 Clay Carman Relationship Specialty Start Date End Date Mata Villalba MD [address] [place] [address] PCP - General Family Medicine 01/10/24 Mata Villalba MD [address] [place] [address] PCP - [employer] 08/14/24 Clay Carman Relationship Specialty Start Date End Date Mata Villalba MD [address] [place] [phone] PCP - General Family Medicine 01/10/24 Clay Carman Relationship Specialty Start Date End Date Mata Villalba MD [address] [place] [address] PCP - General Family Medicine 01/10/24 Clay Carman Relationship Specialty Start Date End Date Mata Villalba MD [address] [place] [phone] PCP - General Family Medicine 01/10/24 Clay Carman Relationship Specialty Start Date End Date Mata Villalba MD [address] [place] [address] PCP - General Family Medicine 01/10/24 Clay Carman Relationship Specialty Start Date End Date Mata Villalba MD [address] [place] [phone] PCP - General Family Medicine 01/10/24 Team Status: Active Member Role Status Dates PHYSICIAN NO FAMILY Primary Care Provider Active Team Status: Inactive Member Role Status Dates PHYSICIAN NO FAMILY Primary Care Provider Active Start: May 26, 2025 End: May 26, 2025 Mata Villalba MD Attending Provider Active Star t: May 26, 2025 End: May 26, 2025 Team Status: Active Member Role/Relationship Status Dates Mata Villalba MD Primary Care Provider Active Team Status: Inactive Member Role/Relationship Status Dates PHYSICIAN NO FAMILY Primary Care Provider Active Start: May 26, 2025 End: May 26, 2025 Mata Villalba MD Attending Provider Active Star t: May 26, 2025 End: May 26, 2025 Team Status: Inactive Member Role/Relationship Status Dates Mata Villalba MD Primary Care Provider Active S tart: June 01, 2025 End: June 01, 2025 Mata Villalba MD Attending Provider Active Star t: June 01, 2025 End: June 01, 2025 Goals (unrecognized section and content) Goals may be documented in a n alternate section FOR RECORDS PERTAINING TO PATIENTS WHO ARE [...] BE BASED ON THE PRIMARY CLINICAL RECORDS. [employer] [facility]. provides no warranty or guarantee of the accuracy or completeness of information in this document.
[2025-06-02 10:16] LABS: Free T3 3.41 pg/mL (2.18-3.98); Thyroid Stimulating Hormone 3.282 uIU/mL (0.358-3.740)
== END 2025-06-02 08:52 | disposition home or self-care (01) ==
LOC: LAB 08:52
PROVIDERS: PCP Family Medicine; Visit Provider Family Medicine
DX: E03.9 Hypothyroidism, unspecified (principal)
CPT/HCPCS: 36415; 84439; 84443; 84481